=== PATIENT | male | born 1945 | race Caucasian/White ===

== ENCOUNTER 2023-03-22 12:18 | Outpatient (OUT) | payer MEDICARE, OTHER, SELFPAY ==
--- NOTE | 2023-03-22 12:35 | XR_ITS ---
The [address] [address] Patient Name: LAMBERTO MELENDEZ MRN: [id number] date: 1945 Sex: M Assigned Patient Location: RAD Current Patient Location: [facility] Accession/Order Number: [id number] Exam Date: 03/22/2023 12:30 Report Date: 03/22/2023 18:12 At the request of: ARTURO DE LEON Procedure: XR hip LT min 2V EXAM: Left hip HISTORY: . Left hip pain . COMPARISON: None. TECHNIQUE: 2 views. FINDINGS: No fracture or dislocation of left hip is noted. Joint spaces well-maintained. Radiation seed implants are noted overlying the pubic symphysis. XR/XR hip LT min 2V Impression: Negative left hip. Electronically authenticated by: SARAI SALGUERO Date: 03/22/2023 18:12
== END 2023-03-22 12:19 | disposition home or self-care (01) ==
LOC: RAD 12:24
PROVIDERS: PCP Family Medicine; Visit Provider Nurse Practitioner
DX: M25.552 Pain in left hip (principal)
CPT/HCPCS: 73502

== ENCOUNTER 2023-08-03 11:54 | Outpatient (OUT) | payer MEDICARE, OTHER, SELFPAY ==
[2023-08-03 13:27] LABS: Prostate Specific Antigen Dx <0.13 ng/mL (<=4.00)
== END 2023-08-03 11:55 | disposition home or self-care (01) ==
LOC: LAB 11:55
PROVIDERS: PCP Family Medicine; Visit Provider Urology
DX: Z85.46 Personal history of malignant neoplasm of prostate (principal)
CPT/HCPCS: 36415; 84153

== ENCOUNTER 2024-06-28 14:15 | Outpatient (OUT) | payer MEDICARE, OTHER, SELFPAY ==
--- NOTE | 2024-06-28 14:25 | XR_ITS ---
The [address] [address] Patient Name: LAMBERTO MELENDEZ MRN: [id number] date: 1945 Sex: M Assigned Patient Location: LAB Current Patient Location: Accession/Order Number: [id number] Exam Date: 06/28/2024 14:35 Report Date: 06/29/2024 06:36 At the request of: ARTURO DE LEON Procedure: XR knee RT 4V PROCEDURE: XR knee RT 4V HISTORY: Right Knee Pain COMPARISON: None. FINDINGS: BONES:Marked narrowing of the lateral joint space with [id number] articulation. Large periarticular degenerative osteophytes involving the lateral and anterior compartments. No fracture or dislocation.. SOFT TISSUES:No visible soft tissue swelling. EFFUSION:Small joint effusion. OTHER: Atherosclerotic disease. XR/XR knee RT 4V IMPRESSION: 1. Marked degenerative joint disease. No comparison studies. Electronically authenticated by: AYAN COE Date: 06/29/2024 06:36
--- OUTSIDE RECORDS SUMMARY | 2024-06-28 14:39 | XMS_ITS | CCD ---
Author Organization [facility] Care Team Providers Care Gold Leaf Roller Name Role Phone DR ELIE JACOBO Admitting Unavailable JACOBO, DR GASCA Attending Unavailable CAMPA, DR BRYSON Moncada Primary Care Unavailable JACOBO, DR GASCA Consulting Unavailable CAMPA, BRYSON Moncada Primary Care Physician Talib, Eugenia Cho Primary Care Physician Talib, ANDREW Eugenia L Attending Unavailable Talib, ANDREW Cho Attending Unavailable JACOBOElie Attending Unavailable Elie JACOBO Attending Unavailable Talib, ANDREW Cho Attending Unavailable Talib, ACCOUNTS PAYABLE REPRESENTATIVEPieter Cho Attending Unavailable Talib, ACCOUNTS PAYABLE REPRESENTATIVE Eugenia L Attending Unavailable MD Reed Hernandez Attending Unavailable Talib, ACCOUNTS PAYABLE REPRESENTATIVE Eugenia L Attending Unavailable Talib, ACCOUNTS PAYABLE REPRESENTATIVE Eugenia L Attending Unavailable Allergies Allergy Classification Reported Allergen(s) Allergy Type Date of Onset Reaction(s) Facility (2 sources) LORazepam; Translations: [Ativan] Drug Allergy 4 [facility] Repository (5 sources) LORazepam; Translations: [lorazepam] Drug Allergy 4 lethargic, Unknown [facility] Medications Current Medications Medication Drug Class(es) Dates Sig (Normalized) Sig (Original) acetaminophen 325 mg / HYDROcodone bitartrate 7.5 mg oral tablet (2 sources) Opioid Agonist Start: 08-05-2023 take 1 tablet by mouth three times daily [place] 325 mg-7.5 mg oral tablet 1 tab(s), Oral, TID, 90 tab(s), Refill(s) 0, [facility] [id number], 170, cm, 06/21/23 11:26:00 EST, Height/Length Dosing, 77, kg, 06/21/23 11:26:00 EST, Weight Dosing Start Date: 08/05/23 Status: Ordered Start: 06-10-2017 take 1 tablet by jamey th every eight hours as needed for pain [place] 325 mg-7.5 mg oral tablet 1 tab(s), Oral, q8hr as needed for pain, Refill(s) 0 Start Date: 06/10/17 Status: Ordered allopurinol 100 mg oral tablet (2 sources) Xanthine Oxidase Inhibitor Start: 06-21-2023 take 1 tablet by mouth once daily allopurinol 100 mg Tab 100 mg = 1 tab(s), Oral, Daily, # 90 tab(s), Refills(s) 3, Pharmacy: [facility] [id number], 170, cm, 06/21/23 11:26:00 EST, Height/Length Dosing, 77, kg, 06/21/23 11:26:00 EST, Weight Dosing Start Date: 06/21/23 Status: Ordered Start: 06-08-2017 take 1 tablet by jamey th three times daily allopurinol 100 mg Tab 100 mg = 1 tab(s), Oral, TID, # 60 tab(s), Refills(s) 0 Start Date: 06/08/17 Status: Ordered aspirin 81 mg oral tablet (2 sources) Platelet Aggregation Inhibitor, Nonsteroidal Anti-inflammatory Drug Start: 05-15-2019 take 1 mg by mouth once daily aspirin 81 mg oral tablet mg tab(s), Oral, Daily, Refills(s) 0 Start Date: 05/15/19 Status: Ordered folic acid 1 mg oral tablet (2 sources) Start: 06-10-2017 take 1 tablet by mouth once daily folic acid 1 mg Tab 1 mg = 1 tab(s), Oral, Daily, Refills(s) 0 Start Date: 06/10/17 Status: Ordered gabapentin 300 mg oral capsule (2 sources) Anti-epileptic Agent Start: 05-19-2023 take 1 capsule by mouth three times daily gabapentin 300 mg Cap 300 mg = 1 cap(s), Oral, TID, # 270 cap(s), Refills(s) 1, Pharmacy: [facility] [id number], 170, cm, 03/22/23 11:04:00 EDT, Height/Length Dosing, 76.9, kg, 01/06/23 11:42:00 EDT, Weight Dosing Start Date: 05/19/23 Status: Ordered Start: 06-08-2017 take 300 mg by mouth three times daily gabapentin 300 mg, Oral, TID, Refills(s) 0 Start Date: 06/08/17 Status: Ordered magnesium oxide 420 mg oral tablet (2 sources) Start: 06-08-2017 take 1 tablet by mouth three times daily magnesium oxide 420 mg oral tablet 420 mg = 1 tab(s), Oral, TID, Refills(s) 0 Start Date: 06/08/17 Status: Ordered meclizine hydrochloride 25 mg oral tablet (2 sources) Antiemetic Start: 09-16-2022 Start: 06-08-2017 take 25 mg by mouth four times daily as needed for dizziness meclizine 25 mg, Oral, QID, PRN Dizziness, Refills(s) 0 Start Date: 06/08/17 Status: Ordered melatonin 10 mg extended release oral tablet (2 sources) Start: 01-06-2023 take 10 mg by mouth once daily at bedtime melatonin 10 mg, Oral, Once a day (at bedtime), Refills(s) 0 Start Date: 01/06/23 Status: Ordered Start: 06-10-2017 take 5 mg by mouth o nce daily at bedtime melatonin 5 mg, Oral, Once a day (at bedtime), Refills(s) 0 Start Date: 06/10/17 Status: Ordered meloxicam 15 mg oral tablet (2 sources) Nonsteroidal Anti-inflammatory Drug Start: 09-16-2022 Start: 06-08-2017 take 15 mg by mouth once daily meloxicam 15 mg, Oral, Daily, Refills(s) 0 Start Date: 06/08/17 Status: Ordered metaxalone 400 mg oral tablet (1 source) Start: 06-10-2017 take 400 mg by mouth three times daily as needed for pain metaxalone 400 mg, Oral, TID, PRN as needed for pain, Refills(s) 0 Start Date: 06/10/17 Status: Ordered mupirocin 20 mg/ml topical cream (1 source) RNA Synthetase Inhibitor Antibacterial Start: 09-16-2022 mupirocin Top 2% Crm 1 danielle, Topical, TID, 15 gram, Refill(s) 0 Start Date: 09/16/22 Status: Ordered omeprazole 20 mg delayed release oral capsule (2 sources) Proton Pump Inhibitor Start: 09-16-2022 Start: 06-08-2017 take 20 mg by mouth once daily omeprazole 20 mg, Oral, Daily, Refills(s) 0 Start Date: 06/08/17 Status: Ordered pravastatin sodium 10 mg oral tablet (2 sources) HMG-CoA Reductase Inhibitor Start: 04-21-2023 take 1 tablet by mouth once daily pravastatin 10 mg Tab 10 mg = 1 tab(s), Oral, Daily, # 90 tab(s), Refills(s) 1, Pharmacy: [facility] [id number], 170, cm, 03/22/23 11:04:00 EDT, Height/Length Dosing, 76.9, kg, 01/06/23 11:42:00 EDT, Weight Dosing Start Date: 04/21/23 Status: Ordered Start: 06-08-2017 take 20 mg by mouth once daily at bedtime pravastatin 20 mg, Oral, Once a day (at bedtime), Refills(s) 0 Start Date: 06/08/17 Status: Ordered solifenacin succinate 10 mg oral tablet (1 source) Cholinergic Muscarinic Antagonist Start: 08-10-2022 End: 08-05-2023 take 1 tablet by mouth once daily Vesicare 10 mg Tab 10 mg = 1 tab(s), Oral, Daily, X 30 day(s), # 30 tab(s), Refills(s) 11, Pharmacy: [facility] [id number], 173, cm, 08/10/22 15:37:00 EST, Height/Length Dosing, 77.5, kg, 08/10/22 15:37:00 EST, Weight Dosing Start Date: 08/10/22 Stop Date: 08/05/23 Status: Ordered tamsulosin hydrochloride 0.4 mg oral capsule (2 sources) alpha-Adrenergic Melina Start: 09-16-2022 take 1 capsule by mouth once daily tamsulosin 0.4 mg Cap 0.4 mg = 1 cap(s), Oral, Daily, # 90 cap(s), Refills(s) 0 Start Date: 09/16/22 Status: Ordered Start: 06-10-2017 take 1 capsule by [facility] once daily at bedtime tamsulosin 0.4 mg Cap 0.4 mg = 1 cap(s), Oral, Once a day (at bedtime), Refills(s) 0 Start Date: 06/10/17 Status: Ordered tiZANidine 4 mg oral tablet (1 source) Central alpha-2 Adrenergic Agonist Start: 07-20-2023 tiZANidine 4 mg Tab 4 mg = 1 tab(s), Oral, q8hr, 60 tab(s), # 60 tab(s), Refills(s) 1, Pharmacy: [facility] [id number], 170, cm, 06/21/23 11:26:00 EST, Height/Length Dosing, 77, kg, 06/21/23 11:26:00 EST, Weight Dosing Start Date: 07/20/23 Status: Ordered verapamil hydrochloride 240 mg extended release oral tablet (2 sources) Calcium Channel Melina Start: 05-19-2023 take 1 tablet by mouth once daily verapamil 240 mg ER Tab 240 mg = 1 tab(s), Oral, Daily, # 90 tab(s), Refills(s) 0, Pharmacy: [facility] [id number], 170, cm, 03/22/23 11:04:00 EDT, Height/Length Dosing, 76.9, kg, 01/06/23 11:42:00 EDT, Weight Dosing Start Date: 05/19/23 Status: Ordered Start: 06-08-2017 take 240 mg by mouth once daily at bedtime verapamil 240 mg, Oral, Once a day (at bedtime), Refills(s) 0 Start Date: 06/08/17 Status: Ordered vibegron 75 MG Oral Tablet [Gemtesa] (1 source) Start: 08-13-2023 take 1 tablet by mouth once daily Gemtesa 75 mg oral tablet 75 mg = 1 tab(s), Oral, Daily, # 30 tab(s), Refills(s) 11, Pharmacy: [facility] [id number], 173, cm, 08/13/23 11:43:00 EST, Height/Length Dosing, 77, kg, 08/13/23 11:43:00 EST, Weight Dosing Start Date: 08/13/23 Status: Ordered vitamin B12 (2 sources) Vitamin B12 Start: 06-10-2017 Vitamin B12 1, 000 microgram, Oral, Daily, Take 1 tab Wednesday, Wednesday, Refills(s) 0 Start Date: 06/10/17 Status: Ordered Start: 06-10-2017 Vitamin B12 1, 000 microgram, Oral, Daily, Refills(s) 0 Start Date: 06/10/17 Status: Ordered Completed/Discontinued Medications Medication Drug Class(es) Dates Sig (Normalized) Sig (Original) cholecalciferol 0.025 mg oral capsule (2 sources) Vitamin D Start: 06-08-2017 take 1 capsule by mouth once daily cholecalciferol 1000 intl units oral capsule 1,000 International_Unit = 1 cap(s), Oral, Daily, Refills(s) 0 Start Date: 06/08/17 Status: Ordered losartan potassium 100 mg oral tablet (2 sources) Angiotensin 2 Receptor Melina Start: 09-16-2022 Start: 06-08-2017 take 50 mg by mouth once daily losartan 50 mg, Oral, Daily, Refills(s) 0 Start Date: 06/08/17 Status: Ordered methotrexate 2.5 mg oral tab let (2 sources) Folate Analog Metabolic Inhibitor Start: 09-16-2022 Start: 06-08-2017 take 2.5 mg by mouth every week methotrexate 2.5 mg, Oral, qWeek, Refills(s) 0 Start Date: 06/08/17 Status: Ordered Problems Active Problems Problem Classification Problem Date Documented Date Episodic/Chronic Cancer of prostate (2 sources) Malignant tumor of prostate 06-10-2017 Chronic Cancer of prostate (4 sources) Personal history of malignant neoplasm of prostate; Translations: [History of malignant neoplasm of prostate] Onset: 08-10-2022 Episodic Disorders of lipid metabolism (1 source) Mixed hyperlipidemia Onset: 09-16-2022 09-16-2022 Chronic Esophageal disorders (1 source) Gastroesophageal reflux disease without esophagitis Onset: 09-16-2022 09-16-2022 Chronic Genitourinary symptoms and ill-defined conditions (2 sources) Urge incontinence; Translations: [Urge incontinence of urine] Onset: 08-13-2023 Chronic Genitourinary symptoms and ill-defined conditions (4 sources) Increased frequency of urination; Translations: [Nocturia] 05-15-2019 Episodic Gout and other crystal arthropathies (1 source) Chronic gout without tophus Onset: 09-16-2022 09-16-2022 Chronic Hyperplasia of prostate (4 sources) Benign prostatic hypertrophy with outflow obstruction; Translations: [Benign prostatic hyperplasia with lower urinary tract symptoms] Onset: 08-10-2022 Chronic Other connective tissue disease (2 sources) H/O: osteoarthritis 06-10-2017 Episodic Other connective tissue disease (2 sources) H/O: rheumatoid arthritis 06-10-2017 Episodic Other nervous system disorders (2 sources) Post-surgery back pain 06-10-2017 Episodic Other non-traumatic joint disorders (1 source) Hip pain 03-22-2023 Episodic Other nutritional; endocrine; and metabolic disorders (1 source) Overweight 10-21-2022 Episodic Other nutritional; endocrine; and metabolic disorders (1 source) Overweight in adulthood with body mass index of 25 or more but less than 30 10-21-2022 Episodic Rheumatoid arthritis and related disease (4 sources) Ankylosing spondylitis; Translations: [Ankylosing spondylitis of multiple sites in spine] Onset: 06-10-2017 06-10-2017 Chronic Spondylosis; intervertebral disc disorders; other back problems (2 sources) Lumbosacral spondylosis without myelopathy 06-10-2017 Chronic Substance-related disorders (2 sources) Smoker 09-26-2019 Chronic Comment on above: Added secondary to d ocumentation in Social History. Transient cerebral ischemia (2 sources) Transient cerebral ischemia 06-10-2017 Chronic Past or Other Problems Problem Classification Problem Date Documented Date Episodic/Chronic Other circulatory disease (1 source) History of cerebrovascular disease Onset: 09-16-2022 09-16-2022 Episodic Unclassified (2 sources) Local anesthetic sacral epidural block 06-10-2017 Unclassified (1 source) Patient encounter status 01-06-2023 Results Test Name Value Interpretation Reference Range Facility Ambulatory Visit Summaryon 0 04-04-2024 Ambulatory Visit Summary Ambulatory Visit Summary FRANK MENDES :1945 Visit Date:04/04/2024 Ambulatory Visit Instructions Your Diagnosis Ankylosing spondylitis of multiple sites in spine Spondylosis of lumbar region without myelopathy or radiculopathy Former smoker BMI 28.0-28.9,adult Excess weight Your Care Team Attending Physician - Eugenia Beach Primary Care Physician - Eugenia Beach This Is Your Medications List acetaminophen-hydroco done ([place] 325 mg-7.5 mg oral tablet) allopurinol (allopurinol 100 mg Tab) aspirin (aspirin 81 mg oral tablet) cholecalciferol (cholecalciferol 1000 intl units oral capsule) cyanocobalamin (Vitamin B12) folic acid (folic acid 1 mg Tab) gabapentin (gabapentin 300 mg Cap) losartan (losartan 100 mg Tab) magnesium oxide meclizine (meclizine 25 mg Tab) melatonin meloxicam (meloxicam 15 mg Tab) methotrexate (methotrexate 2.5 mg Tab) omeprazole (omeprazole 20 mg Cap-DR) pravastatin (pravastatin 10 mg Tab) tamsulosin (tamsulosin 0.4 mg Cap) tizanidine (tiZANidine 4 mg Tab) verapamil (verapamil 240 mg ER Tab) Procedures Performed Caudal epidural (01/23/2020), Radiofrequency ablation of medial branch of lumbar nerve using fluoroscopic guidance (11/28/2019), Injection of sacroiliac joint using fluoroscopic guidance (07/25/2019), Injection of hip using fluoroscopic guidance (06/19/2019), Radiofrequency ablation of medial branch of lumbar nerve using fluoroscopic guidance (11/15/2018), Epidural injection of lumbar spine using fluoroscopic guidance (09/12/2018), Cataract fragments in the eye post cataract surgery (07/26/2018), Small bowel resection (06/24/2018), Right hip injection (06/13/2018), bowel resection (04/24/2018), Radiofrequency ablation of medial branch of lumbar nerve using fluoroscopic guidance (04/18/2018), Left Ischial Bursa Injection (07/26/2017), Radiofrequency ablation of medial branch of lumbar nerve using fluoroscopic guidance (06/14/2017), Brachytherapy (05/24/2014), Transrectal biopsy of prostate using ultrasound (US) guidance (02/02/2014), achilles tendon repair, Achilles tendon repair, Appendectomy, Arthroscope, cataract surgery, Caudal epidural, Laminectomy, lumbar facet medial branch block, retina repair, right wirist, rotator cuff repair, Rotator cuff repair. Discharge Vitals Temperature (Temporal Artery) 36.6 ?C Heart Rate (Peripheral) 96 Respiratory Rate 18 Blood Pressure 128/82 Height 168.0 cm Height 66 in Weight 81.2 kg Weight 178.64 lb BMI 28.77 What to do next Scheduled Follow-Up Appointments Wednesday 1:40 PM EST With: Eugenia Beach Where: [address] [id number]- Wednesday 11:30 AM EST With: Elie JACOBO MD Where: [facility] [address] [place] [address]- Wednesday 11:00 AM EDT With: Where: [address] [address]- Medications What How Much When Instructions New pravastatin (pravastatin 10 mg Tab) 1 Tablets By Mouth Every day Refills: [address] [facility] [id number] Unchanged acetaminophen-hydroco done ([place] 325 mg-7.5 mg oral tablet) 1 Tablets By Mouth 3 times a day 30 day supply Unchanged allopurinol (allopurinol 100 mg Tab) 1 Tablets By Mouth Every day Unchanged aspirin (aspirin 81 mg oral tablet) By Mouth Every day Unchanged cholecalciferol (cholecalciferol 1000 intl units oral capsule) 1 Capsules By Mouth Every day Unchanged cyanocobalamin (Vitamin B12) 1,000 Microgram By Mouth Every day Take 1 tab Wednesday, Wednesday Unchanged folic acid (folic acid 1 mg Tab) 1 Tablets By Mouth Every day Unchanged gabapentin (gabapentin 300 mg Cap) 1 Capsules By Mouth 3 times a day Unchanged losartan (losartan 100 mg Tab) 100 Unknown, BY MOUTH, 2 Refill(s) Unchanged magnesium oxide By Mouth one tab once per day per pt Unchanged meclizine (meclizine 25 mg Tab) 25 Unknown, BY MOUTH Unchanged melatonin 10 Milligram By Mouth Once a day (at bedtime) Unchanged meloxicam (meloxicam 15 mg Tab) 15 Unknown, BY MOUTH, 3 Refill(s) Unchanged methotrexate (methotrexate 2.5 mg Tab) 25 Unknown, BY MOUTH, 2 Refill(s) Take every Wednesday Unchanged omeprazole (omeprazole 20 mg Cap-DR) 20 Unknown, BY MOUTH, 3 Refill(s) Unchanged tamsulosin (tamsulosin 0.4 mg Cap) 1 Capsules By Mouth Every day Unchanged tizanidine (tiZANidine 4 mg Tab) 1 Tablets By Mouth Every 8 hours Duration: 90 Days 60 tab(s) Unchanged verapamil (verapamil 240 mg ER Tab) 1 Tablets By Mouth Every day Duration: 90 Days Pharmacy Information [facility] [id number]: [address] [place], [place] [id number] [phone] Allergies Ativan (lethargic) LORazepam (Unknown) Problems Ongoing - Any problem that you a (more content not included)... Normal [facility] Family Medicine Office/Clini c Noteon 04-04-2024 Family Medicine Office/Clinic Note Family Medicine Office/Clinic Note HPI Staff Frank is a 78 year old female presenting with 3 month med check for pain medication-medication agreement up to date Needs refills on Pravastatin 10 mg Pain today is 4-5 History of Present Illness pt presents today for 3 month med check. medication agreement up to date. will need updated in June Review of Systems PHQ Score Initial Depression Screen Score: 0 SCORE Physical Exam Vitals & Measurements T: 36.6 ?C(Temporal Artery) HR: 96(Peripheral) RR: 18 BP: 128/82 SpO2: 99% HT: 66 in HT: 168.0 cm WT: 81.2 kg WT: 178.64 lb BMI: 28.77 General: alert, no acute distress ENMT: oral mucosa moist, no pharyngeal erythema or exudate Cardiovascular: regular rate and rhythm, normal peripheral perfusion Respiratory: Lungs CTA, respirations non labored Extremities: no deformity, no trauma Neurological: oriented x 4, LOC appropriate for age, CN II-XII intact, motor strength equal & normal bilaterally, speech normal Assessment/Plan 1. Ankylosing spondylitis of multiple sites in spine (M45.0: Ankylosing spondylitis of multiple sites in spine) pt is doing well. managing pain as well as he can. takes his time doing physical activities like mowing grass. will do drug screen and update medication agreement at next visit. will need refill on pravastatin. 2. Spondylosis of lumbar region without myelopathy or radiculopathy (M47.816: Spondylosis without myelopathy or radiculopathy, lumbar region) see above 3. Former smoker (Z87.891: Personal history of nicotine dependence) continue not smoking 4. BMI 28.0-28.9,adult (Z68.28: Body mass index [BMI] 28.0-28.9, adult) BMI education given 5. Excess weight (E66.3: Overweight) see above Orders: pravastatin, 10 mg = 1 tab(s), Oral, Daily, # 90 tab(s), Refills(s) 3, [facility] [id number], 168, cm, 04/04/24 10:22:00 EDT, Height/Length Dosing, 81.2, kg, 04/04/24 10:22:00 EDT, Weight Dosing pravastatin, 10 mg = 1 tab(s), Oral, Daily, # 90 tab(s), Refills(s) 1, [facility] [id number], 173, cm, 09/20/23 10:33:00 EDT, Height/Length Dosing, 80, kg, 09/20/23 10:33:00 EDT, Weight Dosing Follow-up No qualifying data available Problem List/Past Medical History Ongoing Ankylosing spondylitis of multiple sites in spine BMI 29.0-29.9,adult 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 Failed back syndrome GERD without esophagitis H/O: osteoarthritis History of prostate cancer Hx of TIA (transient ischemic attack) and stroke Hypertension Left hip pain Mixed hyperlipidemia Nocturia Over weight Spondylosis of lumbar region without myelopathy or radiculopathy Urge incontinence Urinary frequency Historical Annual visit for general adult medical examination with abnormal findings - Ankylosing spondylitis BMI 26.0-26.9,adult Cancer of prostate Caudal epidural H/O: rheumatoid arthritis Smoker TIA Procedure/Surgical History Caudal epidural (01/23/2020), Radiofrequency ablation of medial branch of lumbar nerve using fluoroscopic guidance (11/28/2019), Injection of sacroiliac joint using fluoroscopic guidance (07/25/2019), Injection of hip using fluoroscopic guidance (06/19/2019), Radiofrequency ablation of medial branch of lumbar nerve using fluoroscopic guidance (11/15/2018), Epidural injection of lumbar spine using fluoroscopic guidance (09/12/2018), Cataract fragments in the eye post cataract surgery (07/26/2018), Small bowel resection (06/24/2018), Right hip injection (06/13/2018), bowel resection (04/24/2018), Radiofrequency ablation of medial branch of lumbar nerve using fluoroscopic guidance (04/18/2018), Left Ischial Bursa Injection (07/26/2017), Radiofrequency ablation of medial branch of lumbar nerve using fluoroscopic guidance (06/14/2017), Brachytherapy (05/24/2014), Transrectal biopsy of prostate using ultrasound (US) guidance (02/02/2014), achilles tendon repair, Achilles tendon repair, Appendectomy, Arthroscope, cataract surgery, Caudal epidural, Laminectomy, lumbar facet medial branch block, retina repair, right wirist, rotator cuff repair, Rotator cuff repair. Medications allopurinol 100 mg Tab, 100 mg= 1 tab(s), Oral, Daily, 3 refills aspirin 81 mg oral tablet, Oral, Daily cholecalciferol 1000 intl units oral capsule, 1000 International_Unit= 1 cap(s), Oral, Daily folic acid 1 mg Tab, 1 mg= 1 tab(s), Oral, Daily gabapentin 300 mg Cap, 300 mg= 1 cap(s), Oral, TID, 1 refills losartan 100 mg Tab magnesium oxide, Oral meclizine 25 mg Tab melatonin, 10 mg, Oral, Once a day (at bedtime) meloxicam 15 mg Tab methotrexate 2.5 mg Tab [place] 325 mg-7.5 mg oral tablet, 1 tab(s), Oral, TID omeprazole 20 mg Cap-DR pravastatin 10 mg Tab, 10 mg= 1 tab(s), Oral, Daily, 3 refills tamsulosin 0.4 mg Cap, 0.4 mg= 1 cap(s), Oral, Daily tiZANidine 4 mg Tab, 4 mg= 1 tab(s), Oral, q8hr, 3 refills verapamil 240 mg ER Tab, 240 mg= 1 tab(s), Oral, Daily, 3 refills Vitamin B (more content not included)... Normal [facility] Comment on above: Result Comment: Elec tronically Signed By: Eugenia Beach\.christianne\Date and Time Signed: 04/04/24 11:47 EDT Ambulatory Visit Summaryon 0 01-04-2024 Ambulatory Visit Summary FRANK MENDES :1945 Visit Date:01/04/2024 Ambulatory Visit Instructions Your Diagnosis Hypertension Ankylosing spondylitis of multiple sites in spine Mixed hyperlipidemia BMI 29.0-29.9,adult Non-smoker Your Care Team Attending Physician - Eugenia Beach Primary Care Physician - Eugenia Beach This Is Your Medications List acetaminophen-hydroco done ([place] 325 mg-7.5 mg oral tablet) allopurinol (allopurinol 100 mg Tab) aspirin (aspirin 81 mg oral tablet) cholecalciferol (cholecalciferol 1000 intl units oral capsule) cyanocobalamin (Vitamin B12) folic acid (folic acid 1 mg Tab) gabapentin (gabapentin 300 mg Cap) losartan (losartan 100 mg Tab) magnesium oxide meclizine (meclizine 25 mg Tab) melatonin meloxicam (meloxicam 15 mg Tab) methotrexate (methotrexate 2.5 mg Tab) omeprazole (omeprazole 20 mg Cap-DR) pravastatin (pravastatin 10 mg Tab) tamsulosin (tamsulosin 0.4 mg Cap) tizanidine (tiZANidine 4 mg Tab) verapamil (verapamil 240 mg ER Tab) Procedures Performed Caudal epidural (01/23/2020), Radiofrequency ablation of medial branch of lumbar nerve using fluoroscopic guidance (11/28/2019), Injection of sacroiliac joint using fluoroscopic guidance (07/25/2019), Injection of hip using fluoroscopic guidance (06/19/2019), Radiofrequency ablation of medial branch of lumbar nerve using fluoroscopic guidance (11/15/2018), Epidural injection of lumbar spine using fluoroscopic guidance (09/12/2018), Cataract fragments in the eye post cataract surgery (07/26/2018), Small bowel resection (06/24/2018), Right hip injection (06/13/2018), bowel resection (04/24/2018), Radiofrequency ablation of medial branch of lumbar nerve using fluoroscopic guidance (04/18/2018), Left Ischial Bursa Injection (07/26/2017), Radiofrequency ablation of medial branch of lumbar nerve using fluoroscopic guidance (06/14/2017), Brachytherapy (05/24/2014), Transrectal biopsy of prostate using ultrasound (US) guidance (02/02/2014), achilles tendon repair, Achilles tendon repair, Appendectomy, Arthroscope, cataract surgery, Caudal epidural, Laminectomy, lumbar facet medial branch block, retina repair, right wirist, rotator cuff repair, Rotator cuff repair. What to do next Scheduled Follow-Up Appointments Wednesday 10:20 AM EDT With: Eugenia Beach Where: [facility] Invalid Interpretation Code [address] [place] [address] [place] [address]- \.br\ Wednesday 11:00 AM EDT \.br\ With:\.br\ Where: [facility] Office/Clini c Noteon 01-04-2024 Family Medicine Office/Clinic Note Chief Complaint Medicare Wellness Visit Subsequent Review of Systems PHQ Score Initial Depression Screen Score: 0 SCORE Physical Exam Vitals & Measurements HR: 90(Peripheral) RR: 16 BP: 128/78 SpO2: 95% HT: 168 cm HT: 66 in WT: 82.3 kg WT: 181.06 lb BMI: 29.16 Assessment/Plan 1. Annual visit for general adult medical examination without abnormal findings (Z00.00: Encounter for general adult medical examination without abnormal findings) Discussed all the current AHRQ USPSTF?s recommendations for preventative services and all current CDC recommended immunizations, relevant risk recommendations and the following patient brochures were given. Reviewed Medicare Prevention Services checklist. CDC-Falls Prevention and home safety screening reviewed. Patient denies any falls in last 12 months, voices no worry about falling. Exhibits no problems with sitting, standing or ambulation. Patient aware with keeping walk way area free of clutter to prevent tripping and/or falling. [place] Advance Directives reviewed. Patient states he does not have Advance Directives, education given. Offered educational materials, patient states he does not think he would fill it out but will think about it. Encouraged to bring into office for scanning into chart if he does decide to fill them out. Patient denies any problems with ADL?s and Instrumental ADL?s. Cognitive screening completed with memory and clock face drawing. No deficits noted. Immunization record reviewed, discussed Shingrix vaccine with educational handout and availability. COVID vaccines have not been administered. Allergies and medications reviewed and up to date. No concerns with taking medication as prescribed. Reviewed OTC medications, medication list up to date. Blood tests were reviewed: Patient states he recently had labs done at the [facility] in [place]. Records requested. No concerns with bowel/ bladder. Colonoscopy: Aged out. Reviewed pain symptoms : chronic back, hips, leg pain, rates a 3 on 1-10 scale. Taking [place], Tylenol and Lidocaine patches as needed, states these are effective. Follows with Rheumatology at the [facility] in [place], [place]. Reviewed all outside providers that patient follows. Last visit summary notes available in chart and/or have been requested. Patient declines any signs or symptoms of depression at this time. 8 minutes spent with screening and documentation. PHQ2 screening score 0. Patient denies alcohol use, denies concerns. 8 minutes spent with screening and documentation. Audit score 0. Follow up scheduled with PCP, today. AWV has been scheduled, 01/01/25. 2. Ankylosing spondylitis of multiple sites in spine (M45.0: Ankylosing spondylitis of multiple sites in spine) Patient sees Rheumatology with the CT clinic in [place], [place] every 6 months. Visit summary notes requested. 3. BPH with urinary obstruction (N40.1: Benign prostatic hyperplasia with lower urinary tract symptoms) Patient denies any abnormal difficulty with stream, stopping, starting or dribbling. No complaints of pain, blood in urine or urination retention issues. Follows with Urology, Dr. Jacobo, yearly. Last office visit 08/13/23. 4. Hypertension (I10: Essential (primary) hypertension) Patient taking medications daily as directed, BP monitored at home with <140/90 results. Patient does voice understanding with signs and symptoms to monitor for. HTN stoplight handout reviewed with importance of keeping BP <140/90 to prevent increased cardiovascular risks. DASH dietary handout reviewed with importance to lower salt intake, eat more chicken, fish and lean white meats. Follow up with PCP. 5. GERD without esophagitis (K21.9: Gastro-esophageal reflux disease without esophagitis) Patient denies any concerns. Takes Omeprazole daily as directed, states effective. Encouraged to avoid spicy or acidic foods, to remain upright 30 min. after eating and avoid eating late at night. Will continue to follow up with PCP as needed. 6. Mixed hyperlipidemia (E78.2: Mixed hyperlipidemia) Patient encouraged to eat a diet that is low in saturated fats. Stressed importance of losing weight as being overweight does produce more lipids. Monitor alcohol intake and avoid smoking. Risks may also increase with a family history of hyperlipidemia. Patient voices understanding with healthy dietary choices to reduce risk factors associated with CVA. Taking statin medication daily. Will continue to follow up with labs as directed. 7. Over weight (E66.3: Overweight) A combination of diet and exercise can help you lose weight. Discussed weight loss benefits to dietary management and overall health with increased cardiovascular risks associated with waist measurement female>35 men>40. Reminded of importance to work on lowering current body weight with healthy dietary intake choices and portion control. Reviewed goals and patients readiness with needing to make a lifestyle change. Will work on increasing daily activity to prevent further weight (more content not included)... Normal [facility] Comment on above: Result Comment: Elec tronically Signed By: Eugenia Beach\.br\Date and Time Signed: 01/04/24 12:59 EDT\.br\Electronically Co-Signed By: Jil Zimmerman LPN\.br\Date and Time Co-Signed: 01/04/24 12:06 EDT Family Medicine Office/Clinic Note HPI Staff Frank is a 78 year old male presenting follow up from medication wellness Pt updated medication agreement acetaminophen-hydroco done and does need refill History of Present Illness pt presents for 3 month med check. had AMW visit today as well Physical Exam General: alert, no acute distress ENMT: oral mucosa moist, no pharyngeal erythema or exudate Cardiovascular: regular rate and rhythm, normal peripheral perfusion Respiratory: Lungs CTA, respirations non labored Extremities: no deformity, no trauma Neurological: oriented x 4, LOC appropriate for age, CN II-XII intact, motor strength equal & normal bilaterally, speech normal uses can for ambulation Assessment/Plan 1. Hypertension (I10: Essential (primary) hypertension) meds refilled. bP at goal today 2. Ankylosing spondylitis of multiple sites in spine (M45.0: Ankylosing spondylitis of multiple sites in spine) medication agreement updated today 3. Mixed hyperlipidemia (E78.2: Mixed hyperlipidemia) pt had labs at [facility] will obtain those for his record 4. BMI 29.0-29.9,adult (Z68.29: Body mass index [BMI] 29.0-29.9, adult) BMI education given 5. Non-smoker (Z78.9: Other specified health status) continue not smoking Orders: tizanidine, 4 mg = 1 tab(s), Oral, q8hr, 60 tab(s), # 60 tab(s), Refills(s) 3, Pharmacy: [facility] [id number], 173, cm, 09/20/23 10:33:00 EDT, Height/Length Dosing, 80, kg, 09/20/23 10:33:00 EDT, Weight Dosing tizanidine, 4 mg = 1 tab(s), Oral, q8hr, 60 tab(s), X 90 day(s), # 270 tab(s), Refills(s) 3, Pharmacy: [facility] [id number], 168, cm, 01/04/24 11:11:00 EDT, Height/Length Dosing, 82.3, kg, 01/04/24 11:11:00 EDT, Weight Dosing verapamil, 240 mg = 1 tab(s), Oral, Daily, X 90 day(s), # 90 tab(s), Refills(s) 3, Pharmacy: [facility] [id number], 168, cm, 01/04/24 11:11:00 EDT, Height/Length Dosing, 82.3, kg, 01/04/24 11:11:00 EDT, Weight Dosing verapamil, 240 mg = 1 tab(s), Oral, Daily, # 90 tab(s), Refills(s) 1, Pharmacy: [facility] [id number], 173, cm, 08/13/23 11:43:00 EST, Height/Length Dosing, 77, kg, 08/13/23 11:43:00 EST, Weight Dosing Follow-up No qualifying data available Problem List/Past Medical History Ongoing Ankylosing spondylitis of multiple sites in spine BMI 26.0-26.9,adult 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 Failed back syndrome GERD without esophagitis H/O: osteoarthritis History of prostate cancer Hx of TIA (transient ischemic attack) and stroke Hypertension Left hip pain Mixed hyperlipidemia Nocturia Over weight Spondylosis of lumbar region without myelopathy or radiculopathy Urge incontinence Urinary frequency Historical Annual visit for general adult medical examination with abnormal findings - Ankylosing spondylitis Cancer of prostate Caudal epidural H/O: rheumatoid arthritis Smoker TIA Procedure/Surgical History Caudal epidural (01/23/2020), Radiofrequency ablation of medial branch of lumbar nerve using fluoroscopic guidance (11/28/2019), Injection of sacroiliac joint using fluoroscopic guidance (07/25/2019), Injection of hip using fluoroscopic guidance (06/19/2019), Radiofrequency ablation of medial branch of lumbar nerve using fluoroscopic guidance (11/15/2018), Epidural injection of lumbar spine using fluoroscopic guidance (09/12/2018), Cataract fragments in the eye post cataract surgery (07/26/2018), Small bowel resection (06/24/2018), Right hip injection (06/13/2018), bowel resection (04/24/2018), Radiofrequency ablation of medial branch of lumbar nerve using fluoroscopic guidance (04/18/2018), Left Ischial Bursa Injection (07/26/2017), Radiofrequency ablation of medial branch of lumbar nerve using fluoroscopic guidance (06/14/2017), Brachytherapy (05/24/2014), Transrectal biopsy of prostate using ultrasound (US) guidance (02/02/2014), achilles tendon repair, Achilles tendon repair, Appendectomy, Arthroscope, cataract surgery, Caudal epidural, Laminectomy, lumbar facet medial branch block, retina repair, right wirist, rotator cuff repair, Rotator cuff repair. Medications allopurinol 100 mg Tab, 100 mg= 1 tab(s), Oral, Daily, 3 refills aspirin 81 mg oral tablet, Oral, Daily cholecalciferol 1000 intl units oral capsule, 1000 International_Unit= 1 cap(s), Oral, Daily folic acid 1 mg Tab, 1 mg= 1 tab(s), Oral, Daily gabapentin 300 mg Cap, 300 mg= 1 cap(s), Oral, TID, 1 refills losartan 100 mg Tab magnesium oxide, Oral meclizine 25 mg Tab melatonin, 10 mg, Oral, Once a day (at bedtime) meloxicam 15 mg Tab methotrexate 2.5 mg Tab [place]chorage 325 mg-7.5 mg oral tablet, 1 tab(s), Oral, TID omeprazole 20 mg Cap-DR pravastatin 10 mg Tab, 10 mg= 1 tab(s), Oral, Daily, 1 refills tamsulosin 0.4 mg Cap, 0.4 mg= 1 cap(s), Oral, Daily tiZANidine 4 mg Tab, 4 mg= 1 tab(s), Oral, q8hr, 3 refills verapamil 240 mg ER Tab, 240 mg= 1 tab(s), Oral, Daily, 3 refills Vitamin B12, 1000 mcg, Oral, Daily Allergies Ativan (lethargic) LORazep (more content not included)... Normal [facility] Comment on above: Result Comment: Elec tronically Signed By: Eugenia Beach\.br\Date and Time Signed: 01/04/24 11:42 EDT Medication Consenton 024 Medication Consent [id number] .00TIFF Normal [facility] Patient Educationon 01-04-20 24 Patient Education Caregiving Advance Directive Advance directives are legal documents that allow you to make decisions about your health care and medical treatment in case you become unable to communicate for yourself. Advance directives let your wishes be known to family, friends, and health care providers. Discussing and writing advance directives should happen over time rather than all at once. Advance directives can be changed and updated at any time. There are different types of advance directives, such as: ? Medical power of staff attorney. ? Living will. ? Do not resuscitate (DNR) order or do not attempt resuscitation (DNAR) order. Health care proxy and medical power of staff attorney A health care proxy is also called a health care agent. This person is appointed to make medical decisions for you when you are unable to make decisions for yourself. Generally, people ask a trusted friend or family member to act as their proxy and represent their preferences. Make sure you have an agreement with your trusted person to act as your proxy. A proxy may have to make a medical decision on your behalf if your wishes are not known. A medical power of staff attorney, also called a durable power of staff attorney for health care, is a legal document that names your health care proxy. Depending on the laws in your state, the document may need to be: ? Signed. ? Notarized. ? Dated. ? Copied. ? Witnessed. ? Incorporated into your medical record. You may also want to appoint a trusted person to manage your money in the event you are unable to do so. This is called a durable power of staff attorney for finances. It is a separate legal document from the durable power of staff attorney for health care. You may choose your health care proxy or someone different to act as your agent in money matters. If you do not appoint a proxy, or there is a concern that the proxy is not acting in your best interest, a court may appoint a guardian to act on your behalf. Living will A living will is a set of instructions that state your wishes about medical care when you cannot express them yourself. Health care providers should keep a copy of your living will in your medical record. You may want to give a copy to family members or friends. To alert caregivers in case of an emergency, you can place a card in your wallet to let them know that you have a living will and where they can find it. A living will is used if you become: ? Terminally ill. ? Disabled. ? Unable to communicate or make decisions. The following decisions should be included in your living will: ? To use or not to use life support equipment, such as dialysis machines and breathing machines (ventilators). ? Whether you want a DNR or DNAR order. This tells health care providers not to use cardiopulmonary resuscitation (CPR) if breathing or heartbeat stops. ? To use or not to use tube feeding. ? To be given or not to be given food and fluids. ? Whether you want comfort (palliative) care when the goal becomes comfort rather than a cure. ? Whether you want to donate your organs and tissues. A living will does not give instructions for distributing your money and property if you should pass away. DNR or DNAR A DNR or DNAR order is a request not to have CPR in the event that your heart stops beating or you stop breathing. If a DNR or DNAR order has not been made and shared, a health care provider will try to help any patient whose heart has stopped or who has stopped breathing. If you plan to have surgery, talk with your health care provider about how your DNR or DNAR order will be followed if problems occur. What if I do not have an advance directive? Some states assign family decision makers to act on your behalf if you do not have an advance directive. Each state has its own laws about advance directives. You may want to check with your health care provider, staff attorney, or state construction sales representative about the laws in your state. Summary ? Advance directives are legal documents that allow you to make decisions about your health care and medical treatment in case you become unable to communicate for yourself. ? The process of discussing and writing advance directives should happen over time. You can change and update advance directives at any time. ? Advance directives may include a medical power of staff attorney, a living will, and a DNR or DNAR order. This information is not intended to replace advice given to you by your health care provider. Make sure you discuss any questions you have with your health care provider. Document Revised: 04/01/2021 Document Reviewed: 04/01/2021 [employer] Patient Education ? 2022 [employer]. Nutrition DASH Eating Plan DASH stands for Dietary Approaches to Stop Hypertension. The DASH eating plan is a healthy eating plan that has been shown to: ? Reduce high blood pressure (hypertension). ? Reduce your risk for type 2 diabetes, heart disease, and stroke. ? Help with weight loss. (more content not included)... Normal [facility] Screenson 01-04-2024 Screens [id number] .00TIFF Normal [facility] Family Medicine Office/Clini c Noteon 09-20-2023 Family Medicine Office/Clinic Note HPI Staff Frank is a 78 year old male presenting for 3 month follow up Pain characteristics: Pain location: Ankylosing spondylosis lower back, left hip and right knee Intensity:8/10 when working Medication used:Hydrocodone Opioids prescribed: Hydrocodone Medication agreement UTD: signed 06/21/23 Would like you to look on right eye noticed 1 month ago a bump on eye. Intermittent burning and watering more does have some shooting pain. Does have appointment with Dr Gould in november. needs refills on Tizanidine, pravastatin History of Present Illness pt presents today for 3 month follow up on pain medication. will update medication agreement at next visit Review of Systems PHQ Score Initial Depression Screen Score: 0 SCORE ROS - Provider Constitutional: no fever, no chills, no sweats, no fatigue Respiratory: no shortness of breath, no cough, no orthopnea, no wheezing. Cardiovascular: no chest pain, no palpitations, no edema. Neurologic: no headache, no dizziness, no numbness, no weakness. Physical Exam Vitals & Measurements HR: 82(Peripheral) RR: 18 BP: 118/66 HT: 68 in HT: 173 cm WT: 80.0 kg WT: 176 lb BMI: 26.73 General: alert, no acute distress ENMT: oral mucosa moist, no pharyngeal erythema or exudate Cardiovascular: regular rate and rhythm, normal peripheral perfusion Respiratory: Lungs CTA, respirations non labored Extremities: no deformity, no trauma Neurological: oriented x 4, LOC appropriate for age, CN II-XII intact, motor strength equal & normal bilaterally, speech normal Assessment/Plan 1. Ankylosing spondylitis of multiple sites in spine (M45.0: Ankylosing spondylitis of multiple sites in spine) pt presents for 3 month med check follow up. will return in December for AMW visit. will do annual labs that day. all questions answered. RTC 3 months 2. BMI 26.0-26.9,adult (Z68.26: Body mass index [BMI] 26.0-26.9, adult) BMI education complete 3. Former smoker (Z87.891: Personal history of nicotine dependence) consider not smoking 4. Mixed hyperlipidemia (E78.2: Mixed hyperlipidemia) refilled medication Orders: pravastatin, 10 mg = 1 tab(s), Oral, Daily, # 90 tab(s), Refills(s) 1, [facility] [place] [facility] [id number], 170, cm, 03/22/23 11:04:00 EDT, Height/Length Dosing, 76.9, kg, 01/06/23 11:42:00 EDT, Weight Dosing pravastatin, 10 mg = 1 tab(s), Oral, Daily, # 90 tab(s), Refills(s) 1, [facility]: [facility] [place] [id number], 173, cm, 09/20/23 10:33:00 EDT, Height/Length Dosing, 80, kg, 09/20/23 10:33:00 EDT, Weight Dosing tizanidine, 4 mg = 1 tab(s), Oral, q8hr, 60 tab(s), # 60 tab(s), Refills(s) 3, [facility]: [facility] [place] [id number], 173, cm, 09/20/23 10:33:00 EDT, Height/Length Dosing, 80, kg, 09/20/23 10:33:00 EDT, Weight Dosing tizanidine, 4 mg = 1 tab(s), Oral, q8hr, 60 tab(s), # 60 tab(s), Refills(s) 1, Pharmacy: [facility] [id number], 170, cm, 06/21/23 11:26:00 EST, Height/Length Dosing, 77, kg, 06/21/23 11:26:00 EST, Weight Dosing Follow-up No qualifying data available Problem List/Past Medical History Ongoing Ankylosing spondylitis of multiple sites in spine BMI 26.0-26.9,adult 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 Failed back syndrome GERD without esophagitis H/O: osteoarthritis History of prostate cancer Hx of TIA (transient ischemic attack) and stroke Left hip pain Mixed hyperlipidemia Nocturia Over weight Spondylosis of lumbar region without myelopathy or radiculopathy Urge incontinence Urinary frequency Historical Annual visit for general adult medical examination with abnormal findings - Ankylosing spondylitis Cancer of prostate Caudal epidural H/O: rheumatoid arthritis Smoker TIA Procedure/Surgical History Caudal epidural (01/23/2020), Radiofrequency ablation of medial branch of lumbar nerve using fluoroscopic guidance (11/28/2019), Injection of sacroiliac joint using fluoroscopic guidance (07/25/2019), Injection of hip using fluoroscopic guidance (06/19/2019), Radiofrequency ablation of medial branch of lumbar nerve using fluoroscopic guidance (11/15/2018), Epidural injection of lumbar spine using fluoroscopic guidance (09/12/2018), Cataract fragments in the eye post cataract surgery (07/26/2018), Small bowel resection (06/24/2018), Right hip injection (06/13/2018), bowel resection (04/24/2018), Radiofrequency ablation of medial branch of lumbar nerve using fluoroscopic guidance (04/18/2018), Left Ischial Bursa Injection (07/26/2017), Radiofrequency ablation of medial branch of lumbar nerve using fluoroscopic guidance (06/14/2017), Brachytherapy (05/24/2014), Transrectal biopsy of prostate using ultrasound (US) guidance (02/02/2014), achilles tendon repair, Achilles tendon repair, Appendectomy, Arthroscope, cataract surgery, Caudal epidural, Laminectomy, lumbar facet medial branch block, retina repair, right wirist, rotator cuff repair, Rotator cuff repair. Medications allopurinol 100 mg Tab, 100 mg= 1 tab(s), Oral, Daily, 3 (more content not included)... Normal [facility] Comment on above: Result Comment: Elec tronically Signed By: Eugenia Beach\.br\Date and Time Signed: 09/20/23 11:48 EDT Ambulatory Visit Summaryon 0 08-13-2023 Ambulatory Visit Summary FRANK MENDES :1945 Visit Date:08/13/2023 Ambulatory Visit Instructions Your Diagnosis History of prostate cancer BPH with urinary obstruction Urge incontinence Your Care Team Attending Physician - KHUSHI GAINES, Elie Pickard Primary Care Physician - Eugenia Beach This Is Your Medications List tamsulosin (tamsulosin 0.4 mg Cap) vibegron ([place]a 75 mg oral tablet) Contact prescribing physician if questions or concerns acetaminophen-hydroco done ([place] 325 mg-7.5 mg oral tablet) allopurinol (allopurinol 100 mg Tab) aspirin (aspirin 81 mg oral tablet) cholecalciferol (cholecalciferol 1000 intl units oral capsule) cyanocobalamin (Vitamin B12) folic acid (folic acid 1 mg Tab) gabapentin (gabapentin 300 mg Cap) losartan (losartan 100 mg Tab) magnesium oxide (magnesium oxide 420 mg oral tablet) meclizine (meclizine 25 mg Tab) melatonin meloxicam (meloxicam 15 mg Tab) methotrexate (methotrexate 2.5 mg Tab) mupirocin topical (mupirocin Top 2% Crm) omeprazole (omeprazole 20 mg Cap-DR) pravastatin (pravastatin 10 mg Tab) tizanidine (tiZANidine 4 mg Tab) verapamil (verapamil 240 mg ER Tab) Procedures Performed Caudal epidural (01/23/2020), Radiofrequency ablation of medial branch of lumbar nerve using fluoroscopic guidance (11/28/2019), Injection of sacroiliac joint using fluoroscopic guidance (07/25/2019), Injection of hip using fluoroscopic guidance (06/19/2019), Radiofrequency ablation of medial branch of lumbar nerve using fluoroscopic guidance (11/15/2018), Epidural injection of lumbar spine using fluoroscopic guidance (09/12/2018), Cataract fragments in the eye post cataract surgery (07/26/2018), Small bowel resection (06/24/2018), Right hip injection (06/13/2018), bowel resection (04/24/2018), Radiofrequency ablation of medial branch of lumbar nerve using fluoroscopic guidance (04/18/2018), Left Ischial Bursa Injection (07/26/2017), Radiofrequency ablation of medial branch of lumbar nerve using fluoroscopic guidance (06/14/2017), Brachytherapy (05/24/2014), Transrectal biopsy of prostate using ultrasound (US) guidance (02/02/2014), achilles tendon repair, Achilles tendon repair, Appendectomy, Arthroscope, cataract surgery, Caudal epidural, Laminectomy, lumbar facet medial branch block, retina repair, right wirist, rotator cuff repair, Rotator cuff repair. Discharge Vitals Heart Rate (Peripheral) 71 Respiratory Rate 16 Blood Pressure 132/83 Height 173 cm Height 68 in Weight 77 kg Weight 169.4 lb BMI 25.73 What to do next Scheduled Follow-Up Appointments Wednesday 10:20 AM EDT With: Eugenia Beach Where: [facility] Invalid Interpretation Code [address] [place] [address]- \.br\ Wednesday 11:30 AM EST \.br\ With: Elie JACOBO MD\.br\ Where: [facility] Patient Educationon 08-13-19 24 Patient Education Urology Urinary Incontinence Urinary incontinence refers to a condition in which a person is unable to control where and when to pass urine. A person with this condition will urinate involuntarily. This means that the person urinates when he or she does not mean to. What are the causes? This condition may be caused by: ? Medicines. ? Infections. ? Constipation. ? Overactive bladder muscles. ? Weak bladder muscles. ? Weak pelvic floor muscles. These muscles provide support for the bladder, intestine, and, in women, the uterus. ? Enlarged prostate in men. The prostate is a gland near the bladder. When it gets too big, it can pinch the urethra. With the urethra blocked, the bladder can weaken and lose the ability to empty properly. ? Surgery. ? Emotional factors, such as anxiety, stress, or post-traumatic stress disorder (PTSD). ? Spinal cord injury, nerve injury, or other neurological conditions. ? Pelvic organ prolapse. This happens in women when organs move out of place and into the vagina. This movement can prevent the bladder and urethra from working properly. What increases the risk? The following factors may make you more likely to develop this condition: ? Age. The older you are, the higher the risk. ? Obesity. ? Being physically inactive. ? and childbirth. ? Menopause. ? Diseases that affect the nerves or spinal cord. ? Long-term, or chronic, coughing. This can increase pressure on the bladder and pelvic floor muscles. What are the signs or symptoms? Symptoms may vary depending on the type of urinary incontinence you have. They include: ? A sudden urge to urinate, and passing urine involuntarily before you can get to a bathroom (urge incontinence). ? Suddenly passing urine when doing activities that force urine to pass, such as coughing, laughing, exercising, or sneezing (stress incontinence). ? Needing to urinate often but urinating only a small amount, or constantly dribbling urine (overflow incontinence). ? Urinating because you cannot get to the bathroom in time due to a physical disability, such as arthritis or injury, or due to a communication or thinking problem, such as Alzheimer's disease (functional incontinence). How is this diagnosed? This condition may be diagnosed based on: ? Your medical history. ? A physical exam. ? Tests, such as: ? Urine tests. ? X-rays of your kidney and bladder. ? Ultrasound. ? CT scan. ? Cystoscopy. In this procedure, a health care provider inserts a tube with a light and camera (cystoscope) through the urethra and into the bladder to check for problems. ? Urodynamic testing. These tests assess how well the bladder, urethra, and sphincter can store and release urine. There are different types of urodynamic tests, and they vary depending on what the test is measuring. To help diagnose your condition, your health care provider may recommend that you keep a log of when you urinate and how much you urinate. How is this treated? Treatment for this condition depends on the type of incontinence that you have and its cause. Treatment may include: ? Lifestyle changes, such as: ? Quitting smoking. ? Maintaining a healthy weight. ? Staying active. Try to get 150 minutes of moderate-intensity exercise every week. Ask your health care provider which activities are safe for you. ? Eating a healthy diet. ? Avoid high-fat foods, like fried foods. ? Avoid refined carbohydrates like white bread and white rice. ? Limit how much alcohol and caffeine you drink. ? Increase your fiber intake. Healthy sources of fiber include beans, whole grains, and fresh fruits and vegetables. ? Behavioral changes, such as: ? Pelvic floor muscle exercises. ? Bladder training, such as lengthening the amount of time between bathroom breaks, or using the bathroom at regular intervals. ? Using techniques to suppress bladder urges. This can include distraction techniques or controlled breathing exercises. ? Medicines, such as: ? Medicines to relax the bladder muscles and prevent bladder spasms. ? Medicines to help slow or prevent the growth of a man's prostate. ? Botox injections. These can help relax the bladder muscles. ? Treatments, such as: ? Using pulses of electricity to help change bladder reflexes (electrical nerve stimulation). ? For women, using a medical accountant to prevent urine leaks. This is a small, tampon-like, disposable device that is inserted into the urethra. ? Injecting collagen or carbon beads (bulking agents) into the urinary sphincter. These can help thicken tissue and close the bladder opening. ? Surgery. Follow these instructions at home: Lifestyle ? Limit alcohol and caffeine. These can fill your bladder quickly and irritate it. ? Keep yourself clean to help prevent odors and skin damage. Ask your health care provider about special skin creams and cleansers that can protect the skin from urine. ? (more content not included)... Normal [facility] Urology Office/Clinic Noteon 08-13-2023 Urology Office/Clinic Note Chief Complaint 1yr PSA HPI Staff 1yr PSA DX: Hx of Prostate Cancer & BPH S/P Brachytherapy 05/2014 *Tamsulosin 0.4mg qd & pt was switched from Oxybutynin to VESIcare 10mg qd (due to eye dryness). Stopped taking the Vesicare due to eye pain. Took for 3 months. Did not notice a great improvement. Denies pain/burning and visible blood in urine. Occasional unsteady stream, not bothersome. Denies leaking, as long as he does not wait too long to void. No concerns at this time. PSA 08/03/23 <0.13 History of Present Illness Tests reviewed: reviewed UA & PSA. I have reviewed the previous health record information and history for this patient from Dr. Jacobo. I have reviewed and verified the staff HPI to be accurate for this encounter. There have been no associated fever, chills, flank pain, or blood in the urine. Denies any urinary infections since last encounter. Review of Systems PHQ Score Initial Depression Screen Score: 0 SCORE ROS - Provider Constitutional: denies weight loss, denies hot flashes. Eyes: denies eye problems. Gastrointestinal: denies nausea, denies vomiting. Cardiovascular: denies chest pain or angina. Integumentary: no dryness Musculoskeletal: denies musculoskeletal symptoms. ENMT: denies otolaryngeal symptoms. Respiratory: no shortness of breath. Heme/Lymph: denies easy bleeding tendency, denies easy bruising tendency. Psychiatric: no confusion, no anxiety. Genitourinary: See HPI. Physical Exam Vitals & Measurements HR: 71(Peripheral) RR: 16 BP: 132/83 HT: 68 in HT: 173 cm WT: 77 kg WT: 169.4 lb BMI: 25.73 General Appearance: alert, no distress, well nourished, well developed male. Assessment/Plan 1. History of prostate cancer (Z85.46: Personal history of malignant neoplasm of prostate) PSA: 04/18/20 - 0.05 04/16/21 - <0.05 04/22/22 - <0.13 08/03/23 - <0.13 S/p Brachytherapy 05/2014. PSA remains low and stable. Will continue to monitor. -PSA in 1 year 2. BPH with urinary obstruction (N40.1: Benign prostatic hyperplasia with lower urinary tract symptoms) UA today negative. Taking Flomax 0.4mg qd. Occasional unsteady stream, not bothersome. Empties well. 3. Urge incontinence (N39.41: Urge incontinence) Has failed Oxybutynin in the past due to experiencing eye pain and dry eyes. Pt was started on VESIcare 10mg qd. Pt states he again experienced eye pain when taking VESIcare. Took for 3 months. Did not notice a great improvement. Pt does wear a pad just in case he has an accident. Denies leaking, as long as he does not wait too long to void. Reports urgency is not consistent. Comes and goes. Will send Gentesa [id number] to see if medication is covered. Pt to call if it is cost prohibitive. Follow-up With When Contact Information KHUSHI GAINES, Elie Pickard, [address] [place] [address]- Additional Instructions: 1 year w/ PSA Patient Education Urinary Incontinence I, Amalia Gomes, personally scribed for Dr. Jacobo on 08/13/2023 12:10:32. . Documentation recorded by the scribe, Amalia Gomes, accurately reflects the services(s) I performed and decisions made by me. Authenticated by Dr. Jacobo on 08/13/2023 12:13:52. Problem List/Past Medical History Ongoing Ankylosing spondylitis of multiple sites in spine BMI 26.0-26.9,adult 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 Failed back syndrome GERD without esophagitis H/O: osteoarthritis History of prostate cancer Hx of TIA (transient ischemic attack) and stroke Left hip pain Mixed hyperlipidemia Nocturia Over weight Spondylosis of lumbar region without myelopathy or radiculopathy Urge incontinence Urinary frequency Historical Annual visit for general adult medical examination with abnormal findings - Ankylosing spondylitis Cancer of prostate Caudal epidural H/O: rheumatoid arthritis Smoker TIA Procedure/Surgical History Caudal epidural (01/23/2020), Radiofrequency ablation of medial branch of lumbar nerve using fluoroscopic guidance (11/28/2019), Injection of sacroiliac joint using fluoroscopic guidance (07/25/2019), Injection of hip using fluoroscopic guidance (06/19/2019), Radiofrequency ablation of medial branch of lumbar nerve using fluoroscopic guidance (11/15/2018), Epidural injection of lumbar spine using fluoroscopic guidance (09/12/2018), Cataract fragments in the eye post cataract surgery (07/26/2018), Small bowel resection (06/24/2018), Right hip injection (06/13/2018), bowel resection (04/24/2018), Radiofrequency ablation of medial branch of lumbar nerve using fluoroscopic guidance (04/18/2018), Left Ischial Bursa Injection (07/26/2017), Radiofrequency ablation of medial branch of lumbar nerve using fluoroscopic guidance (06/14/2017), Brachytherapy (05/24/2014), Transrectal biopsy of prostate using ultrasound (US) guidance (02/02/2014), achilles tendon repair, Achilles (more content not included)... [facility] Comment on above: Result Comment: Elec tronically Signed By: Elie JACOBO MD\.br\Date and Time Signed: 08/13/23 12:13 EST\.br\Electronically Co-Signed By: Amalia Gomes\.br\Date and Time Co-Signed: 08/13/23 12:10 EST Lab Reportson 08-04-2023 Lab Reports [id number] .00TIFF [facility] Pre-Visit Planningon 023 Pre-Visit Planning From: Georgette Thakur To: Eugenia [place]; Sent: 06/16/2023 15:59:03 EST Subject: Pre-Visit Planning Due Date/Time: 06/16/2023 15:59:00 EST Caller Name: FRANK MENDES Marquis; Caller Number: H Neymar Bello. During a pre-visit planning chart review, I noted the following documentation in the medical record: Current Problem List: Ankylosing spondylitis of multiple sites in spine, Failed back syndrome, History of osteoarthritis, Left hip pain, and Spondylosis of lumbar region without myelopathy or radiculopathy. Current Medication List: methotrexate. 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 Based on the documentation above do you feel the patient has any of the following? I can update the Chronic Problem List with your response if you would like. -Immunodeficiency due to drugs -Other (please specify): In responding to this request, please exercise your independent professional judgment. The fact that a question is asked does not imply that any particular answer is desired or expected. If you have any questions, please feel free to contact me at extension [phone]. Thank you! Georgette Thakur LPN From: [place] To: Jana Thakurissa Wilberto; Sent: 06/22/2023 09:53:21 EST Subject: RE: Pre-Visit Planning Caller Name: FRANK MENDES; Caller Number: H other-ankylosing spondylitis of multiple sites of spine From: Jana Thakurissa Wilberto To: Eugenia Beach; Sent: 06/22/2023 10:01:34 EST Subject: RE: Pre-Visit Planning Due Date/Time: 06/22/2023 10:01:00 EST Caller Name: FRANK MENDES; Caller Number: H The Current Medication List includes methotrexate. Can you please clarify if you feel this patient has Immunodeficiency due to drugs as a result of this? Thank you! From: Eugenia Beach To: Jana Thakurissa Wilberto; Sent: 06/22/2023 10:15:22 EST Subject: RE: Pre-Visit Planning Caller Name: ALFRANK; Caller Number: H No I do not feel he has immunodeficiency due to this. Thank you. Sorry I was confused Normal [facility] Ambulatory Visit Summaryon 1 08-22-2022 Ambulatory Visit Summary FRANK MENDES :1945 Visit Date:06/21/2023 Ambulatory Visit Instructions Your Diagnosis Ankylosing spondylitis of multiple sites in spine Failed back syndrome Left hip pain BMI 26.0-26.9,adult Non-smoker Your Care Team Attending Physician - Eugenia Beach Primary Care Physician - Eugenia Beach This Is Your Medications List acetaminophen-hydroco done ([place] 325 mg-7.5 mg oral tablet) allopurinol allopurinol (allopurinol 100 mg Tab) aspirin (aspirin 81 mg oral tablet) cholecalciferol (cholecalciferol 1000 intl units oral capsule) cyanocobalamin (Vitamin B12) folic acid (folic acid 1 mg Tab) gabapentin (gabapentin 300 mg Cap) losartan (losartan 100 mg Tab) magnesium oxide (magnesium oxide 420 mg oral tablet) meclizine (meclizine 25 mg Tab) melatonin meloxicam (meloxicam 15 mg Tab) methotrexate (methotrexate 2.5 mg Tab) mupirocin topical (mupirocin Top 2% Crm) omeprazole (omeprazole 20 mg Cap-DR) pravastatin (pravastatin 10 mg Tab) tamsulosin (tamsulosin 0.4 mg Cap) tizanidine (tiZANidine 4 mg Tab) tolterodine (tolterodine 4 mg Cap-ER) verapamil (verapamil 240 mg ER Tab) Procedures Performed Caudal epidural (01/23/2020), Radiofrequency ablation of medial branch of lumbar nerve using fluoroscopic guidance (11/28/2019), Injection of sacroiliac joint using fluoroscopic guidance (07/25/2019), Injection of hip using fluoroscopic guidance (06/19/2019), Radiofrequency ablation of medial branch of lumbar nerve using fluoroscopic guidance (11/15/2018), Epidural injection of lumbar spine using fluoroscopic guidance (09/12/2018), Cataract fragments in the eye post cataract surgery (07/26/2018), Small bowel resection (06/24/2018), Right hip injection (06/13/2018), bowel resection (04/24/2018), Radiofrequency ablation of medial branch of lumbar nerve using fluoroscopic guidance (04/18/2018), Left Ischial Bursa Injection (07/26/2017), Radiofrequency ablation of medial branch of lumbar nerve using fluoroscopic guidance (06/14/2017), Brachytherapy (05/24/2014), Transrectal biopsy of prostate using ultrasound (US) guidance (02/02/2014), achilles tendon repair, Achilles tendon repair, Appendectomy, Arthroscope, cataract surgery, Caudal epidural, Laminectomy, lumbar facet medial branch block, retina repair, right wirist, rotator cuff repair, Rotator cuff repair. Discharge Vitals Heart Rate (Peripheral) 88 Respiratory Rate 18 Blood Pressure 140/80 Height 170 cm Height 67 in Weight 77.05 kg Weight 169.51 lb BMI 26.66 What to do next Scheduled Follow-Up Appointments Wednesday 11:00 AM EST With: KHUSHI GAINES, Elie Pickard Where: [facility] Invalid Interpretation Code [address] [place] [address]- \.br\ Wednesday 11:00 AM EDT \.br\ With:\.br\ Where: [facility] Family Medicine [facility] Family Medicine Office/Clini c Noteon 06-21-2023 Family Medicine Office/Clinic Note HPI Staff Frank is a 78 year old male presenting for 3 month follow Pain characteristics: Pain location: Ankylosing spondylosis lower back, left hip and right knee Intensity:6/10 Medication used: Hydrocodone Opioids prescribed: Hydrocodone Medication agreement UTD: Needs Updated Questions/Concerns: Needs refill on Allopurinol History of Present Illness pt presents today for 3 month med check. needs refill on [place] Review of Systems PHQ Score Initial Depression Screen Score: 0 SCORE ROS - Provider Constitutional: no fever, no chills, no sweats, no fatigue Respiratory: no shortness of breath, no cough, no orthopnea, no wheezing. Cardiovascular: no chest pain, no palpitations, no edema. Neurologic: no headache, no dizziness, no numbness, no weakness. back pain, left hip paon Physical Exam Vitals & Measurements HR: 88(Peripheral) RR: 18 BP: 140/80 SpO2: 98% HT: 67 in HT: 170 cm WT: 77.05 kg WT: 169.51 lb BMI: 26.66 General: alert, no acute distress ENMT: oral mucosa moist, no pharyngeal erythema or exudate Cardiovascular: regular rate and rhythm, normal peripheral perfusion Respiratory: Lungs CTA, respirations non labored Extremities: no deformity, no trauma Neurological: oriented x 4, LOC appropriate for age, CN II-XII intact, motor strength equal & normal bilaterally, speech normal Assessment/Plan 1. Ankylosing spondylitis of multiple sites in spine (M45.0: Ankylosing spondylitis of multiple sites in spine) pt presents today for 3 month follow up med check. updated medication agreement signed. allopurinal refilled today. does not need norco at this time. all questions answered. RTC 3 months 2. Failed back syndrome (M96.1: Postlaminectomy syndrome, not elsewhere classified) see above 3. Left hip pain (M25.552: Pain in left hip) reviewed x ray results. pt states the hip pain is starting to improve since he has not been doing as much yard work since its cold outside 4. BMI 26.0-26.9,adult (Z68.26: Body mass index [BMI] 26.0-26.9, adult) BMI education complete 5. Non-smoker (Z78.9: Other specified health status) continue not smoking Orders: allopurinol, 100 mg = 1 tab(s), Oral, Daily, # 90 tab(s), Refills(s) 3, Pharmacy: [facility] [id number], 170, cm, 06/21/23 11:26:00 EST, Height/Length Dosing, 77, kg, 06/21/23 11:26:00 EST, Weight Dosing Follow-up No qualifying data available Problem List/Past Medical History Ongoing Ankylosing spondylitis of multiple sites in spine BMI 26.0-26.9,adult 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 Failed back syndrome GERD without esophagitis H/O: osteoarthritis History of prostate cancer Hx of TIA (transient ischemic attack) and stroke Left hip pain Mixed hyperlipidemia Nocturia Over weight Spondylosis of lumbar region without myelopathy or radiculopathy Urinary frequency Historical Annual visit for general adult medical examination with abnormal findings - Ankylosing spondylitis Cancer of prostate Caudal epidural H/O: rheumatoid arthritis Smoker TIA Procedure/Surgical History Caudal epidural (01/23/2020), Radiofrequency ablation of medial branch of lumbar nerve using fluoroscopic guidance (11/28/2019), Injection of sacroiliac joint using fluoroscopic guidance (07/25/2019), Injection of hip using fluoroscopic guidance (06/19/2019), Radiofrequency ablation of medial branch of lumbar nerve using fluoroscopic guidance (11/15/2018), Epidural injection of lumbar spine using fluoroscopic guidance (09/12/2018), Cataract fragments in the eye post cataract surgery (07/26/2018), Small bowel resection (06/24/2018), Right hip injection (06/13/2018), bowel resection (04/24/2018), Radiofrequency ablation of medial branch of lumbar nerve using fluoroscopic guidance (04/18/2018), Left Ischial Bursa Injection (07/26/2017), Radiofrequency ablation of medial branch of lumbar nerve using fluoroscopic guidance (06/14/2017), Brachytherapy (05/24/2014), Transrectal biopsy of prostate using ultrasound (US) guidance (02/02/2014), achilles tendon repair, Achilles tendon repair, Appendectomy, Arthroscope, cataract surgery, Caudal epidural, Laminectomy, lumbar facet medial branch block, retina repair, right wirist, rotator cuff repair, Rotator cuff repair. Medications allopurinol, 100 mg, Oral, Daily allopurinol 100 mg Tab, 100 mg= 1 tab(s), Oral, Daily, 3 refills aspirin 81 mg oral tablet, Oral, Daily cholecalciferol 1000 intl units oral capsule, 1000 International_Unit= 1 cap(s), Oral, Daily folic acid 1 mg Tab, 1 mg= 1 tab(s), Oral, Daily gabapentin 300 mg Cap, 300 mg= 1 cap(s), Oral, TID, 1 refills losartan 100 mg Tab magnesium oxide 420 mg oral tablet, 420 mg= 1 tab(s), Oral, TID meclizine 25 mg Tab melatonin, 10 mg, Oral, Once a day (at bedtime) meloxicam 15 mg Tab methotrexate 2.5 mg Tab mupirocin Top 2% Crm, 1 danielle, Topical, TID [place] 325 mg-7.5 mg oral tablet, 1 tab(s), Oral, TID omeprazole 20 mg Cap-DR (more content not included)... Normal [facility] Comment on above: Result Comment: Elec tronically Signed By: Eugenia Beach\.br\Date and Time Signed: 06/21/23 13:44 EST Medication Consenton 023 Medication Consent [id number] .[id number] Normal [facility] CNOVon 04-25-2019 CNOV Office Visit (RADTSA ) FRANK MENDES ([id number]) 1945 M Date Time Provider Department 04/25/19 11:45 AM Octaviano SHAW During your visit today, we recorded the following information about you: Temperature Pulse Respiration Blood pressure 97.8 degrees 85/minute 16/minute 143/76 Weight 78.5 kg Adry Bradford LPN, RN 04/25/2019 11:54 AM Signed AUA= 11 G Albert Shaw MD 05/01/2019 7:57 AM Signed Radiation Oncology - Follow Up Note PATIENT NAME: Frank Mendes PATIENT Diagnosis: Prostate cancer, adenocarcinoma GS=7(3+4) Pretreatment PSA: 3.1ng/mL Stage: II Radiation Course Summary Treatment Technique: IMRT; Rapid Arc Imaging: kv cone beam CT image guidance Date Start: 03/27/14 Date Complete: 05/01/14 Treatment Area Number [employer] Number of Fractions (Elapsed Days) Dose Pelvis 2 6MV 25 (35) 45 Gy Prostate Brachytherapy Pd-103 seed implant 05/24/14 67 seeds, 15 needles 107.2 mCi Na 100 Gy INTERVAL HISTORY: The patient is in today for a follow-up examination with history of prostate cancer with prior pelvic radiation followed by Pd103 brachytherapy boost. Overall doing fairly well. PSA HISTORY: PSA (ng/mL) Date Value 11/05/2015 0.30 07/17/2015 0.30 01/15/2015 0.36 07/10/2014 0.81 PSA. (no units) Date Value 04/11/2019 <0.13 04/11/2018 0.09 05/04/2017 0.18 03/13/2016 0.38 PSA (ng/mL) Date Value 04/11/18 0.09 05/04/17 0.18 03/13/2016 0.38 11/05/2015 0.30 07/17/2015 0.30 01/15/2015 0.36 07/10/2014 0.81 ALLERGIES: ALLERGIES Allergen Reactions - Ativan [Lorazepam] GI Upset, Other: See Comments Lethargic and profuse sweats MEDICATIONS: cyanocobalamin, vitamin B-12, (VITAMIN B-12 ORAL) Take by mouth. tolterodine ER (DETROL LA) 4 mg 24 hr capsule TK 1 C PO D Melatonin 5 mg tab Take 5 mg by mouth daily at bedtime. PYRIDOXINE HCL (VITAMIN B-6 ORAL) Take 1,000 mg by mouth twice daily. PREDNISONE ORAL Take 10 mg by mouth. HYDROcodone-Acetamino phen (NORCO) 7.5-325 mg per tablet metaxalone (SKELAXIN) 800 mg tablet folic acid 1 mg tablet Take 1 mg by mouth once daily. METHOTREXATE MISC allopurinol 100 mg tablet Take 100 mg by mouth twice daily. losartan 50 mg tablet Take 50 mg by mouth once daily. pravastatin 40 mg tablet Take 40 mg by mouth once daily. gabapentin 300 mg capsule Take 300 mg by mouth three times daily. omeprazole 20 mg capsule Take 20 mg by mouth once daily. aspirin, enteric coated 81 mg EC tablet Take 325 mg by mouth once daily. meclizine (ANTIVERT) 25 mg tab Take 12.5 mg by mouth as needed. verapamil SR 240 mg CR tablet Take 240 mg by mouth daily at bedtime. oxybutynin ER (DITROPAN XL) 10 mg 24 hr tablet tamsulosin 0.4 mg cp24 Take 0.4 mg by mouth. PERTINENT REVIEW OF SYSTEMS: Hematuria: No Dysuria: Yes Incontinence: No Urgency: moderate Catheter use: No Medications to aid urination: yes - Total AUA Score: 11 Bowel movement frequency: 1-3/day Bowel movement quality: variable: mild diarrhea Blood per rectum: none PHYSICAL EXAM: BP 143/76 Pulse 85 Temp 36.6 ?C (97.8 ?F) Resp 16 Wt 78.5 kg (173 lb) BMI 25.54 kg/m? General appearance: Alert and oriented. No acute distress. Abdomen: Normal abdominal exam, Abdomen soft, non-tender. No masses, organomegaly. Rectal exam def Extremities: No deformities, edema, skin discoloration, clubbing or cyanosis. Lymph Nodes: No cervical lymphadenopathy, No supraclavicular lymphadenopathy, No axillary lymphadenopathy. and No inguinal lymphadenopathy.. Skin: Skin color, texture, turgor normal, no suspicious rashes or lesions. ASSESSMENT/PLAN: Prostate cancer, localized, intermediate risk with prior radiation treatment including pelvic radiation and palladium brachytherapy implant. Patient overall doing well with stable and low PSA response. No other new problems. Continues active follow-up with Dr. Jacobo including PSA evaluation. Given stability of PSA and no postradiation problems plan to see patient back on an as-needed basis. Signed by: Octaviano Shaw MD Referring Provider: Octaviano SHAW [[id number]] Allergies As of Date: 04/25/2019 Noted Allergy Reaction ATIVAN (LORAZEPAM) 03/16/2014 8 - GI Upset 14 - Other: See Comments Comments: Lethargic and profuse sweats Date Reviewed: 04/25/2019 Reviewed by: Adry (Gastroenterology Teacher) CITLALLI Bradford - Fully Assessed Reason for Visit: Follow Up [171] Primary Visit Diagnosis:History of prostate cancer [Z85.46] Order(s):PSA (OUTSIDE) [5666674] Order #: [id number] PSA/PROSTSPECAG DIAG [SQPSA] Order #: [id number] FUTURE Prescriptions as of 04/25/2019 Sig: VITAMIN B-12 ORAL Take by mouth. TOLTERODINE ER 4 MG CAPSULE,E* TK 1 C PO D MELATONIN 5 MG TABLET Take 5 mg by mouth daily at b* VITAMIN B-6 ORAL Take 1,000 mg by mouth twice * PREDNISONE ORAL Take 10 mg by mouth. HYDROCODONE 7.5 MG-ACETAMINOP* METAXALONE 800 MG TABLET FOLIC ACID 1 MG TABLET Take 1 mg by mouth once daily. METHOTREXATE MISC ALLOPURINOL 100 MG TABLET Take 100 mg by mouth twice da* LOSARTAN 50 MG TABLET Take 50 mg by mouth once lui* PRAVASTATIN 40 MG TABLET Take 40 mg by mouth once lui* GABAPENTIN 300 MG CAPSULE Take 300 mg by mouth three ti* OMEPRAZOLE 20 MG CAPSULE,ANUSHKA* Take 20 mg by mouth once lui* ASPIRIN 81 MG TABLET,DELAYED * Take 325 mg by mouth once karl* MECLIZINE 25 MG TABLET Take 12.5 mg by mouth as need* VERAPAMIL ER (SR) 240 MG TABL* Take 240 mg by mouth daily at* TAMSULOSIN 0.4 MG CAPSULE Take 0.4 mg by mouth. Problem List As Of Date 04/25/2019 Noted Resolved Prostate cancer (HCC) [C61] INVALID FOR* History of prostate cancer [Z85.46] INVALID FOR* Visit Notes: >> Adry Bradford RN Tue Apr 25, 2019 11:45 AM Status: Signed AUA= 11 Medications Discontinued During This Encounter oxybutynin ER (DITROPAN XL) 10 mg 24* 04/28/2016 04/25/2019 Class: Historical Med Sig: Disc: Discontinued by another Health Care Provider Disposition: Return if symptoms worsen or fail to improve. Follow-up and Disposition History Recorded Encounter Status:Closed by Octaviano SHAW MD on 05/01/19 [facility] PROGRESSon 04-25-2019 PROGRESS HNO ID: [id number] Author: Octaviano Shaw Service: ? Author Type: Physician Type: Progress Notes Filed: 05/01/2019 7:57 AM Note Text: Radiation Oncology - Follow Up Note PATIENT NAME: Frank Mendes PATIENT Diagnosis: Prostate cancer, adenocarcinoma GS=7(3+4) Pretreatment PSA: 3.1ng/mL Stage: II Radiation Course Summary Treatment Technique: IMRT; Rapid Arc Imaging: kv cone beam CT image guidance Date Start: 03/27/14 Date Complete: 05/01/14 Treatment Area Number [employer] Number of Fractions (Elapsed Days) Dose Pelvis 2 6MV 25 (35) 45 Gy Prostate Brachytherapy Pd-103 seed implant 05/24/14 67 seeds, 15 needles 107.2 mCi Na 100 Gy INTERVAL HISTORY: The patient is in today for a follow-up examination with history of prostate cancer with prior pelvic radiation followed by Pd103 brachytherapy boost. Overall doing fairly well. PSA HISTORY: PSA (ng/mL) Date Value 11/05/2015 0.30 07/17/2015 0.30 01/15/2015 0.36 07/10/2014 0.81 PSA. (no units) Date Value 04/11/2019 <0.13 04/11/2018 0.09 05/04/2017 0.18 03/13/2016 0.38 PSA (ng/mL) Date Value 04/11/18 0.09 05/04/17 0.18 03/13/2016 0.38 11/05/2015 0.30 07/17/2015 0.30 01/15/2015 0.36 07/10/2014 0.81 ALLERGIES: ALLERGIES Allergen Reactions - Ativan [Lorazepam] GI Upset, Other: See Comments Lethargic and profuse sweats MEDICATIONS: cyanocobalamin, vitamin B-12, (VITAMIN B-12 ORAL) Take by mouth. tolterodine ER (DETROL LA) 4 mg 24 hr capsule TK 1 C PO D Melatonin 5 mg tab Take 5 mg by mouth daily at bedtime. PYRIDOXINE HCL (VITAMIN B-6 ORAL) Take 1,000 mg by mouth twice daily. PREDNISONE ORAL Take 10 mg by mouth. HYDROcodone-Acetamino phen (NORCO) 7.5-325 mg per tablet metaxalone (SKELAXIN) 800 mg tablet folic acid 1 mg tablet Take 1 mg by mouth once daily. METHOTREXATE MISC allopurinol 100 mg tablet Take 100 mg by mouth twice daily. losartan 50 mg tablet Take 50 mg by mouth once daily. pravastatin 40 mg tablet Take 40 mg by mouth once daily. gabapentin 300 mg capsule Take 300 mg by mouth three times daily. omeprazole 20 mg capsule Take 20 mg by mouth once daily. aspirin, enteric coated 81 mg EC tablet Take 325 mg by mouth once daily. meclizine (ANTIVERT) 25 mg tab Take 12.5 mg by mouth as needed. verapamil SR 240 mg CR tablet Take 240 mg by mouth daily at bedtime. oxybutynin ER (DITROPAN XL) 10 mg 24 hr tablet tamsulosin 0.4 mg cp24 Take 0.4 mg by mouth. PERTINENT REVIEW OF SYSTEMS: Hematuria: No Dysuria: Yes Incontinence: No Urgency: moderate Catheter use: No Medications to aid urination: yes - Total AUA Score: 11 Bowel movement frequency: 1-3/day Bowel movement quality: variable: mild diarrhea Blood per rectum: none PHYSICAL EXAM: BP 143/76 Pulse 85 Temp 36.6 ?C (97.8 ?F) Resp 16 Wt 78.5 kg (173 lb) BMI 25.54 kg/m? General appearance: Alert and oriented. No acute distress. Abdomen: Normal abdominal exam, Abdomen soft, non-tender. No masses, organomegaly. Rectal exam def Extremities: No deformities, edema, skin discoloration, clubbing or cyanosis. Lymph Nodes: No cervical lymphadenopathy, No supraclavicular lymphadenopathy, No axillary lymphadenopathy. and No inguinal lymphadenopathy.. Skin: Skin color, texture, turgor normal, no suspicious rashes or lesions. ASSESSMENT/PLAN: Prostate cancer, localized, intermediate risk with prior radiation treatment including pelvic radiation and palladium brachytherapy implant. Patient overall doing well with stable and low PSA response. No other new problems. Continues active follow-up with Dr. aJcobo including PSA evaluation. Given stability of PSA and no postradiation problems plan to see patient back on an as-needed basis. Signed by: Octaviano Shaw MD [facility] CNOVon 05-25-2018 CNOV Office Visit (RADTSA ) ALFRANK ([id number]) 1945 M Date Time Provider Department 05/25/18 1:45 PM Octaviano SHAW During your visit today, we recorded the following information about you: Pulse Respiration Blood pressure Weight 86/minute 18/minute 167/72 80.3 kg Octaviano Shaw MD 05/27/2018 10:41 AM Signed Radiation Oncology - Follow Up Note PATIENT NAME: Frank Mendes PATIENT Diagnosis: Prostate cancer, adenocarcinoma GS=7(3+4) Pretreatment PSA: 3.1ng/mL Stage: II Radiation Course Summary Treatment Technique: IMRT; Rapid Arc Imaging: kv cone beam CT image guidance Date Start: 03/27/14 Date Complete: 05/01/14 Treatment Area Number [employer] Number of Fractions (Elapsed Days) Dose Pelvis 2 6MV 25 (35) 45 Gy Prostate Brachytherapy Pd-103 seed implant 05/24/14 67 seeds, 15 needles 107.2 mCi Na 100 Gy INTERVAL HISTORY: The patient is in today for a follow-up examination with history of prostate cancer with prior pelvic radiation followed by Pd103 brachytherapy boost. Overall doing fairly well. PSA HISTORY: PSA (ng/mL) Date Value 04/11/18 0.09 05/04/17 0.18 03/13/2016 0.38 11/05/2015 0.30 07/17/2015 0.30 01/15/2015 0.36 07/10/2014 0.81 ALLERGIES: ALLERGIES Allergen Reactions - Ativan [Lorazepam] GI Upset, Other: See Comments Lethargic and profuse sweats MEDICATIONS: tolterodine ER (DETROL LA) 4 mg 24 hr capsule TK 1 C PO D Melatonin 5 mg tab Take 5 mg by mouth daily at bedtime. PYRIDOXINE HCL (VITAMIN B-6 ORAL) Take 1,000 mg by mouth twice daily. PREDNISONE ORAL Take 10 mg by mouth. HYDROcodone-Acetamino phen (NORCO) 7.5-325 mg per tablet metaxalone (SKELAXIN) 800 mg tablet folic acid 1 mg tablet Take 1 mg by mouth once daily. METHOTREXATE MISC allopurinol 100 mg tablet Take 100 mg by mouth twice daily. losartan 50 mg tablet Take 50 mg by mouth once daily. pravastatin 40 mg tablet Take 40 mg by mouth once daily. gabapentin 300 mg capsule Take 300 mg by mouth three times daily. omeprazole 20 mg capsule Take 20 mg by mouth once daily. aspirin, enteric coated 81 mg EC tablet Take 325 mg by mouth once daily. tamsulosin 0.4 mg cp24 Take 0.4 mg by mouth. meclizine (ANTIVERT) 25 mg tab Take 12.5 mg by mouth as needed. verapamil SR 240 mg CR tablet Take 240 mg by mouth daily at bedtime. oxybutynin ER (DITROPAN XL) 10 mg 24 hr tablet PERTINENT REVIEW OF SYSTEMS: Hematuria: No Dysuria: Yes Incontinence: No Urgency: moderate Catheter use: No Medications to aid urination: yes - Total AUA Score: 11 Bowel movement frequency: 1-3/day Bowel movement quality: variable: mild diarrhea Blood per rectum: none PHYSICAL EXAM: BP 167/72 Pulse 86 Resp 18 Wt 80.3 kg (177 lb) SpO2 96% BMI 26.13 kg/m? General appearance: Alert and oriented. No acute distress. Abdomen: Normal abdominal exam, Abdomen soft, non-tender. No masses, organomegaly. Rectal exam def Extremities: No deformities, edema, skin discoloration, clubbing or cyanosis. Lymph Nodes: No cervical lymphadenopathy, No supraclavicular lymphadenopathy, No axillary lymphadenopathy. and No inguinal lymphadenopathy.. Skin: Skin color, texture, turgor normal, no suspicious rashes or lesions. ASSESSMENT/PLAN: Prostate cancer, localized, intermediate risk with prior radiation treatment including pelvic radiation and palladium brachytherapy implant. Patient overall doing well with stable and low PSA response. No other new problems. Continues active follow-up with Dr. Jacobo including PSA evaluation. Plan to see patient back in one year for post radiation follow-up. Signed by: MD Yamilet Ashley, RN, RN 05/25/2018 2:34 PM Signed AUA Henry Garcia RN Referring Provider: Octaviano SHAW [[id number]] Allergies As of Date: 05/25/2018 Noted Allergy Reaction ATIVAN (LORAZEPAM) 03/16/2014 8 - GI Upset 14 - Other: See Comments Comments: Lethargic and profuse sweats Date Reviewed: 05/19/2017 Reviewed by: Yamilet (Rn) CITLALLI Garcia - Fully Assessed Reason for Visit: Prostate Cancer [590] Primary Visit Diagnosis:History of prostate cancer [Z85.46] Prescriptions as of 05/25/2018 Sig: TOLTERODINE ER 4 MG CAPSULE,E* TK 1 C PO D MELATONIN 5 MG TABLET Take 5 mg by mouth daily at b* VITAMIN B-6 ORAL Take 1,000 mg by mouth twice * PREDNISONE ORAL Take 10 mg by mouth. HYDROCODONE 7.5 MG-ACETAMINOP* METAXALONE 800 MG TABLET FOLIC ACID 1 MG TABLET Take 1 mg by mouth once daily. METHOTREXATE MISC ALLOPURINOL 100 MG TABLET Take 100 mg by mouth twice da* LOSARTAN 50 MG TABLET Take 50 mg by mouth once lui* PRAVASTATIN 40 MG TABLET Take 40 mg by mouth once lui* GABAPENTIN 300 MG CAPSULE Take 300 mg by mouth three ti* OMEPRAZOLE 20 MG CAPSULE,ANUSHKA* Take 20 mg by mouth once lui* ASPIRIN 81 MG TABLET,DELAYED * Take 325 mg by mouth once karl* TAMSULOSIN 0.4 MG CAPSULE Take 0.4 mg by mouth. MECLIZINE 25 MG TABLET Take 12.5 mg by mouth as need* VERAPAMIL ER (SR) 240 MG TABL* Take 240 mg by mouth daily at* OXYBUTYNIN CHLORIDE ER 10 MG * Problem List As Of Date 05/25/2018 Noted Resolved Prostate cancer (HCC) [C61] INVALID FOR* History of prostate cancer [Z85.46] INVALID FOR* Visit Notes: >> Yamilet (Citlalli) CITLALLI Garcia WedMay 25, 2018 2:15 PM Status: Signed AUA 11 Yamilet Garcia RN Disposition: Return in about 1 year (around 05/25/2019). Follow-up and Disposition History Recorded Encounter Status:Closed by Octaviano SHAW MD on 05/27/18 [facility] PROGRESSon 05-25-2018 PROGRESS HNO ID: [id number] Author: Octaviano Shaw Service: (none) Author Type: Physician Type: Progress Notes Filed: 05/27/2018 10:41 AM Note Text: Radiation Oncology - Follow Up Note PATIENT NAME: Frank Mendes PATIENT Diagnosis: Prostate cancer, adenocarcinoma GS=7(3+4) Pretreatment PSA: 3.1ng/mL Stage: II Radiation Course Summary Treatment Technique: IMRT; Rapid Arc Imaging: kv cone beam CT image guidance Date Start: 03/27/14 Date Complete: 05/01/14 Treatment Area Number [employer] Number of Fractions (Elapsed Days) Dose Pelvis 2 6MV 25 (35) 45 Gy Prostate Brachytherapy Pd-103 seed implant 05/24/14 67 seeds, 15 needles 107.2 mCi Na 100 Gy INTERVAL HISTORY: The patient is in today for a follow-up examination with history of prostate cancer with prior pelvic radiation followed by Pd103 brachytherapy boost. Overall doing fairly well. PSA HISTORY: PSA (ng/mL) Date Value 04/11/18 0.09 05/04/17 0.18 03/13/2016 0.38 11/05/2015 0.30 07/17/2015 0.30 01/15/2015 0.36 07/10/2014 0.81 ALLERGIES: ALLERGIES Allergen Reactions - Ativan [Lorazepam] GI Upset, Other: See Comments Lethargic and profuse sweats MEDICATIONS: tolterodine ER (DETROL LA) 4 mg 24 hr capsule TK 1 C PO D Melatonin 5 mg tab Take 5 mg by mouth daily at bedtime. PYRIDOXINE HCL (VITAMIN B-6 ORAL) Take 1,000 mg by mouth twice daily. PREDNISONE ORAL Take 10 mg by mouth. HYDROcodone-Acetamino phen (NORCO) 7.5-325 mg per tablet metaxalone (SKELAXIN) 800 mg tablet folic acid 1 mg tablet Take 1 mg by mouth once daily. METHOTREXATE MISC allopurinol 100 mg tablet Take 100 mg by mouth twice daily. losartan 50 mg tablet Take 50 mg by mouth once daily. pravastatin 40 mg tablet Take 40 mg by mouth once daily. gabapentin 300 mg capsule Take 300 mg by mouth three times daily. omeprazole 20 mg capsule Take 20 mg by mouth once daily. aspirin, enteric coated 81 mg EC tablet Take 325 mg by mouth once daily. tamsulosin 0.4 mg cp24 Take 0.4 mg by mouth. meclizine (ANTIVERT) 25 mg tab Take 12.5 mg by mouth as needed. verapamil SR 240 mg CR tablet Take 240 mg by mouth daily at bedtime. oxybutynin ER (DITROPAN XL) 10 mg 24 hr tablet PERTINENT REVIEW OF SYSTEMS: Hematuria: No Dysuria: Yes Incontinence: No Urgency: moderate Catheter use: No Medications to aid urination: yes - Total AUA Score: 11 Bowel movement frequency: 1-3/day Bowel movement quality: variable: mild diarrhea Blood per rectum: none PHYSICAL EXAM: BP 167/72 Pulse 86 Resp 18 Wt 80.3 kg (177 lb) SpO2 96% BMI 26.13 kg/m? General appearance: Alert and oriented. No acute distress. Abdomen: Normal abdominal exam, Abdomen soft, non-tender. No masses, organomegaly. Rectal exam def Extremities: No deformities, edema, skin discoloration, clubbing or cyanosis. Lymph Nodes: No cervical lymphadenopathy, No supraclavicular lymphadenopathy, No axillary lymphadenopathy. and No inguinal lymphadenopathy.. Skin: Skin color, texture, turgor normal, no suspicious rashes or lesions. ASSESSMENT/PLAN: Prostate cancer, localized, intermediate risk with prior radiation treatment including pelvic radiation and palladium brachytherapy implant. Patient overall doing well with stable and low PSA response. No other new problems. Continues active follow-up with Dr. Jacobo including PSA evaluation. Plan to see patient back in one year for post radiation follow-up. Signed by: Octaviano Shaw MD Normal [facility] Vital Signs Date Time Vital Sign Value Performing Clinician Lorna rojas 08-13-2023 11:41-0500 Blood Pressure Location Elie JACOBO [facility] 08-13-2023 11:41-0500 Diastolic blood pressure 83 mm[Hg] Elie JACOBO [facility] 08-13-2023 11:41-0500 Heart rate 71 /min Eliefelipe JACOBO [facility] 08-13-2023 11:41-0500 Respiratory rate 16 /min Elie JACOBO [facility] 08-13-2023 11:41-0500 Systolic blood pressure 132 mm[Hg] Elie JACOBO [facility] 08-10-2022 15:35-0500 Blood Pressure Location Elie JACOBO [facility] 08-10-2022 15:35-0500 Diastolic blood pressure 68 mm[Hg] Elie JACOBO [facility] 08-10-2022 15:35-0500 Heart rate 68 /min Elie JACOBO [facility] 08-10-2022 15:35-0500 Respiratory rate 16 /min Elie JACOBO [facility] 08-10-2022 15:35-0500 Systolic blood pressure 132 mm[Hg] Elie JACOBO [facility] Encounters Encounter Date Encounter Type Care Provider Facility Start: 01-02-2025 ambulatory ACCOUNTS PAYABLE REPRESENTATIVE Eugenia L Talib Facil ity:[facility] Start: 08-14-2024 ambulatory Elie JACOBO Facili ty:[facility] Start: 06-28-2024 ambulatory ACCOUNTS PAYABLE REPRESENTATIVE Eugenia L Talib Facil ity:[facility] Start: 04-04-2024 End: 04-04-2024 ambulatory ACCOUNTS PAYABLE REPRESENTATIVE [facility] L Talib [facility] Start: 01-04-2024 End: 01-04-2024 ambulatory ACCOUNTS PAYABLE REPRESENTATIVE Eugenia L Talib Facility:[facility] Start: 09-20-2023 End: 09-20-2023 ambulatory ACCOUNTS PAYABLE REPRESENTATIVE Eugenia L Talib Facility:[facility] Start: 08-13-2023 End: 08-13-2023 ambulatory Elie JACOBO Facility: [facility] Start: 08-13-2023 End: 08-13-2023 Patient encounter procedure Elie JACOBO [facility] Start: 06-21-2023 End: 06-21-2023 ambulatory ACCOUNTS PAYABLE REPRESENTATIVE Eugenia L Talib Facility:[facility] Start: 08-10-2022 End: 08-10-2022 Patient encounter procedure Elie JACOBO [facility] Start: 04-22-2022 End: 04-23-[address] ELIE JACOBO Facility:[facility] Procedures Date Procedure Procedure Detail Performing Clinician Start: 04-22-[address] VENECIA JACOBO Comment on above: Performed By: #### P SAD #### [facility] [address] [place] [address] Dr. Stephanie Gardner Start: 01-23-2020 Local anesthetic sac ral epidural block Elie JACOBO Comment on above: 90-95% relief to pre sent Start: 11-28-2019 Radiofrequency ablat ion of medial branch of lumbar nerve using fluoroscopic guidance Elie JACOBO Comment on above: L3/4, L4/5 + L5/S1 9 0-95% relief Left L3-S1 RGA 90-95 % relief Start: 07-25-2019 Injection of sacroil iac joint using fluoroscopic guidance Elie JACOBO Comment on above: right 80% relief Start: 06-19-2019 Injection of hip usi ng fluoroscopic guidance Elie JACOBO Comment on above: right hip-50% relief x 2 days Start: 11-15-2018 Radiofrequency ablat ion of medial branch of lumbar nerve using fluoroscopic guidance Eliefelipe JACOBO Comment on above: left RFA L3-S1 90% t o present Start: 09-12-2018 Epidural injection o f lumbar spine using fluoroscopic guidance Elie JACOBO Comment on above: caudal 90% relief in pelvis area to present, 30% relief in lower back Start: 07-26-2018 Cataract fragments i n the eye post cataract surgery (disorder) Eile JACOBO Start: 06-24-2018 Small intestine excision Eliefelipe JACOBO Start: 06-13-2018 Right hip injection 8 P shirin JACOBO Comment on above: 98% relief since Start: 04-24-2018 bowel resection Elie JACOBO Start: 04-18-2018 Radiofrequency ablat ion of medial branch of lumbar nerve using fluoroscopic guidance Eliefelipe JACOBO Comment on above: left tL3/4, L4/5, L5 /S1 - 95% relief to present Start: 07-26-2017 Left Ischial Bursa I njection 10 Eliefelipe JACOBO Comment on above: ~ 80 % relief day 2 Start: 06-14-2017 Radiofrequency ablat ion of medial branch of lumbar nerve using fluoroscopic guidance Elie JACOBO Comment on above: Left L3-S1- 95% reli ef starting one week after procedure and is still getting 95% relief. Start: 05-24-2014 Brachytherapy Elie SANTIAGO Start: 02-02-2014 Transrectal biopsy o f prostate using ultrasound guidance Elie JACOBO achilles tendon repair 12 Pa kailashk JACOBO Comment on above: left 1994 Appendectomy Elie JACOBO Arthroscope, device (physical object) Elie JACOBO Comment on above: right knee cataract surgery Elie ARITA Laminectomy Elie JACOBO Comment on above: lumbar L2-5 Local anesthetic sac ral epidural block Elie JACOBO lumbar facet medial branch block 16 Elie JACOBO Comment on above: left l3,l4,l5 Repair of musculoten dinous cuff of shoulder Elie JACOBO Comment on above: left 2001.2003 Repair of tendo achilles Darby JACOBO Comment on above: right 1989 retina repair 17 Elie ARITA Comment on above: right right wirist Elie JACOBO rotator cuff repair 18 Sammy JACOBO Comment on above: right 2002.2004 Immunizations Immunization Date Immunization Notes Care Provider Parker mattson 05-11-2015 influenza virus vaccine, unspecified formulation Elie JACOBO [facility] 04-09-2014 influenza virus vaccine, unspecified formulation Elie JACOBO [facility] NEGATED: Highlighted row has not occurred!01-06-2023 pneumococcal polysaccharide vaccine, 23 valent Elie JACOBO [facility] Comment on above: Result Comment: charles ent refuses, not available in office NEGATED: Highlighted row has not occurred!01-06-2023 pneumococcal conjugate vaccine, 13 valent Elie JACOBO [facility] Comment on above: Result Comment: charles ent declines- not available in office NEGATED: Highlighted row has not occurred!10-21-2022 SARS-CoV-2 mRNA (tozinameran 5y-11y) vaccine Elie JACOBO [facility] NEGATED: Highlighted row has not occurred!09-16-2022 influenza virus vaccine, unspecified formulation Elie KHUSHI [facility] NEGATED: Highlighted row has not occurred!09-16-2022 SARS-CoV-2 mRNA (tozinameran 5y-11y) vaccine Elie JACOBO [facility] Payers Date Payer Category Payer Medicare [id number] 1957 Unknown [id number] 1945 Unknown [id number] 2.16.84 [id number] 1945 Unknown [id number] 2.16.8 [id number] 1945 Unknown [id number] 2.16.8 [id number] 1945 Unknown [id number] 2.16.8 [id number] 1945 Unknown [id number] 2.16.8 [id number] 1945 Unknown [id number] 2.16.8 [id number] 1945 Unknown [id number] 2.16.8 [id number] 1945 Unknown [id number] 2.16.8 [id number] 1945 Unknown [id number] 2.16.8 [id number] 1945 Unknown [id number] 2.16.8 [id number] 1945 Unknown [id number] 2.16.8 [id number] Social History Date Type Detail Facility Start: 08-10-2022 Tobacco smoking status Never s moked tobacco (finding) [facility] Tobacco smoking status Never 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 A person with this condition will urinate involuntarily. This means that the person urinates when he or she does not mean to. What are the causes? This condition may be caused by: Medicines. Infections. Constipation. Overactive bladder muscles. Weak bladder muscles. Weak pelvic floor muscles. These muscles provide support for the bladder, intestine, and, in women, the uterus. Enlarged prostate in men. The prostate is a gland near the bladder. When it gets too big, it can pinch the urethra. With the urethra blocked, the bladder can weaken and lose the ability to empty properly. Surgery. Emotional factors, such as anxiety, stress, or post-traumatic stress disorder (PTSD). Spinal cord injury, nerve injury, or other neurological conditions. Pelvic organ prolapse. This happens in women when organs move out of place and into the vagina. This movement can prevent the bladder and urethra from working properly. What increases the risk? The following factors may make you more likely to develop this condition: Age. The older you are, the higher the risk. Obesity. Being physically inactive. and childbirth. Menopause. Diseases that affect the nerves or spinal cord. Long-term, or chronic, coughing. This can increase pressure on the bladder and pelvic floor muscles. What are the signs or symptoms? Symptoms may vary depending on the type of urinary incontinence you have. They include: A sudden urge to urinate, and passing urine involuntarily before you can get to a bathroom (urge incontinence). Suddenly passing urine when doing activities that force urine to pass, such as coughing, laughing, exercising, or sneezing (stress incontinence). Needing to urinate often but urinating only a small amount, or constantly dribbling urine (overflow incontinence). Urinating because you cannot get to the bathroom in time due to a physical disability, such as arthritis or injury, or due to a communication or thinking problem, such as Alzheimer's disease (functional incontinence). How is this diagnosed? This condition may be diagnosed based on: Your medical history. A physical exam. Tests, such as: ?Urine tests. ?X-rays of your kidney and bladder. ?Ultrasound. ?CT scan. ?Cystoscopy. In this procedure, a health care provider inserts a tube with a light and camera (cystoscope) through the urethra and into the bladder to check for problems. ?Urodynamic testing. These tests assess how well the bladder, urethra, and sphincter can store and release urine. There are different types of urodynamic tests, and they vary depending on what the test is measuring. To help diagnose your condition, your health care provider may recommend that you keep a log of when you urinate and how much you urinate. How is this treated? Treatment for this condition depends on the type of incontinence that you have and its cause. Treatment may include: Lifestyle changes, such as: ?Quitting smoking. ?Maintaining a healthy weight. ?Staying active. Try to get 150 minutes of moderate-intensity exercise every week. Ask your health care provider which activities are safe for you. ?Eating a healthy diet. ?Avoid high-fat foods, like fried foods. ?Avoid refined carbohydrates like white bread and white rice. ?Limit how much alcohol and caffeine you drink. ?Increase your fiber intake. Healthy sources of fiber include beans, whole grains, and fresh fruits and vegetables. Behavioral changes, such as: ?Pelvic floor muscle exercises. ?Bladder training, such as lengthening the amount of time between bathroom breaks, or using the bathroom at regular intervals. ?Using techniques to suppress bladder urges. This can include distraction techniques or controlled breathing exercises. Medicines, such as: ?Medicines to relax the bladder muscles and prevent bladder spasms. ?Medicines to help slow or prevent the growth of a man's prostate. ?Botox injections. These can help relax the bladder muscles. Treatments, such as: ?Using pulses of electricity to help change bladder reflexes (electrical nerve stimulation). ?For women, using a medical accountant to prevent urine leaks. This is a small, tampon-like, disposable device that is inserted into the urethra. ?Injecting collagen or carbon beads (bulking agents) into the urinary sphincter. These can help thicken tissue and close the bladder opening. ?Surgery. Follow these instructions at home: Lifestyle Limit alcohol and caffeine. These can fill your bladder quickly and irritate it. Keep yourself clean to help prevent odors and skin damage. Ask your health care provider about special skin creams and cleansers that can protect the skin from urine. Consider wearing pads or adult diapers. Make sure to change them regularly, and always change them right after experiencing incontinence. General instructions Take [id number] and prescription medicines only as told by your health care provider. Use the bathroom about every 3 4 hours, even if you do not feel the need to urinate. Try to empty your bladder completely every time. After urinating, wait a minute. Then try to urinate again. Make sure you are in a relaxed position while urinating. If your incontinence is caused by nerve problems, keep a log of the medicines you take and the times you go to the bathroom. Keep all follow-up visits. This is important. Where to find more information National [place] of [employer] and Digestive and Kidney Diseases: www.niddk.nih.gov [employer] [employer]: www.urologyhealth.org Contact a health care provider if: You have pain that gets worse. Your incontinence gets worse. Get help right away if: You have a fever or chills. You are unable to urinate. You have redness in your groin area or down your legs. Summary Urinary incontinence refers to a condition in which a person is unable to control where and when to pass urine. This condition may be caused by medicines, infection, weak bladder muscles, weak pelvic floor muscles, enlargement of the prostate (in men), or surgery. Factors such as older age, obesity, and childbirth, menopause, neurological diseases, and chronic coughing may increase your risk for developing this condition. Types of urinary incontinence include urge incontinence, stress incontinence, overflow incontinence, and functional incontinence. This condition is usually treated first with lifestyle and behavioral changes, such as quitting smoking, eating a healthier diet, and doing regular pelvic floor exercises. Other treatment options include medicines, bulking agents, medical devices, electrical nerve stimulation, or surgery. This information is not intended to replace advice given to you by your health care provider. Make sure you discuss any questions you have with your health care provider. Document Revised: 01/31/2021 Document Reviewed: 01/31/2021 [employer] Patient Education 2022 USB Prom[employer]. Follow Up Care 08/10/2022 16:22:10 With:KHUSHI GAINES, Elie Pickard, URL Address: [address] [place] [id number]- When: Unknown [facility] Discharge instructions 08-10-2022 Note Date & Type Note Facility 08-10-2022 Hospital Discharge instructions Patient Education 08/10/2022 08:43:18 Benign Prostatic Hyperplasia Benign Prostatic Hyperplasia Benign prostatic hyperplasia (BPH) is an enlarged prostate gland that is caused by the normal aging process and not by cancer. The prostate is a walnut-sized gland that is involved in the production of semen. It is located in front of the rectum and below the bladder. The bladder stores urine and the urethra is the tube that carries the urine out of the body. The prostate may get bigger as a man gets older. An enlarged prostate can press on the urethra. This can make it harder to pass urine. The build-up of urine in the bladder can cause infection. Back pressure and infection may progress to bladder damage and kidney (renal) failure. What are the causes? This condition is part of a normal aging process. However, not all men develop problems from this condition. If the prostate enlarges away from the urethra, urine flow will not be blocked. If it enlarges toward the urethra and compresses it, there will be problems passing urine. What increases the risk? This condition is more likely to develop in men over the age of 50 years. What are the signs or symptoms? Symptoms of this condition include: Getting up often during the night to urinate. Needing to urinate frequently during the day. Difficulty starting urine flow. Decrease in size and strength of your urine stream. Leaking (dribbling) after urinating. Inability to pass urine. This needs immediate treatment. Inability to completely empty your bladder. Pain when you pass urine. This is more common if there is also an infection. Urinary tract infection (UTI). How is this diagnosed? This condition is diagnosed based on your medical history, a physical exam, and your symptoms. Tests will also be done, such as: A post-void bladder scan. This measures any amount of urine that may remain in your bladder after you finish urinating. A digital rectal exam. In a rectal exam, your health care provider checks your prostate by putting a lubricated, gloved finger into your rectum to feel the back of your prostate gland. This exam detects the size of your gland and any abnormal lumps or growths. An exam of your urine (urinalysis). A prostate specific antigen (PSA) screening. This is a blood test used to screen for prostate cancer. An ultrasound. This test uses sound waves to electronically produce a picture of your prostate gland. Your health care provider may refer you to a specialist in kidney and prostate diseases (urologist). How is this treated? Once symptoms begin, your health care provider will monitor your condition (active surveillance or watchful waiting). Treatment for this condition will depend on the severity of your condition. Treatment may include: Observation and yearly exams. This may be the only treatment needed if your condition and symptoms are mild. Medicines to relieve your symptoms, including: ?Medicines to shrink the prostate. ?Medicines to relax the muscle of the prostate. Surgery in severe cases. Surgery may include: ?Prostatectomy. In this procedure, the prostate tissue is removed completely through an open incision or with a laparoscope or robotics. ?Transurethral resection of the prostate (TURP). In this procedure, a tool is inserted through the opening at the tip of the penis (urethra). It is used to cut away tissue of the inner core of the prostate. The pieces are removed through the same opening of the penis. This removes the blockage. ?Transurethral incision (TUIP). In this procedure, small cuts are made in the prostate. This lessens the prostate's pressure on the urethra. ?Transurethral microwave thermotherapy (TUMT). This procedure uses microwaves to create heat. The heat destroys and removes a small amount of prostate tissue. ?Transurethral needle ablation (TUNA). This procedure uses radio frequencies to destroy and remove a small amount of prostate tissue. ?Interstitial laser coagulation (ILC). This procedure uses a laser to destroy and remove a small amount of prostate tissue. ?Transurethral electrovaporization (TUVP). This procedure uses electrodes to destroy and remove a small amount of prostate tissue. ?Prostatic urethral lift. This procedure inserts an implant to push the lobes of the prostate away from the urethra. Follow these instructions at home: Take ypmr-mvm-[id number] and prescription medicines only as told by your health care provider. Monitor your symptoms for any changes. Contact your health care provider with any changes. Avoid drinking large amounts of liquid before going to bed or out in public. Avoid or reduce how much caffeine or alcohol you drink. Give yourself time when you urinate. Keep all follow-up visits as told by your health care provider. This is important. Contact a health care provider if: You have unexplained back pain. Your symptoms do not get better with treatment. You develop side effects from the medicine you are taking. Your urine becomes very dark or has a bad smell. Your lower abdomen becomes distended and you have trouble passing your urine. Get help right away if: You have a fever or chills. You suddenly cannot urinate. You feel lightheaded, or very dizzy, or you faint. There are large amounts of blood or clots in the urine. Your urinary problems become hard to manage. You develop moderate to severe low back or flank pain. The flank is the side of your body between the ribs and the hip. These symptoms may represent a serious problem that is an emergency. Do not wait to see if the symptoms will go away. Get medical help right away. Call your local emergency services (911 in the [place] Do not drive yourself to the hospital. Summary Benign prostatic hyperplasia (BPH) is an enlarged prostate that is caused by the normal aging process and not by cancer. An enlarged prostate can press on the urethra. This can make it hard to pass urine. This condition is part of a normal aging process and is more likely to develop in men over the age of 50 years. Get help right away if you suddenly cannot urinate. This information is not intended to replace advice given to you by your health care provider. Make sure you discuss any questions you have with your health care provider. Document Released: 06/28/2006 Document Revised: 05/23/2019 Document Reviewed: 08/02/2017 [employer] Patient Education 2020 USB Promos. Follow Up Care 05/12/2021 13:16:43 With:Elie JACOBO MD, URL Address: [facility] [address], [place] [address]- When: Unknown [facility] Evaluation + Plan note Note Date & Type Note Facility Evaluation + Plan note Future Appointments Appointment Date:08/13/2023 11:00:00 AM Scheduled Provider:Elie JACOBO MD [facility] Appoint[facility] Type:URO Office Visit Diagnostic Tests PendingPSA Total 08/10/22 [facility] Evaluation + Plan note Note Date & Type Note Facility Evaluation + Plan note Future Appointments Appointment Date:09/20/2023 10:20:00 AM Scheduled Provider:Eugenia Beach Location:[facility] Appointment Type:FM Open Appointment Date:01/04/2024 11:00:00 AM Scheduled Provider: Location:[facility] Appointment Type:FM Medicare Wellness Subsequent Appointment Date:08/14/2024 11:30:00 AM Scheduled Provider:Elie JACOBO MD [facility] Appointment Type:URO Office Visit Diagnostic Tests PendingPSA Total 06/11/24 [facility] Hospital course Narrative Note Date & Type Note Facility Hospital course Narrative No data available for this section [facility] Progress note Note Date & Type Note Facility Progress note No data available for this section [facility] Summary Purpose Family History No Family History Records FoundNo Family History Records Found No data available for this section No Family History Records Found Advance Directives No Advanced Directives Records FoundNo Advanced Directives Records FoundNo Advanced Directives Records Found Additional Source Comments (unrecognized sect ion and content) No Status Records FoundNo Status Records FoundNo Status Records Found INFORMATION SOURCE (unrecogn ized section and content) DATE CREATED AUTHOR 05/01/2019 [facility] DATE CREATED AUTHOR AUTHOR'S ORGANIZ ATION 04/23/2022 [facility] DATE CREATED AUTHOR AUTHOR'S ORGANIZ ATION 04/05/2024 [facility] Patient Care team informatio n (unrecognized section and content) Personnel Name: BRYSON CAMPA MD Address: Address: [address] [place] [address] Personnel Name: Eugenia Beach Address: Address: [address] [place] [address]- FOR RECORDS PERTAINING TO PATIENTS WHO ARE OR HAVE BEEN ENROLLED IN A CHEMICAL DEPENDENCY/SUBSTANCEABUSE PROGRAM, SOME INFORMATION MAY BE OMITTED. This clinical summary was aggregated from multiple sources. Caution should be exercised in using it in the provision of clinical care. This summary normalizes information from multiple sources, and as a consequence, information in this document may materially change the coding, format and clinical context of patient data. In addition, data may be omitted in some cases. CLINICAL DECISIONS SHOULD BE BASED ON THE PRIMARY CLINICAL RECORDS. [employer] provides no warranty or guarantee of the accuracy or completeness of information in this document.
== END 2024-06-28 14:16 | disposition home or self-care (01) ==
LOC: LAB 14:16
PROVIDERS: PCP Family Medicine; Visit Provider Nurse Practitioner
DX: M25.561 Pain in right knee (principal); M17.11 Unilateral primary osteoarthritis, right knee
CPT/HCPCS: 73564

== ENCOUNTER 2024-07-20 09:40 | Outpatient (OUT) | payer MEDICARE, OTHER, SELFPAY ==
[2024-07-20 11:37] LABS: Prostate Specific Antigen Dx <0.13 ng/mL (<=4.00)
== END 2024-07-20 09:41 | disposition home or self-care (01) ==
LOC: LAB 09:41
PROVIDERS: PCP Family Medicine; Visit Provider Urology
DX: Z85.46 Personal history of malignant neoplasm of prostate (principal)
CPT/HCPCS: 36415; 84153

== ENCOUNTER 2025-04-28 05:03 | Emergency (ER) | payer MEDICARE, OTHER, SELFPAY ==
[2025-04-28] VITALS (16 sets, daily range): BP systolic 178–209; BP diastolic 94–127; PULSE 118; TEMP 37.1; O2SAT 91–96; BMI 27.4
--- NOTE | 2025-04-28 05:20 | ED.NAVMDI1 ---
HPI - Nausea/Vomiting/Diarrhea General Chief complaint: Nausea/Vomiting/Diarrhea Stated complaint: NAUSEA & VOMITING Time Seen by Provider: 04/28/25 05:11 Source: patient Mode of arrival: ambulance History of Present Illness HPI Narrative: past history of ankylosing spondylitis. Past SBO. After he ate cereal yesterday he vomited about 6 times. Now presents with abdominal pain and distension. No fever Related Data Home Medications ?Medication ?Instructions ?Recorded ?Confirmed allopurinol 100 mg tablet 100 mg PO DAILY 04/28/25 04/28/25 aspirin 81 mg tablet 81 mg PO DAILY 04/28/25 04/28/25 cholecalciferol (vitamin D3) 25 1,000 unit PO BID 04/28/25 04/28/25 mcg (1,000 unit) chewable tablet (Vitamin D3) cyanocobalamin (vitamin B-12) 1,000 mcg PO DAILY 04/28/25 04/28/25 1,000 mcg tablet (Vitamin B-12) folic acid 1 mg tablet 1 mg PO DAILY 04/28/25 04/28/25 gabapentin 300 mg capsule 300 mg PO TID 04/28/25 04/28/25 hydrocodone 7.5 mg-acetaminophen 1 tab PO Q8H 04/28/25 04/28/25 325 mg tablet latanoprost 0.005 % eye drops 1 drp ophthalmic (eye) DAILY 04/28/25 04/28/25 losartan 50 mg tablet (Cozaar) 50 mg PO DAILY 04/28/25 04/28/25 meclizine 25 mg tablet 25 mg PO DAILY PRN dizziness 04/28/25 04/28/25 melatonin 10 mg capsule 10 mg PO DAILY 04/28/25 04/28/25 meloxicam 15 mg tablet 15 mg PO DAILY 04/28/25 04/28/25 methotrexate 2.5 mg/mL oral 2.5 mg PO QWEEK 04/28/25 04/28/25 solution omeprazole 20 mg capsule,delayed 20 mg PO DAILY 04/28/25 04/28/25 release pravastatin 10 mg tablet 20 mg PO DAILY 04/28/25 04/28/25 solifenacin 10 mg tablet 10 mg PO DAILY PRN over active 04/28/25 04/28/25 bladder tamsulosin 0.4 mg capsule (Flomax) 0.4 mg PO HS 04/28/25 04/28/25 verapamil 240 mg tablet,extended 240 mg PO DAILY 04/28/25 04/28/25 release Allergies Allergy/AdvReac Type Severity Reaction Status Date / Time lorazepam (From Ativan) AdvReac Nausea Verified 04/28/25 05:05 Review of Systems ROS Status of ROS 10 or more systems reviewed and unremarkable except as noted in history and below PFSH PFSH Social History Little interest or pleasure in doing things: not at all Feeling down, depressed, or hopeless: not at all Exam Constitutional Vital Signs, click to edit/add: Last Vital Signs Temp 98.7 F 04/28/25 05:06 Pulse 118 H 04/28/25 05:06 Resp 20 04/28/25 05:06 BP 178/94 H 04/28/25 05:06 Pulse Ox 95 04/28/25 05:06 O2 Del Method Room Air 04/28/25 05:06 Common normals: no apparent distress, average body habitus, oriented x3, no limitations, healthy appearing, alert and well nourished [facility] Common normals: normocephalic and head/scalp atraumatic Eye Common normals: PERRL, EOMs intact bilaterally and conjunctivae normal Respiratory Common normals: normal respiratory effort, no retractions, no use of accessory muscles and clear to auscultation bilaterally Cardio Common normals: regular rate, regular rhythm, S1 normal heart sound and S2 normal heart sound GI Other: distended. mild tenderness Extremity Common normals: normal to inspection Neuro Common normals: oriented x3, CN's II-XII intact bilaterally, moves all extremities and no focal motor deficits Psych Appearance: grossly normal Course Vital Signs Vital signs: Vital Signs Temperature 98.7 F 04/28/25 05:06 Pulse Rate 118 H 04/28/25 05:06 Respiratory Rate 20 04/28/25 05:06 Blood Pressure 178/94 H 04/28/25 05:06 Pulse Oximetry 95 04/28/25 05:06 Oxygen Delivery Method Room Air 04/28/25 05:06 Temperature 98.7 F 04/28/25 05:06 Pulse Rate 118 H 04/28/25 05:06 Respiratory Rate 20 04/28/25 05:06 Blood Pressure 178/94 H 04/28/25 05:06 Pulse Oximetry 95 04/28/25 05:06 Oxygen Delivery Method Room Air 04/28/25 05:06 MDM - Nausea/Vomiting/Diarrhea MDM Narrative Medical decision making narrative: patient presents with abdominal pain and distension associated with recurrent vomiting. Past history of SBO. Patient medicated with fentanyl and zofran. Labs and CT abdomen ordered. CT report pending at change of shift Lab Data Labs: Lab Results 04/28/25 Range/Units 05:15 WBC 13.7 H (4.0-11.0) 10^3/uL RBC 5.07 (4.70-6.10) 10^6/uL Hgb 16.0 (14.0-18.0) g/dL Hct 44.5 (42.0-54.0) % MCV 87.8 (80.0-94.0) fL MCH 31.6 (25.9-34.0) pg MCHC 36.0 H (29.9-35.2) g/dL RDW 13.3 (11.0-15.0) % Plt Count 294 (150-450) 10^3/uL MPV 9.4 L (9.5-13.5) fL Seg Neuts % (Manual) 92.0 H (43.0-75.0) Lymphocytes % (Manual) 3.0 L (20.5-60.0) % Monocytes % (Manual) 5.0 (1.7-12.0) % Eosinophils % (Manual) 0.0 L (0.9-7.0) % Basophils % (Manual) 0.0 L (0.2-2.0) % Neutrophils # (Manual) 12.60 H (1.4-6.5) 10^3/uL Lymphocytes # (Manual) 0.41 L (1.20-3.80) 10^3/uL Monocytes # (Manual) 0.68 (0.30-0.80) 10^3/uL Eosinophils # (Manual) 0.00 (0.00-0.70) 10^3/uL Basophils # (Manual) 0.00 (0.00-0.10) 10^3/uL Sodium 145 (136-145) mmol/L Potassium 3.6 (3.5-5.1) mmol/L Chloride 103 (98-107) mmol/L Carbon Dioxide 22.5 (21.0-32.0) mmol/L Anion Gap 23.1 BUN 29.0 H (7.0-18.0) mg/dL Creatinine 1.14 (0.70-1.30) mg/dL Est GFR ( Amer) >60 (>=60 mL/min/1.73m^2) Est GFR (Non-Af Amer) >60 (>=60 mL/min/1.73m^2) BUN/Creatinine Ratio 25.4 Glucose 153 H (74-106) mg/dL Lactate 1.7 (0.4-2.0) mmol/L Calcium 9.7 (8.5-10.1) mg/dL Total Bilirubin 1.5 H (0.2-1.0) mg/dL AST 15 (15-37) U/L ALT 20 (16-63) U/L Alkaline Phosphatase 78 (46-116) U/L Troponin I High Sens 23.7 (4.0-76.1) pg/mL Total Protein 8.1 (6.4-8.2) g/dL Albumin 4.7 (3.4-5.0) g/dL Globulin 3.4 g/dL Albumin/Globulin Ratio 1.4 Lipase 32.0 (16.0-77.0) U/L Discharge Plan Discharge Patient Disposition: Still a Patient
[2025-04-28 05:30] LABS: Hematocrit 44.5 % (42.0-54.0); Hemoglobin 16.0 g/dL (14.0-18.0); Mean Corpuscular HGB Conc 36.0 g/dL (29.9-35.2); Mean Corpuscular Hemoglobin 31.6 pg (25.9-34.0); Mean Corpuscular Volume 87.8 fL (80.0-94.0); Platelet Count 294 10^3/uL (150-450); Red Blood Count 5.07 10^6/uL (4.70-6.10); White Blood Count 13.7 10^3/uL (4.0-11.0)
[2025-04-28 05:42] LABS: Alanine Aminotransferase 20 U/L (16-63); Albumin Globulin Ratio 1.4; Albumin Level 4.7 g/dL (3.4-5.0); Alkaline Phosphatase 78 U/L (46-116); Anion Gap 23.1; Aspartate Amino Transferase 15 U/L (15-37); Blood Urea Nitrogen 29.0 mg/dL (7.0-18.0); Calcium 9.7 mg/dL (8.5-10.1); Carbon Dioxide 22.5 mmol/L (21.0-32.0); Chloride 103 mmol/L (98-107); Estimated GFR (African America >60 (>=60 mL/min/1.73m^2); Estimated GFR (Non-African Ame >60 (>=60 mL/min/1.73m^2); Globulin 3.4 g/dL; Glucose 153 mg/dL (74-106); Lactate/Lactic Acid 1.7 mmol/L (0.4-2.0); Lipase 32.0 U/L (16.0-77.0); Potassium 3.6 mmol/L (3.5-5.1); Sodium 145 mmol/L (136-145); Total Protein 8.1 g/dL (6.4-8.2)
--- OUTSIDE RECORDS SUMMARY | 2025-04-28 05:42 | XMS_ITS | Clinical Summary ---
Author Organization Real Time Content tem Address [id number] [address] [place] [address] Care Team Providers Care Shipping Coordinator Name Role Phone Tawana Valverde MD Primary Care Provider [phone] Allergies Active Allergy Reactions Criticality Noted Date Comments Lorazepam diaphoresis,Vomiting 11/29/2017 Medications allopurinol (ZYLOPRIM) 100 mg tablet 10/11/2017 Active HYDROcodone-acet aminophen (NORCO) 7.5-325 mg per tablet 11/04/2017 Activ e pravastatin (PRAVACHOL) 20 mg tablet 10/11/2017 Active tamsulosin (FLOMAX) 0.4 mg capsule,extended release 24hr 11/07/2017 Active tolterodine LA (DETROL LA) 4 mg 24 hr capsule Take 4 mg by mouth daily. 1 09/07/2017 Active verapamil SR (CALAN-SR) 240 mg CR tablet 11/04/2017 Active losartan (COZAAR) 50 mg tablet Take 50 mg by mouth daily. Active meclizine (ANTIVERT) 25 mg tablet Take 25 mg by mouth 3 (three) times a day as needed for dizziness. Active methotrexate 2.5 mg chemo tablet Take by mouth every 12 hours for 3 doses only each week. Active metaxalone (SKELAXIN) 400 mg tablet Take by mouth 3 (three) times a day. Active meloxicam (MOBIC) 15 mg tablet Take 15 mg by mouth daily. Active gabapentin (NEURONTIN) 300 mg capsule Take 300 mg by mouth 3 (three) times a day. Active cholecalciferol, vitamin D3, (VITAMIN D3) 1,000 units tablet Take 2,000 Units by mouth daily. Active folic acid (FOLVITE) 1 mg tablet Take 1 mg by mouth daily. Active magnesium oxide 420 mg tablet Take by mouth daily. Active aspirin 325 mg tablet Take 325 mg by mouth daily. Active vit B complex no.12/niacin,B3, (VITAMIN B COMPLEX NO.12-NIACIN ORAL) Take by mouth. Active melatonin 5 mg capsule Take by mouth. Active predniSONE (DELTASONE) 10 mg tablet 12/05/2019 Active Active Problems No known active problems Family History Medical History Relation Name Comments Cancer Brother Hypertension Brother Heart disease Father Hypertension Father Stroke Father Hypertension Mother Diabetes Sister Relation Name Status Comments Brother Father Mother Sister Social History Tobacco Use Types Packs/Day Years Used Date Smoking Tobacco: Never Smokeless Tobacco: Never Alcohol Use Standard Drinks/Week Comments No 0 (1 standard drink = 0.6 oz pur e alcohol) Childcare Answer Date Recorded Childcare Unknown 12/21/2018 Employment Answer Date Recorded Employment Unknown 12/21/2018 Purpose - Life Answer Date Recorded Purpose and direction in life Unknown Sex and Gender Information Value Date Recorded Sex Assigned at Not on file Legal Sex Male 11:24 AM EDT Gender Identity Not on file Sexual Orientation Not on file Last Filed Vital Signs Vital Sign Reading Time Taken Comments Blood Pressure 130/70 12/29/2019 11:04 AM EDT Pulse 78 11/29/2017 2:09 PM EDT Temperature 36.6 C (97.9 F) 12/29/2019 11:04 AM EDT Respiratory Rate - - Oxygen Saturation - - Inhaled Oxygen Concentration - - Weight 79.8 kg (176 lb) 12/29/2019 11:04 AM EDT Height 172.7 cm (5' 8 ) 12/29/2019 11:04 AM EDT Body Mass Index 26.76 12/29/2019 11:04 AM EDT Plan of Treatment Health Maintenance Due Date Last Done Comments Depression Screening 1957 Tobacco Screening 1957 DTaP,Tdap and Td Vaccines (1 - Tdap) 1966 Zoster (Shingles) Vaccine (1 of 2) 1997 Fall Risk Screening 2012 Influenza Vaccine 03/12/2025 04/09/2014 Medical Devices Not on file Insurance MEDICARE COMMERCIAL Care Teams Shipping Coordinator Relationship Specialty Start Date End Date Tawana Valverde MD PCP - General Family Medicine 11/15/17
--- OUTSIDE RECORDS SUMMARY | 2025-04-28 05:42 | XMS_ITS | Clinical Summary ---
Author Organization [facility] Address [address] [place] [address] Care Team Providers Care Beef Grader Name Role Phone Reed Hernandez MD Primary Care Provider [phone] Eugenia Mayers MANAGER OF CORPORATE Unavailable Allergies Active Allergy Reactions Criticality Noted Date Comments Lorazepam Hives 11/27/2008 Other Reaction(s): diaphoresis, GI Upset, lethargic, Other: See Comments, Unknown, Vomiting Lethargic and profuse sweats Medications allopurinol (Zyloprim) 100 MG tablet 06/13/2024 Active cholecalciferol (Vitamin D-[address]) 25 MCG (1000 UT) tablet Take 2,000 Units by mouth in the morning. Active cyanocobalamin (Vitamin B-12) 100 MCG tablet Activ e folic acid (Folvite) 1 MG tablet 1 (one) time each day at the same time Active gabapentin (Neurontin) 300 MG capsule Take 300 mg by mouth 05/19/2024 Active Yale 7.5-325 MG tablet Take by mouth 05/18/2022 Activ e losartan (Cozaar) 50 MG tablet Take 50 mg by mouth in the morning. Active Meclizine HCl 25 MG chewable tablet 1 (one) time each day at the same time Active melatonin 5 MG tablet 1 (one) time each day at the same time Active meloxicam (Mobic) 15 MG tablet 1 (one) time each day at the same time Active methotrexate 2.5 MG tablet Active omeprazole (PriLOSEC) [address] capsule 1 capsule 1 (one) time each day at the same time Active pravastatin (Pravachol) 10 MG tablet Take 10 mg by mouth 04/04/2024 Active tamsulosin (Flomax) 0.4 MG 24 hr capsule Take 0.4 mg by mouth 05/05/2024 Active tiZANidine (Zanaflex) 4 MG tablet Take 4 mg by mouth 01/04/2024 Active verapamil SR (Calan SR) 240 MG ER tablet 1 (one) time each day at the same time Active aspirin 81 MG EC tablet Take 325 mg by mouth in the morning. Active cephalexin (Keflex) 500 MG capsuleIndicati ons:Presence of right artificial knee joint Take all 4 capsules one hour before the procedure. 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 02/14/2025 8:00 AM EDT Ancillary Procedure [facility] [address] [phone] 02/14/2025 Travel from Last 3 Months Family History Medical History Relation Name Comments Stroke Father Cancer Other Cancer Paternal Grandfather Relation Name Status Comments Father Maternal Grandmother Other Paternal Grandfather Paternal Grandmother Social History Tobacco Use Types Packs/Day Years Used Date Smoking Tobacco: Former Cigarettes Tobacco Cessation:Counseling Given: Not Answered Alcohol Use Standard Drinks/Week Comments Not Currently 0 (1 standard drink = 0.6 oz pur e alcohol) Sex and Gender Information Value Date Recorded Sex Assigned at Not on file Legal Sex Male 8:25 PM EDT Gender Identity Not on file Sexual Orientation Not on file Last Filed Vital Signs Vital Sign Reading Time Taken Comments Blood Pressure 142/80 07/21/2018 12:00 PM EST Pulse - - Temperature - - Respiratory Rate - - Oxygen Saturation - - Inhaled Oxygen Concentration - - Weight 81.2 kg (179 lb) 02/14/2025 10:18 AM EDT Height 167.6 cm (5' 6 ) 02/14/2025 10:18 AM EDT Body Mass Index 28.89 02/14/2025 10:18 AM EDT Plan of Treatment Upcoming Encounters Date Type Department Care Team (Late st Contact Info) Description 08/15/2025 10:30 AM EST Office Visit [facility] [address] [place] [phone] Ruddy Pinedo DO [address] [place] [address] Procedures Procedure Name Priority Date/Time Associated Diagnosis Comments XR KNEE 3 VIEWS RIGHT Routine 02/14/2025 7:56 AM EDT Presence of right artificial knee joint from Last 3 Months Results * XR knee 3 views right (02/14/2025 7:56 AM EDT) Anatomical Region Laterality Modality Lower Extremities, Knee Right [facility] Imaging Narrative 02/16/2025 7:45 AM EDT Imaging Result: X-rays AP bilateral weight bearing, bilateral sunrise and right lateral knee total of five views with permanent images are saved to the record does show a well-fixed, well-aligned total knee arthroplasty on the right. No evidence of fracture, loosening or catastrophic wear. us Ruddy Pinedo DO IMG XR PROCEDURES Final Result from Last 3 Months [place] [address] [facility] Care Teams Beef Grader Relationship Specialty Start Date End Date Reed Hernandez MD [address] [place] [id number] PCP - General Family Medicine 12/18/24 Eugenia Mayers NP [address] [place] [id number] Referring Physician Family Medicine 12/18/24
--- OUTSIDE RECORDS SUMMARY | 2025-04-28 05:42 | XMS_ITS | Clinical Summary ---
Author Organization [facility] Address [address] [place], [place] [id number] Care Team Providers Care Product Safety Professional Name Role Phone Tawana Valverde MD Primary Care Provider [phone] Allergies Active Allergy Reactions Criticality Noted Date Comments Lorazepam GI Upset,Other: See Comments 03/16/2014 Lethargic and profuse sweats Medications allopurinol 100 mg tablet Take 100 mg by mouth twice daily. Active losartan 50 mg tablet Take 50 mg by mouth once daily. Active pravastatin 40 mg tablet Take 40 mg by mouth once daily. Active gabapentin 300 mg capsule Take 300 mg by mouth three times daily. Active omeprazole 20 mg capsule Take 20 mg by mouth once daily. Active aspirin, enteric coated 81 mg EC tablet Take 325 mg by mouth once daily. Active tamsulosin 0.4 mg cp24 Take 0.4 mg by mouth. Active meclizine (ANTIVERT) 25 mg tab Take 12.5 mg by mouth as needed. Active verapamil SR 240 mg CR tablet Take 240 mg by mouth daily at bedtime. Active HYDROcodone-Acet aminophen (NORCO) 7.5-325 mg per tablet 01/17/2015 Activ e metaxalone (SKELAXIN) 800 mg tablet 12/20/2014 Active folic acid 1 mg tablet Take 1 mg by mouth once daily. Active METHOTREXATE MISC Active PREDNISONE ORAL Take 10 mg by mouth. Active PYRIDOXINE HCL (VITAMIN B-6 ORAL) Take 1,000 mg by mouth twice daily. Active Melatonin 5 mg tab Take 5 mg by mouth daily at bedtime. Active tolterodine ER (DETROL LA) 4 mg 24 hr capsule TK 1 C PO D 1 02/28/2018 Act shiva cyanocobalamin, vitamin B-12, (VITAMIN B-12 ORAL) Take by mouth. Active Active Problems Problem Noted Date Diagnosed Date History of prostate cancer 07/24/2015 Prostate cancer 03/23/2014 Immunizations Immunization Administration Dates Next Due influenza (IIV4) vaccine, ag e 6 mo - 64 yr, quadrivalent, PF (AFLURIA, FLUARIX, FLULAVAL, FLUZONE) 04/09/2014 Family History Medical History Relation Comments Cancer Brother stomach cancer [Other] Paternal Grandfather Relation Status Comments Brother Paternal Grandfather Social History Tobacco Use Types Packs/Day Years Used Date Smoking Tobacco: Former Pipe Smokeless Tobacco: Never Alcohol Use Standard Drinks/Week Comments No 0 (1 standard drink = 0.6 oz pur e alcohol) PHQ-2 Answer Date Recorded PHQ-2 score 2 04/25/2019 Area Deprivation Index Answer Date Aman rded National Score (1-100), lower number is lower ri sk Not on file 06/19/2020 State Score (1-10), lower number is lower risk N ot on file 06/19/2020 Data from: https://www.neighborhoodatlas.medicine.[facility]/. Last address used for calculation Not on file 06/19/2020 Sex and Gender Information Value Date Recorded Sex Assigned at Not on file Legal Sex Male 12:28 PM EDT Gender Identity Not on file Sexual Orientation Not on file Last Filed Vital Signs Vital Sign Reading Time Taken Comments Blood Pressure 143/76 04/25/2019 11:41 AM EDT Pulse 85 04/25/2019 11:41 AM EDT Temperature 36.6 C (97.8 F) 04/25/2019 11:41 AM EDT Respiratory Rate 16 04/25/2019 11:41 AM EDT Oxygen Saturation 96% 05/25/2018 2:10 PM EST Inhaled Oxygen Concentration - - Weight 78.5 kg (173 lb) 04/25/2019 11:41 AM EDT Height 175.3 cm (5' 9.02 ) 01/23/2015 2:04 PM ED T Body Mass Index 25.54 01/23/2015 2:04 PM EDT Plan of Treatment Health Maintenance Due Date Last Done Comments Anxiety Screening 1965 Depression Screening 1965 Hepatitis C Screening 1965 DTaP,Tdap,Td Vaccine (1 - Tdap) 1966 Diabetes Screening 1992 Pneumococcal Vaccine: 50+ (1 of 1 - PCV) 1997 Shingrix Vaccine (1 of 2) 1997 RSV Vaccine (1 - 1-dose 75+ series) 2022 Advance Directive Discussion 07/12/2024 Covid-19 Vaccine (1 - season) 2025 Influenza Vaccine (#1) 2025 04/09/2014 Insurance MEDICARE [employer]P MEDICARE SUPPLEMENT Care Teams Product Safety Professional Relationship Specialty Start Date End Date Tawana Valverde MD [address] [place] [address] PCP - General Family Medicine 03/02/14
--- OUTSIDE RECORDS SUMMARY | 2025-04-28 05:42 | XMS_ITS | Patient Health Record ---
Author Organization [facility] [place] Address [address] [place] [address] Care Team Providers Care Director Of Market Intelligence Name Role Phone None, Unknown or Primary Care Provider Unavailab le Reason For Referral No Information Medications Medication SIG (Take, Route, Frequency, Duration) Notes Start Date End Date Status Oxaprozin 600 mg tablet Ac tive Allopurinol Sodium Active hydroCHLOROthiazide Active Lisinopril tablet Active Verapamil HCl Activ e Pravachol tablet Active Meclizine HCl Activ e Skelaxin 800 mg tablet Act shiva Vicoprofen 7.5 mg-200 mg tablet Active Nexium Active Plan Of Treatment No Information
--- OUTSIDE RECORDS SUMMARY | 2025-04-28 05:43 | XMS_ITS | CCD ---
Author Organization [facility] Care Team Providers Care Management Development Specialist Name Role Phone KHUSHI, DR GASCA Admitting Unavailable KHUSHI, DR GASCA Attending Unavailable CAMPA, DR BRYSON Moncada Primary Care Unavailable KHUSHI, DR GASCA Consulting Unavailable BRYSON CAMPA Primary Care Physician Arturo Mayers Primary Care Physician Unavailable Primary Care Provider Sarai Blackburn Admitting Unavailable Pocos, Sarai Mccracken Attending Unavailable Pocos, Sarai Mccracken Referring Unavailable Pocos, Sarai Mccracken Admitting Unavailable Pocos, Sarai Mccracken Attending Unavailable Pocos, Sarai Mccracken Referring Unavailable DomingoOmid Referring Unavailable DomingoOmid Admitting Unavailable DomingoOmid Attending Unavailable Pocos, Sarai Mccracken Admitting Unavailable Pocos, Sarai Mccracken Attending Unavailable Pocos, Sarai Mccracken Referring Unavailable Campos PURI Attending Unavailable Pocos, Sarai Mccracken Referring Unavailable DomingoOmid Admitting Unavailable Domingo, Omid Attending Unavailable Reed Hernandez MD Primary Care Provider Haley GAINES, Arturo Unavailable Haley RECONCILIATION MACHINE OPERATOR, Arturo Unavailable Arturo Mayers Attending Unavailable Haley, Arturo Cho Attending Unavailable HaleyArturo Attending Unavailable Campos PURI Attending Unavailable Pocos, Sarai Mccracken Admitting Unavailable Pocos, Sarai Mccracken Attending Unavailable Pocos, Sarai Mccracken Referring Unavailable HaleyArturo izaguirre Attending Unavailable NONE, XXXX Referring Unavailable James Stanton Attending Unavailable Tip Ramirez Attending Unavailable Haley, TUB CHUCKER Arturo Cho Attending Unavailable Pocos, Sarai Mccracken Attending Unavailable PocosSarai Admitting Unavailable BRITTANY BASS Attending Unavailable POCOS, SARAI Mccracken Referring Unavailable KIRTI CHANG Attending Unavailable POCOS, SARAI Mccracken Referring Unavailable JU, DANYEL Attending Unavailable POCOS, SARAI Mccracken Referring Unavailable CHANG, KIRTI Attending Unavailable POCOS, SARAI Mccracken Referring Unavailable JU, DANYEL Attending Unavailable POCOS, SARAI Mccracken Referring Unavailable POCOS, SARAI Mccracken Referring Unavailable POCOS, SARAI Mccracken Attending Unavailable POCOS, SARAI Mccracken Referring Unavailable CHANG, KIRTI Attending Unavailable POCOS, SARAI Mccracken Referring Unavailable JU, DANYEL Attending Unavailable POCOS, SARAI Mccracken Referring Unavailable JU, DANYEL Attending Unavailable POCOS, SARAI Mccracken Referring Unavailable CHANG, KIRTI Attending Unavailable POCOS, SARAI Mccracken Referring Unavailable JU, DANYEL Attending Unavailable POCOS, SARAI Mccracken Referring Unavailable JU, DANYEL Attending Unavailable POCOS, SARAI Mccracken Referring Unavailable JU, DANYEL Attending Unavailable POCOS, SARAI Mccracken Referring Unavailable JU, DANYEL Attending Unavailable POCOS, SARAI Mccracken Referring Unavailable JU, DANYEL Attending Unavailable POCOS, SARAI Mccracken Referring Unavailable JU, DANYEL Attending Unavailable POCOS, SARAI Mccracken Referring Unavailable CHANG, KIRTI Attending Unavailable POCOS, SARAI Mccracken Referring Unavailable CHANG, KIRTI Attending Unavailable POCOS, SARAI Mccracken Referring Unavailable CHANG, KIRTI Attending Unavailable POCOS, SARAI Mccracken Referring Unavailable CHANG, KIRTI Attending Unavailable POCOS, SARAI Mccracken Referring Unavailable JU, DANYEL Attending Unavailable POCOS, SARAI Mccracken Referring Unavailable JU, DANYEL Attending Unavailable POCOS, SARAI Mccracken Referring Unavailable POCOS, SARAI Mccracken Referring Unavailable POCOS, SARAI Mccracken Attending Unavailable POCOS, SARAI Mccracken Attending Unavailable POCOS, SARAI Mccracken Referring Unavailable POCOS, SARAI Mccracken Attending Unavailable POCOS, SARAI Mccracken Attending Unavailable POCOS, SARAI Mccracken Referring Unavailable POCOS, SARAI Mccracken Referring Unavailable POCOS, SARAI Mccracken Attending Unavailable POCOS, SARAI Mccracken Referring Unavailable POCOS, SARAI Mccracken Referring Unavailable POCOS, SARAI Mccracken Attending Unavailable HALEY, ARTURO Referring Unavailable Haley, Arturo Cho Attending Unavailable Pocos, Sarai Mccracken Attending Unavailable Pocos, Sarai Mccracken Admitting Unavailable Haley, Arturo Cho Attending Unavailable Haley, Arturo L Attending Unavailable BROWN, ROYA Mccracken Attending Unavailable Pocos, Sarai Mccracken Referring Unavailable Pocos, Sarai Mccracken Attending Unavailable Pocos, Sarai Mccracken Admitting Unavailable BROWN, ROYA Mccracken Attending Unavailable BROWN, ROYA Mccracken Admitting Unavailable Allergies Allergy Classification Reported Allergen(s) Allergy Type Date of Onset Reaction(s) Facility (6 sources) LORazepam; Translations: [Ativan] Drug Allergy 10-28-201 4 [facility] Repository (16 sources) LORazepam; Translations: [lorazepam] Drug Allergy 4 Vomitus (substance), Sweating (finding) [facility] (20 sources) Lorazepam Propensity to adverse reactions 9 Hives [facility] Medications Current Medications Medication Drug Class(es) Dates Sig (Normalized) Sig (Original) acetaminophen 325 mg / HYDROcodone bitartrate 7.5 mg oral tablet (20 sources) Opioid Agonist Start: 08-05-2023 take 1 tablet by mouth three times daily Douglas 325 mg-7.5 mg oral tablet 1 tab(s), Oral, TID, 90 tab(s), Refill(s) 0, [facility] [id number], 170, cm, 06/21/23 11:26:00 EST, Height/Length Dosing, 77, kg, 06/21/23 11:26:00 EST, Weight Dosing Start Date: 08/05/23 Status: Ordered Start: 05-18-2022 Douglas 7.5-325 MG tablet Take by mouth 05/18/2022 Active Start: 06-10-2017 take 1 tablet by jamey th every eight hours as needed for pain Douglas 325 mg-7.5 mg oral tablet 1 tab(s), Oral, q8hr as needed for pain, Refill(s) 0 Start Date: 06/10/17 Status: Ordered allopurinol 100 mg oral tablet (20 sources) Xanthine Oxidase Inhibitor Start: 06-13-2024 allopurinol (Zylopri m) 100 MG tablet 06/13/2024 Active Start: 06-21-2023 take 1 tablet by jamey th once daily allopurinol 100 mg Tab 100 mg = 1 tab(s), Oral, Daily, # 90 tab(s), Refills(s) 3, Pharmacy: [facility] [id number], 170, cm, 06/21/23 11:26:00 EST, Height/Length Dosing, 77, kg, 06/21/23 11:26:00 EST, Weight Dosing Start Date: 06/21/23 Status: Ordered Start: 06-08-2017 take 1 tablet by jamey th three times daily allopurinol 100 mg Tab 100 mg = 1 tab(s), Oral, TID, # 60 tab(s), Refills(s) 0 Start Date: 06/08/17 Status: Ordered aspirin 81 mg delayed release oral tablet (20 sources) Platelet Aggregation Inhibitor, Nonsteroidal Anti-inflammatory Drug Start: 08-15-2024 take 1 tablet by mouth twice daily aspirin 81 mg Oral EC Tab 81 mg = 1 tab(s), Oral, BID, # 60 tab(s), Refills(s) 0, Pharmacy: [facility] [id number], 173, cm, 08/14/24 11:50:00 EST, Height/Length Dosing, 78.1, kg, 08/14/24 11:50:00 EST, Weight Dosing Start Date: 08/15/24 Status: Ordered Quantity: 60.0 Unit: tab(s) Repeat number: 1 Start: 08-11-2024 take 1 tablet by jamey th once daily aspirin 81 mg Oral EC Tab 81 mg = 1 tab(s), Oral, Daily, Refills(s) 0 Start Date: 08/11/24 Status: Ordered Start: 05-15-2019 take 1 mg by mouth once daily aspirin 81 mg oral tablet mg tab(s), Oral, Daily, Refills(s) 0 Start Date: 05/15/19 Status: Ordered aspirin 81 MG EC tablet Take 325 mg by mouth in the morning. Active cefadroxil 500 mg oral capsule (1 source) Cephalosporin Antibacterial Start: 08-15-2024 End: 08-17-2024 take 1 capsule by mouth every twelve hours cefadroxil 500 mg Cap 500 mg = 1 cap(s), Oral, q12hr, X 2 day(s), # 4 cap(s), Refills(s) 0, Pharmacy: [facility] [id number], 173, cm, 08/14/24 11:50:00 EST, Height/Length Dosing, 78.1, kg, 08/14/24 11:50:00 EST, Weight Dosing Start Date: 08/15/24 Stop Date: 08/17/24 Status: Ordered cephalexin 500 mg oral capsule (17 sources) Cephalosporin Antibacterial Start: 01-17-2025 cephalexin (Keflex) 500 MG capsule Indications: Presence of right artificial knee joint Take all 4 capsules one hour before the procedure. 4 capsule 1 01/17/2025 Active Start: 12-27-2024 End: 01-03-2025 cephalexin (Keflex) 500 MG c apsule Indications: Presence of right artificial knee joint Take all 4 capsules one hour before the procedure. 4 capsule 12/27/2024 01/03/2025 Discontinued Start: 12-15-2024 End: 12-22-2024 take 1 capsule by mouth in the morning, then take 1 capsule by mouth in the evening, then take 1 capsule by mouth at bedtime cephalexin (Keflex) 500 MG capsule Indications: Superficial disruption or dehiscence of operation wound, initial encounter Take 1 capsule (500 mg) by mouth in the morning and 1 capsule (500 mg) in the evening and 1 capsule (500 mg) before bedtime. Do all this for 7 days. 21 capsule 12/15/2024 12/22/2024 Active Start: 11-10-2024 End: 11-24-2024 take 1 capsule by mouth in the morning, then take 1 capsule by mouth in the evening, then take 1 capsule by mouth at bedtime cephalexin (Keflex) 500 MG capsule Indications: S/P total knee replacement, right Take 1 capsule (500 mg) by mouth in the morning and 1 capsule (500 mg) in the evening and 1 capsule (500 mg) before bedtime. Do all this for 7 days. 21 capsule 11/10/2024 11/24/2024 Discontinued Start: 09-15-2024 End: 09-22-2024 cephalexin (Keflex) 500 MG c apsule Indications: S/P total knee replacement, right Take 1 capsule (500 mg) by mouth in the morning and 1 capsule (500 mg) at noon and 1 capsule (500 mg) in the evening and 1 capsule (500 mg) before bedtime. Do all this for 7 days. 28 capsule 09/15/2024 09/22/2024 Active docusate sodium 100 mg oral capsule (20 sources) Start: 08-15-2024 End: 11-24-2024 take 1 capsule by mouth twice daily as needed for constipation Colace 100 mg Cap 100 mg = 1 cap(s), Oral, BID, PRN for constipation, # 40 cap(s), Refills(s) 0, Pharmacy: [facility] [id number], 173, cm, 08/14/24 11:50:00 EST, Height/Length Dosing, 78.1, kg, 08/14/24 11:50:00 EST, Weight Dosing Start Date: 08/15/24 Status: Ordered Quantity: 40.0 Unit: cap(s) Repeat number: 1 doxycycline hyclate 100 mg oral tablet (1 source) Tetracycline -class Drug Start: 10-06-2024 End: 10-16-2024 take 1 tablet by mouth every twelve hours doxycycline hyclate 100 mg Tab 100 mg = 1 tab(s), Oral, q12hr, X 10 day(s), # 20 tab(s), Refills(s) 0, Pharmacy: [facility] [id number], 173, cm, 10/05/24 23:18:00 EDT, Height/Length Dosing, 77.7, kg, 10/05/24 23:18:00 EDT, Weight Dosing Start Date: 10/06/24 Stop Date: 10/16/24 Status: Ordered Quantity: 20.0 Unit: tab(s) Repeat number: 1 folic acid 1 mg oral tablet (20 sources) Start: 06-10-2017 take 1 tablet by mouth once daily folic acid 1 mg Tab 1 mg = 1 tab(s), Oral, Daily, Refills(s) 0, Prophylaxis Start Date: 06/10/17 Status: Ordered Repeat number: 1 gabapentin 300 mg oral capsule (20 sources) Anti-epilept ic Agent Start: 05-19-2024 gabapentin (Neurontin) 300 MG capsule Take 300 mg by mouth 05/19/2024 Active Start: 05-19-2023 take 1 capsule by [facility] three times daily gabapentin 300 mg Cap 300 mg = 1 cap(s), Oral, TID, # 270 cap(s), Refills(s) 1, Pharmacy: [facility] [id number], 170, cm, 03/22/23 11:04:00 EDT, Height/Length Dosing, 76.9, kg, 01/06/23 11:42:00 EDT, Weight Dosing Start Date: 05/19/23 Status: Ordered Start: 06-08-2017 take 300 mg by mouth three times daily gabapentin 300 mg, Oral, TID, Refills(s) 0 Start Date: 06/08/17 Status: Ordered losartan potassium 50 mg ora l tablet (20 sources) Angiotensin 2 Receptor Melina Start: 09-16-2022 Start: 06-08-2017 take 1 tablet by jamey th once daily losartan 50 mg Tab 50 mg = 1 tab(s), Oral, Daily, Refills(s) 0, High blood pressure Start Date: 08/04/24 Status: Ordered Repeat number: 1 Magnesium Oxide (9 sources) Start: 01-04-2024 take 1 tablet by jamey th once magnesium oxide Oral, one tab once per day per pt, Refills(s) 0 Start Date: 01/04/24 Status: Ordered Repeat number: 1 Start: 01-04-2024 take 1 tablet by mouth once ma gnesium oxide Oral, one tab once per day per pt, Refills(s) 0 Start Date: 01/04/24 Status: Ordered Start: 06-08-2017 take 1 tablet by jamey th three times daily magnesium oxide 420 mg oral tablet 420 mg = 1 tab(s), Oral, TID, Refills(s) 0 Start Date: 06/08/17 Status: Ordered meclizine hydrochloride 25 m g oral tablet (20 sources) Antiemetic Start: 09-16-2022 meclizine 25 m g Tab 25 mg = 1 tab(s), Oral, PRN Dizziness, Refills(s) 0 Start Date: 09/16/22 Status: Ordered Repeat number: 1 Start: 06-08-2017 take 25 mg by mouth four times daily as needed for dizziness meclizine 25 mg, Oral, QID, PRN Dizziness, Refills(s) 0 Start Date: 06/08/17 Status: Ordered Meclizine HCl 25 MG chewable tablet 1 (one) time each day at the same time Active melatonin 10 mg extended release oral tablet (20 sources) Start: 01-06-2023 take 10 mg by mouth once daily at bedtime melatonin 10 mg, Oral, Once a day (at bedtime), Refills(s) 0 Start Date: 01/06/23 Status: Ordered Repeat number: 1 Start: 06-10-2017 take 5 mg by mouth o nce daily at bedtime melatonin 5 mg, Oral, Once a day (at bedtime), Refills(s) 0 Start Date: 06/10/17 Status: Ordered meloxicam 15 mg oral tablet (20 sources) Nonsteroidal Anti-inflammatory Drug Start: 06-08-2017 take 1 tablet by mouth once daily meloxicam 15 mg Tab 15 mg = 1 tab(s), Oral, Daily, Refills(s) 0 Start Date: 08/11/24 Status: Ordered Repeat number: 1 metaxalone 400 mg oral tablet (1 source) Start: 06-10-2017 take 400 mg by mouth three times daily as needed for pain metaxalone 400 mg, Oral, TID, PRN as needed for pain, Refills(s) 0 Start Date: 06/10/17 Status: Ordered methotrexate 2.5 mg oral tablet (20 sources) Folate Analog Metabolic Inhibitor Start: 09-16-2022 methotrexate 2.5 mg Tab 25 mg = 10 tab(s), Oral, qWeek, Take every Wednesday, Refills(s) 0 Start Date: 09/16/22 Status: Ordered Repeat number: 1 Start: 09-16-2022 Start: 06-08-2017 take 2.5 mg by mouth every week methotrexate 2.5 mg, Oral, qWeek, Refills(s) 0 Start Date: 06/08/17 Status: Ordered mupirocin 20 mg/ml topical cream (1 source) RNA Synthetase Inhibitor Antibacterial Start: 09-16-2022 mupirocin Top 2% Crm 1 danielle, Topical, TID, 15 gram, Refill(s) 0 Start Date: 09/16/22 Status: Ordered omeprazole 20 mg delayed release oral capsule (20 sources) Proton Pump Inhibitor Start: 09-16-2022 take 1 capsule by mouth once daily omeprazole 20 mg Cap-DR 20 mg = 1 cap(s), Oral, Daily, Refills(s) 0, Indigestion Start Date: 09/16/22 Status: Ordered Repeat number: 1 Start: 09-16-2022 Start: 06-08-2017 take 20 mg by mouth once daily omeprazole 20 mg, Oral, Daily, Refills(s) 0 Start Date: 06/08/17 Status: Ordered pravastatin sodium 20 mg oral tablet (20 sources) HMG-CoA Reductase Inhibitor Start: 08-04-2024 take 1 tablet by mouth once daily pravastatin 20 mg Tab 20 mg = 1 tab(s), Oral, Daily, Refills(s) 0, High cholesterol Start Date: 08/04/24 Status: Ordered Repeat number: 1 Start: 04-04-2024 pravastatin (P ravachol) 10 MG tablet Take 10 mg by mouth 04/04/2024 Active Start: 04-21-2023 take 1 tablet by [facility] once daily pravastatin 10 mg Tab 10 mg = 1 tab(s), Oral, Daily, # 90 tab(s), Refills(s) 1, Pharmacy: [facility] [id number], 170, cm, 03/22/23 11:04:00 EDT, Height/Length Dosing, [...] day(s), # 30 tab(s), Refills(s) 11, Pharmacy: [facility] [id number], 173, cm, 08/10/22 15:37:00 EST, Height/Length Dosing, 77.5, kg, 08/10/22 15:37:00 EST, Weight Dosing Start Date: 08/10/22 Stop Date: 08/05/23 Status: Ordered tamsulosin hydrochloride 0.4 mg oral capsule (20 sources) alpha-Adrenergic Melina Start: 05-05-2024 take 1 capsule by mouth every twenty-four hours tamsulosin (Flomax) 0.4 MG 24 hr capsule Take 0.4 mg by mouth 05/05/2024 Active Start: 09-16-2022 take 1 capsule by [facility] once daily tamsulosin 0.4 mg Cap 0.4 mg = 1 cap(s), Oral, Daily, # 90 cap(s), Refills(s) 0, Urinary discomfort Start Date: 09/16/22 Status: Ordered Quantity: 90.0 Unit: cap(s) Repeat number: 1 Start: 06-10-2017 take 1 capsule by [facility] once daily at bedtime tamsulosin 0.4 mg Cap 0.4 mg = 1 cap(s), Oral, Once a day (at bedtime), Refills(s) 0 Start Date: 06/10/17 Status: Ordered tiZANidine 4 mg oral tablet (20 sources) Central alpha-2 Adrenergic Agonist Start: 01-04-2024 End: 12-29-2024 tiZANidine (Zanaflex) 4 MG tablet Take 4 mg by mouth 01/04/2024 Active Start: 07-20-2023 tiZANidine 4 m g Tab 4 mg = 1 tab(s), Oral, q8hr, 60 tab(s), # 60 tab(s), Refills(s) 1, Pharmacy: [facility] [id number], 170, cm, 06/21/23 11:26:00 EST, Height/Length Dosing, 77, kg, 06/21/23 11:26:00 EST, Weight Dosing Start Date: 07/20/23 Status: Ordered verapamil hydrochloride 240 mg extended release oral tablet (20 sources) Calcium Channel Melina Start: 06-08-2017 End: 12-29-2024 take 1 tablet by mouth once daily verapamil 240 mg ER Tab 240 mg = 1 tab(s), Oral, Daily, X 90 day(s), # 90 tab(s), Refills(s) 3, Pharmacy: [facility] [id number], 168, cm, 01/04/24 11:11:00 EDT, Height/Length Dosing, 82.3, kg, 01/04/24 11:11:00 EDT, Weight Dosing Start Date: 01/04/24 Stop Date: 12/29/24 Status: Ordered Quantity: 90.0 Unit: tab(s) Repeat number: 4 vibegron 75 MG Oral Tablet [Gemtesa] (1 source) Start: 08-13-2023 take 1 tablet by mouth once daily Gemtesa 75 mg oral tablet 75 mg = 1 tab(s), Oral, Daily, # 30 tab(s), Refills(s) 11, Pharmacy: [facility] [id number], 173, cm, 08/13/23 11:43:00 EST, Height/Length Dosing, 77, kg, 08/13/23 11:43:00 EST, Weight Dosing Start Date: 08/13/23 Status: Ordered vitamin B12 (20 sources) Vitamin B12 Start: 06-10-2017 Vitamin B12 1, 000 microgram, Oral, Daily, Take 1 tab Wednesday, Wednesday, Refills(s) 0 Start Date: 06/10/17 Status: Ordered Repeat number: 1 Start: 06-10-2017 Vitamin B12 1, 000 microgram, Oral, Daily, Take 1 tab Wednesday, Wednesday, Refills(s) 0 Start Date: 06/10/17 Status: Ordered Start: 06-10-2017 Vitamin B12 1, 000 microgram, Oral, Daily, Refills(s) 0 Start Date: 06/10/17 Status: Ordered cyanocobalamin ( Vitamin B-12) 100 MCG tablet Active Completed/Discontinued Medications Medication Drug Class(es) Dates Sig (Normalized) Sig (Original) cholecalciferol 0.025 mg oral capsule (20 sources) Vitamin D Start: 06-08-2017 take 1 capsule by mouth once daily cholecalciferol 1000 intl units oral capsule 1,000 International_Unit = 1 cap(s), Oral, Daily, Refills(s) 0, Prophylaxis Start Date: 06/08/17 Status: Ordered Repeat number: 1 Start: 06-08-2017 take 1 capsule by mo [facility] once daily cholecalciferol 1000 intl units oral capsule 1,000 International_Unit = 1 cap(s), Oral, Daily, Refills(s) 0 Start Date: 06/08/17 Status: Ordered cholecalciferol (Vitamin D-[address]) 25 MCG (1000 UT) tablet Take 2,000 Units by mouth in the morning. Active traMADol hydrochloride 50 mg oral tablet (3 sources) Opioid Agonist Start: 12-22-2024 End: 01-03-2025 Ultram 50 MG tablet Take by mouth 12/22/2024 01/03/2025 Discontinued Problems Active Problems Problem Classification Problem Date Documented Date Episodic/Chronic Cancer of prostate (9 sources) Malignant tumor of prostate 06-10-2017 Chronic Cancer of prostate (12 sources) Personal history of malignant neoplasm of prostate; Translations: [History of malignant neoplasm of prostate] Onset: 08-10-2022 Episodic Complications of surgical procedures or medical care (4 sources) Dehiscence of surgical wound; Translations: [Disruption of external operation (surgical) wound, not elsewhere classified, initial encounter] 11-10-2024 Episodic Disorders of lipid metabolism (8 sources) Mixed hyperlipidemia Onset: 09-16-2022 09-16-2022 Chronic Esophageal disorders (8 sources) Gastroesophageal reflux disease without esophagitis Onset: 09-16-2022 09-16-2022 Chronic Essential hypertension (9 sources) Benign essential hypertension; Translations: [Essential (primary) hypertension] 07-26-2024 Chronic Genitourinary symptoms and ill-defined conditions (10 sources) Urge incontinence; Translations: [Urge incontinence of urine] Onset: 08-13-2023 Chronic Genitourinary symptoms and ill-defined conditions (18 sources) Increased frequency of urination; Translations: [Nocturia] 05-15-2019 Episodic Gout and other crystal arthropathies (8 sources) Chronic gout without tophus Onset: 09-16-2022 09-16-2022 Chronic Hyperplasia of prostate (12 sources) Benign prostatic hypertrophy with outflow obstruction; Translations: [Benign prostatic hyperplasia with lower urinary tract symptoms] Onset: 08-10-2022 Chronic Osteoarthritis (20 sources) Osteoarthritis of right knee joint; Translations: [Unilateral primary osteoarthritis, right knee] 07-26-2024 Chronic Other bone disease and musculoskeletal deformities (2 sources) Progressive avascular necrosis of lunate; 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] 02-14-2025 Chronic Other connective tissue disease (2 sources) History of total knee arthroplasty; Translations: [Presence of right artificial knee joint] 11-10-2024 Chronic Other connective tissue disease (8 sources) Artificial knee joint present; Translations: [Presence of right artificial knee joint] 11-24-2024 Chronic Other connective tissue disease (9 sources) H/O: osteoarthritis 06-10-2017 Episodic Other connective tissue disease (9 sources) H/O: rheumatoid arthritis 06-10-2017 Episodic Other injuries and conditions due to external causes (1 source) Traumatic AND/OR non-traumatic injury; Translations: [Other injury of unspecified body region, initial encounter] Onset: 10-06-2024 Episodic Other nervous system disorders (9 sources) Post-surgery back pain 06-10-2017 Episodic Other non-traumatic joint disorders (8 sources) Hip pain 03-22-2023 Episodic Other non-traumatic joint disorders (2 sources) Pain in right knee; Translations: [Pain in joint, lower leg] 07-26-2024 Episodic Other non-traumatic joint disorders (7 sources) Knee pain 06-28-2024 Episodic Other non-traumatic joint disorders (2 sources) Pain of right wrist; Translations: [Pain in right wrist] 02-14-2025 Episodic Other nutritional; endocrine; and metabolic disorders (8 sources) Overweight 10-21-2022 Episodic Other nutritional; endocrine; and metabolic disorders (15 sources) Overweight in adulthood with body mass index of 25 or more but less than 30 10-21-2022 Episodic Rheumatoid arthritis and related disease (20 sources) Ankylosing spondylitis; Translations: [Ankylosing spondylitis of multiple sites in spine] Onset: 06-10-2017 06-10-2017 Chronic Skin and subcutaneous tissue infections (1 source) Infection of skin and/or subcutaneous tissue; Translations: [Local infection of the skin and subcutaneous tissue, unspecified] Onset: 10-06-2024 Episodic Spondylosis; intervertebral disc disorders; other back problems (9 sources) Lumbosacral spondylosis without myelopathy 06-10-2017 Chronic Substance-related disorders (9 sources) Smoker 09-26-2019 Chronic Comment on above: Added secondary to d ocumentation in Social History. 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 Onset: 06-28-2024 06-28-2024 Comment on above: Added secondary to c urrent Opioid Treatment Agreement Past or Other Problems Problem Classification Problem Date Documented Date Episodic/Chronic Other circulatory disease (8 sources) History of cerebrovascular disease Onset: 09-16-2022 09-16-2022 Episodic Unclassified (9 sources) Local anesthetic sacral epidural block 06-10-2017 Unclassified (8 sources) Patient encounter status 01-06-2023 Results Test Name Value Interpretation Reference Range Facility Ambulatory Visit Summaryon 0 04-03-2025 Ambulatory Visit Summary Ambulatory Visit Summary LAMBERTO MENDES :1945 Visit Date:04/03/2025 Ambulatory Visit Instructions Your Diagnosis Ankylosing spondylitis of multiple sites in spine Former smoker BMI 27.0-27.9,adult Overweight (BMI 25.0-29.9) Your Care Team Attending Physician - Arturo Beach Primary Care Physician - Arturo Beach This Is Your Medications List acetaminophen-hydroc odone (acetaminophen-hydro codone 325 mg-7.5 mg oral tablet) allopurinol (allopurinol 100 mg Tab) aspirin (aspirin 81 mg Oral EC Tab) cholecalciferol (cholecalciferol 1000 intl units oral capsule) cyanocobalamin (Vitamin B12) docusate (Colace 100 mg Cap) folic acid (folic acid 1 mg Tab) gabapentin (gabapentin 300 mg Cap) latanoprost ophthalmic (latanoprost Opth 0.005% Caty) losartan (losartan 50 mg Tab) magnesium oxide meclizine (meclizine 25 mg Tab) melatonin meloxicam (meloxicam 15 mg Tab) methotrexate (methotrexate 2.5 mg Tab) omeprazole (omeprazole 20 mg Cap-DR) pravastatin (pravastatin 10 mg Tab) pravastatin (pravastatin 20 mg Tab) tamsulosin (tamsulosin 0.4 mg Cap) tizanidine (tiZANidine 4 mg Tab) tizanidine (tizanidine 4 mg oral capsule) verapamil (verapamil 240 mg ER Tab) Procedures Performed Incision AND drainage (12/22/2024), Total knee replacement (08/15/2024), Total knee replacement (08/15/2024), Caudal epidural (01/23/2020), Radiofrequency ablation of medial [...] cuff repair. Discharge Vitals Temperature (Temporal Artery) 36.4 ???C Heart Rate (Peripheral) 91 Respiratory Rate 20 Blood Pressure 140/78 Height 67 in Height 171.0 cm Weight 179.897 lb Weight 81.6 kg BMI 27.91 What to do next Scheduled Follow-Up Appointments Wednesday 10:20 AM EST With: Arturo Beach Where: [address] [id number] 8:45 AM EST With: Campos PURI MD Where: [facility] [address] [id number] 11:00 AM EDT With: Where: [address] [id number]- Medications What How Much When Why Instructions Unchanged acetaminophen-hydroc odone (acetaminophen-hydro codone 325 mg-7.5 mg oral tablet) See instructions TAKE 1 TABLET BY MOUTH EVERY 8 HOURS NEEDED FOR PAIN 30 days Unchanged allopurinol (allopurinol 100 mg Tab) See instructions TAKE 1 TABLET BY MOUTH DAILY Unchanged aspirin (aspirin 81 mg Oral EC Tab) 1 Tablets By Mouth 2 times a day Unchanged cholecalciferol (cholecalciferol 1000 intl units oral capsule) 1 Capsules By Mouth Every day Unchanged cyanocobalamin (Vitamin B12) 1,000 Microgram By Mouth Every day Take 1 tab Wednesday, Wednesday Unchanged docusate (Colace 100 mg Cap) 1 Capsules By Mouth 2 times a day as needed for for constipation Unchanged folic acid (folic acid 1 mg Tab) 1 Tablets By Mouth Every day Unchanged gabapentin (gabapentin 300 mg Cap) 1 Capsules By Mouth 3 times a day Right knee pain Degenerative joint disease of knee, right 90 days Unchanged latanoprost ophthalmic (latanoprost Opth 0.005% Caty) 1 Drops Ophthalmic Once a day (at bedtime) Unchanged losartan (losartan 50 mg Tab) 1 Tablets By Mouth Every day Unchanged magnesium oxide By Mouth one tab once per day per pt Unchanged meclizine (meclizine 25 mg Tab) 1 Tablets By Mouth As needed for Dizziness Unchanged melatonin 10 Milligram By Mouth Once a day (at bedtime) Unchanged meloxicam (meloxicam 15 mg Tab) 1 Tablets By Mouth Every day Unchanged methotrexate (methotrexate 2.5 mg Tab) 10 Tablets By Mouth Every week Take every Wednesday Unchanged omeprazole (omeprazole 20 mg Cap-DR) 1 Capsules By (more content not included)... Normal [facility] Ambulatory Visit Summary Ambulatory Visit Summary AL LAMBERTO Cho :1945 Visit Date:04/03/2025 Ambulatory Visit Instructions Your Diagnosis Ankylosing spondylitis of multiple sites in spine Former smoker BMI 27.0-27.9,adult Overweight (BMI 25.0-29.9) Your Care Team Attending Physician - Arturo Beach Primary Care Physician - Arturo Beach This Is Your Medications List acetaminophen-hydroc odone (acetaminophen-hydro codone 325 mg-7.5 mg oral tablet) allopurinol (allopurinol 100 mg Tab) aspirin (aspirin 81 mg Oral EC Tab) cholecalciferol (cholecalciferol 1000 intl units oral capsule) cyanocobalamin (Vitamin B12) docusate (Colace 100 mg Cap) folic acid (folic acid 1 mg Tab) gabapentin (gabapentin 300 mg Cap) latanoprost ophthalmic (latanoprost Opth 0.005% Caty) losartan (losartan 50 mg Tab) magnesium oxide meclizine (meclizine 25 mg Tab) melatonin meloxicam (meloxicam 15 mg Tab) methotrexate (methotrexate 2.5 mg Tab) omeprazole (omeprazole 20 mg Cap-DR) pravastatin (pravastatin 10 mg Tab) pravastatin (pravastatin 20 mg Tab) tamsulosin (tamsulosin 0.4 mg Cap) tizanidine (tiZANidine 4 mg Tab) tizanidine (tizanidine 4 mg oral capsule) verapamil (verapamil 240 mg ER Tab) Procedures Performed Incision AND drainage (12/22/2024), Total knee replacement (08/15/2024), Total knee replacement (08/15/2024), Caudal epidural (01/23/2020), Radiofrequency ablation of medial [...] cuff repair. Discharge Vitals Temperature (Temporal Artery) 36.4 ???C Heart Rate (Peripheral) 91 Respiratory Rate 20 Blood Pressure 140/78 Height 67 in Height 171.0 cm Weight 179.897 lb Weight 81.6 kg BMI 27.91 What to do next Scheduled Follow-Up Appointments Wednesday 10:20 AM EST With: Arturo Beach Where: [place] [id number] 8:45 AM EST With: Campos PUIR MD Where: [facility] [address] [id number] Wednesday2025 11:00 AM EDT With: Where: [facility] [place] [address] [place] [address]- Medications What How Much When Why Instructions Unchanged acetaminophen-hydroc odone (acetaminophen-hydro codone 325 mg-7.5 mg oral tablet) See instructions TAKE 1 TABLET BY MOUTH EVERY 8 HOURS NEEDED FOR PAIN 30 days Unchanged allopurinol (allopurinol 100 mg Tab) See instructions TAKE 1 TABLET BY MOUTH DAILY Unchanged aspirin (aspirin 81 mg Oral EC Tab) 1 Tablets By Mouth 2 times a day Unchanged cholecalciferol (cholecalciferol 1000 intl units oral capsule) 1 Capsules By Mouth Every day Unchanged cyanocobalamin (Vitamin B12) 1,000 Microgram By Mouth Every day Take 1 tab Wednesday, Wednesday Unchanged docusate (Colace 100 mg Cap) 1 Capsules By Mouth 2 times a day as needed for for constipation Unchanged folic acid (folic acid 1 mg Tab) 1 Tablets By Mouth Every day Unchanged gabapentin (gabapentin 300 mg Cap) 1 Capsules By Mouth 3 times a day Right knee pain Degenerative joint disease of knee, right 90 days Unchanged latanoprost ophthalmic (latanoprost Opth 0.005% Caty) 1 Drops Ophthalmic Once a day (at bedtime) Unchanged losartan (losartan 50 mg Tab) 1 Tablets By Mouth Every day Unchanged magnesium oxide By Mouth one tab once per day per pt Unchanged meclizine (meclizine 25 mg Tab) 1 Tablets By Mouth As needed for Dizziness Unchanged melatonin 10 Milligram By Mouth Once a day (at bedtime) Unchanged meloxicam (meloxicam 15 mg Tab) 1 Tablets By Mouth Every day Unchanged methotrexate (methotrexate 2.5 mg Tab) 10 Tablets By Mouth Every week Take every Wednesday Unchanged omeprazole (omeprazole 20 mg Cap-DR) 1 Capsules By (more content not included)... Normal [facility] Family Medicine Office/Clini c Noteon 04-03-2025 Family Medicine Office/Clinic Note Family Medicine Office/Clinic Note HPI Staff Pt is here for 3 month f/u pain f/u for Spondylosis of lumbar region without myelopathy or radiculopathy Med agreement UTD 01/02/25 and drug screen due today refills needed: none History of Present Illness pt presents today for 3 month med check. Review of Systems PHQ Score Initial Depression Screen Score: 0 SCORE Physical Exam Vitals & Measurements T: 36.4 ???C(Temporal Artery) HR: 91(Peripheral) RR: 20 BP: 140/78 SpO2: 97% HT: 171.0 cm HT: 67 in WT: 81.6 kg WT: 179.897 lb BMI: 27.91 General: alert, no acute distress ENMT: oral mucosa moist, no pharyngeal erythema or exudate Cardiovascular: regular rate and rhythm, normal peripheral perfusion Respiratory: Lungs CTA, respirations non labored Extremities: no deformity, no trauma Neurological: oriented x 4, LOC appropriate for age, CN II-XII intact, motor strength equal & normal bilaterally, speech normal uses cane for ambulation Assessment/Plan 1. Ankylosing spondylitis of multiple sites in spine (M45.0: Ankylosing spondylitis of multiple sites in spine) pt presents today for 3 month med check. UDS obtained today. med agreement up to date. OARRS reviewed. RTC 3 months. will discuss checking cholesterol at next visit. 2. Former smoker (Z87.891: Personal history of nicotine dependence) continue not smoking 3. BMI 27.0-27.9,adult (Z68.27: Body mass index [BMI] 27.0-27.9, adult) BMI edcuation 4. 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, right Failed back syndrome Former smoker GERD without esophagitis H/O: osteoarthritis History of prostate cancer History of right knee joint replacement Hx of TIA (transient ischemic attack) and stroke Hypertension Left hip pain Long-term current use of opiate analgesic drug Mixed hyperlipidemia Nocturia Over weight Overweight (BMI 25.0-29.9) Right knee pain Spondylosis of lumbar region without myelopathy or radiculopathy Urge incontinence Urinary frequency Historical Annual visit for general adult medical examination with abnormal findings - Ankylosing spondylitis BMI 26.0-26.9,adult BMI 29.0-29.9,adult Cancer of prostate Caudal epidural H/O: rheumatoid arthritis Smoker TIA Procedure/Surgical History Incision AND drainage (12/22/2024), Total knee replacement (08/15/2024), Total knee replacement (08/15/2024), Caudal epidural (01/23/2020), Radiofrequency ablation of medial [...] rotator cuff repair, Rotator cuff repair. Medications acetaminophen-hydroc odone 325 mg-7.5 mg oral tablet, See Instructions allopurinol 100 mg Tab, See Instructions, 4 refills aspirin 81 mg Oral EC Tab, 81 mg= 1 tab(s), Oral, BID cholecalciferol 1000 intl units oral capsule, 1000 International_Unit= 1 cap(s), Oral, Daily Colace 100 mg Cap, 100 mg= 1 cap(s), Oral, BID, PRN folic acid 1 mg Tab, 1 mg= 1 tab(s), Oral, Daily gabapentin 300 mg Cap, 300 mg= 1 cap(s), Oral, TID, 1 refills latanoprost Opth 0.005% Caty, 1 drop(s), OPTH, Once a day (at bedtime) losartan 50 mg Tab, 50 mg= 1 tab(s), Oral, Daily magnesium oxide, Oral meclizine 25 mg Tab, 25 mg= 1 tab(s), Oral, PRN melatonin, 10 mg, Oral, Once a day (at bedtime) meloxicam 15 mg Tab, 15 mg= 1 tab(s), Oral, Daily methotrexate 2.5 mg Tab, 25 mg= 10 tab(s), Oral, qWeek omeprazole 20 mg Cap-DR, 20 mg= 1 cap(s), Oral, Daily pravastatin 10 mg Tab, 10 mg= 1 tab(s), Oral, Once a day (at bedtime), 3 refills pravastatin 20 mg Tab, 20 mg= 1 tab(s), Oral, Daily tamsulosin 0.4 mg Cap, 0.4 mg= 1 cap(s), Oral, Daily tizanidine 4 mg oral capsule tiZANidine 4 mg Tab, 4 mg= 1 tab(s), Oral, q8hr, 3 refills verapamil 240 mg ER T (more content not included)... Normal [facility] Comment on above: Result Comment: Elec tronically Signed By: Arturo Beach\.christianne\Date and Time Signed: 04/03/25 11:08 EDT XR Knee - right 3 [facility] Result: X-rays AP bilateral weight bearing, bilateral sunrise and right lateral knee total of five views with permanent images are saved to the record does show a well-fixed, well-aligned total knee arthroplasty on the right. No evidence of fracture, loosening or catastrophic wear. [facility] Knee - right 3 [facility] Study observation (narrative) [facility] [employer] XR Wrist 3+ Views Righton XR Wrist 3+ Views Right Exam Date/Time: 02/06/2025 10:20 EDT Reason for Exam: Wrist pain;Pain, Non Traumatic Report IMPRESSION: CHRONIC AND DEGENERATIVE CHANGES, NOTED. EXAM: XR Wrist 3+ Views Right DATE: 02/06/2025 9:50 AM CLINICAL HISTORY: Pain, Non Traumatic, Wrist pain. COMPARISON: None available. TECHNIQUE: PA, lateral, oblique, and navicular radiographs of the right wrist were obtained. FINDINGS: The lunate and scaphoid have been removed. Moderate osteoarthritic changes predominantly involving the distal radioulnar joint. Mild ossification of the triangular fibrocartilage is present. There is no acute fracture, dislocation, worrisome bone destruction, radiodense foreign bodies, or other findings of concern identified. Ordering Provider: ROYA DASILVA FINAL REPORT Dictated: 02/07/2025 12:03 pm Abrahan Vicente MD Signed (Electronic Signature): 02/07/2025 12:03 pm Signed by: Abrahan Vicente MD Transcribed by: SUNDAR Technologist: NORAH De Jesus [facility] Ambulatory Visit Summaryon 0 02-06-2025 Ambulatory Visit Summary Ambulatory Visit Summary LAMBERTO MENDES :1945 Visit Date:02/06/2025 Ambulatory Visit Instructions Your Diagnosis Wrist pain, right BMI 28.0-28.9,adult Overweight (BMI 25.0-29.9) Former smoker Your Care Team Attending Physician - ROYA DASILVA CNP Primary Care Physician - Arturo Beach This Is Your Medications List acetaminophen-hydroc odone (acetaminophen-hydro codone 325 mg-7.5 mg oral tablet) acetaminophen-hydroc odone (acetaminophen-hydro codone 325 mg-7.5 mg oral tablet) allopurinol (allopurinol 100 mg Tab) aspirin (aspirin 81 mg Oral EC Tab) cholecalciferol (cholecalciferol 1000 intl units oral capsule) cyanocobalamin (Vitamin B12) docusate (Colace 100 mg Cap) folic acid (folic acid 1 mg Tab) gabapentin (gabapentin 300 mg Cap) losartan (losartan 50 mg Tab) magnesium oxide meclizine (meclizine 25 mg Tab) melatonin meloxicam (meloxicam 15 mg Tab) methotrexate (methotrexate 2.5 mg Tab) omeprazole (omeprazole 20 mg Cap-DR) pravastatin (pravastatin 20 mg Tab) tamsulosin (tamsulosin 0.4 mg Cap) tizanidine (tizanidine 4 mg oral capsule) verapamil (verapamil 240 mg ER Tab) Procedures Performed Incision AND drainage (12/22/2024), Total knee replacement (08/15/2024), Total knee replacement (08/15/2024), Caudal epidural (01/23/2020), Radiofrequency ablation of medial [...] repair, Rotator cuff repair. Discharge Vitals Temperature (Oral) 36.8 ???C Heart Rate (Peripheral) 86 Respiratory Rate 18 Blood Pressure 122/76 Height 171 cm Height 67 in Weight 82.1 kg Weight 180.999 lb BMI 28.08 What to do next Scheduled Follow-Up Appointments Wednesday 10:40 AM EDT With: Arturo Beach Where: [facility] [address] [id number]- [id number] 8:45 AM EST With: Campos PURI MD Where: [facility] [address] [place] [address]- Wednesday2025 11:00 AM EDT With: Where: [facility] [place] [id number]- You Need to Complete the Following XR Wrist 3+ Views Right, 02/06/25, Routine, Order for future visit, Transport Mode: Ambulatory, Reason: Pain, Non Traumatic, No, Wrist pain, right, pp_set_radiology_sub specialty, Not Required, [facility] Medications What How Much When Why Instructions Unchanged acetaminophen-hydroc odone (acetaminophen-hydro codone 325 mg-7.5 mg oral tablet) See instructions TAKE 1 TABLET BY MOUTH EVERY 8 HOURS NEEDED FOR PAIN Unchanged acetaminophen-hydroc odone (acetaminophen-hydro codone 325 mg-7.5 mg oral tablet) See instructions TAKE 1 TABLET BY MOUTH EVERY 8 HOURS NEEDED FOR PAIN Unchanged allopurinol (allopurinol 100 mg Tab) See instructions TAKE 1 TABLET BY MOUTH DAILY Unchanged aspirin (aspirin 81 mg Oral EC Tab) 1 Tablets By Mouth 2 times a day Unchanged cholecalciferol (cholecalciferol 1000 intl units oral capsule) 1 Capsules By Mouth Every day Unchanged cyanocobalamin (Vitamin B12) 1,000 Microgram By Mouth Every day Take 1 tab Wednesday, Wednesday Unchanged docusate (Colace 100 mg Cap) 1 Capsules By Mouth 2 times a day as needed for for constipation Unchanged folic acid (folic acid 1 mg Tab) 1 Tablets By Mouth Every day Unchanged gabapentin (gabapentin 300 mg Cap) 1 Capsules By Mouth 3 times a day Right knee pain Degenerative joint disease of knee, right 90 days Unchanged losartan (losartan 50 mg Tab) 1 Tablets By Mouth Every day Unchanged magnesium oxide By Mouth one tab once per day per pt Unchanged meclizine (meclizine 25 mg Tab) 1 Tablets By Mouth As needed for Dizziness Unchanged melatonin 10 Milligram By Mouth Once a day (at bedtime) Unchanged meloxicam (yesy (more content not included)... Normal [facility] Family Medicine Office/Clini c Noteon 02-06-2025 Family Medicine Office/Clinic Note Family Medicine Office/Clinic Note Chief Complaint The patient presents with right wrist pain. HPI Staff Arturo Mayers pt. Presents today for acute visit. Has been having pain in Rt Wrist. Pain location: Rt Wrist Intensity:_5/10 (can get to 9/10) Onset: 3-4wks ago Medication used: Does take norco for back pain, does help with wrist pain o an extent Opioids prescribed: Douglas from Arturo for Hx of back pain. 21 pills sent 02/05/25. Medication agreement UTD: _01/02/25 Urine drug screen performed:_06/28/24 I have reviewed and verified the staff HPI to be accurate for this encounter. History of Present Illness 79-year-old male patient of Vandana Mayers CNP presenting with right wrist pain. The pain began approximately three to four weeks ago and has progressively worsened. The patient reports that the pain radiates from the wrist joint upwards and backwards. 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 The patient did not report any recent injury to the wrist. The patient is currently using Douglas for pain management, which provides some relief. The pain is exacerbated by activities such as brushing teeth and getting dressed, particularly with external rotation of the wrist. The patient has attempted using ice packs, which did not alleviate the pain. The patient is concerned about the possibility of arthritis or another bone issue. Review of Systems PHQ Score Initial Depression Screen Score: 1 SCORE - Musculoskeletal: Reports right wrist pain radiating upwards and backwards, exacerbated by movement. Physical Exam Vitals & Measurements T: 36.8 ???C(Oral) HR: 86(Peripheral) RR: 18 BP: 122/76 SpO2: 96% HT: 171 cm HT: 67 in WT: 82.1 kg WT: 180.999 lb BMI: 28.08 General: alert, no acute distress Cardiovascular: regular rate and rhythm, normal peripheral perfusion Respiratory: Lungs CTA, respirations non labored Extremities: no deformity, no trauma Musculoskeletal: Pain on wrist movement, particularly with external rotation and flexion. Neurological: oriented x 4, LOC appropriate for age speech normal Assessment/Plan 1. Wrist pain, right (M25.531: Pain in right wrist) - Monitor for potential arthritis or further bone complications. - Discussed referral to ortho pending Xray result s- Sees Dr. Pinedo - Continue ice or heat as needed - Continue with Douglas as prescribed Ordered: XR Wrist 3+ Views Right 2. BMI 28.0-28.9,adult (Z68.28: Body mass index [BMI] 28.0-28.9, adult) BMI 28.08 3. Overweight (BMI 25.0-29.9) (E66.3: Overweight) The standard range for ages 18 and older is >=18.5 and < 25 kg/m2. Your BMI today was above this range, this falls in the overweight to obese category and there are medical benefits to weight loss. We can offer counselling, referral, and/or medical support in addressing this problem. Your BMI and weight management will be followed at subsequent visits. 4. 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, right Failed back syndrome Former smoker GERD without esophagitis H/O: osteoarthritis History of prostate cancer History of right knee joint replacement Hx of TIA (transient ischemic attack) and stroke Hypertension Left hip pain Long-term current use of opiate analgesic drug Mixed hyperlipidemia Nocturia Over weight Overweight (BMI 25.0-29.9) Right knee pain Spondylosis of lumbar region without myelopathy or radiculopathy Urge incontinence Urinary frequency Historical Annual visit for general adult medical examination with abnormal findings - Ankylosing spondylitis BMI 26.0-26.9,adult BMI 29.0-29.9,adult Cancer of prostate Caudal epidural H/O: rheumatoid arthritis Smoker TIA Procedure/Surgical History Incision AND drainage (12/22/2024), Total knee replacement (08/15/2024), Total knee replacement (08/15/2024), Caudal epidural (01/23/2020), Radiofrequency ablation of medial [...] branch of lumbar nerve using fluoroscopic guidance ( (more content not included)... Normal [facility] Comment on above: Result Comment: Elec tronically Signed By: ROYA DASILVA CNP\Date and Time Signed: 02/06/25 09:16 EDT Heart and Vascular Office/Cl inic Noteon 01-26-2025 Heart and Vascular Office/Clinic Note Heart and Vascular Office/Clinic Note Chief Complaint 6 month follow up History of Present Illness Lamberto is a pleasant 79-year-old with medical history significant for hypertension, dyslipidemia and remote history of TIA. Reports remote history of tobacco use. Patient comes in for 6-month follow-up today. Reviewed prior nuc med stress test. At last visit, patient saw Dr. Lane at which time he was ordered a nuc med stress test before surgery. That test did come back normal and patient was cleared for needed procedure. Patient has slightly elevated blood pressure in the office today. He is currently taking losartan 50 mg daily and verapamil 240 mg ER daily that would affect his blood pressure. Patient reports that his blood pressure is often running in this range and he is checking at home and almost never above the 140s but not lower than the 130s systolic. Patient does have a history of ankylosing spondylitis with limits his mobility, patient does not is much as he can physically. Patient denies chest pain, shortness of breath, heart palpitations, dizziness/lightheade dness, and swelling in lower legs. Review of Systems ROS - Provider Constitutional: no fever, no chills, no sweats, no weakness Respiratory: no shortness of breath, no cough Cardiovascular: no chest pain Neuro: no dizziness. no loss of consciousness Physical Exam Vitals & Measurements HR: 89(Peripheral) RR: 18 BP: 148/84 SpO2: 97% HT: 67 in HT: 171 cm WT: 80.1 kg WT: 176.59 lb BMI: 27.39 General: alert, no acute distress Neck: Supple, noJVD nocarotid bruit Cardiovascular: regular rate and rhythm, no murmur normal peripheral perfusion Respiratory: Lungs CTAB, respirations non labored Extremities: no edema left lower extremity. no edema right lower extremity Neurological: oriented x 4, LOC appropriate for age, speech normal Skin: Warm, dry, intact- no rash or concerning lesions Cardiac Diagnostics (08/14/2024 10:31 EST NM Myocardial Spect Rest/Stress 1 Day) Interpretation Summary Normal global and regional wall motion in all territories. Normal rest and stress perfusion. TID 0.79 EF>70% [1] Assessment/Plan 1. Hypertension (I10: Essential (primary) hypertension) Blood pressure slightly elevated in the office today. Patient currently taking losartan 50 mg daily and verapamil 240 mg ER daily. Patient is tolerating this well. He would like to continue with current medications. Medications today in the office. Will continue to monitor. 2. Hyperlipidemia (E78.5: Hyperlipidemia, unspecified) Patient has history of HLD. Currently taking pravastatin 20 mg daily. Monitors lipids with PCP. Continue current medication. Follow-up with me in 1 year or sooner if needed Portions of this record may have been created with voice recognition artificial intelligence software, specifically [employer], [employer] and or [employer]. Substitutions may have occurred due to the inherent limitations of voice recognition and artificial intelligence software. 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, right Failed back syndrome GERD without esophagitis H/O: osteoarthritis History of prostate cancer History of right knee joint replacement Hx of TIA (transient ischemic attack) and stroke Hypertension Left hip pain Long-term current use of opiate analgesic drug Mixed hyperlipidemia Nocturia Over weight Right knee pain Spondylosis of lumbar region without myelopathy or radiculopathy Urge incontinence Urinary frequency Historical Annual visit for general adult medical examination with abnormal findings - Ankylosing spondylitis BMI 26.0-26.9,adult BMI 29.0-29.9,adult Cancer of prostate Caudal epidural H/O: rheumatoid arthritis Smoker TIA Procedure/Surgical History Incision AND drainage (12/22/2024), Total knee replacement (08/15/2024), Total knee replacement (08/15/2024), Caudal epidural (01/23/2020), Radiofrequency ablation of medial [...] branch of lumbar nerve using fluoroscopic guidance ( (more content not included)... Normal [facility] Comment on above: Result Comment: Elec tronically Signed By: Romy MATHEW, James Mccracken\.br\Date and Time Signed: 01/26/25 14:45 EDT Ambulatory Visit Summaryon 0 01-03-2025 Ambulatory Visit Summary Ambulatory Visit Summary AL LAMBERTO Cho :1945 Visit Date:01/02/2025 Ambulatory Visit Instructions Your Diagnosis Encounter for subsequent annual wellness visit (AWV) in Medicare patient BPH with urinary obstruction GERD without esophagitis History of right knee joint replacement Mixed hyperlipidemia Hypertension Family history of diabetes mellitus Over weight Your Care Team Attending Physician - Arturo Beach Primary Care Physician - Arturo Beach This Is Your Medications List acetaminophen-hydroc odone (acetaminophen-hydro codone 325 mg-7.5 mg oral tablet) allopurinol (allopurinol 100 mg Tab) aspirin (aspirin 81 mg Oral EC Tab) cholecalciferol (cholecalciferol 1000 intl units oral capsule) cyanocobalamin (Vitamin B12) docusate (Colace 100 mg Cap) folic acid (folic acid 1 mg Tab) gabapentin (gabapentin 300 mg Cap) losartan (losartan 50 mg Tab) magnesium oxide meclizine (meclizine 25 mg Tab) melatonin meloxicam (meloxicam 15 mg Tab) methotrexate (methotrexate 2.5 mg Tab) omeprazole (omeprazole 20 mg Cap-DR) pravastatin (pravastatin 20 mg Tab) tamsulosin (tamsulosin 0.4 mg Cap) Procedures Performed Incision AND drainage (12/22/2024), Total knee replacement (08/15/2024), Total knee replacement (08/15/2024), Caudal epidural (01/23/2020), Radiofrequency ablation of medial [...] cuff repair. Discharge Vitals Heart Rate (Peripheral) 90 Blood Pressure 144/84 Height 171 cm Height 67 in Weight 80.7 kg Weight 177.913 lb BMI 27.6 What to do next Scheduled Follow-Up Appointments Wednesday 2:00 PM EDT With: James Stanton PA-C Where: [facility] Wednesday 10:40 AM EDT With: Arturo Beach Where: [facility] [address] [phone]- [id number] 8:45 AM EST With: Campos PURI MD Where: [facility] [address] [place] [address]- Wednesday2025 11:00 AM EDT With: Where: [facility] Medicine [address] [address]- Medications What How Much When Why Instructions Unchanged acetaminophen-hydroc odone (acetaminophen-hydro codone 325 mg-7.5 mg oral tablet) See instructions TAKE 1 TABLET BY MOUTH EVERY 8 HOURS NEEDED FOR PAIN Unchanged allopurinol (allopurinol 100 mg Tab) See instructions TAKE 1 TABLET BY MOUTH DAILY Unchanged aspirin (aspirin 81 mg Oral EC Tab) 1 Tablets By Mouth 2 times a day Unchanged cholecalciferol (cholecalciferol 1000 intl units oral capsule) 1 Capsules By Mouth Every day Unchanged cyanocobalamin (Vitamin B12) 1,000 Microgram By Mouth Every day Take 1 tab Wednesday, Wednesday Unchanged docusate (Colace 100 mg Cap) 1 Capsules By Mouth 2 times a day as needed for for constipation Unchanged folic acid (folic acid 1 mg Tab) 1 Tablets By Mouth Every day Unchanged gabapentin (gabapentin 300 mg Cap) 1 Capsules By Mouth 3 times a day Right knee pain Degenerative joint disease of knee, right 90 days Unchanged losartan (losartan 50 mg Tab) 1 Tablets By Mouth Every day Unchanged magnesium oxide By Mouth one tab once per day per pt Unchanged meclizine (meclizine 25 mg Tab) 1 Tablets By Mouth As needed for Dizziness Unchanged melatonin 10 Milligram By Mouth Once a day (at bedtime) Unchanged meloxicam (meloxicam 15 mg Tab) 1 Tablets By Mouth Every day Unchanged methotrexate (methotrexate 2.5 mg Tab) 10 Tablets By Mouth Every week Take every Wednesday Unchanged omeprazole (omeprazole 20 mg Cap-DR) 1 Capsules By Mouth Every day Unchanged pravastatin (pravastatin 20 mg Tab) 1 Tablets By Mouth Every day Unchanged tamsulosin (tamsulosin 0.4 mg Cap) 1 Cap (more content not included)... Normal [facility] Family Medicine Office/Clini c Noteon 01-03-2025 Family Medicine Office/Clinic Note Family Medicine Office/Clinic Note Chief Complaint Subsequent Medicare Wellness Review of Systems PHQ Score Initial Depression Screen Score: 1 SCORE Physical Exam Vitals & Measurements HR: 90(Peripheral) BP: 144/84 SpO2: 97% HT: 171 cm HT: 67 in WT: 80.7 kg WT: 177.913 lb BMI: 27.6 Assessment/Plan 1. Encounter for subsequent annual wellness visit (AWV) in Medicare patient (Z00.00: Encounter for general adult medical examination without abnormal findings) Patient in office today for his Subsequent Medicare Wellness Visit. A customized and personalized print out of all the current AHRQ USPSTF???s recommendations for preventative services and all current CDC recommended immunizations, relevant risk recommendations and the following patient brochures were given. Reviewed What can I expect during my Medicare preventative care visit CDC-Falls Prevention and home safety screening reviewed. Patient denies any falls in last 12 months, voices no worry about falling, does use a walking stick to assist with sitting and standing. Pt voices understanding with keeping walk way area free of clutter to prevent tripping and/or falling. [place] Advance Directives reviewed, present in chart. Patient denies any problems with ADL???s and Instrumental ADL???s. Cognitive screening completed with memory and clock face drawing. Immunization Record reviewed with the patient. Discussed Shingrix vaccine and availability, he plans to get at local pharmacy. Pneumonococcal vaccines received. Influenza vaccine was given. Immunization record is up to date. Allergies and medications reviewed and up to date. Patient denies concerns with taking medication as prescribed, reviewed OTC medications with patient with medication list up to date. Blood tests were reviewed: UTD. Patient gets labs done at [place]. Colonoscopy Screening not done due to age. Reviewed concerns with bladder control over past 6 months with no concerns. Reviewed pain symptoms with patient: 10/19 right knee. Reviewed all outside providers that patient follows. Last visit summary notes available in chart and/or have been requested. Follow up scheduled: 04/03/2025 AWV has been scheduled: 01/02/2026 Medicare provides yearly screening for alcohol and depression concerns. This is completed during our Medicare wellness visit for those who do not have a current diagnosis of depression or concerns with alcohol use. I spent a total of( 12) minutes on this date of service which included preparing to see the patient, face to face patient care, completing clinical documentation, obtaining and/or reviewing separately obtained history, counseling and educating the patient with handouts. Explanations were provided with reviewing questionnaires. AUDIT risk assessment screening completed, risk score(0) with patient denying concerns with use. Completed PHQ-2 risk assessment for depression with risk score(1), negative findings. Patient has been reminded to notify the provider if there would be a change or concerns with symptoms with fear, unable to sleep, worrying too much or feeling down and/or sad with lost of interest with daily activities. Will continue to monitor with screening yearly during Medicare wellness visits. 2. BPH with urinary obstruction (N40.1: Benign prostatic hyperplasia with lower urinary tract symptoms) Pt is currently seeing Urology and taking Tamsulosin daily as directed. No concerns with urinary issues today. Pt to follow up with Urology and PCP as directed. 3. GERD without esophagitis (K21.9: Gastro-esophageal reflux disease without esophagitis) Patient is aware of diet changes with healthier eating habits, such as not eating late at night, losing or maintaining a healthy weight. Importance of not smoking and avoiding and/or reducing alcohol intake. Avoid tight clothing around the waist line and try to avoid spicy or high acid foods. Patient taking PPI medications as directed with symptom management. Reviewed nutrition therapy with recommended foods to help control your symptoms. 4. History of right knee joint replacement (Z96.651: Presence of right artificial knee joint) Patient reports right knee replacement doing well after surgeon had to go back in and remove some infection. Patient follows [facility] as directed. 5. Mixed hyperlipidemia (E78.2: Mixed hyperlipidemia) Reviewed healthy lifestyle with low fat diet and exercise regimen. When you are overweight our body produces more lipids. Risk also increases with family history of hyperlipidemia and with monitoring alcohol use and avoid smoking. Pt voices understanding with importance of monitoring dietary intake to reduce risk factors associated with CVA. Taking statin medications daily as directed. Will continue to follow up with office visits with updated labs as directed. 6. Hypertension (I10: Essential (primary) hypertension) Patient is taking losartan daily as directed. Does monitor BP pressure at home occassionally. HTN stoplight reviewed with BP (more content not included)... Normal [facility] Comment on above: Result Comment: Elec tronically Signed By: Arturo Beach\.br\Date and Time Signed: 01/03/25 15:04 EDT\.br\Electronically Co-Signed By: Susan Kuo\.br\Date and Time Co-Signed: 01/02/25 11:53 EDT Ambulatory Visit Summaryon 0 01-02-2025 Ambulatory Visit Summary Ambulatory Visit Summary LAMBERTO MENDES :1945 Visit Date:01/02/2025 Ambulatory Visit Instructions Your Diagnosis Former smoker BMI 27.0-27.9,adult Your Care Team Attending Physician - Arturo Beach Primary Care Physician - Arturo Beach This Is Your Medications List acetaminophen-hydroc odone (acetaminophen-hydro codone 325 mg-7.5 mg oral tablet) allopurinol (allopurinol 100 mg Tab) aspirin (aspirin 81 mg Oral EC Tab) cholecalciferol (cholecalciferol 1000 intl units oral capsule) cyanocobalamin (Vitamin B12) docusate (Colace 100 mg Cap) folic acid (folic acid 1 mg Tab) gabapentin (gabapentin 300 mg Cap) losartan (losartan 50 mg Tab) magnesium oxide meclizine (meclizine 25 mg Tab) melatonin meloxicam (meloxicam 15 mg Tab) methotrexate (methotrexate 2.5 mg Tab) omeprazole (omeprazole 20 mg Cap-DR) pravastatin (pravastatin 20 mg Tab) tamsulosin (tamsulosin 0.4 mg Cap) [Image Removed: STOP]Stop taking these medications tramadol (Ultram 50 mg Tab) Procedures Performed Incision AND drainage (12/22/2024), Total knee replacement (08/15/2024), Total knee replacement (08/15/2024), Caudal epidural (01/23/2020), Radiofrequency ablation of medial [...] cuff repair. Discharge Vitals Heart Rate (Peripheral) 90 Blood Pressure 144/84 Height 171 cm Height 67 in Weight 80.7 kg Weight 177.913 lb BMI 27.6 What to do next Scheduled Follow-Up Appointments Wednesday 2:00 PM EDT With: Romy MATHEW, James Mccracken Where: [facility] Wednesday2025 8:45 AM EST With: KHUSHI GAINES, Campos Pickard Where: [facility] [address] [phone]- Medications What How Much When Why Instructions Unchanged acetaminophen-hydroc odone (acetaminophen-hydro codone 325 mg-7.5 mg oral tablet) See instructions TAKE 1 TABLET BY MOUTH EVERY 8 HOURS NEEDED FOR PAIN Unchanged allopurinol (allopurinol 100 mg Tab) See instructions TAKE 1 TABLET BY MOUTH DAILY Unchanged aspirin (aspirin 81 mg Oral EC Tab) 1 Tablets By Mouth 2 times a day Unchanged cholecalciferol (cholecalciferol 1000 intl units oral capsule) 1 Capsules By Mouth Every day Unchanged cyanocobalamin (Vitamin B12) 1,000 Microgram By Mouth Every day Take 1 tab Wednesday, Wednesday Unchanged docusate (Colace 100 mg Cap) 1 Capsules By Mouth 2 times a day as needed for for constipation Unchanged folic acid (folic acid 1 mg Tab) 1 Tablets By Mouth Every day Unchanged gabapentin (gabapentin 300 mg Cap) 1 Capsules By Mouth 3 times a day Right knee pain Degenerative joint disease of knee, right 90 days Unchanged losartan (losartan 50 mg Tab) 1 Tablets By Mouth Every day Unchanged magnesium oxide By Mouth one tab once per day per pt Unchanged meclizine (meclizine 25 mg Tab) 1 Tablets By Mouth As needed for Dizziness Unchanged melatonin 10 Milligram By Mouth Once a day (at bedtime) Unchanged meloxicam (meloxicam 15 mg Tab) 1 Tablets By Mouth Every day Unchanged methotrexate (methotrexate 2.5 mg Tab) 10 Tablets By Mouth Every week Take every Wednesday Unchanged omeprazole (omeprazole 20 mg Cap-DR) 1 Capsules By Mouth Every day Unchanged pravastatin (pravastatin 20 mg Tab) 1 Tablets By Mouth Every day Unchanged tamsulosin (tamsulosin 0.4 mg Cap) 1 Capsules By Mouth Every day What How Much When Comments Stop Taking tramadol (Ultram 50 mg Tab) 1-2 tab(s) By Mouth Every 4 hours Take 1-2 every 4-6 hours as needed for pain. Dx: Z96.651 Duration: 7 days Allergies Ativan (Vomit, Sweating, lethargic) Problems Ongoing - Any problem that you are currently receiving treatment for. Ankylosing spondylitis of multiple sites in spine BMI 29.0-29.9,adult 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 Degenerative deysi (more content not included)... Normal [facility] Family Medicine Office/Clini c Noteon 01-02-2025 Family Medicine Office/Clinic Note Family Medicine Office/Clinic Note Chief Complaint 3 month pain f/u HPI Staff Patient is presenting for 3 month follow up pain after knee surgery 08/15/24 Pain characteristics: Pain location: knees, right wrist, left heel Intensity:_ Opioids prescribed: [place] Medication agreement UTD: 06/28/24 Urine drug screen performed:06/28/24 Concerns: Refills: hydrocodone History of Present Illness pt presents today for 3 month med check. Review of Systems PHQ Score Initial Depression Screen Score: 1 SCORE Physical Exam Vitals & Measurements HR: 90(Peripheral) BP: 144/84 SpO2: 97% HT: 67 in HT: 171 cm WT: 177.913 lb WT: 80.7 kg BMI: 27.6 General: alert, no acute distress ENMT: oral mucosa moist, no pharyngeal erythema or exudate Cardiovascular: regular rate and rhythm, normal peripheral perfusion Respiratory: Lungs CTA, respirations non labored Extremities: no deformity, no trauma Neurological: oriented x 4, LOC appropriate for age, CN II-XII intact, motor strength equal & normal bilaterally, speech normal Assessment/Plan 1. Spondylosis of lumbar region without myelopathy or radiculopathy (M47.816: Spondylosis without myelopathy or radiculopathy, lumbar region) pt presents today for 3 month med check. medication agreement updated. OARRS report reviewed. will do drug screen at next visit. RTC 3 months. Ordered: E&M of Est. Patient Low 20-29 Min 08876 2. Ankylosing spondylitis of multiple sites in spine (M45.0: Ankylosing spondylitis of multiple sites in spine) see above Ordered: E&M of Est. Patient Low 20-29 Min 72041 3. Former smoker (Z87.891: Personal history of nicotine dependence) continue not smoking Ordered: 1125F Pain severity quantified; pain present Current tobacco non-user 1036F E&M of Est. Patient Low 20-29 Min 40244 Medication list documented in medical record 1159F Most recent diastolic blood pressure 80-89 mm Hg 3079F Most recent systolic blood pressure >= 140 mm Hg 3077F 4. BMI 27.0-27.9,adult (Z68.27: Body mass index [BMI] 27.0-27.9, adult) BMI education given Ordered: E&M of Est. Patient Low 20-29 Min 83234 Orders: acetaminophen-hydroc odone, See Instructions, 90 tab(s), Refill(s) 0, TAKE 1 TABLET BY MOUTH EVERY 8 HOURS NEEDED FOR PAIN, [facility] [id number], 171, cm, 01/02/25 10:51:00 EDT, Height/Length Dosing, 80.7, kg, 01/02/25 10:51:00 EDT, Weight Dosing acetaminophen-hydroc odone, See Instructions, 90 tab(s), Refill(s) 0, TAKE 1 TABLET BY MOUTH EVERY 8 HOURS NEEDED FOR PAIN, [facility] [id number], 173, cm, 10/05/24 23:18:00 EDT, Height/Length Dosing, 77.7, kg, 10/05/24 23:18:00 EDT, Weight Dosing Follow-up No qualifying data available Problem List/Past Medical History Ongoing Ankylosing spondylitis of multiple sites in spine BMI 29.0-29.9,adult 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, right Failed back syndrome GERD without esophagitis H/O: osteoarthritis History of prostate cancer History of right knee joint replacement Hx of TIA (transient ischemic attack) and stroke Hypertension Left hip pain Long-term current use of opiate analgesic drug Mixed hyperlipidemia Nocturia Over weight Right knee pain Spondylosis of lumbar region without myelopathy or radiculopathy Urge incontinence Urinary frequency Historical Annual visit for general adult medical examination with abnormal findings - Ankylosing spondylitis BMI 26.0-26.9,adult Cancer of prostate Caudal epidural H/O: rheumatoid arthritis Smoker TIA Procedure/Surgical History Incision AND drainage (12/22/2024), Total knee replacement (08/15/2024), Total knee replacement (08/15/2024), Caudal epidural (01/23/2020), Radiofrequency ablation of medial [...] rotator cuff repair, Rotator cuff repair. Medications acetaminophen-hydroc odone 325 mg-7.5 mg oral tablet, See In (more content not included)... Normal [facility] Comment on above: Result Comment: Elec tronically Signed By: Haley MORALES, Arturo Cho\.br\Date and Time Signed: 01/02/25 11:05 EDT Main OR Intraoperative Recor don 12-25-2024 Main OR Intraoperative Record Main OR Intraoperative Record IntraOp Document Type FT Summary Primary Physician: Sarai Pinedo DO A Finalized Date/Time: 12/25/24 08:00:12 Pt. Name: LAMBERTO MENDES Marquis AlexB./Sex: 1945 Male Med Rec #: [id number] Physician: Sarai Pinedo DO Financial #: [id number] Pt. Type: A Room/Bed: [facility] Admit/Disch: 12/22/24 10:07:26 - 12/22/24 14:45:15 Institution: Case Times FT Entry 1 Patient Times In Room 12/22/24 12:10:00 Out Room 12/22/24 12:47:00 Procedure Times Start 12/22/24 12:30:00 Stop 12/22/24 12:43:00 Anesthesia Times Start 12/22/24 12:10:00 Stop 12/22/24 12:47:00 Last Modified By: Marga Jeffery 12/22/24 12:51:36 Case Attendance FT Entry 1 Entry 2 Entry 3 Case Attendee Belem Dudley CRNA, DO, David A Wilhelm CST, Macie C Role Performed HEEL SORTER Surgeon - Primary [employer] STEW[employer]/SA Time In 12/22/24 12:10:00 12/22/24 12:10:00 12/22/24 12:10:00 Time Out 12/22/24 12:47:00 12/22/24 12:47:00 12/22/24 12:47:00 Procedure KNEE WOUND I & D STATUS KNEE WOUND I & D STATUS KNEE WOUND I & D STATUS POST TOTAL KNEE(Right) POST TOTAL KNEE(Right) POST TOTAL KNEE(Right) Comments IS SUPERVISING Last Modified By: Marga Jeffery Kelsie E Burgderfer, Kelsie E 12/22/24 12:56:31 12/22/24 12:56:31 12/22/24 12:56:31 Entry 4 Entry 5 Entry 6 Case Attendee Marga Jeffery RN, Thais Olamide, Suly A Millie P Role Performed Vice President Biostatistics - Primary Staff - Other Scrub - Primary Time In 12/22/24 12:10:00 12/22/24 12:10:00 12/22/24 12:10:00 Time Out 12/22/24 12:47:00 12/22/24 12:47:00 12/22/24 12:47:00 Procedure KNEE WOUND I & D STATUS KNEE WOUND I & D STATUS KNEE WOUND I & D STATUS POST TOTAL KNEE(Right) POST TOTAL KNEE(Right) POST TOTAL KNEE(Right) Comments TRY OUT PERSON SCHOOL AND SCRUBBED IN Last Modified By: Marga Jeffery Kelsie E Burgderfer, Kelsie E 12/22/24 12:56:31 12/22/24 12:56:31 12/22/24 12:56:31 Perioperative Protocols FT Pre-Care Text: Implements protective measures prior to operative or invasive procedure, confirms identity before the operative or invasive procedure, verifies operative procedure, surgical site, and laterality Entry 1 Procedure(s) KNEE WOUND I & D STATUS Patient Identity Birthday, ID Band POST TOTAL KNEE(Right) Verified (select at Check, Patient least 2): Participation Consents / H and P Anesthesia Consent, Operative Site Present Verified H&P, Surgery/Procedure Marking Verified Consent, Transfusion Consent Surgical Site Yes Laterality Verified Yes Verified Procedure Verified Yes Correct Patient Yes Position Verified Availability Equipment, Medication Prep Dry n/a Verified (If Applicable) PreOp Antibiotic Yes Time Out Belem Dudley CRNA, Given Participants Nicol IRIZARRY, Jose Juan Solorzano CST, Kellen Roman, Marga Jeffery, Vandana LENNON, Olamide Bean Sydney A Time Out Complete 12/22/24 12:25:00 Outcomes Met? Yes Last Modified By: Marga Jeffery 12/22/24 12:42:28 Post-Care Text: The patient is free from signs and symptoms of injury caused by extraneous objects Allergy Information FT Pre-Care Text: Verifies allergies Entry 1 Allergies Reviewed? Yes Allergies Reviewed Self/Patient With Outcomes Met? Yes Last Modified By: Marga Jeffery 12/22/24 11:59:40 Post-Care Text: The patient received appropriate medication(s) safely administered during the perioperative period Surgical Procedures FT Entry 1 Procedure Description Procedure KNEE WOUND I & D STATUS Modifiers Right POST TOTAL KNEE Surgeon Description RIGHT KNEE INCISION AND DRAINAGE AND WOUND CLOSURE Primary Procedure Yes Primary Surgeon Sarai Pinedo DO Start 12/22/24 12:30:00 Stop 12/22/24 12:43:00 Anesthesia Type General Surgical Service Orthopedics Wound Class 3 - Contaminated Last Modified By: Marga Jeffery 12/22/24 12:56:57 General Case Data FT Pre-Care Text: Classifies surgical wound, implements aseptic technique, initiates traffic control Entry 1 Case Information OR OR 5 FT Case Level Level 6 Wound Class 3 - Contaminated Specialty Orthopedics ASA Class 3 Preop Diagnosis RIGHT KNEE WOUND Postop Same As Preop Yes DEHISCENCE Postop Diagnosis RIGHT KNEE WOUND Outcomes Met? Yes DEHISCENCE Last Modified By: Marga Jeffery 12/22/24 12:00:29 Post-Care Text: The patient is free from signs and symptoms of infection Skin Assessment (Pre Procedure) FT Pre-Care Text: Implements protective measures to prevent skin/ tissue injury due to thermal or mechanical sources Evaluates for signs and symptoms of physical injury to skin and tissue Entry 1 Skin Integrity Intact, [place], Warm, & Skin Abnormality No Dry Outcomes Met? Yes Last Modified By: Marga Jeffery 12/22/24 12:00:37 Post-Care Text: The patient is free from signs and symptoms of injury caused by extraneous objects Patient Positioning (more content not included)... Normal [facility] Operative Reporton Operative Report Operative Report SURGERY DATE: 12/22/2024 ETHICS INSTRUCTOR: Brie _Yancy SECOND CLIENT EXPERIENCE ADMINISTRATOR: Kellen Manzano C.F.A. PREOPERATIVE DIAGNOSIS: Right knee surgical wound dehiscence status post total knee arthroplasty POSTOPERATIVE DIAGNOSIS: Right knee surgical wound dehiscence status post total knee arthroplasty OPERATION: Right knee incision and debridement with wound closure ANESTHESIA: General ANESTHESIOLOGIST: Belem Dudley CRNA ESTIMATED BLOOD LOSS: None SPECIMEN: None COMPLICATIONS: None IMPLANTS: None HISTORY/OPERATIVE INDICATIONS: Lamberto is a 79-year-old white male who presents here today complaining of a continuing wound over the inferior aspect of his total knee area. He is status post total knee arthroplasty, doing well otherwise. This was initially watched and cared for. It has persisted, and with the persistence we did discuss the possibility of infection. With that information we did make the recommendation for surgical care. This is undertaken here today without event. INTRAOPERATIVE PATHOLOGY: Upon making an ellipse of the wound, there is noted to be no deep involvement, no tracking, no abscess or pocket. The area is ellipticized and excised, curetted deeply. The wound is then fully defined, irrigated with a vancomycin irrigant, and closed primarily with a nylon suture. The patient did tolerate the procedure well under general anesthetic here today. PROCEDURE: After informed consent is obtained and the risks, complications, reasonable expectations of the above procedure are discussed, the patient is taken to the Operative Suite and placed on the operating room table in the supine position. At this point he is given a general anesthetic. A well-padded tourniquet is applied to the right thigh. The knee/thigh/leg/foot/ ankle areas are sterilely prepped and draped in the usual surgical fashion at which time site verification process is undertaken with a time-out procedure. Landmarks are identified and the limb is exsanguinated with an Esmarch, tourniquet inflated to 250 mmHg. The area in question is fully identified and ellipticized. This is discarded. The area is irrigated with the vancomycin irrigant. The subcutaneous tissues are then freed so as to advance the skin layer. This is able to happen without event. At this point the skin is closed with a combination of 3-0 and 4-0 nylon. After adequate closure the wound is fully dressed with Mepilex Ag dressing. The tourniquet is deflated. The patient is extubated, transferred to [facility], and taken to Postanesthesia Care Unit in stable condition. He will be discharged this day. Abi Arechiga Dictated: 12/22/2024 [id number] Transcribed: 12/24/2024 [facility] Comment on above: Result Comment: Elec tronically Signed By: Sarai Pinedo DO\.br\Date and Time Signed: 12/25/24 09:09 EDT Discharge Instructionson Discharge Instructions Discharge Instructions AL LAMBERTO Marquis :1945 Visit Date:12/22/2024 Inpatient Discharge Instructions Your Care Team Admitting Physician - Sarai Pinedo DO Referring Physician - Sarai Pinedo DO Reason for Your Visit RIGHT KNEE WOUND DEHYSENCE What to do next New Follow Up Appointments after Discharge Follow Up with Sarai Pinedo When: Comments: Appointment has already been scheduled Call for any problems. Where: [address] [place] [phone]- Business (1) Medications What How Much When Why Instructions Next Dose New tramadol (Ultram 50 mg Tab) 1-2 tab(s) By Mouth Every 4 hours Take 1-2 every 4-6 hours as needed for pain. Dx: Z96.651 Duration: 7 days Pickup at [facility] [id number] Unchanged acetaminophen-hydroc odone (acetaminophen-hydro codone 325 mg-7.5 mg oral tablet) See instructions TAKE 1 TABLET BY MOUTH EVERY 8 HOURS NEEDED FOR PAIN Unchanged allopurinol (allopurinol 100 mg Tab) See instructions TAKE 1 TABLET BY MOUTH DAILY Unchanged aspirin (aspirin 81 mg Oral EC Tab) 1 Tablets By Mouth 2 times a day Unchanged cholecalciferol (cholecalciferol 1000 intl units oral capsule) 1 Capsules By Mouth Every day Unchanged cyanocobalamin (Vitamin B12) 1,000 Microgram By Mouth Every day Take 1 tab Wednesday, Wednesday Unchanged docusate (Colace 100 mg Cap) 1 Capsules By Mouth 2 times a day as needed for for constipation Unchanged folic acid (folic acid 1 mg Tab) 1 Tablets By Mouth Every day Unchanged gabapentin (gabapentin 300 mg Cap) 1 Capsules By Mouth 3 times a day Right knee pain Degenerative joint disease of knee, right 90 days Unchanged losartan (losartan 50 mg Tab) 1 Tablets By Mouth Every day Unchanged magnesium oxide By Mouth one tab once per day per pt Unchanged meclizine (meclizine 25 mg Tab) 1 Tablets By Mouth As needed for Dizziness Unchanged melatonin 10 Milligram By Mouth Once a day (at bedtime) Unchanged meloxicam (meloxicam 15 mg Tab) 1 Tablets By Mouth Every day Unchanged methotrexate (methotrexate 2.5 mg Tab) 10 Tablets By Mouth Every week Take every Wednesday Unchanged omeprazole (omeprazole 20 mg Cap-DR) 1 Capsules By Mouth Every day Unchanged pravastatin (pravastatin 20 mg Tab) 1 Tablets By Mouth Every day Unchanged tamsulosin (tamsulosin 0.4 mg Cap) 1 Capsules By Mouth Every day Unchanged tizanidine (tiZANidine 4 mg Tab) 1 Tablets By Mouth Every 8 hours Duration: 90 Days 60 tab(s) Unchanged verapamil (verapamil 240 mg ER Tab) 1 Tablets By Mouth Every day Duration: 90 Days Pharmacy Information [facility] [id number]: [address], [place] [id number] [phone] [employer] [place], [place] [facility] OUTPATIENT SURGERY Home Care Instructions Medications You will be given a prescription for pain medication. Please notify the office immediately if you have any allergies to pain medications. About Your Surgical Site Remove the dressing in __7___ days and begin daily dressing changes. Apply new Mepilex dressing (similar to a large bandaid) at that time. Do not get the incision wet until suture removal. Activity You may gradually progress your activities as comfortably tolerated. Continue to ice and elevate your surgical site for the next 48 hours and continue restricted use. Remain off work until your first office visit. Diet You may resume your regular diet as tolerated. Please remember to take your pain medication with food to avoid stomach upset. Increased liquid intake is encouraged for 48 hours after discharged home. Anesthesia Precautions Do not operate a vehicle (automobile, bicycle, motorcycle), machinery or power tools, or drink alcohol beverages for 24 hours. Do not drink any alcohol beverages while you are taking your pain medication. Arrange for a responsible adult to remain with you for at least 24 hours, possibly longer. You may be drowsy and light-headed from the anesthesia and possibly from your pain medication as well. Expectations of Surgery You may have mild to moderate discomfort for the first several days. This should gradually decrease. Any increased discomfort should be reported to the office. Call the office with any of the following: any persistent or heavy bleeding, temperature above 101.5 degrees, increasing redness, swelling or drainage at the operative site, severe and increasing pain at the operative site, persistent vomiting. About your follow-up office visit You will be given a card with your post-operative date and time for this appointment. Report any problems prior to that time. Driving: Driving is legal, but you must be able to maintain control of your car at all times. 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 It is therefore ad (more content not included)... Normal [facility] Comment on above: Result Comment: Elec tronically Signed By: Dyan Greene.br\Date and Time Signed: 12/22/24 13:04 EDT Main OR PACU I Recordon 12-10 Main OR PACU I Record Main OR PACU I Record PACU Phase I Document Type FT Summary Primary Physician: Sarai Pinedo DO Finalized Date/Time: 12/22/24 13:41:34 Pt. Name: ALLAMBERTO Baig./Sex: 1945 Male Med Rec #: [id number] Physician: Sarai Pinedo DO Financial #: [id number] Pt. Type: A Room/Bed: [facility] Admit/Disch: 12/22/24 10:07:26 - Institution: Case Times PACU I FT Pre-Care Text: Identifies barriers to communication and implements measures to provide psychological support Develops individualized plan of care, and ensures continuity of care Maintains patient's dignity and privacy, and maintains patient confidentiality Identifies and reports philosophical, cultural, and spiritual beliefs and values Identifies individual values and wishes concerning care Implements aseptic technique, and administers prescribed antibiotic therapy and immunizing agents as ordered Evaluates postoperative tissue perfusion Implements thermoregulation measures, and monitors body temperature Evaluates postoperative respiratory status Evaluates postoperative cardiac status Evaluates postoperative neurological status Assesses pain control, collaborated in initiating patient-controlled analgesia and implements alternative methods of pain control Verifies allergies, administers prescribed medications and solutions, evaluates response to medications Entry 1 In PACU I 12/22/24 12:49:00 Discharge from PACU 12/22/24 13:35:00 I Outcomes Met? Yes Last Modified By: Daniela Chisholm RN 12/22/24 13:41:16 Post-Care Text: The patient demonstrates knowledge of the expected response to the operative or invasive procedure The patient's care is consistent with the individualized perioperative plan of care The patient's right to privacy is maintained The patient's value system, lifestyle, ethnicity, and culture are considered, respected, and incorporated into the perioperative plan of care The patient participates in decisions affecting his or her perioperative plan of care The patient is free from signs and symptoms of infection The patient has wound/tissue perfusion consistent with or improved from baseline levels established preoperatively The patient is at or returning to normothermia at the conclusion of the immediate postoperative period The patient's respiratory function is consistent with or improved from baseline levels established preoperatively The patient's cardiovascular status is consistent with or improved from baseline levels established preoperatively The patient's cardiovascular status is consistent with or improved from baseline levels established preoperatively The patient demonstrates and/or reports adequate pain control throughout the perioperative period The patient received appropriate medication(s), safely administered during the perioperative period Acuity Level PACU I FT Entry 1 Start Time 12/22/24 12:49:00 Stop Time 12/22/24 13:35:00 Acuity Level Acuity Level I Last Modified By: Daniela Chisholm RN 12/22/24 13:41:33 Finalized By: Daniela Chisholm RN Document Signatures Signed By: Daniela Chisholm RN 12/22/24 13:41 Normal [facility] Main OR PACU II Recordon Main OR PACU II Record Main OR PACU II Record PACU Phase II Document Type FT Summary Primary Physician: Sarai Pinedo DO Finalized Date/Time: 12/22/24 14:45:38 Pt. Name: LAMBERTO MENDES/Sex: 1945 Male Med Rec #: [id number] Physician: Sarai Pinedo DO Financial #: [id number] Pt. Type: A Room/Bed: Admit/Disch: 12/22/24 10:07:26 - 12/22/24 14:45:15 Institution: Case Times PACU II FT Pre-Care Text: Identifies barriers to communication and implements measures to provide psychological support and determines knowledge level Develops individualized plan of care, and ensures continuity of care Maintains patient's dignity and privacy, and maintains patient confidentiality Identifies and reports philosophical, cultural, and spiritual beliefs and values Identifies individual values and wishes concerning care administers prescribed antibiotic therapy and immunizing agents as ordered, Evaluates postoperative tissue perfusion Implements thermoregulation measures, and monitors body temperature Evaluates postoperative respiratory status Evaluates postoperative cardiac status Evaluates postoperative neurological status Assesses pain control, collaborated in initiating patient-controlled analgesia and implements alternative methods of pain control Verifies allergies, administers prescribed medications and solutions, evaluates response to medications Entry 1 In PACU II 12/22/24 13:35:00 Discharge from PACU 12/22/24 14:45:00 II Outcomes Met? Yes Last Modified By: Dyan Greene 12/22/24 14:45:37 Post-Care Text: The patient demonstrates knowledge of the expected response to the operative or invasive procedure The patient's care is consistent with the individualized perioperative plan of care The patient's right to privacy is maintained The patient's value system, lifestyle, ethnicity, and culture are considered, respected, and incorporated into the perioperative plan of care The patient participates in decisions affecting his or her perioperative plan of care. The patient is free from signs and symptoms of infection The patient has wound/tissue perfusion consistent with or improved from baseline levels established preoperatively The patient is at or returning to normothermia at the conclusion of the immediate postoperative period The patient's respiratory function is consistent with or improved from baseline levels established preoperatively The patient's cardiovascular status is consistent with or improved from baseline levels established preoperatively The patient's neurological status is consistent with or improved from baseline levels established preoperatively The patient demonstrates and/or reports adequate pain control throughout the perioperative period The patient received appropriate medication(s), safely administered during the perioperative period Finalized By: Dyan Greene Document Signatures Signed By: Dyan Greene 12/22/24 14:45 Normal [facility] Main OR Preoperative Recordo n 12-22-2024 Main OR Preoperative Record Main OR Preoperative Record PreOp Document Type FT Summary Primary Physician: Sarai Pinedo DO Finalized Date/Time: 12/22/24 12:37:05 Pt. Name: LAMBERTO MENDES/Sex: 1945 Male Med Rec #: [id number] Physician: Sarai Pinedo DO Financial #: [id number] Pt. Type: A Room/Bed: Admit/Disch: 12/22/24 10:07:26 - Institution: Case Times PreOp FT Pre-Care Text: Verifies consent for planned procedure, identifies individual values and wishes concerning care, includes family members in perioperative teaching Entry 1 Patient Times. In Pre Surgery 12/22/24 10:56:00 Out Pre Surgery 12/22/24 12:08:00 Outcomes Met? Yes Last Modified By: Marga Jeffery 12/22/24 12:37:04 Post-Care Text: The patient participates in decisions affecting his or her perioperative plan of care Finalized By: Marga Jeffery Document Signatures Signed By: Marga Jeffery 12/22/24 12:37 Normal [facility] Operative Reporton Operative Report Operative Report Patient: LAMBERTO MENDES Age: 79 years Sex: Male : 1945 Associated Diagnoses: None Author: Sarai Pinedo DO Postoperative Information Procedure: R knee I + D, wound closure Preoperative Diagnosis: R knee wound dehiscence, s/p TKA. Postoperative Diagnosis: same. Performed by: nicol. Water Supervisor: Estiven Manzano. Specimens Removed: none. Estimated Blood Loss: 0 ml. Complications: None. Anesthesia type: General. Normal [facility] Comment on above: Result Comment: Elec tronically Signed By: Sarai Pinedo DO\.br\Date and Time Signed: 12/22/24 13:01 EDT BMPon 12-18-2024 Anion gap [Moles/Vol] 10 mmol/L Normal 6-16 [facility] Comment on above: Performed By: #### 2 [id number] #### [facility] [address] [place] [address] BUN/Creat Ratio 15 No Units Normal 10-20 [facility] Comment on above: Performed By: #### 2 [id number] #### [facility] [address] [place] [address] Calcium [Mass/Vol] 9.3 mg/dL Normal 8.9-11.1 [facility] Comment on above: Performed By: #### 2 [id number] #### [facility] [address] [place] [address] Chloride [Moles/Vol] 106 mmol/L Normal 101-111 [facility] Comment on above: Performed By: #### 2 [id number] #### [facility] [address] [place] [address] CO2 [Moles/Vol] 29 mmol/L Normal 21-31 [facility] Comment on above: Performed By: #### 2 [id number] #### [facility] [address] [place] [address] Creatinine [Mass/Vol] 1.4 mg/dL High 0.5-1.3 [facility] Comment on above: Performed By: #### 2 [id number] #### [facility] [address] [place] [address] Glucose [Mass/Vol] 81 mg/dL Normal 55-199 [facility] Comment on above: Performed By: #### 2 [id number] #### [facility] [address] [place] [address] Potassium [Moles/Vol] 3.9 mmol/L Normal 3.5-5.3 [facility] Comment on above: Performed By: #### 2 [id number] #### [facility] [address] [place] [address] Sodium [Moles/Vol] 141 mmol/L Normal 135-145 [facility] Comment on above: Performed By: #### 2 [id number] #### [facility] [address] [place] [address] Urea nitrogen [Mass/Vol] 21 mg/dL Normal 5-21 [facility] Comment on above: Performed By: #### 2 [id number] #### [facility] [address] [place] [address] CBC w/ Auto Diffon 5 Basophils/100 WBC (Bld) 0.8 % Normal 0.0-2.0 [facility] Comment on above: Performed By: #### 2 [id number] #### [facility] [address] [place] [address] Eosinophils/100 WBC (Bld) 3.4 % Normal 0.0-8.0 [facility] Comment on above: Performed By: #### 2 [id number] #### [facility] [address] [place] [address] Erythrocyte distribution width (RBC) [Ratio] 14.2 % Normal 10.9-14.2 [facility] Comment on above: Performed By: #### 2 [id number] #### [facility] [address] [place] [address] Hematocrit (Bld) [Volume fraction] 37.9 % Normal 37.7-49.0 [facility] Comment on above: Performed By: #### 2 [id number] #### [facility] [address] [place] [address] Hemoglobin (Bld) [Mass/Vol] 13.1 g/dL Low 13.5-17.5 [facility] Comment on above: Performed By: #### 2 [id number] #### [facility] [address] [place] [address] Lymphocytes/100 WBC (Bld) 9.4 % Low 14.0-50.0 [facility] Comment on above: Performed By: #### 2 [id number] #### [facility] [address] [place] [address] MCH (RBC) [Entitic mass] 31.6 pg Normal 27.0-34.0 [facility] Comment on above: Performed By: #### 2 [id number] #### [facility] [address] [place] [address] MCHC (RBC) [Mass/Vol] 34.7 g/dL Normal 31.4-36.0 [facility] Comment on above: Performed By: #### 2 [id number] #### [facility] [address] [place] [address] Monocytes/100 WBC (Bld) 5.9 % Normal 4.0-14.0 [facility] Comment on above: Performed By: #### 2 [id number] #### [facility] [address] [place] [address] NEUTRO AUTO 80.5 % High 36.0-75.0 [facility] Comment on above: Performed By: #### 2 [id number] #### [facility] [address] [place] [address] Platelet mean volume (Bld) [Entitic vol] 7.5 fL Normal 6.4-10.8 [facility] Comment on above: Performed By: #### 2 [id number] #### [facility] [address] [place] [address] Basophil Absolute 0.0 E9/L Normal 0.0-0.2 [facility] Comment on above: Performed By: #### 2 [id number] #### [facility] [address] [place] [address] Eos Absolute 0.2 E9/L Normal 0.0-0.5 [facility] Comment on above: Performed By: #### 2 [id number] #### [facility] [address] [place] [address] Lymph Absolute 0.6 E9/L Low 1.0-4.0 [facility] Comment on above: Performed By: #### 2 [id number] #### [facility] [address] [place] [address] MCV (RBC) [Entitic vol] 91.0 fL Normal 80.0-100.0 [facility] Comment on above: Performed By: #### 2 [id number] #### [facility] [address] [place] [address] [place] Absolute 0.4 E9/L Normal 0.2-1.0 [facility] Comment on above: Performed By: #### 2 [id number] #### [facility] [address] [place] [address] Neutro Absolute 4.8 E9/L Normal 2.0-7.5 [facility] Comment on above: Performed By: #### 2 [id number] #### [facility] [address] [place] [address] Platelet 213.0 E9/L Normal 150.0-500.0 [facility] Comment on above: Performed By: #### 2 [id number] #### [facility] [address] [place] [address] RBC 4.2 E12/L Low 4.3-5.9 [facility] Comment on above: Performed By: #### 2 [id number] #### [facility] [address] [place] [address] WBC 6.0 E9/L Normal 4.0-11.0 [facility] Comment on above: Performed By: #### 2 [id number] #### [facility] [address] [place] [address] CHEMISTRYOrdered By: SYSTEM SYSTEM on 12-18-2024 Anion gap [Moles/Vol] 10 mmol/L Normal 6 - 16 mEq/L R [facility] Chem Calcium [Mass/Vol] 9.3 mg/dL Normal 8.9 - 11. 1 mg/dL [facility] Chloride [Moles/Vol] 106 mmol/L Normal 101 - 1 11 mmol/L [facility] CO2 [Moles/Vol] 29 mmol/L Normal 21 - 31 mmol/L [facility] Creatinine [Mass/Vol] 1.4 mg/dL High 0.5 - 1.3 mg/dL [facility] GFR/1.73 sq M.predicted MDRD (S/P/Bld) [Vol rate/Area] 52 mL/min/1.73 m2 Low >=59mL/min/1. 73 m2 [facility] Glucose [Mass/Vol] 81 mg/dL Normal 55 - 199 mg/dL [facility] Potassium [Moles/Vol] 3.9 mmol/L Normal 3.5 - 5.3 mmol/L [facility] Sodium [Moles/Vol] 141 mmol/L Normal 135 - 145 mmol/L [facility] Urea nitrogen [Mass/Vol] 21 mg/dL Normal 5 - 21 mg/dL [facility] Urea nitrogen/Creatinine [Mass ratio] 15 mg/mg Normal 10 - 20 [facility] CBC W/ AUTO DIFFon 06-0 Basophils (Bld) [#/Vol] 0 10*3/uL [facility] [place] EOS ABSOLUTE 0.2 [facility] Interpretation and review of laboratory results Abnormal [facility] LYMPH ABSOLUTE 0.6 Low [facility] MCV (RBC) [Entitic vol] 91 fL 80.0 - 100.0 fL [facility] MONO ABSOLUTE 0.4 [facility] NEUTRO ABSOLUTE 4.8 [facility] Platelets (Bld) [#/Vol] 213 10*3/uL [facility] RBC (Bld) [#/Vol] 4.2 10*6/uL Low [facility] WBC (Bld) [#/Vol] 6 10*3/uL [facility] Original Ordering Provider: DO Sarai CHAVEZ [facility] HEMATOLOGYOrdered By: SYSTEM SYSTEM on 12-18-2024 Basophils/100 WBC (Bld) 0.8 % Normal 0.0 - 2.0 % [facility] Basophils/Leukocytes Auto (Bld) [Pure # fraction] 0.0 E9/L Normal 0.0 - 0.2 E9/L [facility] Eosinophils (Bld) [#/Vol] 0.2 E9/L Normal 0.0 - 0.5 E9/L [facility] Eosinophils/100 WBC (Bld) 3.4 % Normal 0.0 - 8.0 % [facility] Erythrocyte distribution width (RBC) [Ratio] 14.2 % Normal 10.9 - 14.2 % [facility] Hematocrit (Bld) [Volume fraction] 37.9 % Normal 37.7 - 49.0 % [facility] Hemoglobin (Bld) [Mass/Vol] 13.1 g/dL Low 13.5 - 17.5 gm/dL [facility] Lymphocytes (Bld) [#/Vol] 0.6 E9/L Low 1.0 - 4.0 E9/L [facility] Lymphocytes/100 WBC (Bld) 9.4 % Low 14.0 - 50.0 % [facility] MCH (RBC) [Entitic mass] 31.6 pg Normal 27.0 - 34.0 pg [facility] MCHC (RBC) [Mass/Vol] 34.7 g/dL Normal 31.4 - 36.0 gm/dL [facility] MCV (RBC) [Entitic vol] 91.0 fL Normal 80.0 - 100.0 fL [facility] Monocytes (Bld) [#/Vol] 0.4 E9/L Normal 0.2 - 1.0 E9/L [facility] Monocytes/100 WBC (Bld) 5.9 % Normal 4.0 - 14.0 % [facility] Neutrophils (Bld) [#/Vol] 4.8 E9/L Normal 2.0 - 7.5 E9/L [facility] Neutrophils/100 WBC (Bld) 80.5 % High 36.0 - 75.0 % [facility] Platelet mean volume (Bld) [Entitic vol] 7.5 fL Normal 6.4 - 10.8 fL [facility] Platelets (Bld) [#/Vol] 213.0 E9/L Normal 150.0 - 500.0 E9/L [facility] RBC (Bld) [#/Vol] 4.2 E12/L Low 4.3 - 5.9 E12/L [facility] WBC corrected for nucl RBC Auto (Bld) [#/Vol] 6.0 E9/L Normal 4.0 - 11.0 E9/L [facility] eGFRon 12-18-2024 eGFR 52 mL/min/1.73 m2 Low >=59 [facility] Comment on above: Performed By: #### 1 [id number] #### [facility] [address] [place] [address] ED Clinical Summaryon 2024 ED Clinical Summary ED Clinical Summary [address] [address] ED Clinical Summary Person Information Name: LAMBERTO MENDES [facility] Age: 79 Years : 1945 Sex: Male Language: Irish PCP: Arturo [place] Marital Status: Visit Id: Visit Reason: Cellulitis - Leg; Knee pain-swelling; Post surgical problem; right knee post surgical issue pain swelling Speciality: Acuity: 3 Enc Type: Emergency Med Service: Emergency Arrival: 10/05/2024 23:10:07 Discharge: 10/06/2024 02:08:31 LOS: 000 02:58 Checkin: 10/05/2024 23:10:07 Checkout: 10/06/2024 02:08:31 Dispo Type: Home (Routine DC) EVENTS: Event Name Event Status Request Date/Time Start Date/Time Complete Date/Time Arrive Complete 10/05/2024 23:10:07 10/05/2024 23:10:07 10/05/2024 23:10:07 Document Home Meds Request 10/05/2024 23:10:07 Triage Complete 10/05/2024 23:10:07 10/05/2024 23:18:53 10/05/2024 23:18:53 Registration Complete 10/05/2024 23:14:29 10/05/2024 23:14:29 10/05/2024 23:14:29 Reg Complete Request 10/05/2024 23:14:29 Reg Bed Request Complete 10/05/2024 23:14:29 10/05/2024 23:14:29 10/05/2024 23:14:29 Bed Assign Complete 10/05/2024 23:19:05 10/05/2024 23:19:05 10/05/2024 23:19:05 Dr Exam Complete 10/05/2024 23:19:05 10/06/2024 01:53:27 10/06/2024 01:53:27 RN Exam Complete 10/05/2024 23:19:05 10/06/2024 01:00:40 10/06/2024 01:00:40 Registration Request 10/06/2024 01:53:27 Meds Admin Complete 10/06/2024 02:00:36 10/06/2024 02:07:29 Discharge Complete 10/06/2024 02:02:26 10/06/2024 02:08:40 10/06/2024 02:08:40 Transfer Complete 10/06/2024 02:08:40 10/06/2024 02:08:40 10/06/2024 02:08:40 ADDRESS: [address] [place] [id number] PHYS DOC NOTES: MEDICAL INFORMATION: Prescriptions Given: New Medications [facility] [id number], [address], [place] [phone], [phone] doxycycline (doxycycline hyclate 100 mg Tab) 1 Tablets By Mouth every 12 hours for 10 Days. Refills: 0. Medications to Continue with No Changes Other Medications acetaminophen-hydroc odone (acetaminophen-hydro codone 325 mg-7.5 mg oral tablet) TAKE 1 TABLET BY MOUTH EVERY 8 HOURS NEEDED FOR PAIN. Refills: 0. allopurinol (allopurinol 100 mg Tab) TAKE 1 TABLET BY MOUTH DAILY. Refills: 4. aspirin (aspirin 81 mg Oral EC Tab) 1 Tablets By Mouth 2 times a day. Refills: 0. cholecalciferol (cholecalciferol 1000 intl units oral capsule) 1 Capsules By Mouth every day. cyanocobalamin (Vitamin B12) 1,000 Microgram By Mouth every day. Take 1 tab Wednesday, Wednesday. docusate (Colace 100 mg Cap) 1 Capsules By Mouth 2 times a day as needed for constipation. Refills: 0. folic acid (folic acid 1 mg Tab) 1 Tablets By Mouth every day. gabapentin (gabapentin 300 mg Cap) 1 Capsules By Mouth 3 times a day. Refills: 1. losartan (losartan 50 mg Tab) 1 Tablets By Mouth every day. magnesium oxide By Mouth. one tab once per day per pt. meclizine (meclizine 25 mg Tab) 1 Tablets By Mouth as needed Dizziness. melatonin 10 Milligram By Mouth once a day (at bedtime). meloxicam (meloxicam 15 mg Tab) 1 Tablets By Mouth every day. methotrexate (methotrexate 2.5 mg Tab) 10 Tablets By Mouth every week. Take every Wednesday. omeprazole (omeprazole 20 mg Cap-DR) 1 Capsules By Mouth every day. pravastatin (pravastatin 20 mg Tab) 1 Tablets By Mouth every day. tamsulosin (tamsulosin 0.4 mg Cap) 1 Capsules By Mouth every day. tizanidine (tiZANidine 4 mg Tab) 1 Tablets By Mouth every 8 hours for 90 Days. 60 tab(s). Refills: 3. verapamil (verapamil 240 mg ER Tab) 1 Tablets By Mouth every day for 90 Days. Refills: 3. PATIENT EDUCATION INFORMATION: Instructions: Cellulitis, Adult, [id number] Follow up: With: Address: When: Sarai Pinedo [address] [place], [place] [id number] Business (1) Comments: Call the office for follow-up next week With: Address: When: Arturo Mayers In 3 days DIAGNOSIS: 1:Wound infection; Local infection of the skin and subcutaneous tissue, unspecified Normal [facility] ED Note-Physicianon 10-07-19 ED Note-Physician ED Note-Physician Basic Information Time Seen: Tip Ramirez MD 10/06/2024 01:53 Chief Complaint recent right knee surgery. states incision has redness and pain. History of Present Illness Patient had a knee replacement on August 15. He had a follow-up with Dr. Worrell on September 15. There is a small amount of drainage and slight opening of the wound at the most inferior portion. He was told to clean the wound gently with peroxide and then leave it open to the air. Patient states he has continued to do this as he continues with his therapy. He was on a 7-day course of cephalexin. He states over the last several days he noticed some increased redness at the lowest most portion of the midline incision. Denies any increased knee pain. Review of Systems A 10 point review of systems is negative except as noted above. Medical and Surgical History: Reviewed and noted Social history: Lives at home Tobacco: Denies Physical Exam Vitals & Measurements T: 36.5 ???C(Oral) HR: 75(Peripheral) RR: 16 BP: 168/77 SpO2: 98% HT: 173 cm WT: 77.7 kg BMI: 25.96 This shows a well-healed midline incision over the right knee. Only the inferior 1-1/2 cm appears to be slightly dehisced with some surrounding redness. There is no fluctuance there is no visible drainage. Some slight eschar formation at the wound edges. The remainder of the wound is well-healed there is no redness tenderness or swelling. Medical Decision Making The patient will discontinue the peroxide at this point. He can use soap and water to clean the wound. He can apply a topical antibiotic ointment and a coverlet or Band-Aid over that. I did suggest elevation and some warm compresses over the weekend. We will start some doxycycline here and have a recheck with Dr. Worrell. Assessment/Plan 1. Wound infection (T14.8XXA: Other injury of unspecified body region, initial encounter) Local infection of the skin and subcutaneous tissue, unspecified (L08.9: Local infection of the skin and subcutaneous tissue, unspecified) Orders: doxycycline, 100 mg = 1 cap(s), Cap, Oral, Once, Stop date 10/06/24 2:00:00 EDT, STAT, Start date 10/06/24 2:00:00 EDT, 10/06/24 2:00:00 EDT doxycycline, 100 mg = 1 tab(s), Oral, q12hr, X 10 day(s), # 20 tab(s), Refills(s) 0, Pharmacy: [facility] [id number], 173, cm, 10/05/24 23:18:00 EDT, Height/Length Dosing, 77.7, kg, 10/05/24 23:18:00 EDT, Weight Dosing Disposition Plan Patient Discharge Condition Stable Discharge Disposition Home Discharge Prescription List Prescriptions acetaminophen-hydroc odone 325 mg-7.5 mg oral tablet, See Instructions doxycycline hyclate 100 mg Tab, 100 mg= 1 tab(s), Oral, q12hr Follow-up With When Contact Information Sarai Pinedo [address] [place] [address] [facility] (1) Additional Instructions: Call the office for follow-up next week Arturo Mayers In 3 days Additional Instructions: Patient Education Cellulitis, Adult, Uhry-gy-Vvqt Problem List/Past Medical History Ongoing Ankylosing spondylitis of multiple sites in spine BMI 29.0-29.9,adult 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, right Failed back syndrome GERD without esophagitis H/O: osteoarthritis History of prostate cancer History of right knee joint replacement Hx of TIA (transient ischemic attack) and stroke Hypertension Left hip pain Long-term current use of opiate analgesic drug Mixed hyperlipidemia Nocturia Over weight Right knee pain Spondylosis of lumbar region without myelopathy or radiculopathy Urge incontinence Urinary frequency Historical Annual visit for general adult medical examination with abnormal findings - Ankylosing spondylitis BMI 26.0-26.9,adult Cancer of prostate Caudal epidural H/O: rheumatoid arthritis Smoker TIA Procedure/Surgical History Total knee replacement (08/15/2024), Total knee replacement (08/15/2024), Caudal epidural (01/23/2020), Radiofrequency ablation of medial [...] repair, Achilles tendon repair, Appendectomy, Arthroscope, cataract (more content not included)... Normal [facility] Comment on above: Result Comment: Elec tronically Signed By: Tip Ramirez MD\.br\Date and Time Signed: 10/06/24 02:06 EDT ED Patient Summaryon 025 ED Patient Summary ED Patient Summary [place] [id number] Patient Discharge Instructions Person Information Name: LAMBERTO MENDES Age: 79 Years Arrival Date: 10/05/2024 23:10:07 Discharge Diagnosis: 1:Wound infection; Local infection of the skin and subcutaneous tissue, unspecified Primary Care Physician: Arturo Beach Provider Information Primary Provider: Tip Ramirez MD Advanced Learning And Development Manager:None The exam and treatment you received in the Emergency Department were for an urgent problem and are not intended as complete care. It is important that you follow up with a doctor, nurse practitioner, or physician???s psych assistant for ongoing care. If your symptoms become worse or you do not improve as expected and you are unable to reach your usual health care provider, you should return to the Emergency Department. We are available 24 hours a day. LAMBERTO MENDES has been given the following list of patient education materials, prescriptions and follow-up instructions: Follow-up Instructions: With: Address: When: Sarai Nicol [address] [place] [address] Business (1) Comments: Call the office for follow-up next week With: Address: When: Arturo Mayers In 3 days In the event that this physician does not participate in your insurance network, please consult with your insurance company to find a nearby participating provider. Patient Education Materials: Cellulitis, Adult, Ecnq-dz-Dlcf A MESSAGE TO ALL PATIENTS REGARDING OPIOIDS PRESCRIPTION OPIOIDS: WHAT YOU NEED TO KNOW Prescription opioids can be used to help relieve vyoxdafa-sl-npwhgs pain and are often prescribed following a surgery or injury, or for certain health conditions. These medications can be an important part of the treatment but also come with serious risks. It is important to work with your healthcare provider to make sure you are getting the safest, most effective care. WHAT ARE THE RISKS AND SIDE EFFECTS OF OPIOID USE? Prescription opioids carry serious risks of addiction and overdose, especially with prolonged use. An opioid overdose, often marked by slowed breathing, can cause sudden . The use of prescription opioids can have a number of side effects as well, even when taken as directed: ??? Tolerance???meaning you might need to take more of the medication for the same pain relief ??? Physical dependence???meaning you have symptoms of withdrawal when a medication is stopped ??? Increased sensitivity to pain ??? Constipation ??? Nausea, vomiting, and dry mouth ??? Sleepiness and dizziness ??? Confusion ??? Depression ??? Low levels of testosterone that can result in lower sex drive, energy, and strength ??? Itching and sweating RISKS ARE GREATER WITH: ??? History of drug misuse, substance use disorder, or overdose ??? Mental health conditions (such as depression or anxiety) ??? Sleep apnea ??? Older age (65 years and older) ??? Avoid alcohol while taking prescription opioids. Also, unless specifically advised by your health care provider, medications to avoid include: ??? Benzodiazepines (such as Xanax or Valium) ??? Muscle relaxants (such as Soma or Flexeril) ??? Hypnotics (such as Ambien or Lunesta) ??? Other prescription opioids KNOW YOUR OPTIONS Talk to your health care provider about ways to manage your pain that don???t involve prescription opioids. Some of these options may actually work better and have fewer risks and side effects. Options may include: ??? Pain relievers such as acetaminophen, ibuprofen, and naproxen ??? Some medication that are also used for depression or seizures ??? Physical therapy and exercise ??? Cognitive behavioral therapy, a psychological, goal-directed approach, in which patients learn how to modify physical, behavioral, and emotional triggers of pain and stress. IF YOU ARE PRESCRIBED OPIOIDS FOR PAIN: ??? Never take opioids in greater amounts or more often than prescribed. ??? Follow up with your primary health care provider. o Work together to create a plan on how to manage your pain. o Talk about ways to help manage your pain that don???t involve prescription opioids. o Talk about any and all concerns and side effects. ??? Help prevent misuse and abuse o Never sell or share prescription opioids. o Never use another person???s prescription opioids. ??? Store prescription opioids in a secure place and out of reach of others (this may include visitors, children, friends, and family). ??? Safely dispose of unused prescription opioids: Find your community drug take-back program or your pharmacy mail-back program, or flush them down the toilet, following guidance from the Food and Drug Administration (www.fda.gov/Drugs/R esourcesForYou). ??? Visit www.cdc.gov/drugover dose to learn about the ri (more content not included)... Normal [facility] Family Medicine Office/Clini c Noteon 09-29-2024 Family Medicine Office/Clinic Note Family Medicine Office/Clinic Note HPI Staff Lamberto is a 79 year old male presenting for 3 month follow up Pain characteristics: Pain location: Right knee, lower back Intensity:3/10 Medication used: norco Pt had right knee surgery 08/15/23 , says pain is slightly worse than before but slowly getting better , Doing PT Opioids prescribed: Douglas Medication agreement UTD: 06/28/25 Urine drug screen performed: 06/28/25 History of Present Illness pt presents today for 3 month follow up med check. up to date on UDS and medication agreement Review of Systems PHQ Score Initial Depression Screen Score: 0 SCORE Physical Exam Vitals & Measurements HR: 80(Peripheral) RR: 18 BP: 136/78 SpO2: 97% HT: 68 in HT: 173.0 cm WT: 167.331 lb WT: 75.9 kg BMI: 25.36 General: alert, no acute distress ENMT: oral [...] multiple sites in spine) pt presents for med check. doing well. medication agreement and UDS is up to date. [facility] RTC 3 months 2. History of right knee joint replacement (Z96.651: Presence of right artificial knee joint) pt had right knee replaced in August. is still in PT. doing better 3. BMI 25.0-25.9,adult (Z68.25: Body mass index [BMI] 25.0-25.9, adult) BMI education given 4. 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, right Failed back syndrome GERD without esophagitis H/O: osteoarthritis History of prostate cancer History of right knee joint replacement Hx of TIA (transient ischemic attack) and stroke Hypertension Left hip pain Long-term current use of opiate analgesic drug Mixed hyperlipidemia Nocturia Over weight Right knee pain Spondylosis of lumbar region without myelopathy or radiculopathy Urge incontinence Urinary frequency Historical Annual visit for general adult medical examination with abnormal findings - Ankylosing spondylitis BMI 26.0-26.9,adult Cancer of prostate Caudal epidural H/O: rheumatoid arthritis Smoker TIA Procedure/Surgical History Total knee replacement (08/15/2024), Total knee replacement (08/15/2024), Caudal epidural (01/23/2020), Radiofrequency ablation of medial [...] rotator cuff repair, Rotator cuff repair. Medications acetaminophen-hydroc odone 325 mg-7.5 mg oral tablet, See Instructions allopurinol 100 mg Tab, See Instructions, 4 refills aspirin 81 mg Oral EC Tab, 81 mg= 1 tab(s), Oral, BID cholecalciferol 1000 intl units oral capsule, 1000 International_Unit= 1 cap(s), Oral, Daily Colace 100 mg Cap, 100 mg= 1 cap(s), Oral, BID, PRN folic acid 1 mg Tab, 1 mg= 1 tab(s), Oral, Daily gabapentin 300 mg Cap, 300 mg= 1 cap(s), Oral, TID, 1 refills losartan 50 mg Tab, 50 mg= 1 tab(s), Oral, Daily magnesium oxide, Oral meclizine 25 mg Tab, 25 mg= 1 tab(s), Oral, PRN melatonin, 10 mg, Oral, Once a day (at bedtime) meloxicam 15 mg Tab, 15 mg= 1 tab(s), Oral, Daily methotrexate 2.5 mg Tab, 25 mg= 10 tab(s), Oral, qWeek omeprazole 20 mg Cap-DR, 20 mg= 1 cap(s), Oral, Daily pravastatin 20 mg Tab, 20 mg= 1 tab(s), Oral, Daily tamsulosin 0.4 mg Cap, 0.4 mg= 1 cap(s), Oral, Daily tiZANidine 4 mg Tab, 4 mg= 1 tab(s), Oral, q8hr, 3 refills verapamil 240 mg ER Tab (more content not included)... Normal [facility] Comment on above: Result Comment: Elec tronically Signed By: Arturo Beach\.christianne\Date and Time Signed: 09/29/24 14:58 EDT Operative Reporton Operative Report Operative Report SURGERY DATE: 08/15/2024 CLIENT EXPERIENCE ADMINISTRATOR: Christ Manzano C.F.A. PREOPERATIVE DIAGNOSIS: Right knee osteoarthritis POSTOPERATIVE DIAGNOSIS: Right knee osteoarthritis OPERATION: Right knee robotic-assist total knee arthroplasty, cruciate retaining, Press-Fit ANESTHESIA: Adductor canal block/spinal ANESTHESIOLOGIST: RENZO Arenas ESTIMATED BLOOD LOSS: None INTRAVENOUS FLUIDS: Please see operative record. SPECIMEN: Bone and soft tissue DRAINS: None COMPLICATIONS: None IMPLANT: [employer] Triathlon Total Knee System with a size 6 right cruciate-retaining Press-Fit femur, a size 6 Press-Fit tibial baseplate, 6 x 10 mm condylar stabilized X3 polyethylene, and a 35 asymmetric Press-Fit patella HISTORY/OPERATIVE INDICATIONS: The patient is a 79-year-old white male who presents complaining of pain, difficulty about the right knee. Please refer to the preoperative history and physical, progress notes for further details. The patient is set up for total knee arthroplasty which does appear to be clinically indicated, cost effective. INTRAOPERATIVE PATHOLOGY: Upon dissection of the right knee from the standard open medial parapatellar approach, there is noted to be severe arthrosis primarily centered about the lateral compartment but tricompartmental in nature. Total knee arthroplasty is done with confucianism of limb stability and alignment using Press-Fit components. The patient did tolerate the procedure well under spinal anesthetic with the adductor canal block. The block is requested by me to aid in intraoperative, perioperative, and postoperative pain management. This does appear to be clinically indicated and cost effective. PROCEDURE: After informed consent is obtained, the risks, complications, reasonable expectations of the above procedure are discussed at length. The patient is taken to the Operative Suite, placed on the operating room table in supine position. At this point, the patient is given a spinal anesthetic. A well-padded tourniquet is applied to the right leg and the patient positioned accordingly. The knee is sterilely prepped and draped in the usual surgical fashion at which time, the site verification process is undertaken with a time-out procedure. The limb is then exsanguinated with the Esmarch. The tourniquet is inflated to 300 mmHg. Medial parapatellar approach is utilized. The anterior fat pad, medial and lateral menisci are removed. The patella is cut free. The focus is then to the tibial array. A stab incision is made over the mid leg anteromedial. The guide pin is placed. Second pin is placed using the guide and a separate incision point. Blunt dissection is utilized for both the pins. Tibial array is applied, adjusted and then tightened into place. The knee is flexed. Femoral array is applied medially in the medial femoral condylar area. Pins are placed individually with the guide system. Femoral array is placed. Femoral checkpoint, tibial checkpoints are then applied. Circumduction is performed. The knee is flexed. The robot is registered first to all of the checkpoints, medial, lateral malleoli. Fine registration is done to the femur. This is followed then by gross checkpoint registration. The process is done and repeated for the tibia, fine registration followed by gross registration. At this point, osteophytes are removed and the knee is stressed in flexion and extension for balancing. A dynamic balance plan is then adjusted with the robot in both flexion and extension. The knee is flexed. The retractors are applied. The robot is brought into the field. Saw blade is registered to femur. The distal femoral cut is made followed by the posterior chamfer. Saw blade is then changed and the anterior cut, anterior chamfer and posterior cuts are made. The saw blade is then registered to the tibia and the tibial cut is made. All excess bone is removed. The remainder of the posterior horn, medial and lateral menisci are removed as well as the osteophytes. At this point, trialing is done and found to be most adequate with the 6 x 10 mm polyethylene. The lug holes are drilled accordingly. The tibia is appropriately identified for rotation and placement. This is marked and the keel is punched accordingly. The drill holes are then made for the tibial component and the focus is to the patella. The patella is actually sized while the trial components are in. The drill holes are made for this as well. The knee is lavaged. The tibial component is press-fit in the standard fashion. The polyethylene is placed followed then by press-fit placement of the femur. The patella is placed. PhaseOne soak is performed. This is lavaged away. The Zynrelef is injected to the medial and lateral gutters, intracondylar notch. The knee is then injected with 2 gm tranexamic acid. The fascial layer is closed with #2 Quill. The remainder of the Zynrelef is injected into the suprapatellar pouch before complete closure. The subcutaneous tissues are lavaged and closed with 2-0 Qu (more content not included)... Normal [facility] Comment on above: Result Comment: Elec tronically Signed By: Sarai Pinedo DO\.br\Date and Time Signed: 08/22/24 06:52 EST Surgical Pathology Reporton 08-18-2024 Surgical Pathology Report [facility] [address] [place] [address]- Surgical Pathology Report Collected Date/Time: 08/15/2024 07:15 EST Pathologist: Jj GAINES PhD, Stephanie Cho Received Date/Time: 08/15/2024 10:59 EST Sarai Pinedo DO, DO, David A 07 Surgical Pathology Report - 08/18/2024 10:19 EST - Auth (Verified) Final Diagnosis RIGHT KNEE BONE AND SOFT TISSUE, ARTHROPLASTY: - BONE CARTILAGE WITH DEGENERATIVE CHANGES, CONSISTENT WITH DEGENERATIVE OSTEOARTHRITIS. - BENIGN SYNOVIAL SOFT TISSUE. (Electronic Signature) Stephanie Gardner MD PhD 08/18/2024 10:19 Clinical Information Right knee osteoarthritis Pre-Op Diagnosis: Right knee osteoarthritis Procedure: Right robot-assisted total knee arthroplasty Post-Op Diagnosis: Right knee osteoarthritis Specimen(s) Received Right knee bone and soft tissue Gross Description Received in formalin labeled with patient name, number, and right knee bone and soft tissue. The specimen consists of an assortment of fragments of yellowish-white fibrofatty tissue and osseous tissue which in aggregate measure 13.5 x 11 x 4.5 cm. Among the segments is a recognizable tibial plateau and crescent-shaped meniscal fibrocartilage. The osseous segments are in part covered by articular surface which is thin, rough, and eburnated with osteophyte formation present. Specimen is submitted in two cassettes: 1 - Soft tissue 2 - Bone after decalcification (DC) DC:[facility] Microscopic Description Microscopic examination performed unless gross only specified. This report was transcribed using voice recognition technology and might contain unintended computerized molasses coloring operator errors. Normal [facility] Comment on above: Performed By: #### [id number] #### [facility] [address] [place] [address] Main OR Intraoperative Recor don 08-16-2024 Main OR Intraoperative Record Main OR Intraoperative Record IntraOp Document Type FT Summary Primary Physician: Sarai Pinedo DO Finalized Date/Time: 08/16/24 12:27:18 Pt. Name: ALLAMBERTO/Sex: 1945 Male Med Rec #: [id number] Physician: Saari Pinedo DO Financial #: [id number] Pt. Type: A Room/Bed: [place] [address] Admit/Disch: 08/15/24 06:00:43 - 08/15/24 13:00:00 Institution: Case Times FT Entry 1 Patient Times In Room 08/15/24 07:32:00 Out Room 08/15/24 09:16:00 Procedure Times Start 08/15/24 07:57:00 Stop 08/15/24 09:07:00 Anesthesia Times Start 08/15/24 07:32:00 Stop 08/15/24 09:16:00 Block Timeout w/ 08/15/24 07:23:00 Anesthesia Last Modified By: Vandana LENNON, Thais Stapleton 08/15/24 09:16:30 General Comments: BLOCK DONE BY DR. STARKS AT 0723 , ASSISTED BY Amanda JEFFERY RN. HR= 86 , O2= 100% on 2L via nasal cannula -Mac JEFFERSON RN 08/16/24 Chart opened to review and send charges [facility] Case Attendance FT Entry 1 Entry 2 Entry 3 Case Attendee Chidi Radford DO, David A Wilhelm CST, Benjamin Role Performed Anesthesiologist Surgeon - Primary RAILROAD DINING CAR STEWARDESS/SA Water Supervisor Time In 08/15/24 07:32:00 08/15/24 07:32:00 08/15/24 07:32:00 Time Out 08/15/24 09:16:00 08/15/24 09:00:00 08/15/24 09:16:00 Procedure KNEE TOTAL ROBOT KNEE TOTAL ROBOT KNEE TOTAL ROBOT ARTHROPLASTY(Right) ARTHROPLASTY(Right) ARTHROPLASTY(Right) Comments DR. STARKS SUPERVISING Last Modified By: Vandana RN, Thais Jefferson RN, Thais Jefferson RN, Thais Pinto P 08/15/24 Millie P 08/15/24 Millie P 08/15/24 09:16:31 11:31:32 09:16:31 Entry 4 Entry 5 Entry 6 Case Attendee Vandana LENNON, Thais Stack CST, DELMAR Ohara Role Performed Vice President Biostatistics - Primary Scrub - Primary PA/RECONCILIATION MACHINE OPERATOR Time In 08/15/24 07:32:00 08/15/24 07:32:00 08/15/24 07:32:00 Time Out 08/15/24 09:16:00 08/15/24 09:04:00 08/15/24 09:16:00 Procedure KNEE TOTAL ROBOT KNEE TOTAL ROBOT KNEE TOTAL ROBOT ARTHROPLASTY(Right) ARTHROPLASTY(Right) ARTHROPLASTY(Right) Comments Last Modified By: Vandana LENNON, Thais Jefferson RN, Thais Jefferson RN, Thais Pinto P 08/15/24 Millie P 08/15/24 Millie P 08/15/24 09:16:31 11:31:53 09:16:31 Entry 7 Entry 8 Case Attendee Marga Jeffery LPN, Jessica D Role Performed Transporter Staff - Other Time In 08/15/24 07:32:00 08/15/24 07:32:00 Time Out 08/15/24 07:45:00 08/15/24 07:51:00 Procedure KNEE TOTAL ROBOT KNEE TOTAL ROBOT ARTHROPLASTY(Right) ARTHROPLASTY(Right) Comments HELPING IN ROOM Last Modified By: Vandana LENNON, Thais Jefferson RN, Thais Pinto P 08/15/24 Millie P 08/15/24 09:16:31 09:16:31 General Comments: 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 AND LUI DEY 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 PRESENT FOR CASE -[employer] JEFFERSON RNproject director Protocols FT Pre-Care Text: Implements protective measures prior to operative or invasive procedure, confirms identity before the operative or invasive procedure, verifies operative procedure, surgical site, and laterality Entry 1 Procedure(s) KNEE TOTAL ROBOT Patient Identity Birthday, Blood Band, ARTHROPLASTY(Right) Verified (select at ID Band Check, Patient least 2): Participation Consents / H and P Anesthesia Consent, Operative Site Present Verified H&P, Surgery/Procedure Marking Verified Consent, Transfusion Consent Surgical Site Yes Laterality Verified Yes Verified Procedure Verified Yes Correct Patient Yes Position Verified Availability Equipment, Implant, Prep Dry Yes Verified (If Medication Applicable) PreOp Antibiotic Yes Time Out PocSarai huffman DO, Given Colette MULLER, Jose Juan Mccormack CST, Vandana Dixon RN, Seda Bean CST, Kimberly A Time Out Complete 08/15/24 07:53:00 Outcomes Met? Yes Last Modified By: Thais Jefferson RN 08/15/24 08:00:40 Post-Care Text: The patient is free from signs and symptoms of injury caused by extraneous objects Allergy Information FT Pre-Care Text: Verifies allergies Entry 1 Allergies Reviewed? Yes Allergies Reviewed Self/Patient With Outcomes Met? Yes Last Modified By: Thais Jefferson RN 08/15/24 08:02:10 Post-Care Text: The patient received appropriate medication(s) safely administered during the perioperative period Surgical Procedures FT Entry 1 Procedure Description Procedure KNEE TOTAL ROBOT Modifiers Right ARTHROPLASTY Surgeon Description RIGHT ROBOTIC ASSIST TOTAL KNEE ARTHROPLASTY Primary Procedure Yes Primary Surgeon PocSarai huffman DO Start 08/15/24 07:57:00 Stop 08/15/24 09:07:00 Anesthesia Type General Surgical Service Orthopedics Wound Class 1 - Clean Last Modified By: Kenia Oro CST 08/16/24 12:25:47 General Case Data FT Pre-Care Text: Classifies surgical wound, implements aseptic technique, initiates traffic control Entry 1 Case Information OR OR 5 FT Case Level Level 6 Wound Class 1 - Clean Specialty Orthopedics ASA Class 3 Preop Diagnosis (more content not included)... Normal [facility] ABO/Rhon 08-15-2024 ABO/Rh Positive Invalid Interpretation Code [facility] Comment on above: Performed By: #### 2 [id number] #### [facility] Laboratory [address] [place] [address] ABO/Rh History Checkon 08-15 ABO/Rh History Check Verified Hx Blood Type Normal [facility] Comment on above: Performed By: #### 1 [id number] #### [facility] [address] [place] [address] ABSCon 08-15-2024 ABSC Gel Interp Negative Normal [facility] Comment on above: Performed By: #### 1 [id number] #### [facility] [address] [place] [address] BLOOD BANKOrdered By: Bozena Lao on 08-15-2024 ABO/Rh Interp Positive Invalid Interpretation Code [facility] BB Subsection ABSC Gel Interp Negative (08/15/24 7:00 AM) Normal [facility] BB Subsection Blood Bank ID#on 08-15-2024 BBID# [id number] Invalid Interpretation Code [facility] Comment on above: Performed By: #### 1 [id number] #### [facility] [address] [place] [address] Discharge Instructionson Discharge Instructions Discharge Instructions AL LAMBERTO Cho :1945 Visit Date:08/15/2024 Inpatient Discharge Instructions Your Care Team Admitting Physician - Sarai Pinedo DO Referring Physician - Sarai Pinedo DO Reason for Your Visit RIGHT KNEE OA Tests Performed Pathology Tissue Exam -- Results Pending -- Please visit your patient portal for your results or contact your primary care physician. This Is Your Medications List acetaminophen-hydroc odone (acetaminophen-hydro codone 325 mg-7.5 mg oral tablet) allopurinol (allopurinol 100 mg Tab) aspirin (aspirin 81 mg Oral EC Tab) aspirin (aspirin 81 mg Oral EC Tab) cefadroxil (cefadroxil 500 mg Cap) cholecalciferol (cholecalciferol 1000 intl units oral capsule) cyanocobalamin (Vitamin B12) docusate (Colace 100 mg Cap) folic acid (folic acid 1 mg Tab) gabapentin (gabapentin 300 mg Cap) losartan (losartan 50 mg Tab) magnesium oxide meclizine (meclizine 25 mg Tab) melatonin meloxicam (meloxicam 15 mg Tab) methotrexate (methotrexate 2.5 mg Tab) omeprazole (omeprazole 20 mg Cap-DR) pravastatin (pravastatin 20 mg Tab) tamsulosin (tamsulosin 0.4 mg Cap) tizanidine (tiZANidine 4 mg Tab) verapamil (verapamil 240 mg ER Tab) Procedure History Caudal epidural (01/23/2020), Radiofrequency ablation of [...] Rotator cuff repair. What to do next Instructions From Your Doctor No qualifying data available. Previously Scheduled Follow-Up Appointments Wednesday 1:40 PM EDT With: Arturo Beach Where: [address] [address]- Wednesday 11:00 AM EDT With: Where: [address] [address]- [id number] 8:45 AM EST With: KHUSHI GAINES, Campos Pickard Where: [facility] [address] [place] [address] [place] [address]- New Follow Up Appointments after Discharge Follow Up with Sarai Pinedo When: 09/15/2024 09:00 AM EST Comments: Call for any problems. Where: [address] [place] [phone]- Business (1) Medications What How Much When Instructions Next Dose New cefadroxil (cefadroxil 500 mg Cap) 1 Capsules By Mouth Every 12 hours Duration: 2 Days Pickup at [facility] [id number] New docusate (Colace 100 mg Cap) 1 Capsules By Mouth 2 times a day as needed for for constipation Pickup at [facility] [id number] Changed aspirin (aspirin 81 mg Oral EC Tab) 1 Tablets By Mouth Every day Changed aspirin (aspirin 81 mg Oral EC Tab) 1 Tablets By Mouth 2 times a day Pickup at [facility] [id number] Unchanged acetaminophen-hydroc odone (acetaminophen-hydro codone 325 mg-7.5 mg oral tablet) See instructions TAKE 1 TABLET BY MOUTH EVERY 8 HOURS NEEDED FOR PAIN Unchanged allopurinol (allopurinol 100 mg Tab) See instructions TAKE 1 TABLET BY MOUTH DAILY Unchanged cholecalciferol (cholecalciferol 1000 intl units oral capsule) 1 Capsules By Mouth Every day Unchanged cyanocobalamin (Vitamin B12) 1,000 Microgram By Mouth Every day Take 1 tab Wednesday, Wednesday Unchanged folic acid (folic acid 1 mg Tab) 1 Tablets By Mouth Every day Unchanged gabapentin (gabapentin 300 mg Cap) 1 Capsules By Mouth 3 times a day Unchanged losartan (losartan 50 mg Tab) 1 Tablets By Mouth Every day Unchanged magnesium oxide By Mouth one tab once per day per pt Unchanged meclizine (meclizine 25 mg Tab) 1 Tablets By Mouth As needed for Dizziness Unchanged melatonin 10 Milligram By Mouth Once a day (at bedtime) Unchanged meloxicam (meloxicam 15 mg Tab) 1 Tablets By Mouth Every day Unchanged methotrexate (methotrexate 2.5 mg Tab) 10 Tablets By Mouth Every week Take every Wednesday Unchanged omeprazole (ome (more content not included)... Normal [facility] Comment on above: Result Comment: Elec tronically Signed By: Jose LENNON, June Ladd\bereket\Date and Time Signed: 08/15/24 09:14 EST Main OR PACU I Recordon Main OR PACU I Record Main OR PACU I Record PACU Phase I Document Type FT Summary Primary Physician: Sarai Pinedo DO Finalized Date/Time: 08/15/24 10:59:31 Pt. Name: AL LAMBERTO Kohli/Sex: 1945 Male Med Rec #: [id number] Physician: Sarai Pinedo DO Financial #: [id number] Pt. Type: A Room/Bed: 11/09 Admit/Disch: 08/15/24 06:00:43 - Institution: Case Times PACU I FT Pre-Care Text: Identifies barriers to communication and implements measures to provide psychological support Develops individualized plan of care, and ensures continuity of care Maintains patient's dignity and privacy, and maintains patient confidentiality Identifies and reports philosophical, cultural, and spiritual beliefs and values Identifies individual values and wishes concerning care Implements aseptic technique, and administers prescribed antibiotic therapy and immunizing agents as ordered Evaluates postoperative tissue perfusion Implements thermoregulation measures, and monitors body temperature Evaluates postoperative respiratory status Evaluates postoperative cardiac status Evaluates postoperative neurological status Assesses pain control, collaborated in initiating patient-controlled analgesia and implements alternative methods of pain control Verifies allergies, administers prescribed medications and solutions, evaluates response to medications Entry 1 In PACU I 08/15/24 09:18:00 Discharge from PACU 08/15/24 09:48:00 I Outcomes Met? Yes Last Modified By: Shanika Romeo RN 08/15/24 10:58:36 Post-Care Text: The patient demonstrates knowledge of the expected response to the operative or invasive procedure The patient's care is consistent with the individualized perioperative plan of care The patient's right to privacy is maintained The patient's value system, lifestyle, ethnicity, and culture are considered, respected, and incorporated into the perioperative plan of care The patient participates in decisions affecting his or her perioperative plan of care The patient is free from signs and symptoms of infection The patient has wound/tissue perfusion consistent with or improved from baseline levels established preoperatively The patient is at or returning to normothermia at the conclusion of the immediate postoperative period The patient's respiratory function is consistent with or improved from baseline levels established preoperatively The patient's cardiovascular status is consistent with or improved from baseline levels established preoperatively The patient's cardiovascular status is consistent with or improved from baseline levels established preoperatively The patient demonstrates and/or reports adequate pain control throughout the perioperative period The patient received appropriate medication(s), safely administered during the perioperative period Acuity Level PACU I FT Entry 1 Start Time 08/15/24 09:18:00 Stop Time 08/15/24 09:48:00 Acuity Level Acuity Level I Last Modified By: Shanika Romeo RN 08/15/24 10:59:29 Finalized By: Shanika Romeo RN Document Signatures Signed By: Shanika Romeo RN 08/15/24 10:59 Normal [facility] Main OR PACU II Recordon Main OR PACU II Record Main OR PACU II Record PACU Phase II Document Type FT Summary Primary Physician: Sarai Pinedo DO Finalized Date/Time: 08/15/24 13:45:25 Pt. Name: ALLAMBERTO./Sex: 1945 Male Med Rec #: [id number] Physician: Sarai Pinedo DO Financial #: [id number] Pt. Type: A Room/Bed: [place] [address] Admit/Disch: 08/15/24 06:00:43 - 08/15/24 13:00:00 Institution: Case Times PACU II FT Pre-Care Text: Identifies barriers to communication and implements measures to provide psychological support and determines knowledge level Develops individualized plan of care, and ensures continuity of care Maintains patient's dignity and privacy, and maintains patient confidentiality Identifies and reports philosophical, cultural, and spiritual beliefs and values Identifies individual values and wishes concerning care administers prescribed antibiotic therapy and immunizing agents as ordered, Evaluates postoperative tissue perfusion Implements thermoregulation measures, and monitors body temperature Evaluates postoperative respiratory status Evaluates postoperative cardiac status Evaluates postoperative neurological status Assesses pain control, collaborated in initiating patient-controlled analgesia and implements alternative methods of pain control Verifies allergies, administers prescribed medications and solutions, evaluates response to medications Entry 1 In PACU II 08/15/24 09:55:00 Discharge from PACU 08/15/24 13:00:00 II Outcomes Met? Yes Last Modified By: Kinga Castillo RN 08/15/24 13:45:21 Post-Care Text: The patient demonstrates knowledge of the expected response to the operative or invasive procedure The patient's care is consistent with the individualized perioperative plan of care The patient's right to privacy is maintained The patient's value system, lifestyle, ethnicity, and culture are considered, respected, and incorporated into the perioperative plan of care The patient participates in decisions affecting his or her perioperative plan of care. The patient is free from signs and symptoms of infection The patient has wound/tissue perfusion consistent with or improved from baseline levels established preoperatively The patient is at or returning to normothermia at the conclusion of the immediate postoperative period The patient's respiratory function is consistent with or improved from baseline levels established preoperatively The patient's cardiovascular status is consistent with or improved from baseline levels established preoperatively The patient's neurological status is consistent with or improved from baseline levels established preoperatively The patient demonstrates and/or reports adequate pain control throughout the perioperative period The patient received appropriate medication(s), safely administered during the perioperative period Finalized By: Kinga Castillo RN Document Signatures Signed By: Kinga Castillo RN 08/15/24 13:45 Normal [facility] Proceduralon 08-15-2024 Procedural Procedural Patient: LAMBERTO MENDES Age: 79 years Sex: Male : 1945 Associated Diagnoses: None Author: Gustabo Starks MD Procedure Nerve Block Block Type: Adductor canal block. Laterality: Right. Informed consent for anesthesia management: Anesthesia options discussed including nerve block, Description of the procedure, risks, benefits, and alternatives was provided, The patient's questions were addressed. Time out: Confirmed correct patient, procedure and site. Time: Date/Time 08/15/2024 07:25:00. Indication: Block for postoperative pain management as requested by surgeon. Anesthesia Method: IV Sedation with monitored anesthesia care, The patient remained awake and able to interact in a meaningful way throughout the procedure. Preparation: The patient was placed in the following position Supine, Continuous pulse oximetry applied, Using maximal sterile barrier technique per current CMS guidelines including hand hygeine, Guidance (Ultrasound used to identify anatomical landmarks, Using sterile gel and probe covers, Permanent image retained), The site was prepped with ChloraPrep. Procedure: Anesthetic Agent skin/SQ with 3cc 2% lido; 21g block needle with US; 20cc Ropivicaine 0.25% with epi inincrements; low pressure; needle tip visualized throughout, Needle was inserted without pain or parasthesia in the conscious patient, Number of attempts 1, Negative attempt at aspiration for blood, Medial and lateral spread of the anesthestic was observed, Periodic negative attempts at aspiration of blood were made as the local was injected, No pain or parathesia were elicited with injection of the anesthetic in the conscious patient, It was idetified that the correct anesthetic agent was administered to the correct site. Complications: None, The patient tolerated the procedure as expected. [facility] Procedural Procedural Patient: LAMBERTO MENDES Age: 79 years Sex: Male : 1945 Associated Diagnoses: None Author: Raudel GAINES, Gustabo Vasques Preoperative Information Anesthesia Preop Info: Time patient last ate or drank 08/15/2024 00:00:00. Anesthesia history: Patient history: None. Family history+: None. Informed consent: Signed by patient. Re-evaluation prior to induction: Initial evaluation reviewed: No significant change. Review of Systems Eye Ear/Nose/Mouth/Throa t Respiratory: No shortness of breath, No cough. Cardiovascular: Negative, No chest pain. Gastrointestinal: No heartburn. Musculoskeletal Neurologic Health Status Allergies: Allergic Reactions (Selected) Severity Not Documented Ativan- Lethargic, sweating and vomit., Allergies (1) Active Severity Reaction Ativan lethargic, Sweating, Vomit Current medications: (Selected) Inpatient Medications Ordered Colace 100 mg Cap: 100 mg = 1 cap(s), Cap, Oral, BID, Routine, Start date 08/15/24 21:00:00 EST Dulcolax 5 mg Tab-EC: 10 mg = 2 tab(s), Tab-EC, Oral, Daily PRN Constipation, Routine, Start date 08/17/24 9:25:00 EST Lactated Ringers IV Caty 1000 mL 1,000 mL: 1,000 mL, IV, 80 mL/hr, Routine, Start date 08/15/24 9:25:00 EST, 12.5 hour(s), Total volume (mL): 1,000, 78.1 kg, 1.94, m2 Milk of Magnesia 8% Susp-Oral: 30 mL, Susp-Oral, Oral, BID PRN Constipation, Routine, Start date 08/15/24 9:25:00 EST Pantoprazole [address] Tab: 40 mg = 1 tab(s), Tab-DR, Oral, Daily, Routine, Start date 08/16/24 9:00:00 EST Sodium Chloride 0.9% IV Caty 1000 mL 1,000 mL: 1,000 mL, IV, 150 mL/hr, Routine, Start date 08/15/24 6:00:00 EST, 6.7 hour(s), Total volume (mL): 1,000, 78.1 kg, 1.94, m2 Vitamin C 500 mg Tab: 500 mg = 1 tab(s), Tab, Oral, BIDWM, Routine, Start date 08/15/24 17:00:00 EST Zofran 4 mg/2 mL Injection: 4 mg = 2 mL, Injection, IV Push, q6hr PRN Nausea/Vomiting, Routine, Start date 08/15/24 9:25:00 EST, 08/15/24 9:25:00 EST acetaminophen 325 mg Tab: 650 mg = 2 tab(s), Tab, Oral, q6hr for 3 dose(s), Stop date 08/16/24 8:59:00 EST, Routine, Start date 08/15/24 15:00:00 EST acetaminophen-hydroc odone 325 mg-5 mg oral tablet: 1.5 tab(s), Tab, Oral, q6hr PRN Pain for 5 day(s), Stop date 08/20/24 10:07:00 EST, Routine, Start date 08/15/24 10:08:00 EST cefazolin additive + Sodium Chloride 0.9% intravenous solution 50 mL: 2 gm = 1 EA, Powder-Inj, IV Piggyback, q8hr for 2 dose(s), Stop date 08/16/24 7:29:00 EST, Routine, Start date 08/15/24 15:30:00 EST, 100 mL/hr, Infuse over 30 minute(s) ferrous sulfate 325 mg Tab: 325 mg = 1 tab(s), Tab, Oral, BIDWM, Routine, Start date 08/15/24 17:00:00 EST oxyCODONE 5 mg Tab: 10 mg = 2 tab(s), Tab, Oral, q4hr PRN Pain 8-10 for 5 day(s), Stop date 08/20/24 9:24:00 EST, Routine, Start date 08/15/24 9:25:00 EST, 08/15/24 9:25:00 EST oxyCODONE 5 mg Tab: 5 mg = 1 tab(s), Tab, Oral, q4hr PRN Pain 8-10 for 5 day(s), Stop date 08/20/24 9:24:00 EST, Routine, Start date 08/15/24 9:25:00 EST, 08/15/24 9:25:00 EST Prescriptions Prescribed Colace 100 mg Cap: 100 mg = 1 cap(s), Oral, BID, PRN for constipation, # 40 cap(s), Refills(s) 0, Pharmacy: [facility] [id number], 173, cm, 08/14/24 11:50:00 EST, Height/Length Dosing, 78.1, kg, 08/14/24 11:50:00 EST, Weight Dosing acetaminophen-hydroc odone 325 mg-7.5 mg oral tablet: See Instructions, 90 tab(s), Refill(s) 0, TAKE 1 TABLET BY MOUTH EVERY 8 HOURS NEEDED FOR PAIN, [facility] [id number], 169, cm, 08/07/24 5:47:00 EST, Height/Length Dosing, 80.5, kg, 08/07/24 5:47:00 EST, Weight Dosing allopurinol 100 mg Tab: See Instructions, TAKE 1 TABLET BY MOUTH DAILY, # 90 tab(s), Refills(s) 0, Pharmacy: [place] [facility] [id number], 168, cm, 04/04/24 10:22:00 EDT, Height/Length Dosing, 81.2, kg, 04/04/24 10:22:00 EDT, Weight Dosing aspirin 81 mg Oral EC Tab: 81 mg = 1 tab(s), Oral, BID, # 60 tab(s), Refills(s) 0, Pharmacy: [facility] [facility] [id number], 173, cm, 08/14/24 11:50:00 EST, Height/Length Dosing, 78.1, kg, 08/14/24 11:50:00 EST, Weight Dosing cefadroxil 500 mg Cap: 500 mg = 1 cap(s), Oral, q12hr, X 2 day(s), # 4 cap(s), Refills(s) 0, Pharmacy: [facility] [id number], 173, cm, 08/14/24 11:50:00 EST, Height/Length Dosing, 78.1, kg, 08/14/24 11:50:00 EST, Weight Dosing gabapentin 300 mg Cap: 300 mg = 1 cap(s), Oral, TID, # 270 cap(s), Refills(s) 1, Pharmacy: [facility] [id number], 168, cm, 04/04/24 10:22:00 EDT, Height/Length Dosing, 81.2, kg, 04/04/24 10:22:00 EDT, Weight Dosing tiZANidine 4 mg Tab: 4 mg = 1 tab(s), Oral, q8hr, 60 tab(s), X 90 day(s), # 270 tab(s), Refills(s) 3, Pharmacy: [facility] [id number], 168, cm, 01/04/24 11:11:00 EDT, Height/Length Dosing, 82.3, kg, 01/04/24 11:11:00 EDT, Weight Dosing verapamil 240 mg ER Tab: 240 mg = 1 tab(s), Oral, Daily, X 90 day(s), # 90 tab(s), Refills(s) 3, Pharmacy: [facility] [id number], 168, cm, 01/04/24 11:11:00 EDT, Height/Length Dosing, 82.3, kg, 01/04/24 11:11:00 EDT, Weight Dosing Documented Medications (more content not included)... Normal [facility] XR KNEE 1 OR 2 VIEWS RIGHTon 08-15-2024 Exam Date/Time: 08/15/2024 09:44 EST Reason for Exam: Post-op evaluation;Other (please specify) Report IMPRESSION: POSTSURGICAL CHANGES OF RIGHT TOTAL KNEE ARTHROPLASTY. EXAM: XR Knee 1 or 2 Views Right HISTORY: Postoperative evaluation total knee arthroplasty TECHNIQUE: Frontal and lateral views of the knee COMPARISON: CT 08/04/2024 FINDINGS: Postsurgical changes of total knee arthroplasty including soft tissue emphysema. Alignment is anatomic. No periprosthetic abnormality. Ordering Provider: Sarai Pinedo FINAL REPORT Dictated: 08/15/2024 3:52 pm Chidi Szymanski DO Signed (Electronic Signature): 08/15/2024 3:52 pm Signed by: Chidi Szymanski DO Transcribed by: SUNDAR Technologist: [facility] Radiology, Radiologist, MD - 08/15/2024 Exam Date/Time: 08/15/2024 09:44 EST Reason for Exam: Post-op evaluation;Other (please specify) Report IMPRESSION: POSTSURGICAL CHANGES OF RIGHT TOTAL KNEE ARTHROPLASTY. EXAM: XR Knee 1 or 2 Views Right HISTORY: Postoperative evaluation total knee arthroplasty TECHNIQUE: Frontal and lateral views of the knee COMPARISON: CT 08/04/2024 FINDINGS: Postsurgical changes of total knee arthroplasty including soft tissue emphysema. Alignment is anatomic. No periprosthetic abnormality. Ordering Provider: Sarai Pinedo FINAL REPORT Dictated: 08/15/2024 3:52 pm Chidi Szymanski DO Signed (Electronic Signature): 08/15/2024 3:52 pm Signed by: Chidi Szymanski DO Transcribed by: SUNDAR Technologist: [facility] Radiology Study observation (narrative) [facility] XR KNEE 1 OR 2 VIEWS RIGHTOr dered By: Radiologist Radiology on 08-15-2024 [facility] Work Phone: XR Knee 1 or 2 Views Righton 08-15-2024 XR Knee 1 or 2 Views Right Exam Date/Time: 08/15/2024 09:44 EST Reason for Exam: Post-op evaluation;Other (please specify) Report IMPRESSION: POSTSURGICAL CHANGES OF RIGHT TOTAL KNEE ARTHROPLASTY. EXAM: XR Knee 1 or 2 Views Right HISTORY: Postoperative evaluation total knee arthroplasty TECHNIQUE: Frontal and lateral views of the knee COMPARISON: CT 08/04/2024 FINDINGS: Postsurgical changes of total knee arthroplasty including soft tissue emphysema. Alignment is anatomic. No periprosthetic abnormality. Ordering Provider: Sarai Pinedo FINAL REPORT Dictated: 08/15/2024 3:52 pm Chidi Szymanski DO Signed (Electronic Signature): 08/15/2024 3:52 pm Signed by: Chidi Szymanski DO Transcribed by: SUNDAR Technologist: HARLEEN [facility] Myocardial Spect Rest/Str ess 1 Dayon 08-14-2024 NM Myocardial Spect Rest/Stress 1 Day Exam Date/Time: 08/14/2024 10:31 EST Reason for Exam: R94.31;Other (please specify) Report [facility] [address] [place] [address] Nuclear Stress Report Name: LAMBERTO MENDES Study Date: 08/14/2024 07:52 AM Patient Location: [facility] Ambulatory(s) [facility] : 1945 (M/d/yyyy) Gender: Male Age: 79 yrs Ethnicity: WHT Reason For Study: R94.31;Other (please specify) Ordering Physician: Omid Lane Referring Physician: Omid Lane Protocol 67954 Pharmacologic Lexiscan stress with Isotope. Study Protocol: One day rest/stress acquisition. Rest Dose Tc99m Cardiolite was administered. Rest Dose: 10.3 mCi IV. Stress Dose Stress Protocol: Lexiscan. Stress Dose: 27.9 mCi IV. Stress Parameters Normal blood pressure response. Stress Symptoms: Dyspnea. ECG Rest 1st degree AV Block. Normal Sinus Rhythm. ECG Peak No significant changes from baseline. No ST-T wave changes from baseline. Arrhythmia No arrhythmias. Image Quality Rest Images: Diagnostic in quality. Rest Images: Limited or suboptimal due to excessive GI uptake. Stress Images: Diagnostic in quality. SPECT Perfusion Normal rest and stress perfusion. Left Ventricle Report Normal global and regional wall motion in all territories. Interpretation Summary Normal global and regional wall motion in all territories. Normal rest and stress perfusion. TID 0.79 EF>70% FINAL REPORT Dictated: 08/14/2024 7:52 am Dwain Demarco MD Signed (Electronic Signature): 08/14/2024 12:00 pm Signed by: Dwain Demarco MD Transcribed by: ERIC Technologist: JACQUELIN Gonsalez [facility] Urology Office/Clinic Noteon 08-14-2024 Urology Office/Clinic Note Urology Office/Clinic Note Chief Complaint 1yr PSA HPI Staff 79yr old male pt here for 1yr f/u with PSA. S/p brachytherapy 05/2014. Previous Dx: history of prostate cancer, BPH with urinary obstruction, urge incontinence *tamsulosin 0.4mg qd IPSS - 13, LITZY - 1 PSA: 04/18/20 - 0.05 04/16/21 - <0.05 04/22/22 - <0.13 08/03/23 - <0.13 07/20/24 - <0.13 Dysuria: denies Incomplete bladder emptying: denies Hematuria: denies Frequency: sometimes, depends on how much water he drinks, occasionally has frequency Urgency: says he knows when he needs to find a restroom , but is able to control bladder Nocturia: not every night, occasionally 1x Stream: good stream Leaking: sometimes if pressure is put on this abdomen Post void dripping: sometimes, not always Wearing pads/ Depends: wears a bad Urge incontinence: small amount of leaking if he waits too long Stress incontinence: denies Incontinence without Sensory Awareness: denies Abdominal pain: denies Flank pain: denies Sexual complaints: History of Present Illness Tests reviewed: reviewed UA, PSA I have reviewed the previous health record information and history for this patient from Dr. Puri. I have reviewed and verified the staff HPI to be accurate for this encounter. Review of Systems PHQ Score Initial [...] See HPI. Physical Exam Vitals & Measurements T: 37 ???C(Oral) HR: 97(Peripheral) RR: 18 BP: 159/94 HT: 68 in HT: 173 cm WT: 78.1 kg WT: 172.181 lb BMI: 26.1 General Appearance: alert, no distress, well nourished, well developed male. Assessment/Plan 1. History of prostate cancer (Z85.46: Personal history of malignant neoplasm of prostate) PSA: 04/18/20 - 0.05 04/16/21 - <0.05 04/22/22 - <0.13 08/03/23 - <0.13 07/20/24 - <0.13 S/p Brachytherapy 05/2014. PSA remains undetectable. Will cont to monitor. -F/u in 1 yr w/ PSA 2. BPH with urinary obstruction (N40.1: Benign prostatic hyperplasia with lower urinary tract symptoms) IPSS 13. UA today negative for blood and infection. Taking Tamsulosin 0.4mg qd. Denies any bother with urinary habits. -Cont T[facility] 3. Urge incontinence (N39.41: Urge incontinence) Has failed Oxybutynin in the past due to experiencing eye pain and dry eyes. Failed VESIcare 10mg qd d/t eye pain and minimal sx improvement. Gemtesa was cost-prohibitive. Wears a pad for protection in public. Denies any accidents. Has to ensure he does not delay voiding to prevent leaking. Does not feel sxs are bothersome enough to warrant medical management at this time. -Cont sx monitoring Follow-up With When Contact Information KHUSHI GAINES, Campos Pickard, [facility] [address], [place] [phone] Additional Instructions: 1 yr w/ PSA Patient Education Prostate Cancer Screening Aicha Araujo, personally scribed for Dr. Puri on 08/14/2024 12:14:23. . Documentation recorded by the scribe, Aicha Yusuf, accurately reflects the services(s) I performed and decisions made by me. Authenticated by Dr. Puri on 08/14/2024 12:16:07. 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 Normal [facility] Comment on above: Result Comment: Elec tronically Signed By: Campos PURI MD\.br\Date and Time Signed: 08/14/24 12:16 EST\.br\Electronically Co-Signed By: Aicha Yusuf.br\Date and Time Co-Signed: 08/14/24 12:14 EST Heart and Vascular Office/Cl inic Noteon 08-11-2024 Heart and Vascular Office/Clinic Note Heart and Vascular Office/Clinic Note Chief Complaint New Patient Surgical Clearance History of Present Illness Reason for consult-preoperative cardiac risk stratification prior to right knee replacement History of presenting illness: Lamberto is a pleasant 79-year-old with medical history significant for hypertension, dyslipidemia and remote history of TIA. Reports remote history of tobacco use. Reports significant limitation in mobility secondary to right knee pain. Also reports ankylosing spondylitis which limits his neck and lower back mobility. No known history of CAD or heart failure. Family history of CAD-father had a quadruple bypass. Does not report any complaints of chest pain, palpitation or dizziness. EKG done on 08/04/2024-sinus rhythm with no significant ischemic ST-T changes. Review of Systems PHQ Score Initial Depression Screen Score: 0 SCORE 10 SYSTEM REVIEW NEGATIVE OTHER THAN NOTED IN HPI Physical Exam Vitals & Measurements HR: 108(Peripheral) RR: 16 BP: 140/82 SpO2: 96% HT: 67 in HT: 169 cm WT: 79.8 kg WT: 175.929 lb BMI: 27.94 HEENT- no pallor,no icterus, no cyanosis Neck- no JVD, no bruit Chest- bilateral clear breath sounds, no rhonchi or crackles CVS- S1S2 normal, no rub or murmur Extremities- no ankle edema Neuro- alert, oriented x 3 Assessment/Plan Preoperative cardiac risk stratification -Given patient's ASCVD risk factors (age, gender, history of TIA, dyslipidemia, hypertension and family history of CAD) with difficulty in assessing patient's cardiopulmonary status secondary to limited mobility-recommend SPECT MPI to rule out any significant ischemia. -If no evidence of significant ischemia noted okay to proceed with the planned knee surgery with low risk of adverse cardiac outcomes in the perioperative phase. 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 Medications acetaminophen-hydroc odone 325 mg-7.5 mg oral tablet, See Instructions allopurinol 100 mg Tab, See Instructions aspirin 81 mg Oral EC Tab, 81 mg= 1 tab(s), Oral, Daily cholecalciferol 1000 intl units oral capsule, 1000 International_Unit= 1 cap(s), Oral, Daily folic acid 1 mg Tab, 1 mg= 1 tab(s), Oral, Daily gabapentin 300 mg Cap, 300 mg= 1 cap(s), Oral, TID, 1 refills losartan 50 mg Tab, 50 mg= 1 tab(s), Oral, Daily magnesium oxide, Oral meclizine 25 mg Tab, 25 mg= 1 tab(s), Oral, PRN melatonin, 10 mg, Oral, Once a day (at bedtime) meloxicam 15 mg Tab, 15 mg= 1 tab(s), Oral, Daily methotrexate 2.5 mg Tab, 25 mg= 10 tab(s), Oral, qWeek omeprazole 20 mg Cap-DR, 20 mg= 1 cap(s), Oral, Daily pravastatin 20 mg Tab, 20 mg= 1 tab(s), Oral, Daily tamsulosin 0.4 mg Cap, 0.4 mg= 1 cap(s), Oral, Daily tiZANidine 4 mg Tab, 4 mg= 1 tab(s), Oral, q8hr, 3 refills verapamil 240 mg ER Tab, 240 mg= 1 tab(s), Oral, Daily, 3 refills Vitamin B12, 1000 mcg, Oral, D (more content not included)... [facility] Comment on above: Result Comment: Elec tronically Signed By: Omid Lane MD\.br\Date and Time Signed: 08/11/24 13:[address] Lower Extremity w/o Contr ast Righton 08-05-2024 CT Lower Extremity w/o Contrast Right Exam Date/Time: 08/04/2024 15:43 EST Reason for Exam: RIGHT KNEE OA Report Impression: Osteoarthritis right knee. CT right knee without intravenous contrast medium. History: Osteoarthritis right knee.. Technical factors: CT imaging of the right lower extremity was obtained and formatted as 2 mm contiguous axial images through the hips, and 1 mm contiguous axial images through the knee. Sagittal and coronal reconstruction of the knee obtained during postprocessing. Comparison: None. Findings: Images through the right knee show no fracture, dislocation, or bone lesion. Small anterior osteophyte, anterior column. Diffuse narrowing lateral compartment right knee with osteophyte formation lateral femoral condyle, lateral tibial plateau, superior and inferior aspects posterior patella. Narrowing patellofemoral compartment. No fracture, dislocation, bone lesion, effusion. All CT scans at this facility use dose modulation, iterative reconstruction, and/or weight based dosing when appropriate to reduce radiation dose to as low as reasonably achievable. Ordering Provider: Sarai Pinedo FINAL REPORT Dictated: 08/05/2024 2:08 pm Zack Ramos MD Signed (Electronic Signature): 08/05/2024 2:08 pm Signed by: Zack Ramos MD Transcribed by: SUNDAR Technologist: VANESSA [facility] UA WITH CULT RFLXon 08-04-19 BILIRUBIN:PRTHR:PT:UR INE:ORD:TEST STRIP.AUTOMATED Negative Negative mg/dL [facility] CLARITY:TYPE:PT:URINE :NOM: Clear Clear [facility] CLASS:TYPE:PT:URINE COLLECTION METHOD:NOM:* Clean Catch [facility] COLOR:TYPE:PT:URINE:N OM:AUTO Light-Yellow Yellow [facility] Comment on above: Microscopic readings are only performed on those samples that meet specific criteria set forth by [facility]. [facility] PH:LSCNC:PT:URINE:QN: TEST STRIP 6.5 5.0 - 9.0 [facility] SPECIFIC GRAVITY:RDEN:PT:URINE :QN:TEST STRIP 1.013 1.005 - 1.030 [facility] GLUCOSE:PRTHR:PT:URIN E:ORD:TEST STRIP Negative Negative mg/dL [facility] HEMOGLOBIN:MCNC:PT:UR INE:SEMIQN:TEST STRIP.AUTOMATED Negative Negative mg/dL [facility] KETONES:PRTHR:PT:URIN E:ORD:TEST STRIP.AUTOMATED Negative Negative mg/dL [facility] LEUKOCYTE ESTERASE:PRTHR:PT:URI NE:ORD:TEST STRIP.AUTOMATED Negative Negative CD:[phone] [facility] NITRITE:PRTHR:PT:URIN E:ORD:TEST STRIP.AUTOMATED Negative Negative mg/dL [facility] PROTEIN:PRTHR:PT:URIN E:ORD:TEST STRIP Negative Negative mg/dL [facility] UROBILINOGEN:MCNC:PT: URINE:SEMIQN:TEST STRIP Negative Negative mg/dL [facility] Original Ordering Provider: DO Sarai Pinedo [facility] eGFRon 08-04-2024 eGFR 62 mL/min/1.73 m2 Normal >=59 [facility] Comment on above: Performed By: #### 1 [id number] #### [facility] [address] [place] [address] Ambulatory Visit Summaryon 1 08-29-2023 Ambulatory Visit Summary Ambulatory Visit Summary LAMBERTO MENDES :1945 Visit Date:06/28/2024 Ambulatory Visit Instructions Your Diagnosis Ankylosing spondylitis of multiple sites in spine Spondylosis of lumbar region without myelopathy or radiculopathy BMI 29.0-29.9,adult Over weight Former smoker Your Care Team Attending Physician - Arturo Beach Primary Care Physician - Arturo Beach This Is Your Medications List acetaminophen-hydroc odone (Douglas 325 mg-7.5 mg oral tablet) allopurinol (allopurinol [...] repair, Rotator cuff repair. Discharge Vitals Temperature (Tympanic) 36.4 ???C Heart Rate (Peripheral) 87 Respiratory Rate 18 Blood Pressure 144/90 Height 168 cm Height 66 in Weight 82.1 kg Weight 180.999 lb BMI 29.09 What to do next Scheduled Follow-Up Appointments Wednesday 11:30 AM EST With: KHUSHI GAINES, Campos Pickard Where: [facility] [address] [place] [address]- Wednesday 1:40 PM EDT With: Arturo Beach Where: [address] [id number]- Wednesday 11:00 AM EDT With: Where: [address] [address]- Medications What How Much When Instructions Unchanged acetaminophen-hydroc odone (Douglas 325 mg-7.5 mg oral tablet) 1 Tablets By Mouth 3 times a day 30 day supply Unchanged allopurinol (allopurinol 100 mg Tab) See instructions TAKE 1 TABLET BY MOUTH DAILY Unchanged aspirin (aspirin 81 mg oral tablet) [...] 20 Unknown, BY MOUTH, 3 Refill(s) Unchanged pravastatin (pravastatin 10 mg Tab) 1 Tablets By Mouth Every day Unchanged tamsulosin (tamsulosin 0.4 mg Cap) 1 Capsules By Mouth Every day Unchanged tizanidine (tiZANidine 4 mg Tab) 1 Tablets By Mouth Every 8 hours Duration: 90 Days 60 tab(s) Unchanged verapamil (verapamil 240 mg ER Tab) 1 Tablets By Mouth Every day Duration: 90 Days Allergies Ativan (lethargic) LORazepam (Unknown) Problems Ongoing - Any problem that you are currently receiving treatment for. Ankylosing spondylitis of multiple sites in spine BMI 29.0-29.9,adult BPH with urinary obstru (more content not included)... Normal [facility] Medicine Office/Clini c Noteon 06-28-2024 Family Medicine Office/Clinic Note Family Medicine Office/Clinic Note Chief Complaint 3m Med Follow Up HPI Staff Lamberto is a 79 year old male presenting for 3 month follow up pain meds Pain characteristics: Pain location: back, Rt knee Intensity:7/10 Onset: years Medication used: norco 325mg-7.5mg, OTC Voltaren, heating pad Opioids prescribed: Douglas Medication agreement UTD: due today_ Urine drug screen performed: Due Does feel like he may have had a scab in Rt ear. History of Present Illness pt presents today for 3 month follow up Review of Systems PHQ Score Initial Depression Screen Score: 2 SCORE Physical Exam Vitals & Measurements T: 36.4 ???C(Tympanic) HR: 87(Peripheral) RR: 18 BP: 144/90 SpO2: 96% HT: 66 in HT: 168 cm WT: 82.1 kg WT: 180.999 lb BMI: 29.09 General: alert, no acute distress ENMT: oral [...] pt presents today for 3 month follow up. med agreement and UDS performed in office today. pt does not need refills at this time. RTC 3 months Ordered: Drug Screen POC 96206 2. Spondylosis of lumbar region without myelopathy or radiculopathy (M47.816: Spondylosis without myelopathy or radiculopathy, lumbar region) see above Ordered: Drug Screen POC 43769 3. Right knee pain (M25.561: Pain in right knee) pt states he feels his right knee is getting worse. it is very stiff and painful especially in the morning. 4. BMI 29.0-29.9,adult (Z68.29: Body mass index [BMI] 29.0-29.9, adult) BMI education given 5. Over weight (E66.3: Overweight) see above 6. 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 Medications allopurinol 100 mg Tab, See Instructions aspirin 81 mg oral tablet, Oral, Daily [...] 15 mg Tab methotrexate 2.5 mg Tab Douglas 325 mg-7.5 mg oral tablet, 1 tab(s), [...] Vitamin B12, 1000 mcg, Oral, Daily Allergies Ativ (more content not included)... Normal [facility] Comment on above: Result Comment: Elec tronically Signed By: Arturo Beach\.br\Date and Time Signed: 06/28/24 14:11 EST Ambulatory Visit Summaryon 0 04-04-2024 Ambulatory Visit Summary Ambulatory Visit Summary LAMBERTO MENDES Marquis :1945 Visit Date:04/04/2024 Ambulatory Visit Instructions Your Diagnosis Ankylosing spondylitis of multiple sites in spine Spondylosis of lumbar region without myelopathy or radiculopathy Former smoker BMI 28.0-28.9,adult Excess weight Your Care Team Attending Physician - Arturo Beach Primary Care Physician - Arturo Beach This Is Your Medications List acetaminophen-hydroc odone (Douglas 325 mg-7.5 mg oral tablet) allopurinol (allopurinol [...] Follow-Up Appointments Wednesday 1:40 PM EST With: Arturo Beach Where: [address] [address]- Wednesday 11:30 AM EST With: Campos PURI MD Where: [facility] [address] [place] [address]- Wednesday 11:00 AM EDT With: Where: [address] [address]- Medications What How Much When Instructions New pravastatin (pravastatin 10 mg Tab) 1 Tablets By Mouth Every day Refills: 3 Pickup at [facility] [id number] Unchanged acetaminophen-hydroc odone (Douglas 325 mg-7.5 mg oral tablet) 1 Tablets [...] Every day Duration: 90 Days Pharmacy Information [facility] [id number]: [address], [place] [phone] Allergies Ativan (lethargic) LORazepam (Unknown) Problems Ongoing - Any problem that you a (more content not included)... Normal [facility] Family Medicine Office/Clini c Noteon 04-04-2024 Family Medicine Office/Clinic Note Family Medicine Office/Clinic Note HPI Staff Lamberto is a 78 year old female presenting with 3 month med check for pain medication-medicatio n agreement up to date Needs refills on [...] Daily, # 90 tab(s), Refills(s) 3, [facility] [id number], 168, cm, 04/04/24 10:22:00 EDT, Height/Length Dosing, 81.2, kg, 04/04/24 10:22:00 EDT, Weight Dosing pravastatin, 10 mg = 1 tab(s), Oral, Daily, # 90 tab(s), Refills(s) 1, [facility] [id number], 173, cm, 09/20/23 10:33:00 EDT, Height/Length Dosing, [...] 15 mg Tab methotrexate 2.5 mg Tab Douglas 325 mg-7.5 mg oral tablet, 1 tab(s), [...] Vitamin B (more content not included)... Normal [facility] Comment on above: Result Comment: Elec tronically Signed By: Arturo Beach\.br\Date and Time Signed: 04/04/24 11:47 EDT CNOVon 04-25-2019 CNOV Office Visit (RADTSA) LAMBERTO MENDES ([id number]) 1945 M Date Time Provider Department 04/25/19 11:45 AM Octaviano SPANGLER During your visit today, we recorded the following information about you: Temperature Pulse Respiration Blood pressure 97.8 degrees 85/minute 16/minute 143/76 Weight 78.5 kg Adry Bradford LPN, RN 04/25/2019 11:54 AM Signed AUA= 11 G Albert Spangler MD 05/01/2019 7:57 AM Signed Radiation Oncology - Follow Up Note PATIENT NAME: Lamberto Mendes PATIENT Diagnosis: Prostate cancer, adenocarcinoma GS=7(3+4) [...] PREDNISONE ORAL Take 10 mg by mouth. HYDROcodone-Acetamin ophen (NORCO) 7.5-325 mg per tablet metaxalone (SKELAXIN) [...] new problems. Continues active follow-up with Dr. Puri including PSA evaluation. Given stability of PSA and no postradiation problems plan to see patient back on an as-needed basis. Signed by: Octaviano Spangler MD Referring Provider: Octaviano SPANGLER [[id number]] Allergies As of Date: 04/25/2019 Noted Allergy Reaction ATIVAN (LORAZEPAM) 03/16/2014 8 - GI Upset 14 - Other: See Comments Comments: Lethargic and profuse sweats Date Reviewed: 04/25/2019 Reviewed by: Adry (Marcy) SINDY Bradford - Fully Assessed Reason for Visit: Follow Up [171] Primary Visit Diagnosis:History of prostate cancer [Z85.46] Order(s):PSA (OUTSIDE) [[id number]] Order #: [id number] PSA/PROSTSPECAG DIAG [SQPSA] Order #: [id number] FUTURE Prescriptions as of 04/25/2019 Sig: VITAMIN [...] cancer [Z85.46] INVALID FOR* Visit Notes: >> SINDY Aguirre Lpn Apr 25, 2019 11:45 AM Status: Signed AUA= 11 Medications Discontinued During This Encounter oxybutynin ER (DITROPAN XL) 10 mg 24* 04/28/2016 04/25/2019 Class: Historical Med Sig: Disc: Discontinued by another Health Care Provider Disposition: Return if symptoms worsen or fail to improve. Follow-up and Disposition History Recorded Encounter Status:Closed by Octaviano SPANGLER MD on 05/01/19 [facility] PROGRESSon 04-25-2019 PROGRESS HNO ID: [id number] Author: Octaviano Spangler Service: ? Author Type: Physician Type: Progress Notes Filed: 05/01/2019 7:57 AM Note Text: Radiation Oncology - Follow Up Note PATIENT NAME: Lamberto Mendes PATIENT Diagnosis: Prostate cancer, adenocarcinoma GS=7(3+4) [...] PREDNISONE ORAL Take 10 mg by mouth. HYDROcodone-Acetamin ophen (NORCO) 7.5-325 mg per tablet metaxalone (SKELAXIN) [...] new problems. Continues active follow-up with Dr. Puri including PSA evaluation. Given stability of PSA and no postradiation problems plan to see patient back on an as-needed basis. Signed by: Octaviano Spangler MD [facility] CNOVon 05-25-2018 CNOV Office Visit (RADTSA) ALLAMBERTO Baig ([id number]) 1945 M Date Time Provider Department 05/25/18 1:45 PM Octaviano SPANGLER During your visit today, we recorded the following information about you: Pulse Respiration Blood pressure Weight 86/minute 18/minute 167/72 80.3 kg Octaviano Spangler MD 05/27/2018 10:41 AM Signed Radiation Oncology - Follow Up Note PATIENT NAME: Lamberto Mendes PATIENT Diagnosis: Prostate cancer, adenocarcinoma GS=7(3+4) [...] PREDNISONE ORAL Take 10 mg by mouth. HYDROcodone-Acetamin ophen (NORCO) 7.5-325 mg per tablet metaxalone (SKELAXIN) [...] new problems. Continues active follow-up with Dr. Puri including PSA evaluation. Plan to see patient back in one year for post radiation follow-up. Signed by: MD Yamilet Ashley, SINDY, RN 05/25/2018 2:34 PM Signed AUA 11 Yamilet Garcia RN Referring Provider: Octaviano SPANGLER [[id number]] Allergies As of Date: 05/25/2018 Noted Allergy Reaction ATIVAN (LORAZEPAM) 03/16/2014 8 - GI Upset 14 - Other: See Comments Comments: Lethargic and profuse sweats Date Reviewed: 05/19/2017 Reviewed by: Yamilet RodriguezRn) SINDY Garcia - Fully Assessed Reason for Visit: [...] [Z85.46] INVALID FOR* Visit Notes: >> Yamilet (Sindy) SINDY Garcia WedMay 25, 2018 2:15 PM Status: Signed AUA 11 Yamilet Garcia RN Disposition: Return in about 1 year (around 05/25/2019). Follow-up and Disposition History Recorded Encounter Status:Closed by Octaviano SPANGLER MD on 05/27/18 [facility] PROGRESSon 05-25-2018 PROGRESS HNO ID: [id number] Author: Octaviano Spangler Service: (none) Author Type: Physician Type: Progress Notes Filed: 05/27/2018 10:41 AM Note Text: Radiation Oncology - Follow Up Note PATIENT NAME: Lamberto Mendes PATIENT Diagnosis: Prostate cancer, adenocarcinoma GS=7(3+4) [...] PREDNISONE ORAL Take 10 mg by mouth. HYDROcodone-Acetamin ophen (NORCO) 7.5-325 mg per tablet metaxalone (SKELAXIN) [...] new problems. Continues active follow-up with Dr. Puri including PSA evaluation. Plan to see patient back in one year for post radiation follow-up. Signed by: Octaviano Spangler MD Normal [facility] Vital Signs Date Time Vital Sign Value Performing Clinician Facility 02-14-2025 [id number] Body height 167.6 cm Sarai Pinedo DO Work Phone: [facility] 02-14-2025 10:18-0400 Body mass index (BMI) [Ratio] 28.89 kg/m2 Sarai Pinedo DO Work Phone: [facility] 02-14-2025 10:18-0400 Body weight 81.19 kg Sarai Pocos DO Work Phone: [facility] 01-03-2025 10:43-0400 Body height 167.6 cm Sarai Pocos DO Work Phone: [facility] 01-03-2025 10:43-0400 Body mass index (BMI) [Ratio] 28.89 kg/m2 Sarai Pocos DO Work Phone: [facility] 01-03-2025 10:43-0400 Body weight 81.19 kg Sarai Pocos DO Work Phone: [facility] 12-18-2024 11:11-0400 Body height 167.6 cm Sarai Pocos DO Work Phone: [facility] 12-18-2024 11:11-0400 Body mass index (BMI) [Ratio] 28.89 kg/m2 Sarai Pocos DO Work Phone: [facility] 12-18-2024 11:11-0400 Body weight 81.19 kg Sarai Pocos DO Work Phone: [facility] 11-24-2024 10:04-0400 Body height 167.6 cm Sarai Pocos DO Work Phone: [facility] 11-24-2024 10:04-0400 Body mass index (BMI) [Ratio] 28.89 kg/m2 Sarai Pocos DO Work Phone: [facility] 11-24-2024 10:04-0400 Body weight 81.19 kg Sarai Pocos DO Work Phone: [facility] 11-10-2024 09:23-0400 Body height 167.6 cm Sarai Pocos DO Work Phone: [facility] 11-10-2024 09:23-0400 Body mass index (BMI) [Ratio] 28.89 kg/m2 Sarai Pocos DO Work Phone: [facility] 11-10-2024 09:23-0400 Body weight 81.19 kg Sarai Pocos DO Work Phone: [facility] 10-05-2024 23:15-0400 Body temperature 97.7 [degF] Tip Ramirez [facility] 10-05-2024 23:15-0400 Diastolic blood pressure 77 mm[Hg] Tip Ramirez [facility] 10-05-2024 23:15-0400 Heart rate 75 /min Tip Ramirez [facility] 10-05-2024 23:15-0400 Respiratory rate 16 /min Tip Ramirez [facility] 10-05-2024 23:15-0400 SaO2% (BldA) [Mass fraction] 98 % Tip Ramirez [facility] 10-05-2024 23:15-0400 Systolic blood pressure 168 mm[Hg] Tip Ramirez [facility] 08-15-2024 12:51-0500 Heart rate 82 /min Sarai Pocos [facility] 08-15-2024 12:51-0500 SaO2% (BldA) [Mass fraction] 98 % Sarai Pocos [facility] 08-15-2024 12:49-0500 Respiratory rate 16 /min Sarai Pocos [facility] 08-15-2024 12:48-0500 Blood Pressure Location Sarai Pocos [facility] 08-15-2024 12:48-0500 Diastolic blood pressure 86 mm[Hg] Sarai Pocos [facility] 08-15-2024 12:48-0500 Mean blood pressure 114 mm[Hg] Sarai Pocos [facility] 08-15-2024 12:48-0500 Systolic blood pressure 168 mm[Hg] Sarai Pocos [facility] 08-15-2024 12:48-0500 Body temperature 98.6 [degF] Sarai Pocos [facility] 08-15-2024 09:54-0500 Heart rate 70 /min Sarai Pocos [facility] 08-15-2024 09:54-0500 SaO2% (BldA) [Mass fraction] 95 % Sarai Pocos [facility] 08-15-2024 09:54-0500 Respiratory rate 16 /min Sarai Pocos [facility] 08-15-2024 09:54-0500 Blood Pressure Location Sarai Pocos [facility] 08-15-2024 09:54-0500 Diastolic blood pressure 75 mm[Hg] Sarai Pocos [facility] 08-15-2024 09:54-0500 Mean blood pressure 95 mm[Hg] Sarai Pocos [facility] 08-15-2024 09:54-0500 Systolic blood pressure 136 mm[Hg] Sarai Pocos [facility] 08-15-2024 09:54-0500 Body temperature 97.88 [degF] Sarai Pocos [facility] 08-15-2024 09:43-0500 Blood Pressure Location Sarai Pocos [facility] 08-15-2024 09:43-0500 Body temperature 98.24 [degF] Sarai Pocos [facility] 08-15-2024 09:43-0500 Diastolic blood pressure 72 mm[Hg] Sarai Pocos [facility] 08-15-2024 09:43-0500 Heart rate 72 /min Sarai Pocos [facility] 08-15-2024 09:43-0500 Mean blood pressure 89 mm[Hg] Sarai Pocos [facility] 08-15-2024 09:43-0500 Respiratory rate 13 /min Sarai Pocos [facility] 08-15-2024 09:43-0500 SaO2% (BldA) [Mass fraction] 95 % Sarai Pocos [facility] 08-15-2024 09:43-0500 Systolic blood pressure 124 mm[Hg] Sarai Pocos [facility] 08-15-2024 09:33-0500 Respiratory rate 17 /min Sarai Pocos [facility] 08-15-2024 09:28-0500 Respiratory rate 16 /min Sarai Pocos [facility] 08-15-2024 09:18-0500 Body temperature 97.7 [degF] Sarai Pocos [facility] 08-15-2024 09:18-0500 Mean blood pressure 74 mm[Hg] Sarai Pocos [facility] 08-15-2024 09:15-0500 Respiratory rate 1 /min Sarai Pocos [facility] 08-15-2024 06:24-0500 Mean blood pressure 120 mm[Hg] Sarai Pocos [facility] 08-15-2024 06:24-0500 Heart rate 78 /min Saari Pocos [facility] 08-15-2024 06:22-0500 Body temperature 97.88 [degF] Sarai Pocos [facility] 08-14-2024 11:52-0500 Diastolic blood pressure 94 mm[Hg] Campos PURI [facility] 08-14-2024 11:52-0500 Heart rate 97 /min Campos PURI [facility] 08-14-2024 11:52-0500 Mean blood pressure 116 mm[Hg] Campos PURI [facility] 08-14-2024 11:52-0500 Systolic blood pressure 159 mm[Hg] Campos PURI [facility] 08-14-2024 11:46-0500 Blood Pressure Location Campos PURI [facility] 08-14-2024 11:46-0500 Body temperature 98.6 [degF] Campos PURI [facility] 08-14-2024 11:46-0500 Diastolic blood pressure 90 mm[Hg] Campos PURI [facility] 08-14-2024 11:46-0500 Heart rate 97 /min Campos PURI [facility] 08-14-2024 11:46-0500 Respiratory rate 18 /min Campos PURI [facility] 08-14-2024 11:46-0500 Systolic blood pressure 161 mm[Hg] Campos PURI [facility] 08-11-2024 12:59-0500 Blood Pressure Location Omid Domingo [facility] 08-11-2024 12:59-0500 Diastolic blood pressure 82 mm[Hg] Omid Domingo [facility] 08-11-2024 12:59-0500 Heart rate 108 /min Omid Domingo [facility] 08-11-2024 12:59-0500 Respiratory rate 16 /min Omid Domingo [facility] 08-11-2024 12:59-0500 SaO2% (BldA) [Mass fraction] 96 % Omid Domingo [facility] 08-11-2024 12:59-0500 Systolic blood pressure 140 mm[Hg] Omid Domingo [facility] 07-26-2024 13:33-0500 Body height 167.6 cm Sarai Pocos DO Work Phone: [facility] 07-26-2024 13:33-0500 Body mass index (BMI) [Ratio] 28.89 kg/m2 Sarai Pocos DO Work Phone: [facility] 07-26-2024 13:33-0500 Body weight 81.19 kg Sarai Pocos DO Work Phone: [facility] 08-13-2023 11:41-0500 Blood Pressure Location Camposfelipe PURI [facility] 08-13-2023 11:41-0500 Diastolic blood pressure 83 mm[Hg] Campos PURI [facility] 08-13-2023 11:41-0500 Heart rate 71 /min Campos PURI [facility] 08-13-2023 11:41-0500 Respiratory rate 16 /min Campos PURI [facility] 08-13-2023 11:41-0500 Systolic blood pressure 132 mm[Hg] Campos PURI [facility] 08-10-2022 15:35-0500 Blood Pressure Location Campos PURI [facility] 08-10-2022 15:35-0500 Diastolic blood pressure 68 mm[Hg] Campos PURI [facility] 08-10-2022 15:35-0500 Heart rate 68 /min Campos PURI [facility] 08-10-2022 15:35-0500 Respiratory rate 16 /min Campos PURI [facility] 08-10-2022 15:35-0500 Systolic blood pressure 132 mm[Hg] Campos PURI [facility] Encounters Encounter Date Encounter Type Care Provider Facility Start: 01-02-2026 ambulatory Arturo L Haley Facility: [facility] Start: 08-17-2025 ambulatory Campos PURI Facili ty:[facility] Start: 07-03-2025 ambulatory Arturo L Haley Facility: [facility] Start: 04-03-2025 End: 04-03-2025 ambulatory Arturo L Haley Facility:[facility] Start: 02-14-2025 End: 02-14-2025 Patient encounter procedure Sarai Pinedo DO Work Phone: [facility] Comment on above: Presence of right ar tificial knee joint (Primary Dx); Wrist pain, right; [place] 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 Start: 02-14-2025 End: 02-14-2025 ambulatory RASHAD POCOS Not Available Start: 02-14-2025 End: 02-14-2025 ambulatory RASHAD POCOS Not Available Start: 02-06-2025 End: 02-06-2025 ambulatory ROYA DASILVA Facility:[facility] Start: 01-26-2025 End: 01-26-2025 ambulatory XXXX NONE Facility:[facility] Start: 01-03-2025 End: 01-03-2025 Bamboo flowsheet Sarai Mccracken Pocos DO Work Phone: [facility] Start: 01-03-2025 End: 01-03-2025 Bamboo flowsheet Sarai Mccracken Pocos DO Work Phone: [facility] Start: 01-03-2025 End: 01-03-2025 Patient encounter procedure Sarai Mccracken Pocos DO Work Phone: [facility] Comment on above: Presence of right ar tificial knee joint (Primary Dx) Start: 01-03-2025 End: 01-03-2025 ambulatory SARAI Mccracken POCOS Not Available Start: 01-02-2025 End: 01-02-2025 ambulatory Arturo Mayers Facility:[facility] Start: 12-22-2024 End: 12-22-2024 Admission to same day surgery center Rashad Pocos [facility] Start: 12-22-2024 End: 12-22-2024 ambulatory Rashad Pocos Facility:[facility] Start: 12-18-2024 End: 12-18-2024 Bamboo flowsheet Sarai Mccracken Pocos DO Work Phone: [facility] Start: 12-18-2024 End: 12-18-2024 Bamboo flowsheet Rashad Pocos DO Work Phone: [facility] Start: 12-18-2024 End: 12-18-2024 Clinisync Result Encounter Rashad Pocos DO Work Phone: [facility] Unsolicited Start: 12-18-2024 End: 12-18-2024 ambulatory Rashad Pocos Facility:[facility] Start: 12-18-2024 End: 12-18-2024 Patient encounter procedure Rashad Pocos [facility] Comment on above: Postoperative wound dehiscence, initial encounter (Primary Dx); Presence of right artificial knee joint; Preoperative testing Start: 12-18-2024 End: 12-18-2024 Patient encounter status Sarai Mccracken Pocos DO Work Phone: [facility] Start: 12-18-2024 End: 12-18-2024 ambulatory SARAI Mccracken POCOS Not Available Start: 11-24-2024 End: 11-24-2024 Bamboo flowsheet Sarai Mccracken Pocos DO Work Phone: [facility] Start: 11-24-2024 End: 11-24-2024 Bamboo flowsheet Sarai Mccracken Pocos DO Work Phone: [facility] Start: 11-24-2024 End: 11-24-2024 Patient encounter procedure Sarai Mccracken Pocos DO Work Phone: [facility] Comment on above: Presence of right ar tificial knee joint (Primary Dx) Start: 11-24-2024 End: 11-24-2024 ambulatory SARAI Mccracken POCOS Not Available Start: 11-10-2024 End: 11-10-2024 Patient encounter procedure Sarai Mccracken Pocos DO Work Phone: [facility] Comment on above: S/P total knee repla cement, right (Primary Dx); Superficial disruption or dehiscence of operation wound, initial encounter Start: 11-10-2024 End: 11-10-2024 ambulatory SARAI Mccracken POCOS Not Available Start: 11-10-2024 End: 11-10-2024 ambulatory SARAI Mccracken POCOS Not Available Start: 11-09-2024 End: 11-09-2024 Bamboo flowsheet Danyel Parikh [employer] [facility] Start: 11-09-2024 End: 11-09-2024 Bamboo flowsheet Danyel Parikh [employer] [facility] Start: 11-09-2024 End: 11-09-2024 ambulatory Danyel Parikh [employer] [facility] Comment on above: Primary osteoarthrit is of right knee (Primary Dx) Start: 11-06-2024 End: 11-06-2024 Bamboo flowsheet Danyel Parikh [employer] [facility] Start: 11-06-2024 End: 11-06-2024 Bamboo flowsheet Danyel Parikh [employer] [facility] Start: 11-06-2024 End: 11-06-2024 ambulatory Danyel Parikh [employer] [facility] Comment on above: Primary osteoarthrit is of right knee (Primary Dx) Start: 11-02-2024 End: 11-02-2024 Bamboo flowsheet Kirtijdoi Chang PT [facility] Start: 11-02-2024 End: 11-02-2024 Bamboo flowsheet Kirtizack Chang PT [facility] Start: 11-02-2024 End: 11-02-2024 ambulatory Kirtijodi Chang PT [facility] Comment on above: Primary osteoarthrit is of right knee (Primary Dx) Start: 10-31-2024 End: 10-31-2024 Bamboo flowsheet Kirti Chang PT [facility] Start: 10-31-2024 End: 10-31-2024 Bamboo flowsheet Kirtijodi Chang PT [facility] Start: 10-31-2024 End: 10-31-2024 ambulatory Kirti Chang PT [facility] Comment on above: Primary osteoarthrit is of right knee (Primary Dx) Start: 10-27-2024 End: 10-27-2024 ambulatory Kirtijodi Chang PT [facility] Comment on above: Primary osteoarthrit is of right knee (Primary Dx) Start: 10-25-2024 End: 10-25-2024 Bamboo flowsheet Kirti Chang PT [facility] Start: 10-25-2024 End: 10-25-2024 Bamboo flowsheet Kirti Chang PT [facility] Start: 10-25-2024 End: 10-25-2024 ambulatory Kirtijodi Chang PT [facility] Comment on above: Primary osteoarthrit is of right knee (Primary Dx) Start: 10-19-2024 End: 10-19-2024 Bamboo flowsheet Danyel Parikh [employer] [facility] Start: 10-19-2024 End: 10-19-2024 Bamboo flowsheet Danyel Parikh [employer] [facility] Start: 10-19-2024 End: 10-19-2024 ambulatory Danyel Parikh [employer] [facility] Comment on above: Primary osteoarthrit is of right knee (Primary Dx) Start: 10-17-2024 End: 10-17-2024 Bamboo flowsheet Danyel Ju [employer] [facility] Start: 10-17-2024 End: 10-17-2024 Bamboo flowsheet Danyel Ju [employer] [facility] Start: 10-17-2024 End: 10-17-2024 ambulatory Danyel Ju [employer] [facility] Comment on above: Primary osteoarthrit is of right knee (Primary Dx) Start: 10-12-2024 End: 10-12-2024 Bamboo flowsheet Danyel Ju [employer] [facility] Start: 10-12-2024 End: 10-12-2024 Bamboo flowsheet Danyel Ju [employer] [facility] Start: 10-12-2024 End: 10-12-2024 ambulatory Danyel Ju [employer] [facility] Comment on above: Primary osteoarthrit is of right knee (Primary Dx) Start: 10-10-2024 End: 10-10-2024 Bamboo flowsheet Danyel Ju [employer] [facility] Start: 10-10-2024 End: 10-10-2024 Bamboo flowsheet Danyel Ju [employer] [facility] Start: 10-10-2024 End: 10-10-2024 ambulatory Danyel Ju [employer] [facility] Comment on above: Primary osteoarthrit is of right knee (Primary Dx) Start: 10-05-2024 End: 10-06-2024 Emergency department patient visit Tip Ramirez [facility] Start: 10-05-2024 End: 10-05-2024 Bamboo flowsheet Danyel Ju [employer] [facility] Start: 10-05-2024 End: 10-05-2024 Bamboo flowsheet Danyel Ju [employer] [facility] Start: 10-05-2024 End: 10-05-2024 ambulatory Danyel Ju [employer] [facility] Comment on above: Primary osteoarthrit is of right knee (Primary Dx) Start: 10-03-2024 End: 10-03-2024 ambulatory DANYEL JU Not Available Start: 09-29-2024 End: 09-29-2024 ambulatory Arturo Mayers Facility:[facility] Start: 09-28-2024 End: 09-28-2024 Bamboo flowsheet Kirti Chang PT [facility] Start: 09-28-2024 End: 09-28-2024 Bamboo flowsheet Kirti Chang PT [facility] Start: 09-28-2024 End: 09-28-2024 ambulatory Kirti Chang PT [facility] Comment on above: Primary osteoarthrit is of right knee (Primary Dx) Start: 09-26-2024 End: 09-26-2024 ambulatory DANYEL JU Not Available Start: 09-21-2024 End: 09-21-2024 Bamboo flowsheet Danyel Ju [employer] [facility] Start: 09-21-2024 End: 09-21-2024 Bamboo flowsheet Danyel Ju [employer] [facility] Start: 09-21-2024 End: 09-21-2024 ambulatory Danyel Parikh [employer] [facility] Comment on above: Primary osteoarthrit is of right knee (Primary Dx) Start: 09-19-2024 End: 09-19-2024 Bamboo flowsheet Kirti Chang PT [facility] Start: 09-19-2024 End: 09-19-2024 Bamboo flowsheet Kirti Chang PT [facility] Start: 09-19-2024 End: 09-19-2024 ambulatory Kirti Chang PT [facility] Comment on above: Primary osteoarthrit is of right knee (Primary Dx) Start: 09-15-2024 End: 09-15-2024 ambulatory RASHAD POCOS Not Available Start: 09-14-2024 End: 09-14-2024 Bamboo flowsheet Danyel Ju [employer] [facility] Start: 09-14-2024 End: 09-14-2024 Bamboo flowsheet Danyel Ju [employer] [facility] Start: 09-14-2024 End: 09-14-2024 ambulatory DANYEL JU Not Available Start: 09-12-2024 End: 09-12-2024 Bamboo flowsheet Kirti Chang PT [facility] Start: 09-12-2024 End: 09-12-2024 Bamboo flowsheet Kirti Chang PT [facility] Start: 09-12-2024 End: 09-12-2024 ambulatory Kirti Chang PT [facility] Comment on above: Primary osteoarthrit is of right knee (Primary Dx) Start: 09-07-2024 End: 09-07-2024 Bamboo flowsheet Danyel Parikh [employer] [facility] Start: 09-07-2024 End: 09-07-2024 Bamboo flowsheet Danyel Parikh [employer] [facility] Start: 09-07-2024 End: 09-07-2024 ambulatory Danyel Parikh [employer] [facility] Comment on above: Primary osteoarthrit is of right knee (Primary Dx) Start: 09-05-2024 End: 09-05-2024 ambulatory Kirti Chang PT [facility] Comment on above: Primary osteoarthrit is of right knee (Primary Dx) Start: 09-05-2024 End: 09-05-2024 Bamboo flowsheet Kirti Chang PT [facility] Start: 09-05-2024 End: 09-05-2024 Bamboo flowsheet Kirti Chang PT [facility] Start: 08-15-2024 End: 08-15-2024 Clinisync Result Encounter Sarai Mccracken Pocos DO Work Phone: [facility] Unsolicited Start: 08-15-2024 End: 08-15-2024 Clinisync Result Encounter Sarai Mccracken Pocos DO Work Phone: [facility] Unsolicited Start: 08-15-2024 End: 08-15-2024 Admission to same day surgery center Sarai Peteos [facility] Start: 08-15-2024 End: 08-15-2024 ambulatory Sarai Mccracken Pocnathanael Facility:[facility] Start: 08-14-2024 End: 08-14-2024 ambulatory Campos PURI Facility:[facility] Start: 08-14-2024 End: 08-14-2024 Patient encounter procedure Campos PURI [facility] Start: 08-14-2024 End: 08-14-[address] Facility:[facility] Start: 08-14-2024 End: 08-14-2024 Patient encounter procedure Omid [address] [facility] Start: 08-11-2024 End: 08-11-2024 ambulatory Sarai Mccracken Pocos Facility:[facility] Start: 08-11-2024 End: 08-11-2024 Patient encounter procedure Omid [address] [facility] Start: 08-04-2024 End: 08-04-2024 ambulatory Sarai Mccracken Pocos Facility:[facility] Start: 08-04-2024 End: 08-04-2024 Clinisync Result Encounter Sarai Mccracken Pocos DO Work Phone: [facility] Unsolicited Start: 08-04-2024 End: 08-04-2024 Clinisync Result Encounter Rashad Pocos DO Work Phone: [facility] Unsolicited Start: 08-01-2024 End: 08-01-2024 Bamboo flowsheet Brittany Bass PT Work Phone: [facility] Start: 08-01-2024 End: 08-01-2024 Bamboo flowsheet Brittany Bass PT Work Phone: [facility] Start: 08-01-2024 End: 08-02-2024 ambulatory Brittany Bass PT Work Phone: [facility] Comment on above: Primary osteoarthrit is of right knee (Primary Dx) Start: 07-26-2024 End: 07-26-2024 ambulatory SARAI Mccracken POCOS Not Available Start: 07-26-2024 End: 07-26-2024 Patient encounter procedure Sarai Mccracken Pocos DO Work Phone: [facility] Comment on above: Preoperative testing (Primary Dx); Right knee pain, unspecified chronicity; Primary osteoarthritis of right knee; Chronic narcotic use; Ankylosing spondylitis of multiple sites in spine ([facility]/HCC); Essential hypertension, benign ([facility]) Start: 07-26-2024 End: 07-26-2024 Patient encounter status Sarai Mccracken Pocos DO Work Phone: [facility] Start: 07-26-2024 End: 07-26-2024 ambulatory SARAI Mccracken POCOS Not Available Start: 06-28-2024 End: 06-28-2024 ambulatory Arturo L Haley Facility:[facility] Start: 04-04-2024 End: 04-04-2024 ambulatory Arturo L Haley Facility:[facility] Start: 08-13-2023 End: 08-13-2023 Patient encounter procedure Campos PURI [facility] Start: 08-10-2022 End: 08-10-2022 Patient encounter procedure Campos PURI [facility] Start: 04-22-2022 End: 04-23-[address] CAMPOS PURI Facility:[facility] Procedures Date Procedure Procedure Detail Performing Clinician Start: 02-14-2025 Radiologic examinati on knee 3 views Sarai Mccracken Pocos DO Work Phone: Start: 12-22-2024 Incision AND drainage D avid Pocos Start: 12-18-2024 [facility] CBC W/ AUTO DIFF D avid A Pocos DO Work Phone: Start: 11-10-2024 Radiologic examinati on knee 3 views Sarai Mccracken Pocos DO Work Phone: Start: 08-15-2024 XR KNEE 1 OR 2 VIEWS RIGHT Sarai Mccracken Pocos DO Work Phone: Start: 08-15-2024 Total knee replacement Sarai Pinedo Start: 08-04-2024 UA WITH CULT RFLX Sarai Pinedo DO Work Phone: Start: 07-26-2024 Radiologic examinati on knee 1/2 views Sarai Pinedo DO Work Phone: Start: 04-22-[address] VENECIA PURI Comment on above: Performed By: #### P SAD #### [facility] [address] [place] [address] Dr. Stephanie Gardner Start: 01-23-2020 Local anesthetic sac ral epidural block Campos PURI Comment on above: 90-95% relief to pre sent Start: 11-28-2019 Radiofrequency ablat ion of medial branch of lumbar nerve using fluoroscopic guidance Campos PURI Comment on above: L3/4, L4/5 + L5/S1 9 0-95% relief Left L3-S1 RGA 90-95 % relief Start: 07-25-2019 Injection of sacroil iac joint using fluoroscopic guidance Campos PURI Comment on above: right 80% relief Start: 06-19-2019 Injection of hip usi ng fluoroscopic guidance Campos PURI Comment on above: right hip-50% relief x 2 days Start: 11-15-2018 Radiofrequency ablat ion of medial branch of lumbar nerve using fluoroscopic guidance Campos PURI Comment on above: left RFA L3-S1 90% t o present Start: 09-12-2018 Epidural injection o f lumbar spine using fluoroscopic guidance Campos PURI Comment on above: caudal 90% relief in pelvis area to present, 30% relief in lower back Start: 07-26-2018 Cataract fragments i n the eye post cataract surgery (disorder) Campos PURI Start: 06-24-2018 Small intestine excision Campos PURI Start: 06-13-2018 Right hip injection 8 P shirin PURI Comment on above: 98% relief since Start: 04-24-2018 bowel resection Campos PURI Start: 04-18-2018 Radiofrequency ablat ion of medial branch of lumbar nerve using fluoroscopic guidance Campos PURI Comment on above: left tL3/4, L4/5, L5 /S1 - 95% relief to present Start: 07-26-2017 Left Ischial Bursa Injection 10 Campos PURI Comment on above: ~ 80 % relief day 2 Start: 06-14-2017 Radiofrequency ablat ion of medial branch of lumbar nerve using fluoroscopic guidance Campos PURI Comment on above: Left L3-S1- 95% reli ef starting one week after procedure and is still getting 95% relief. Start: 05-24-2014 Brachytherapy Campos SANTIAGO Start: 02-02-2014 Transrectal biopsy o f prostate using ultrasound guidance Campos PURI achilles tendon repair 12 Pa kailashk KHUSHI Comment on above: left 1994 Appendectomy Campos PURI Arthroscope, device (physical object) Campos PURI Comment on above: right knee cataract surgery Campos ARITA History of operative procedure on knee History of right knee joint replacement Tip Ramirez Laminectomy Campos PURI Comment on above: lumbar L2-5 Local anesthetic sac ral epidural block Campos PURI lumbar facet medial branch block 16 Campos PURI Comment on above: left l3,l4,l5 Repair of musculoten dinous cuff of shoulder Campos PURI Comment on above: left 2001.2003 Repair of tendo achilles Darby PURI Comment on above: right 1989 retina repair 17 Campos ARITA Comment on above: right right wirist Campos PURI rotator cuff repair 18 Sammy PURI Comment on above: right Plan of Treatment Date Care Activity Detail Author Start: 08-15-2025 End: 08-15-2025 Patient encounter procedure 08/15/2025 10:30 AM EST Office Visit [facility] [address] [facility] [place] [address] PocosSarai A, DO [address] [place] [address] [facility] Start: 02-14-2025 End: 02-14-2025 Patient encounter procedure 02/14/2025 10:30 AM EDT Office Visit [facility] [address] [facility] [place] [address] PocSarai huffman A, DO [address] [place] [address] [facility] Start: 01-03-2025 End: 01-03-2025 Patient encounter procedure 01/03/2025 10:45 AM EDT Office Visit [facility] [address] [facility] [place] [address] PocSarai huffman A, DO [address] [place] [address] Arrived [facility] Comment on above: Arrived Start: 12-18-2024 End: 12-18-2025 Basic metabolic 1998 panel - Serum or Plasma Basic metabolic panel Lab Routine Preoperative testing Expected: 12/18/2024, Expires: 12/18/2025 [facility] Prasad Work Phone: Comment on above: Expected: 12/18/2024 , Expires: 12/18/2025 Start: 12-18-2024 End: 12-18-2025 CBC W Auto Differential panel - Blood CBC auto differential Lab Routine Preoperative testing Expected: 12/18/2024 (Approximate), Expires: 12/18/2025 [facility] Comment on above: Expected: 12/18/2024 (Approximate), Expires: 12/18/2025 Start: 12-18-2024 End: 12-18-2024 Patient encounter procedure 12/18/2024 10:45 AM EDT Office Visit [facility] [address] [place] [facility] [phone] PocosSarai A, DO [address] [place] [address] Arrived [facility] Comment on above: Arrived Start: 11-24-2024 End: 11-24-2024 Patient encounter procedure [facility] Comment on above: Arrived Start: 11-10-2024 End: 11-10-2024 Patient encounter procedure 11/10/2024 9:30 AM EDT Office Visit [facility] [address] [facility] [place] [address] PocosSarai, DO [address] [place] [address] [facility] Start: 11-09-2024 End: 11-09-2024 ambulatory [facility] Comment on above: Arrived Start: 11-06-2024 End: 11-06-2024 ambulatory [facility] Comment on above: Arrived Start: 11-02-2024 End: 11-02-2024 ambulatory [facility] Comment on above: Arrived Start: 10-31-2024 End: 10-31-2024 ambulatory [facility] Comment on above: Primary osteoarthrit is of right knee (Primary Dx) Start: 10-27-2024 End: 10-27-2024 ambulatory 10/27/2024 1:30 PM EDT Treatment [facility] [address] [place] [address] Kirti Chang, PT [facility] Start: 10-25-2024 End: 10-25-2024 ambulatory [facility] Comment on above: Arrived Start: 10-19-2024 End: 10-19-2024 ambulatory [facility] Comment on above: Arrived Start: 10-17-2024 End: 10-17-2024 ambulatory [facility] Comment on above: Arrived Start: 10-12-2024 End: 10-12-2024 ambulatory [facility] Comment on above: Arrived Start: 10-10-2024 End: 10-10-2024 ambulatory [facility] Comment on above: Arrived Start: 10-05-2024 End: 10-05-2024 ambulatory [facility] Comment on above: Arrived Start: 10-03-2024 End: 10-03-2024 ambulatory 10/03/2024 1:00 PM EDT Treatment [facility] [address] [place] [address] Danyel Parikh, [employer] [facility] Start: 09-28-2024 End: 09-28-2024 ambulatory [facility] Comment on above: Primary osteoarthrit is of right knee (Primary Dx) Start: 09-26-2024 End: 09-26-2024 ambulatory 09/26/2024 3:00 PM EDT Treatment [facility] [address] [facility] [address] [place] [address] Danyel Parikh, [employer] MANAGER [facility] Start: 09-21-2024 End: 09-21-2024 ambulatory [facility] Comment on above: Primary osteoarthrit is of right knee (Primary Dx) Start: 09-19-2024 End: 09-19-2024 ambulatory [facility] Comment on above: Arrived Start: 09-15-2024 End: 09-15-2024 Patient encounter procedure 09/15/2024 9:00 AM EST Office Visit [facility] [address] [facility] [place] [id number] Sarai Pinedo DO [address] [place] [address] [facility] Start: 09-14-2024 End: 09-14-2024 ambulatory [facility] Comment on above: Arrived Start: 09-12-2024 End: 09-12-2024 ambulatory [facility] Comment on above: Primary osteoarthrit is of right knee (Primary Dx) Start: 09-07-2024 End: 09-07-2024 ambulatory [facility] Comment on above: Arrived Start: 09-05-2024 End: 09-05-2024 ambulatory 09/05/2024 2:30 PM EST Evaluation [facility] [address] [facility] [address] [place] [address] Kirti Chang, PT Primary osteoarthritis of right knee (Primary Dx) [facility] Comment on above: Primary osteoarthrit is of right knee (Primary Dx) Start: 08-01-2024 End: 08-01-2024 ambulatory 08/01/2024 12:30 PM EST Evaluation [facility] [address] [facility] [address] [place] [address] Brittany Bass, PT [address] [facility] [address] [place] [address] [facility] Start: 07-26-2024 End: 07-26-2025 Urinalysis complete panel - Urine Urinalysis with reflex microscopic Lab Routine Preoperative testing Expected: 07/26/2024 (Approximate), Expires: 07/26/2025 [facility] Work Phone: Comment on above: Expected: 07/26/2024 (Approximate), Expires: 07/26/2025 XR Knee - right 1 or 2 Views XR knee 1 or 2 views right Imaging Routine Right knee pain, unspecified chronicity 07/26/2024 11:02 AM EST [facility] XR Knee - right 3 Views XR knee 3 views right Imaging Routine S/P total knee replacement, right 11/10/2024 8:05 AM EDT [facility] Work Phone: Immunizations Immunization Date Immunization Notes Care Provider Parker mattson 05-11-2015 influenza virus vaccine, unspecified formulation Campos PURI [facility] 04-09-2014 influenza virus vaccine, unspecified formulation Campos PURI [facility] NEGATED: Highlighted row has not occurred!01-06-2023 pneumococcal polysaccharide vaccine, 23 valent Campos PURI [facility] Comment on above: Result Comment: charles ent refuses, not available in office NEGATED: Highlighted row has not occurred!01-06-2023 pneumococcal conjugate vaccine, 13 valent Campos PURI [facility] Comment on above: Result Comment: charles ent declines- not available in office NEGATED: Highlighted row has not occurred!10-21-2022 SARS-CoV-2 mRNA (tozinameran 5y-11y) vaccine Campos PURI [facility] NEGATED: Highlighted row has not occurred!09-16-2022 influenza virus vaccine, unspecified formulation Campos PURI [facility] NEGATED: Highlighted row has not occurred!09-16-2022 SARS-CoV-2 mRNA (tozinameran 5y-11y) vaccine Campos PURI [facility] Payers Date Payer Category Payer Unknown [id number] 2017 Private Health Insurance [id number] 2012 Medicare [id number]. [id number] 1959 Medicare [id number] 1959 Unknown [id number] 1947 Unknown [id number] 2.16.84 0.1.228299.3.579.2.593 1947 Unknown [id number] 2.16.8 40.1.000130.3.579.2.727 1947 Unknown [id number] 2.16.8 40.1.068860.3.579.2.727 1947 Unknown [id number] 2.16.8 40.1.697432.3.579.2.727 1947 Unknown [id number] 2.16.8 40.1.845728.3.579.2.727 1947 Unknown [id number] 2.16.8 40.1.302307.3.579.2.727 1947 Unknown [id number] 2.16.8 40.1.914008.3.579.2.727 1947 Unknown [id number] 2.16.8 40.1.796439.3.579.2.727 1947 Unknown [id number] 2.16.8 40.1.057120.3.579.2.727 1947 Unknown [id number] 2.16.8 40.1.428130.3.579.2.727 1947 Unknown [id number] 2.16.8 40.1.587001.3.579.2.727 1947 Unknown [id number] 2.16.8 40.1.085559.3.579.2.727 1947 Unknown [id number] 2.16.8 40.1.528939.3.579.2.727 1947 Unknown [id number] 2.16.8 40.1.491622.3.579.2.727 1947 Unknown [id number] 2.16.8 40.1.078832.3.579.2.727 1947 Unknown [id number] 2.16.8 40.1.376550.3.579.2.727 1947 Unknown [id number] 2.16.8 40.1.332580.3.579.2.727 1947 Unknown [id number] 2.16.8 40.1.664294.3.579.2.1259 1947 Unknown [id number] 2.16.8 40.1.823936.3.579.2.1259 1947 Unknown [id number] 2.16.8 40.1.670200.3.579.2.1259 1947 Unknown [id number] 2.16.8 40.1.316717.3.579.2.1259 1947 Unknown [id number] 2.16.84 0.1.656381.3.579.2.1259 1947 Unknown [id number] 2.16.84 0.1.378936.3.579.2.1259 1947 Unknown [id number] 2.16.84 0.1.882019.3.579.2.1259 1947 Unknown [id number] 2.16.84 0.1.254535.3.579.2.1259 1947 Unknown [id number] 2.16.84 0.1.608235.3.579.2.1259 1947 Unknown [id number] 2.16.84 0.1.272235.3.579.2.1259 1947 Unknown [id number] 2.16.84 0.1.378659.3.579.2.1259 1947 Unknown [id number] 2.16.84 0.1.802594.3.579.2.1259 1947 Unknown [id number] 2.16.84 0.1.242282.3.579.2.1259 1947 Unknown [id number] 2.16.84 0.1.651792.3.579.2.1259 1947 Unknown [id number] 2.16.84 0.1.402046.3.579.2.1259 1947 Unknown [id number] 2.16.84 0.1.302262.3.579.2.1259 1947 Unknown [id number] 2.16.84 0.1.117877.3.579.2.1259 1947 Unknown [id number] 2.16.84 0.1.515402.3.579.2.1259 1947 Unknown [id number] 2.16.84 0.1.067991.3.579.2.1259 1947 Unknown [id number] 2.16.84 0.1.480954.3.579.2.1259 1947 Unknown [id number] 2.16.84 0.1.302818.3.579.2.1259 1947 Unknown [id number] 2.16.84 0.1.288867.3.579.2.1259 1947 Unknown [id number] 2.16.84 0.1.697378.3.579.2.1259 1947 Unknown [id number] 2.16.84 0.1.261422.3.579.2.9 1947 Unknown [id number] 2.16.84 0.1.707158.3.579.2.1259 1947 Unknown [id number] 2.16.84 0.1.387875.3.579.2.1259 1947 Unknown [id number] 2.16.84 0.1.115465.3.579.2.1259 1947 Unknown [id number] 2.16.84 0.1.761836.3.579.2.1259 1947 Unknown [id number] 2.16.84 0.1.117275.3.579.2.1259 1947 Unknown [id number] 2.16.84 0.1.514351.3.579.2.1259 1947 Unknown [id number] 2.16.84 0.1.396229.3.579.2.1259 1947 Unknown [id number] 2.16.84 0.1.607692.3.579.2.1259 1947 Unknown [id number] 2.16.8 40.1.736243.3.579.2.727 1947 Unknown [id number] 2.16.8 40.1.835978.3.579.2.727 1947 Unknown [id number] 2.16.8 40.1.304398.3.579.2.727 1947 Unknown [id number] 2.16.8 40.1.470353.3.579.2.727 1947 Unknown [id number] 2.16.8 40.1.226291.3.579.2.727 1947 Unknown [id number] 2.16.8 40.1.990556.3.579.2.727 1947 Unknown [id number] 2.16.8 40.1.586941.3.579.2.727 Social History Date Type Detail Facility Start: 08-10-2022 Tobacco smoking status Never s moked tobacco (finding) [facility] Tobacco smoking status Never [facility] Comment on above: 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 Start: 07-26-2024 End: 02-14-2025 Sex Assigned At Male [facility] Start: 08-13-2023 End: 07-26-2024 Tobacco smoking status Ex-smoker (finding) [facility] Comment on above: 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 History of tobacco use Current smoker [facility] History of tobacco use Cigarette Smoker [facility] Start: 07-26-2024 End: 02-14-2025 Alcoholic beverage intake Ex-drinker (finding) [facility] Start: 07-26-2024 End: 02-14-2025 History of Social function [facility] Start: 1945 Sex assigned at Not on file [facility] Sexual Orientation [facility] Start: 06-02-2017 Sex Male (finding) [facility] Medical Equipment Procedure Code Equipment Code Equipment Origin al Text Equipment Identifier Dates KNEE TOTAL ROBOT ARTHROPLASTY Pocos DO, Sarai Mccracken 08/15/24 Unknown Knee R FDA Start: 08-15-2024 KNEE TOTAL ROBOT ARTHROPLASTY Pocos DO, Sarai Mccracken 08/15/24 Unknown Knee R FDA Start: 08-15-2024 KNEE TOTAL ROBOT ARTHROPLASTY Pocos DO, Sarai Mccracken 08/15/24 Unknown Knee R FDA Start: 08-15-2024 KNEE TOTAL ROBOT ARTHROPLASTY Pocos DO, Sarai Mccracken 08/15/24 Unknown Knee R FDA Start: 08-15-2024 KNEE TOTAL ROBOT ARTHROPLASTY Pocos DO, Sarai Mccracken 08/15/24 Unknown Knee R FDA Start: 08-15-2024 KNEE TOTAL ROBOT ARTHROPLASTY Pocos DO, Sarai Mccracken 08/15/24 Unknown Knee R FDA Start: 08-15-2024 KNEE TOTAL ROBOT ARTHROPLASTY Pocos DO, Sarai Mccracken 08/15/24 Unknown Knee R FDA Start: 08-15-2024 KNEE TOTAL ROBOT ARTHROPLASTY Pocos DO, Sarai Mccracken 08/15/24 Unknown Knee R FDA Start: 08-15-2024 KNEE TOTAL ROBOT ARTHROPLASTY Pocos DO, Sarai Mccracken 08/15/24 Unknown Knee R FDA Start: 08-15-2024 KNEE TOTAL ROBOT ARTHROPLASTY Pocos DO, Sarai Mccracken 08/15/24 Unknown Knee R FDA Start: 08-15-2024 KNEE TOTAL ROBOT ARTHROPLASTY Pocos DO, Sarai Mccracken 08/15/24 Unknown Knee R FDA Start: 08-15-2024 KNEE TOTAL ROBOT ARTHROPLASTY Pocos DO, Sarai Mccracken 08/15/24 Unknown Knee R FDA Start: 08-15-2024 KNEE TOTAL ROBOT ARTHROPLASTY Pocos DO, Sarai Mccracken 08/15/24 Unknown Knee R FDA Start: 08-15-2024 KNEE TOTAL ROBOT ARTHROPLASTY Pocos DO, Sarai Mccracken 08/15/24 Unknown Knee R FDA Start: 08-15-2024 KNEE TOTAL ROBOT ARTHROPLASTY Pocos DO, Sarai Mccracken 08/15/24 Unknown Knee R FDA Start: 08-15-2024 KNEE TOTAL ROBOT ARTHROPLASTY Pocos DO, Sarai Mccracken 08/15/24 Unknown Knee R FDA Start: 08-15-2024 Functional Status Date Assessment Result Facility 10-05-2024 Functional Status N/A [facility] 08-14-2024 Functional Status N/A [facility] 08-11-2024 Functional Status N/A [facility] 08-13-2023 Functional Status N/A [facility] 08-10-2022 Functional Status N/A [facility] Clinical Notes 08-10-2022 to 02-14-2025 Bryson Cordoba - 02/14/2025 10:30 AM EDTKiflavio Cordoba - 01/03/2025 10:45 AM EDT Note Date & Type Note Facility 02-14-2025 History of Present illness Narrative Lamberto Mendes is a 79 y.o. male presents with chief complaint of right robotic assist total knee with new complaint of right wrist pain. HPI: Lamberto returns here today for repeat evaluation of his right knee. This is the six month check. He is doing well. He states that it has continued to improve. He feels he still needs further strength. He does feel like many things are aching. He does have a history of some new wrist pain. 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 He states he saw his primary care, had an x-ray, was told he had some minimal degeneration and was instructed to mention it here. He does mention once already in the room and being evaluated here today. We do not have his x-ray for review. He does also report a history of rheumatoid arthritis. He was on Humira. He did develop cancer. He was taken off Humira and has been reluctant to go back on any biologics since that time based upon the fact he is very concerned about cancer. He is very focused on reading side effects and has refused any medication. He does have ankylosing spondylitis in addition. SUBJECTIVE: MEDICATIONS: Current Outpatient Medications Medication Instructions allopurinol (Zyloprim) 100 MG tablet aspirin 325 mg, Daily RT cephalexin (Keflex) 500 MG capsule Take all 4 capsules one hour before the procedure. cholecalciferol (VITAMIN D-[address]) 2,000 Units, Daily RT cyanocobalamin (Vitamin B-12) 100 MCG tablet folic acid (Folvite) 1 MG tablet Every 24 hours gabapentin (NEURONTIN) 300 mg losartan (COZAAR) 50 mg, Daily RT Meclizine HCl 25 MG chewable tablet Every 24 hours melatonin 5 MG tablet Every 24 hours meloxicam (Mobic) 15 MG tablet Every 24 hours methotrexate 2.5 MG tablet Douglas 7.5-325 MG tablet Take by mouth omeprazole (PriLOSEC) [address] capsule 1 capsule, Every 24 hours pravastatin (PRAVACHOL) 10 mg tamsulosin (FLOMAX) 0.4 mg tiZANidine (ZANAFLEX) 4 mg verapamil SR (Calan SR) 240 MG ER tablet Every 24 hours ALLERGIES: Allergies Allergen Reactions Lorazepam Hives Other Reaction(s): diaphoresis, GI Upset, lethargic, Other: See Comments, Unknown, Vomiting Lethargic and profuse sweats SURGICAL HISTORY: Past Surgical History: Procedure Laterality Date ACHILLES TENDON SURGERY Bilateral APPENDECTOMY CYST REMOVAL Left Gout L Heel x2 KNEE SURGERY Right KNEE SURGERY Right 12/22/2024 R Knee I&D DAP PARS PLANA REPAIR OF RETINAL DEATACHMENT ROTATOR CUFF REPAIR Bilateral SMALL INTESTINE SURGERY TOTAL KNEE ARTHROPLASTY Right 08/15/2024 DAP WRIST SURGERY Right FAMILY HISTORY: Family History Problem Relation Name Age of Onset Stroke Father Cancer Paternal Grandfather Cancer Other SOCIAL HISTORY: Social History Tobacco Use Smoking status: Former Types: Cigarettes Vaping Use Vaping status: Never Used Substance Use Topics Alcohol use: Not Currently Drug use: Never Depression: Not at risk (04/25/2019) Received from [facility] PHQ-2 PHQ-2 score: 2 REVIEW OF SYMPTOMS: The review of systems, history and current medications list are all reviewed today. OBJECTIVE: Visit Vitals Ht 5' 6 Wt 179 lb BMI 28.89 kg/m Smoking Status Former BSA 1.94 m Physical Exam His exam here today reveals gentle arc of motion of the knee without difficulty. He has no dehiscence. Wounds are benign. No erythema, no discharge, no effusion. Range of motion is 0-120 degrees. The knee is fully stable throughout the arc of motion. The left knee shows a little bit of patellar grind. Fully stable. The calf and thigh are supple. He does ambulate with a walking stick here today. Examination of the wrist does show tenderness to palpation really over the wrist joint proper, maybe a little more to the ulnar aspect and dorsal. A little bit of swelling noted. No erythema. No significant swelling or effusion. The left wrist reveals arc of motion without difficulty. No tenderness. Neurocirculatory status is overall grossly intact. X-rays AP bilateral weight bearing, bilateral sunrise and right lateral knee total of five views with permanent images are saved to the record does show a well-fixed, well-aligned total knee arthroplasty on the right. No evidence of fracture, loosening or catastrophic wear. ASSESSMENT AND PLAN: Assessment/Plan Right robotic assist total knee with right wrist pain, history of Kienbock's disease. The findings are discussed. The treatment alternatives are outlined. With regard to the knee, he will continue the exercise program. We did discuss balance of activities and time frame of healing. He does voice understanding of this. We did discuss going ahead with a refresher course of therapy at any point. We did discuss his wrist at length, he is provided an L3908 wrist splint. This does appear to be clinically indicated and cost effective. A right L3908 Wrist Hand Orthosis, Wrist Extension Control Cock-Up, non-molded, prefabricated, off the shelf brace was applied. This brace will be used to immobilize the wrist and allow for full and complete healing of the wrist. The function of the device is to provide support, decrease edema, control motion at wrist joint. The goals of the device are to decrease pain decrease inflammation, increase stability and to allow the patient to continue to use hand and wrist to complete ADLs. The device is medically necessary for the condition, symptoms and diagnosis. It was dispensed and fitted for the patient, and it fit properly. The patient was educated as to proper use and care, and this was reviewed in detail. Written instructions and warranty information were given with the device. A receipt for the device is on file. The current supplier standards were given to the patient. [employer] patient agreement was completed at time of dispensement. The patient stated that the device was comfortable when fitted in the office. At the time of dispensement, the device was suitable and not substandard. We may certainly evaluate him at any point should he desire. He does have a history of Kienbock's disease. We would need to obtain the x-rays to do so. He does voice understanding of this. We did have a lengthy discussion regarding poorly controlled rheumatoid. This may be something he just needs to deal with if he does choose not to treat his disease. His return here will be left for six months for x-ray and recheck of that knee. All of his questions are otherwise answered. Cosigned by Sarai Pinedo DO at 02/16/2025 7:46 AM EDT documented in this encounter [facility] 02-06-2025 Note Patient Education Orthopedics Musculoskeletal Pain Musculoskeletal pain refers to aches and pains in your bones, joints, muscles, and the tissues that surround them. This pain can occur in any part of the body. It can last for a short time (acute) or a long time (chronic). A physical exam, lab tests, and imaging studies may be done to find the cause of your musculoskeletal pain. Follow these instructions at home: Lifestyle ??? Try to control or lower your stress levels. Stress increases muscle tension and can worsen musculoskeletal pain. It is important to recognize when you are anxious or stressed and learn ways to manage it. This may include: ? Meditation or yoga. ? Cognitive or behavioral therapy. ? Acupuncture or massage therapy. ??? You may continue all activities unless the activities cause more pain. When the pain gets better, slowly resume your normal activities. Gradually increase the intensity and duration of your activities or exercise. Managing pain, stiffness, and swelling ??? Treatment may include medicines for pain and inflammation that are taken by mouth or applied to the skin. Take [id number]-frwldje and prescription medicines only as told by your health care provider. ??? When your pain is severe, bed rest may be helpful. Lie or sit in any position that is comfortable, but get out of bed and walk around at least every couple of hours. ??? If directed, apply heat to the affected area as often as told by your health care provider. Use the heat source that your health care provider recommends, such as a moist heat pack or a heating pad. ? Place a towel between your skin and the heat source. ? Leave the heat on for 20?30 minutes. ? Remove the heat if your skin turns bright red. This is especially important if you are unable to feel pain, heat, or cold. You may have a greater risk of getting burned. ??? If directed, put ice on the painful area. To do this: ? Put ice in a plastic bag. ? Place a towel between your skin and the bag. ? Leave the ice on for 20 minutes, 2?3 times a day. ? Remove the ice if your skin turns bright red. This is very important. If you cannot feel pain, heat, or cold, you have a greater risk of damage to the area. General instructions ??? Your health care provider may recommend that you see a physical therapist. This person can help you come up with a safe exercise program. ??? If told by your health care provider, do physical therapy exercises to improve movement and strength in the affected area. ??? Keep all follow-up visits. This is important. This includes any physical therapy visits. Contact a health care provider if: ??? Your pain gets worse. ??? Medicines do not help ease your pain. ??? You cannot use the part of your body that hurts, such as your arm, leg, or neck. ??? You have trouble sleeping. ??? You have trouble doing your normal activities. Get help right away if: ??? You have a new injury and your pain is worse or different. ??? You feel numb or you have tingling in the painful area. Summary ??? Musculoskeletal pain refers to aches and pains in your bones, joints, muscles, and the tissues that surround them. ??? This pain can occur in any part of the body. ??? Your health care provider may recommend that you see a physical therapist. This person can help you come up with a safe exercise program. Do any exercises as told by your physical therapist. ??? Lower your stress level. Stress can worsen musculoskeletal pain. Ways to lower stress may include meditation, yoga, cognitive or behavioral therapy, acupuncture, and massage therapy. This information is not intended to replace advice given to you by your health care provider. Make sure you discuss any questions you have with your health care provider. Document Revised: 10/31/2020 Document Reviewed: 10/09/2020 Elsevier Patient Education ? 2023 [employer]. [facility] 01-03-2025 History of Present illness Narrative Images from the original note were not included. Lamberto Mendes is a 79 y.o. male presents with chief complaint of right knee incision and debridement, status post total knee arthroplasty. HPI: Lamberto returns here today for repeat evaluation of the above. He is doing well. No new or interval symptoms. He is pleased with his response. He has no fever. SUBJECTIVE: MEDICATIONS: Current Outpatient Medications Medication Instructions allopurinol (Zyloprim) 100 MG tablet aspirin 325 mg, Daily RT cholecalciferol (VITAMIN D-[address]) 2,000 Units, Daily RT cyanocobalamin (Vitamin B-12) 100 MCG tablet folic acid (Folvite) 1 MG tablet Every 24 hours gabapentin (NEURONTIN) 300 mg losartan (COZAAR) 50 mg, Daily RT Meclizine HCl 25 MG chewable tablet Every 24 hours melatonin 5 MG tablet Every 24 hours meloxicam (Mobic) 15 MG tablet Every 24 hours methotrexate 2.5 MG tablet Douglas 7.5-325 MG tablet Take by mouth omeprazole (PriLOSEC) [address] capsule 1 capsule, Every 24 hours pravastatin (PRAVACHOL) 10 mg tamsulosin (FLOMAX) 0.4 mg tiZANidine (ZANAFLEX) 4 mg verapamil SR (Calan SR) 240 MG ER tablet Every 24 hours ALLERGIES: Allergies Allergen Reactions Lorazepam Hives Other Reaction(s): diaphoresis, GI Upset, lethargic, Other: See Comments, Unknown, Vomiting Lethargic and profuse sweats SURGICAL HISTORY: Past Surgical History: Procedure Laterality Date ACHILLES TENDON SURGERY Bilateral APPENDECTOMY CYST REMOVAL Left Gout L Heel x2 KNEE SURGERY Right KNEE SURGERY Right 12/22/2024 R Knee I&D DAP PARS PLANA REPAIR OF RETINAL DEATACHMENT ROTATOR CUFF REPAIR Bilateral SMALL INTESTINE SURGERY TOTAL KNEE ARTHROPLASTY Right 08/15/2024 DAP WRIST SURGERY Right FAMILY HISTORY: Family History Problem Relation Name Age of Onset Stroke Father Cancer Paternal Grandfather Cancer Other SOCIAL HISTORY: Social History Tobacco Use Smoking status: Former Types: Cigarettes Vaping Use Vaping status: Never Used Substance Use Topics Alcohol use: Not Currently Drug use: Never Depression: Not at risk (04/25/2019) Received from [facility] PHQ-2 PHQ-2 score: 2 REVIEW OF SYMPTOMS: The review of systems, history and current medications list are all reviewed today. OBJECTIVE: Visit Vitals Ht 5' 6 Wt 179 lb BMI 28.89 kg/m Smoking Status Former BSA 1.94 m Physical Exam His orthopedic exam shows no gross malalignment or deformity. The wound is benign. Sutures are removed here today. He has a very small superficial area of some dehiscence, not overly significant or concerning. ASSESSMENT AND PLAN: Assessment/Plan Status post right knee incision and debridement for superficial wound dehiscence, status post total knee arthroplasty. The findings are discussed. The treatment alternatives are outlined. We did recommend supportive care for him and advancement of all activities. His sutures are removed here today. He will use some Neosporin and will do daily cleansing to the area. He will be cautious and careful, monitoring the area. His return here with myself will be left as previously scheduled for routine follow up and evaluation. He does voice understanding of this. All of his questions are otherwise answered this day. He is discharged in stable condition here today. Cosigned by Sarai Pinedo DO at 01/04/2025 9:10 PM EDT documented in this encounter [facility] 01-02-2025 Note Patient Education Cardiovascular Hypertension, Adult Hypertension is another name for high blood pressure. High blood pressure forces your heart to work harder to pump blood. This can cause problems over time. There are two numbers in a blood pressure reading. There is a top number (systolic) over a bottom number (diastolic). It is best to have a blood pressure that is below 120/80. What are the causes? The cause of this condition is not known. Some other conditions can lead to high blood pressure. What increases the risk? Some lifestyle factors can make you more likely to develop high blood pressure: ??? Smoking. ??? Not getting enough exercise or physical activity. ??? Being overweight. ??? Having too much fat, sugar, calories, or salt (sodium) in your diet. ??? Drinking too much alcohol. Other risk factors include: ??? Having any of these conditions: ? Heart disease. ? Diabetes. ? High cholesterol. ? Kidney disease. ? Obstructive sleep apnea. ??? Having a family history of high blood pressure and high cholesterol. ??? Age. The risk increases with age. ??? Stress. What are the signs or symptoms? High blood pressure may not cause symptoms. Very high blood pressure (hypertensive crisis) may cause: ??? Headache. ??? Fast or uneven heartbeats (palpitations). ??? Shortness of breath. ??? Nosebleed. ??? Vomiting or feeling like you may vomit (nauseous). ??? Changes in how you see. ??? Very bad chest pain. ??? Feeling dizzy. ??? Seizures. How is this treated? This condition is treated by making healthy lifestyle changes, such as: ? Eating healthy foods. ? Exercising more. ? Drinking less alcohol. ??? Your doctor may prescribe medicine if lifestyle changes do not help enough and if: ? Your top number is above 130. ? Your bottom number is above 80. ??? Your personal target blood pressure may vary. Follow these instructions at home: Eating and drinking ??? If told, follow the DASH eating plan. To follow this plan: ? Fill one half of your plate at each meal with fruits and vegetables. ? Fill one fourth of your plate at each meal with whole grains. Whole grains include whole-wheat pasta, brown rice, and whole-grain bread. ? Eat or drink low-fat dairy products, such as skim milk or low-fat yogurt. ? Fill one fourth of your plate at each meal with low-fat (lean) proteins. Low-fat proteins include fish, chicken without skin, eggs, beans, and tofu. ? Avoid fatty meat, cured and processed meat, or chicken with skin. ? Avoid pre-made or processed food. ??? Limit the amount of salt in your diet to less than 1,500 mg each day. ??? Do not drink alcohol if: ? Your doctor tells you not to drink. ? You are , may be , or are planning to become . ??? If you drink alcohol: ? Limit how much you have to: ? 0?1 drink a day for women. ? 0?2 drinks a day for men. ? Know how much alcohol is in your drink. In the [place] one drink equals one 12 oz bottle of beer (355 mL), one 5 oz glass of wine (148 mL), or one 1? oz glass of hard liquor (44 mL). Lifestyle ??? Work with your doctor to stay at a healthy weight or to lose weight. Ask your doctor what the best weight is for you. ??? Get at least 30 minutes of exercise that causes your heart to beat faster (aerobic exercise) most days of the week. This may include walking, swimming, or biking. ??? Get at least 30 minutes of exercise that strengthens your muscles (resistance exercise) at least 3 days a week. This may include lifting weights or doing Pilates. ??? Do not smoke or use any products that contain nicotine or tobacco. If you need help quitting, ask your doctor. ??? Check your blood pressure at home as told by your doctor. ??? Keep all follow-up visits. Medicines ??? Take rxsv-hvo-ejwjhsa and prescription medicines only as told by your doctor. Follow directions carefully. ??? Do not skip doses of blood pressure medicine. The medicine does not work as well if you skip doses. Skipping doses also puts you at risk for problems. ??? Ask your doctor about side effects or reactions to medicines that you should watch for. Contact a doctor if: ??? You think you are having a reaction to the medicine you are taking. ??? You have headaches that keep coming back. ??? You feel dizzy. ??? You have swelling in your ankles. ??? You have trouble with your vision. Get help right away if: ??? You get a very bad headache. ??? You start to feel mixed up (confused). ??? You feel weak or numb. ??? You feel faint. ??? You have very bad pain in your: ? Chest. ? Belly (abdomen). ??? You vomit more than once. ??? You have trouble breathing. These symptoms may be an emergency. Get help right away. Call 911. ??? Do not wait to see if the symptoms will go away. ??? Do not drive yourself to the hospital. Summary ??? Hypertension is a (more content not included)... [facility] 12-22-2024 Hospital Discharge instructions Patient Education 12/22/2024 12:58:28 Post Op Patient Instructions - FT (CUSTOM) 12/22/2024 12:12:16 [place] - Home Care Instructions (Custom) [place], [place] [facility] OUTPATIENT SURGERY Home Care Instructions Medications You will be given a prescription for pain medication. Please notify the office immediately if you have any allergies to pain medications. About Your Surgical Site Remove the dressing in __7___ days and begin daily dressing changes. Apply new Mepilex dressing (similar to a large bandaid) at that time. Do not get the incision wet until suture removal. Activity You may gradually progress your activities as comfortably tolerated. Continue to ice and elevate your surgical site for the next 48 hours and continue restricted use. Remain off work until your first office visit. Diet You may resume your regular diet as tolerated. Please remember to take your pain medication with food to avoid stomach upset. Increased liquid intake is encouraged for 48 hours after discharged home. Anesthesia Precautions Do not operate a vehicle (automobile, bicycle, motorcycle), machinery or power tools, or drink alcohol beverages for 24 hours. Do not drink any alcohol beverages while you are taking your pain medication. Arrange for a responsible adult to remain with you for at least 24 hours, possibly longer. You may be drowsy and light-headed from the anesthesia and possibly from your pain medication as well. Expectations of Surgery You may have mild to moderate discomfort for the first several days. This should gradually decrease. Any increased discomfort should be reported to the office. Call the office with any of the following: any persistent or heavy bleeding, temperature above 101.5 degrees, increasing redness, swelling or drainage at the operative site, severe and increasing pain at the operative site, persistent vomiting. About your follow-up office visit You will be given a card with your post-operative date and time for this appointment. Report any problems prior to that time. Driving: Driving is legal, but you must be able to maintain control of your car at all times. 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 It is therefore advised not to drive until after your first office visit following surgery. RashadBay Nicol, DO [facility] [address] [place] [id number] Reviewed: 4-08 Follow Up Care 12/18/2024 11:35:15 With:Sarai Pinedo Address: [address] [place] [address]- Business (1) When: Unknown Comments:Appointment has already been scheduledCall for any problems. [facility] 12-22-2024 Evaluation + Plan note Extrac debra from: Title:ANES Post-operative Note - General Author: Fallon Lee MD Date:12/22/24 Plan Transfer/Discharge: Transfer/Discharge Discharge when meets criteria ( From PACU to Ambulatory Surgery Unit, and To home ). Extracted from: Title:ANES Pre-operative Note 2024 Author:Fallon Ya Date:12/22/24 Plan [place] [employer] Anesthesiologists (ASA) physical status classification: Class III. Anesthetic Preoperative Plan: Anesthesia General, and Patient educated on benefits, alternatives and inherent risk of anesthesia including, but not all inclusive, Allergic reactions, dental damage, nerve damage and cardio-pulmonary complications and wishes to proceed with anesthetic plan.. Future Appointments Appointment Date:01/02/2025 10:40:00 AM Scheduled Provider:Arturo Beach Location:[facility] Appointment Type: Open Appointment Date:01/02/2025 11:00:00 AM Scheduled Provider: Location:[facility] Appointment Type: Medicare Wellness Subsequent Appointment Date:01/26/2025 02:00:00 PM Scheduled Provider:James Stanton PA-C [facility] App[facility] Type:Cardiology Follow Up (FT) Appointment Date:08/17/2025 08:45:00 AM Scheduled Provider:Cam[facility] PURI [facility] Office Visit [facility] [phone] NotePatient Education - Text [place], [place] [facility] OUTPATIENT SURGERY Home Care Instructions Medications You will be given a prescription for pain medication. Please notify the office immediately if you have any allergies to pain medications. About Your Surgical Site Remove the dressing in __7___ days and begin daily dressing changes. Apply new Mepilex dressing (similar to a large bandaid) at that time. Do not get the incision wet until suture removal. Activity You may gradually progress your activities as comfortably tolerated. Continue to ice and elevate your surgical site for the next 48 hours and continue restricted use. Remain off work until your first office visit. Diet You may resume your regular diet as tolerated. Please remember to take your pain medication with food to avoid stomach upset. Increased liquid intake is encouraged for 48 hours after discharged home. Anesthesia Precautions Do not operate a vehicle (automobile, bicycle, motorcycle), machinery or power tools, or drink alcohol beverages for 24 hours. Do not drink any alcohol beverages while you are taking your pain medication. Arrange for a responsible adult to remain with you for at least 24 hours, possibly longer. You may be drowsy and light-headed from the anesthesia and possibly from your pain medication as well. Expectations of Surgery You may have mild to moderate discomfort for the first several days. This should gradually decrease. Any increased discomfort should be reported to the office. Call the office with any of the following: any persistent or heavy bleeding, temperature above 101.5 degrees, increasing redness, swelling or drainage at the operative site, severe and increasing pain at the operative site, persistent vomiting. About your follow-up office visit You will be given a card with your post-operative date and time for this appointment. Report any problems prior to that time. Driving: Driving is legal, but you must be able to maintain control of your car at all times. 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 It is therefore advised not to drive until after your first office visit following surgery. Sarai Pinedo, DO [facility] [address] [place] [address] Reviewed: 10-17[facility]06-13-2025 NoteProgress Note-Physician Patient: LAMBERTO MENDES Age: 79 years Sex: Male : 1945 Associated Diagnoses: None Author: Jesus GAINES, Fallon Patel Postoperative Information Postoperative disposition: Postoperative disposition: Home. Optimetrix number: Optimetrix number [id number]. Anesthetic utilized: General. Health Status Allergies: Allergic Reactions (Selected) Severity Not Documented Ativan- Lethargic, sweating and vomit. Current medications: (Selected) Inpatient Medications Ordered HYDROmorphone 1 mg/mL injectable solution: 0.2 mg = 0.2 mL, Injection, IV Push, q2min PRN Pain for 10 dose(s), Stop date Limited # of times, Routine, Start date 12/22/24 12:01:00 EDT, 12/22/24 12:01:00 EDT Lactated Ringers IV Caty 1000 mL 1,000 mL: 1,000 mL, IV, 100 mL/hr, Routine, Start date 12/22/24 12:01:00 EDT, 10 hour(s), Total volume (mL): 1,000, 78.9 kg, 1.94, m2 Lactated Ringers IV Caty 1000 mL 1,000 mL: 1,000 mL, IV, 150 mL/hr, Routine, Start date 12/22/24 9:30:00 EDT, 6.7 hour(s), Total volume (mL): 1,000 Zofran 4 mg/2 mL Injection: 4 mg = 2 mL, Injection, IV Push, Once PRN Nausea/Vomiting, Routine, Start date 12/22/24 12:01:00 EDT, 12/22/24 12:01:00 EDT phenylephrine 100 mcg/mL intravenous solution: 100 mcg = 1 mL, Injection-Caty, IV Push, Once PRN Other (see comment), Routine, Start date 12/22/24 12:01:00 EDT, prn MAP < 60 mmHg promethazine additive 12.5 mg + Sodium Chloride 0.9% IV Caty 50 mL (INT) 50 mL: Injection, IV Piggyback, Once PRN Nausea/Vomiting, Routine, Start date 12/22/24 12:01:00 EDT, 151.5 mL/hr, Infuse over 20 minute(s) Prescriptions Prescribed Colace 100 mg Cap: 100 mg = 1 cap(s), Oral, BID, PRN for constipation, # 40 cap(s), Refills(s) 0, Pharmacy: [facility] [id number], 173, cm, 08/14/24 11:50:00 EST, Height/Length Dosing, 78.1, kg, 08/14/24 11:50:00 EST, Weight Dosing Ultram 50 mg Tab: 1-2 tab(s), Oral, q4hr, Take 1-2 every 4-6 hours as needed for pain. Dx: Z96.651 Duration: 7 days, # 20 tab(s), Refills(s) 0, Pharmacy: [facility] [id number], 171, cm, 12/22/24 10:51:00 EDT, Height/Length Dosing, 78.9, kg, 12/22/24 10:51:00 EDT,... acetaminophen-hydrocodone 325 mg-7.5 mg oral tablet: See Instructions, 90 tab(s), Refill(s) 0, TAKE1 TABLET BY MOUTH EVERY 8 HOURS NEEDED FOR PAIN, [facility] [id number], 173, cm, 10/05/24 23:18:00 EDT, Height/Length Dosing, 77.7, kg, 10/05/24 23:18:00 EDT, Weight Dosing allopurinol 100 mg Tab: See Instructions, TAKE 1 TABLET BY MOUTH DAILY, # 90 tab(s), Refills(s) 4, Pharmacy: [facility] [id number], 173, cm, 08/14/24 11:50:00 EST, Height/Length Dosing, 78.1, kg, 08/14/24 11:50:00 EST, Weight Dosing aspirin 81 mg Oral EC Tab: 81 mg = 1 tab(s), Oral, BID, # 60 tab(s), Refills(s) 0, Pharmacy: [facility] [id number], 173, cm, 08/14/24 11:50:00 EST, Height/Length Dosing, 78.1, kg, 08/14/24 11:50:00 EST, Weight Dosing gabapentin 300 mg Cap: 300 mg = 1 cap(s), Oral, TID, 90 days, # 270 cap(s), Refills(s) 1, Pharmacy:[facility] [id number], 173, cm, 10/05/24 23:18:00 EDT, Height/Length Dosing, 77.7, kg, 10/05/24 23:18:00 EDT, Weight Dosing tiZANidine 4 mg Tab: 4 mg = 1 tab(s), Oral, q8hr, 60 tab(s), X 90 day(s), # 270 tab(s), Refills(s) 3, Pharmacy: [facility] [id number], 168, cm, 01/04/24 11:11:00 EDT, Height/Length Dosing, 82.3, kg, 01/04/24 11:11:00 EDT, Weight Dosing verapamil 240 mg ER Tab: 240 mg = 1 tab(s), Oral, Daily, X 90 day(s), # 90 tab(s), Refills(s) 3, Pharmacy: [facility] [id number], 168, cm, 01/04/24 11:11:00 EDT, Height/Length Dosing, 82.3, kg, 01/04/24 11:11:00 EDT, Weight Dosing Documented Medications Documented Vitamin B12: 1,000 microgram, Oral, Daily, Take 1 tab Wednesday, Wednesday, Refills(s) 0 cholecalciferol 1000 intl units oral capsule: 1,000 International_Unit = 1 cap(s), Oral, Daily, Refills(s) 0, Prophylaxis folic acid 1 mg Tab: 1 mg = 1 tab(s), Oral, Daily, Refills(s) 0, Prophylaxis losartan 50 mg Tab: 50 mg = 1 tab(s), Oral, Daily, Refills(s) 0, High blood pressure magnesium oxide: Oral, one tab once per day per pt, Refills(s) 0 meclizine 25 mg Tab: 25 mg = 1 tab(s), Oral, PRN Dizziness, Refills(s) 0 melatonin: 10 mg, Oral, Once a day (at bedtime), Refills(s) 0 meloxicam 15 mg Tab: 15 mg = 1 tab(s), Oral, Daily, Refills(s) 0 methotrexate 2.5 mg Tab: 25 mg = 10 tab(s), Oral, qWeek, Take every Wednesday, Refills(s) 0 omeprazole 20 mg Cap-DR: 20 mg = 1 cap(s), Oral, Daily, Refills(s) 0, Indigestion pravastatin 20 mg Tab: 20 mg = 1 tab(s), Oral, Daily, Refills(s) 0, High cholesterol tamsulosin 0.4 mg Cap: 0.4 mg = 1 cap(s), Oral, Daily, # 90 cap(s), Refills(s) 0, Urinary discomfort, Home Medications (20) Active acetaminophen-hydrocodone 325 mg-7.5 mg oral tablet See Instructions allopurinol 100 mg Tab See Instructions aspirin 81 mg Oral EC Tab 81 mg = 1 tab(s), Oral, BID cholecalciferol 1000 intl units oral capsule 1,000 International_Unit = 1 cap(s), Oral, Daily Colace 100 mg Cap 100 (more content not included)...[facility] Comment on above:Result Comment: Electronically Signed By: Fallon Lee MD\.br\Date and Time Signed: 12/22/24 12:53 [id number] NoteProgress Note-Physician Patient: LAMBERTO MENDES Age: 79 years Sex: Male : 1945 Associated Diagnoses: None Author: Fallon Lee MD Preoperative Information Anesthesia Preop Info: Time patient last ate or drank 12/22/2024 00:00:00. Anesthesia history: Patient history: None. Family history+: None. Anesthesia results: Anesthesia results from flowsheet : Results 12/18/2024 11:52 EDT WBC 6.0 E9/L RBC 4.2 E12/L LOW HGB 13.1 gm/dL LOW Hct 37.9 % MCV 91.0 fL MCH 31.6 pg MCHC 34.7 gm/dL RDW 14.2 % Platelet 213.0 E9/L MPV 7.5 fL Neutro Auto 80.5 % HI Lymph Auto 9.4 % LOW [place] Auto 5.9 % Eos Auto 3.4 % Basophil Auto 0.8 % Neutro Absolute 4.8 E9/L Lymph Absolute 0.6 E9/L LOW [place] Absolute 0.4 E9/L Eos Absolute 0.2 E9/L Basophil Absolute 0.0 E9/L Glucose Lvl 81 mg/dL BUN 21 mg/dL Creatinine 1.4 mg/dL HI eGFR 52 mL/min/1.73 m2 LOW BUN/Creat Ratio 15 Sodium Lvl 141 mmol/L Potassium Lvl 3.9 mmol/L Chloride 106 mmol/L CO2 29 mmol/L AGAP 10 mEq/L Calcium Lvl 9.3 mg/dL . Informed consent: Signed by patient. Including risks, benefits, and alternatives related to the: Anesthetic plan, Postoperative pain management plan. Re-evaluation prior to induction: Initial evaluation reviewed: No significant change. Review of Systems Eye: Negative except as documented in history of present illness. Ear/Nose/Mouth/Throat: Negative except as documented in history of present illness. Respiratory: Negative except as documented in history of present illness. Cardiovascular: Negative except as documented in history of present illness. Musculoskeletal: Negative except as documented in history of present illness. Neurologic: Negative except as documented in history of present illness. Health Status Allergies: Allergic Reactions (Selected) Severity Not Documented Ativan- Lethargic, sweating and vomit., Allergies (1) Active Severity Reaction Ativan lethargic, Sweating, Vomit Current medications: (Selected) Inpatient Medications Ordered Lactated Ringers IV Caty 1000 mL 1,000 mL: 1,000 mL, IV, 150 mL/hr, Routine, Start date 12/22/24 9:30:00 EDT, 6.7 hour(s), Total volume (mL): 1,000 Prescriptions Prescribed Colace 100 mg Cap: 100 mg = 1 cap(s), Oral, BID, PRN for constipation, # 40 cap(s), Refills(s) 0, Pharmacy: [facility] [id number], 173, cm, 08/14/24 11:50:00 EST, Height/Length Dosing, 78.1, kg, 08/14/24 11:50:00 EST, Weight Dosing acetaminophen-hydrocodone 325 mg-7.5 mg oral tablet: See Instructions, 90 tab(s), Refill(s) 0, TAKE1 TABLET BY MOUTH EVERY 8 HOURS NEEDED FOR PAIN, [facility] [id number], 173, cm, 10/05/24 23:18:00 EDT, Height/Length Dosing, 77.7, kg, 10/05/24 23:18:00 EDT, Weight Dosing allopurinol 100 mg Tab: See Instructions, TAKE 1 TABLET BY MOUTH DAILY, # 90 tab(s), Refills(s) 4, Pharmacy: [facility] [id number], 173, cm, 08/14/24 11:50:00 EST, Height/Length Dosing, 78.1, kg, 08/14/24 11:50:00 EST, Weight Dosing aspirin 81 mg Oral EC Tab: 81 mg = 1 tab(s), Oral, BID, # 60 tab(s), Refills(s) 0, Pharmacy: [facility] [id number], 173, cm, 08/14/24 11:50:00 EST, Height/Length Dosing, 78.1, kg, 08/14/24 11:50:00 EST, Weight Dosing gabapentin 300 mg Cap: 300 mg = 1 cap(s), Oral, TID, 90 days, # 270 cap(s), Refills(s) 1, Pharmacy:[facility] [id number], 173, cm, 10/05/24 23:18:00 EDT, Height/Length Dosing, 77.7, kg, 10/05/24 23:18:00 EDT, Weight Dosing tiZANidine 4 mg Tab: 4 mg = 1 tab(s), Oral, q8hr, 60 tab(s), X 90 day(s), # 270 tab(s), Refills(s) 3, Pharmacy: [facility] [id number], 168, cm, 01/04/24 11:11:00 EDT, Height/Length Dosing, 82.3, kg, 01/04/24 11:11:00 EDT, Weight Dosing verapamil 240 mg ER Tab: 240 mg = 1 tab(s), Oral, Daily, X 90 day(s), # 90 tab(s), Refills(s) 3, Pharmacy: [facility] [id number], 168, cm, 01/04/24 11:11:00 EDT, Height/Length Dosing, 82.3, kg, 01/04/24 11:11:00 EDT, Weight Dosing Documented Medications Documented Vitamin B12: 1,000 microgram, Oral, Daily, Take 1 tab Wednesday, Wednesday, Refills(s) 0 cholecalciferol 1000 intl units oral capsule: 1,000 International_Unit = 1 cap(s), Oral, Daily, Refills(s) 0, Prophylaxis folic acid 1 mg Tab: 1 mg = 1 tab(s), Oral, Daily, Refills(s) 0, Prophylaxis losartan 50 mg Tab: 50 mg = 1 tab(s), Oral, Daily, Refills(s) 0, High blood pressure magnesium oxide: Oral, one tab once per day per pt, Refills(s) 0 meclizine 25 mg Tab: 25 mg = 1 tab(s), Oral, PRN Dizziness, Refills(s) 0 melatonin: 10 mg, Oral, Once a day (at bedtime), Refills(s) 0 meloxicam 15 mg Tab: 15 mg = 1 tab(s), Oral, Daily, Refills(s) 0 methotrexate 2.5 mg Tab: 25 mg = 10 tab(s), Oral, qWeek, Take every Wednesday, Refills(s) 0 omeprazole 20 mg Cap-DR: 20 mg = 1 cap(s), Oral, Daily, Refills(s) 0, Indigestion pravastatin 20 mg Tab: 20 mg = 1 tab(s), Oral, Daily, Refills(s) 0, High cholesterol tamsulosin 0.4 mg Cap: 0.4 mg = 1 cap(s), Oral, Daily, # 90 cap(s), Refills(s) (more content not included)...[facility] CenterComment on above:Result Comment: Electronically Signed By: Jesus GAINES, Fallon Patel\.br\Date and Time Signed: 12/22/24 10:00 [id number] History of Present illness Narrative* Bryson Cordoba - 12/18/2024 10:45 AM EDT Images from the original note were not included. GENERAL HISTORY AND PHYSICAL: NAME: Lamberto Mendes : 1945 CHIEF COMPLAINT: Right total knee arthroplasty with wound dehiscence, drainage. HISTORY OF PRESENT ILLNESS: This is a 79 y.o. male who presents for a pre-op H&P. Lamberto returns here today for repeat evaluation of the above. We did previously define for the possibility of a seroma. He has continued on with this. His index procedure is now a few months out. He denies any interval injury. He denies any further treatment. He is working on his range of motion. PAST MEDICAL HISTORY: Past Medical History: Diagnosis Date Arthritis Cancer (CMS/HCC) Gout Hypertension (CMS/HCC) Rheumatoid arthritis (CMS/HCC) TIA (transient ischemic attack) PAST SURGICAL HISTORY: Past Surgical History: Procedure Laterality Date ACHILLES TENDON SURGERY Bilateral APPENDECTOMY CYST REMOVAL Left Gout L Heel x2 KNEE SURGERY Right PARS PLANA REPAIR OF RETINAL DEATACHMENT ROTATOR CUFF REPAIR Bilateral SMALL INTESTINE SURGERY TOTAL KNEE ARTHROPLASTY Right 08/15/2024 DAP WRIST SURGERY Right SOCIAL HISTORY: Social History Occupational History Not on file Tobacco Use Smoking status: Former Types: Cigarettes Smokeless tobacco: Not on file Vaping Use Vaping status: Never Used Substance and Sexual Activity Alcohol use: Not Currently Drug use: Never Sexual activity: Defer ALLERGIES: Allergies Allergen Reactions Lorazepam Hives Other Reaction(s): diaphoresis, GI Upset, lethargic, Other: See Comments, Unknown, Vomiting Lethargic and profuse sweats MEDICATIONS: Current Outpatient Medications Medication Instructions allopurinol (Zyloprim) 100 MG tablet aspirin 325 mg, Daily RT cephalexin (KEFLEX) 500 mg, Oral, 3 times daily cholecalciferol (VITAMIN D-[address]) 2,000 Units, Daily RT cyanocobalamin (Vitamin B-12) 100 MCG tablet folic acid (Folvite) 1 MG tablet Every 24 hours gabapentin (NEURONTIN) 300 mg losartan (COZAAR) 50 mg, Daily RT Meclizine HCl 25 MG chewable tablet Every 24 hours melatonin 5 MG tablet Every 24 hours meloxicam (Mobic) 15 MG tablet Every 24 hours methotrexate 2.5 MG tablet Douglas 7.5-325 MG tablet Take by mouth omeprazole (PriLOSEC) [address] capsule 1 capsule, Every 24 hours pravastatin (PRAVACHOL) 10 mg tamsulosin (FLOMAX) 0.4 mg tiZANidine (ZANAFLEX) 4 mg verapamil SR (Calan SR) 240 MG ER tablet Every 24 hours REVIEW OF SYSTEMS: The review of systems, history and current medications list are all reviewed today. Vitals: Visit Vitals Ht 5' 6 Wt 179 lb BMI 28.89 kg/m Smoking Status Former BSA 1.94 m PHYSICAL EXAM: His orthopedic exam does reveal a wound dehiscence distally. There is no active discharge. There is no erythema, nothing expressible. No real effusion. Range of motion of the knee is 0-115 degrees. The knee is fully stable. Examination of the left knee reveals arc of motion without difficulty. The calf and thigh are supple. X-rays none new here today. Surgical History and Physical: GENERAL AND PSYCHOLOGICAL: The patient is alert and oriented for age. HEAD AND E.E.N.T.: The skull is normocephalic. There is no mass or sign of trauma. NECK: The neck is supple. There is good range of motion. There is no mass or adenopathy appreciated. The thyroid is not enlarged. CARDIAC: The heart is regular. There is no murmur or ectopy appreciated. LUNGS: Inspiratory and expiratory excursions are symmetrical. The lung shen are clear in all quadrants. ABDOMEN: The texture is soft. Bowel sounds are heard well in all quadrants. There is no tenderness to palpation. There is no organomegaly appreciated. OSTEOPATHIC AND STRUCTURAL: There is no gross evidence of kyphosis, lordosis, scoliosis, or apparent leg length discrepancy, with no acute tissue texture changes in sitting or standing positions. ASSESSMENT: Right total knee arthroplasty with wound dehiscence distally. PLAN: The findings are discussed. We would recommend at this point moving forward with operative debridement, incision with wound closure. We would ellipticize this area and re-close it. We did discuss this at length and why we would recommend. Certainly we do not want this to continue to sit and be unattended to, increasing his risk of a deep space infection. He would like to move forward with the surgery. We did outline the risks, complications, and reasonable expectations. These include but are not limited to infection which may necessitate further surgery, nerve or blood vessel injury, wound healing difficulty and dehiscence moving forward. We did discuss the expectations day of surgery, anesthesia etc. He does voice understanding. Routine testing is underway. Follow up letter sent tohis primary care physician. Sarai Pniedo D.O. Cosigned by Sarai Pinedo DO at 12/20/2024 4:48 PM EDT documented in this encounterRipley County Memorial [id number] History of Present illness Narrative* Bryson Cordoba - 11/24/2024 10:15 AM EDT Images from the original note were not included. Lamberto Mendes is a 79 y.o. male presents with chief complaint of right robotic assist total kneewith wound seroma. HPI: Lamberto returns here today for repeat evaluation of his right knee. He is doing well. No new or interval symptoms. He has been progressing his activities. He is pleased with his result. SUBJECTIVE: MEDICATIONS: Current Outpatient Medications Medication Instructions allopurinol (Zyloprim) 100 MG tablet aspirin 325 mg, Daily RT cholecalciferol (VITAMIN D-[address]) 2,000 Units, Daily RT cyanocobalamin (Vitamin B-12) 100 MCG tablet folic acid (Folvite) 1 MG tablet Every 24 hours gabapentin (NEURONTIN) 300 mg losartan (COZAAR) 50 mg, Daily RT Meclizine HCl 25 MG chewable tablet Every 24 hours melatonin 5 MG tablet Every 24 hours meloxicam (Mobic) 15 MG tablet Every 24 hours methotrexate 2.5 MG tablet Douglas 7.5-325 MG tablet Take by mouth omeprazole (PriLOSEC) [address] capsule 1 capsule, Every 24 hours pravastatin (PRAVACHOL) 10 mg tamsulosin (FLOMAX) 0.4 mg tiZANidine (ZANAFLEX) 4 mg verapamil SR (Calan SR) 240 MG ER tablet Every 24 hours ALLERGIES: Allergies Allergen Reactions Lorazepam Hives Other Reaction(s): diaphoresis, GI Upset, lethargic, Other: See Comments, Unknown, Vomiting Lethargic and profuse sweats SURGICAL HISTORY: Past Surgical History: Procedure Laterality Date ACHILLES TENDON SURGERY Bilateral APPENDECTOMY CYST REMOVAL Left Gout L Heel x2 KNEE SURGERY Right PARS PLANA REPAIR OF RETINAL DEATACHMENT ROTATOR CUFF REPAIR Bilateral SMALL INTESTINE SURGERY TOTAL KNEE ARTHROPLASTY Right 08/15/2024 DAP WRIST SURGERY Right FAMILY HISTORY: Family History Problem Relation Name Age of Onset Stroke Father Cancer Paternal Grandfather Cancer Other SOCIAL HISTORY: Social History Tobacco Use Smoking status: Former Types: Cigarettes Vaping Use Vaping status: Never Used Substance Use Topics Alcohol use: Not Currently Drug use: Never Depression: Not at risk (04/25/2019) Received from [facility] PHQ-2 PHQ-2 score: 2 REVIEW OF SYMPTOMS: The review of systems, history and current medications list are all reviewed today. OBJECTIVE: Visit Vitals Ht 5' 6 Wt 179 lb BMI 28.89 kg/m Smoking Status Former BSA 1.94 m Physical Exam His orthopedic exam shows no gross malalignment or deformity. Gentle arc of motion iswithout significant difficulty. Neurocirculatory status is overall grossly intact. He does have a small area of scabbing and eschar distally. This is benign overall. No fluctuance, no fluid collection. Examination of the contralateral left knee reveals arc of motion without difficulty. The calf and thigh are supple. Neurocirculatory status is overall grossly intact. X-rays AP bilateral weight bearing, bilateral sunrise and right lateral knee total of five views with permanent images are saved to the record does show well-fixed, well-aligned total knee arthroplasty. No evidence of fracture, loosening or catastrophic wear noted. ASSESSMENT AND PLAN: Assessment/Plan Status post right total knee arthroplasty with suture seroma. The findings are discussed. He will continue to progress his activities. He will continue the exercise program. We did instruct him to be very mindful and watchful, and cautions with regard to the wound. He does voice understanding of this. Ultimately we will see him back here with myself in essentially three months for x-ray and recheck. This will be the six month kristopher. He will call with any problems in the meantime. All questions are otherwise answered. Cosigned by Sarai Pinedo DO at 11/28/2024 12:16 PM EDT documented in this encounterRipley County Memorial [id number] History of Present illness Narrative* Bryson Cordoba - 11/10/2024 9:30 AM EDT Images from the original note were not included. Lamberto Mendes is a 79 y.o. male presents with chief complaint of right robotic assist total [id number]. HPI: Lamberto returns here today for repeat evaluation of his right knee. He did have an interval appointment with the Emergency Room. This was for an infectious process. He did see the Emergency Room, no call placed by the Emergency Room or the patient with regard to this. He was placed on some doxycycline. This was on 10-05-2024. He did continue to have physical therapy throughout. He has just been released from physical therapy and now follows up here today. He has had no fever or chills. No drainage from this area. He was using some Neosporin ointment but it kept it soft and as such, he stoppedusing that as well. SUBJECTIVE: MEDICATIONS: Current Outpatient Medications Medication Instructions allopurinol (Zyloprim) 100 MG tablet aspirin 325 mg, Daily RT cephalexin (KEFLEX) 500 mg, Oral, 3 times daily cholecalciferol (VITAMIN D-[address]) 2,000 Units, Daily RT cyanocobalamin (Vitamin B-12) 100 MCG tablet docusate sodium (COLACE) 100 mg folic acid (Folvite) 1 MG tablet Every 24 hours gabapentin (NEURONTIN) 300 mg losartan (COZAAR) 50 mg, Daily RT Meclizine HCl 25 MG chewable tablet Every 24 hours melatonin 5 MG tablet Every 24 hours meloxicam (Mobic) 15 MG tablet Every 24 hours methotrexate 2.5 MG tablet Douglas 7.5-325 MG tablet Take by mouth omeprazole (PriLOSEC) [address] capsule 1 capsule, Every 24 hours pravastatin (PRAVACHOL) 10 mg tamsulosin (FLOMAX) 0.4 mg tiZANidine (ZANAFLEX) 4 mg verapamil SR (Calan SR) 240 MG ER tablet Every 24 hours ALLERGIES: Allergies Allergen Reactions Lorazepam Hives Other Reaction(s): diaphoresis, GI Upset, lethargic, Other: See Comments, Unknown, Vomiting Lethargic and profuse sweats SURGICAL HISTORY: Past Surgical History: Procedure Laterality Date ACHILLES TENDON SURGERY Bilateral APPENDECTOMY CYST REMOVAL Left Gout L Heel x2 KNEE SURGERY Right PARS PLANA REPAIR OF RETINAL DEATACHMENT ROTATOR CUFF REPAIR Bilateral SMALL INTESTINE SURGERY TOTAL KNEE ARTHROPLASTY Right 08/15/2024 DAP WRIST SURGERY Right FAMILY HISTORY: Family History Problem Relation Name Age of Onset Stroke Father Cancer Paternal Grandfather Cancer Other SOCIAL HISTORY: Social History Tobacco Use Smoking status: Former Types: Cigarettes Vaping Use Vaping status: Never Used Substance Use Topics Alcohol use: Not Currently Drug use: Never Depression: Not at risk (04/25/2019) Received from [facility] PHQ-2 PHQ-2 score: 2 REVIEW OF SYMPTOMS: The review of systems, history and current medications list are all reviewed today. OBJECTIVE: Visit Vitals Ht 5' 6 Wt 179 lb BMI 28.89 kg/m Smoking Status Former BSA 1.94 m Physical Exam His orthopedic exam here today reveals the wound to be benign other than a small areaof dehiscence with some surrounding erythema at the very distal pole. There is no expressible discharge. No foul odor. No pocket. Range of motion is 0-115+ degrees. The knee is fully stable. The calfand thigh are supple. Examination of the contralateral left lower extremity reveals calf and thigh are supple. X-rays AP bilateral weight bearing, bilateral sunrise and right lateral knee total of five views with permanent images are saved to the record does show well-fixed, well-aligned total knee arthroplasty. No evidence of fracture, loosening or catastrophic wear noted. ASSESSMENT AND PLAN: Assessment/Plan Status post right robotic assist total knee arthroplasty with superficial wound dehiscence distally. The findings are discussed here today. We did outline the concern over his inferior wound area. We did recommend Neosporin cream to the area coupled with Keflex 500 mg three times daily. We will keepa close eye on this and see him back in two weeks for recheck and review. He is instructed to call here immediately if anything changes rather than go to the Emergency Room where we would be unaware of the process. He does voice understanding of this. We will see him back as described. All of his questions are otherwise answered. He is counseled on the antibiotic prophylaxis and metal detectors. Cosigned by Sarai Pinedo DO at 11/13/2024 7:45 AM EDT documented in this encounterRipley County Memorial [id number] History of Present illness Narrative* Kirti Chang, PT - 11/02/2024 12:30 PM EDT Images from the original note were not included. Physical Therapy Treatment Visit Patient Name: Lamberto KOO Today's Date: 11/02/2024 Encounter Diagnoses Name Primary? Primary osteoarthritis of right knee Yes Visit number: 19 Timed Code Treatment Minutes: 43 minutes Total Treatment Time: 53 minutes Time In: 1220 Time Out: 1319 History: Pt underwent surgery for right TKA on 08/15/24. Pt has been getting home health PT. Started ambulating mainly with use of st cane about one week ago. Will still use walker at night and early in the morning. Walking laps inside the home for distance. Icing at home as needed. Taking pain medication. Precautions: right TKA, universal Subjective: Pt states knee continues to do well. Open area at bottom of incision remains scabbed over. Will see November 10. Pain: 2-3/10 in right knee, more ache vs pain Objective: PT Evaluation (09/05/2024) KNEE AROM: 9 to 96 degrees in supine PROM: 7 to 98 degrees in supine MMT: hip and quad 4-/5 Palpation: min tenderness right knee and flynn Special Test: N/A Functional: TUG without device: 19.04 seconds and 17.91 seconds Treatment: Manual Therapy: (PRN) Passive ROM right knee. Pt had difficulty laying flat. Joint mobilization, Soft Tissue Mobilization, Myofascial Release, Muscle Energy Technique, Neural Mobilization, MyofascialCupping, Dry Needling, IASTM, and Scar mobilization as needed. Therapeutic Exercise: (27 minutes) Strength, Endurance, Flexibility, ROM, HEP, Neural Mobilization,Power, and Core Stability as needed. Exercises performed per grid to increase right LE ROM and function mobility. Nustep x 10 mins unsupervised Therapeutic Activity: (16 minutes) Exercises to improve dynamic activities, functional tasks, functional mobility to return to prior activity level as needed. Neuromuscular re-education: Balance Training, Muscle Facilitation, Dynamic Stability, Core Stabilization, and Blood Flow Restriction Training (BFRT) as needed. Modalities: Heat, Ice, Electrical Stimulation, Ultrasound, Cervical Mechanical Traction, Lumbar Mechanical Traction, Iontophoresis, and Fluidotherapy as needed. Declined CP. AROM Right knee flex 1-120 degrees (10/27/24); wound 7/16 long (10/19/24) Assessment: Pt has completed 19 out patient PT sessions following right TKA. Pt continues with weakness noted right LE compared to left. Ease of ascending 6 inch step is improving. Will continue. Outcome Measure: Lower Extremity Functional Scale (LEFS): 31/80 Rehab Diagnosis: right knee pain and weakness; difficulty walking; decrease ROM and mobility Short Term Goal: To be met in 2 weeks Goal 1: Pt to be instructed in home exercise program. Halfway Goals: To be met in 10 weeks Goal 1: Pt to report independence and compliance with home program. (Progressing) Goal 2: Pt to achieve 120 degrees right knee flexion to assist with functional tasks such as squatting. (Progressing) Goal 3: Pt to be lacking no greater than 1 degree right knee extension to assist with proper gait. (Met) Goal 4: Pt to achieve 4+/5 strength right knee flexion and extension to assist with functional mobility and ADL's. (Progressing) Goal 5: Pt to score no less than 60/80 on LEFS indicating improved QOL. (Progressing) Goal 6: Pt to complete TUG without device in less than 12.0 seconds indicating improved gait and mobility. (Met) Pt will benefit from skilled PT for 2x/week from 09/05/2024 to 11/14/2024 to address the above impairments. I hereby deem this POC medically necessary. Please sign below. Date: documented in this encounterRipley County Memorial [id number] History of Present illness Narrative* Kirti Chang PT - 10/31/2024 10:30 AM EDT Images from the original note were not included. Physical Therapy Treatment Visit Patient Name: Lamberto KOO Today's Date: 10/31/2024 Encounter Diagnoses Name Primary? Primary osteoarthritis of right knee Yes Visit number: 18 Timed Code Treatment Minutes: 45 minutes Total Treatment Time: 55 minutes Time In: 1030 Time Out: 1126 History: Pt underwent surgery for right TKA on 08/15/24. Pt has been getting home health PT. Started ambulating mainly with use of st cane about one week ago. Will still use walker at night and early in the morning. Walking laps inside the home for distance. Icing at home as needed. Taking pain medication. Precautions: right TKA, universal Subjective: Pt states he wasn't as sore after last session as he was before. Wore pain patch on left hip just in case today. Pain: 2-3/10 in right knee, more ache vs pain Objective: PT Evaluation (09/05/2024) KNEE AROM: 9 to 96 degrees in supine PROM: 7 to 98 degrees in supine MMT: hip and quad 4-/5 Palpation: min tenderness right knee and flynn Special Test: N/A Functional: TUG without device: 19.04 seconds and 17.91 seconds Treatment: Manual Therapy: (PRN) Passive ROM right knee. Pt had difficulty laying flat. Joint mobilization, Soft Tissue Mobilization, Myofascial Release, Muscle Energy Technique, Neural Mobilization, MyofascialCupping, Dry Needling, IASTM, and Scar mobilization as needed. Therapeutic Exercise: (27 minutes) Strength, Endurance, Flexibility, ROM, HEP, Neural Mobilization,Power, and Core Stability as needed. Exercises performed per grid to increase right LE ROM and function mobility. Nustep x 10 mins unsupervised Therapeutic Activity: (18 minutes) Exercises to improve dynamic activities, functional tasks, functional mobility to return to prior activity level as needed. Neuromuscular re-education: Balance Training, Muscle Facilitation, Dynamic Stability, Core Stabilization, and Blood Flow Restriction Training (BFRT) as needed. Modalities: Heat, Ice, Electrical Stimulation, Ultrasound, Cervical Mechanical Traction, Lumbar Mechanical Traction, Iontophoresis, and Fluidotherapy as needed. Declined CP. AROM Right knee flex 1-120 degrees (10/27/24); wound 7/16 long (10/19/24) Assessment: Pt has completed 18 out patient PT sessions following right TKA. Pt continues to require mild to moderate assist to ascend 6 inch step with right LE due to weakness. Will continue to progress as able. Outcome Measure: Lower Extremity Functional Scale (LEFS): Rehab Diagnosis: right knee pain and weakness; difficulty walking; decrease ROM and mobility Short Term Goal: To be met in 2 weeks Goal 1: Pt to be instructed in home exercise program. Wireless Operator Goals: To be met in 10 weeks Goal 1: Pt to report independence and compliance with home program. (Progressing) Goal 2: Pt to achieve 120 degrees right knee flexion to assist with functional tasks such as squatting. (Progressing) Goal 3: Pt to be lacking no greater than 1 degree right knee extension to assist with proper gait. (Met) Goal 4: Pt to achieve 4+/5 strength right knee flexion and extension to assist with functional mobility and ADL's. (Progressing) Goal 5: Pt to score no less than 60/80 on LEFS indicating improved QOL. (Progressing) Goal 6: Pt to complete TUG without device in less than 12.0 seconds indicating improved gait and mobility. (Met) Pt will benefit from skilled PT for 2x/week from 09/05/2024 to 11/14/2024 to address the above impairments. I hereby deem this POC medically necessary. Please sign below. Date: documented in this encounterRipley County Memorial [id number] History of Present illness Narrative* Kirti Chang PT - 10/27/2024 1:30 PM EDT Images from the original note were not included. Physical Therapy Treatment Visit Patient Name: Lamberto KOO Today's Date: 10/27/2024 Encounter Diagnoses Name Primary? Primary osteoarthritis of right knee Yes Visit number: 17 Timed Code Treatment Minutes: 43 minutes Total Treatment Time: 53 minutes Time In: 1320 Time Out: 1416 History: Pt underwent surgery for right TKA on 08/15/24. Pt has been getting home health PT. Started ambulating mainly with use of st cane about one week ago. Will still use walker at night and early in the morning. Walking laps inside the home for distance. Icing at home as needed. Taking pain medication. Precautions: right TKA, universal Subjective: Pt states right buttock was pretty sore following last session. Also had some pain in low back. Pain: 2-3/10 in right knee, more ache vs pain Objective: PT Evaluation (09/05/2024) KNEE AROM: 9 to 96 degrees in supine PROM: 7 to 98 degrees in supine MMT: hip and quad 4-/5 Palpation: min tenderness right knee and flynn Special Test: N/A Functional: TUG without device: 19.04 seconds and 17.91 seconds Treatment: Manual Therapy: (PRN) Passive ROM right knee. Pt had difficulty laying flat. Joint mobilization, Soft Tissue Mobilization, Myofascial Release, Muscle Energy Technique, Neural Mobilization, MyofascialCupping, Dry Needling, IASTM, and Scar mobilization as needed. Therapeutic Exercise: (31 minutes) Strength, Endurance, Flexibility, ROM, HEP, Neural Mobilization,Power, and Core Stability as needed. Exercises performed per grid to increase right LE ROM and function mobility. Nustep x 10 mins unsupervised Therapeutic Activity: (12 minutes) Exercises to improve dynamic activities, functional tasks, functional mobility to return to prior activity level as needed. Neuromuscular re-education: Balance Training, Muscle Facilitation, Dynamic Stability, Core Stabilization, and Blood Flow Restriction Training (BFRT) as needed. Modalities: Heat, Ice, Electrical Stimulation, Ultrasound, Cervical Mechanical Traction, Lumbar Mechanical Traction, Iontophoresis, and Fluidotherapy as needed. Declined CP. AROM Right knee flex 1-120 degrees (10/27/24); wound 7/16 long (10/19/24) Assessment: Pt has completed 17 out patient PT sessions following right TKA. Held some strengthening exercises this date due to complaints of pain following last session. Pt able to achieve 120 degrees of right knee flexion this date with strap stretch in supine. Will continue. Outcome Measure: Lower Extremity Functional Scale (LEFS): Rehab Diagnosis: right knee pain and weakness; difficulty walking; decrease ROM and mobility Short Term Goal: To be met in 2 weeks Goal 1: Pt to be instructed in home exercise program. Wireless Operator Goals: To be met in 10 weeks Goal 1: Pt to report independence and compliance with home program. (Progressing) Goal 2: Pt to achieve 120 degrees right knee flexion to assist with functional tasks such as squatting. (Progressing) Goal 3: Pt to be lacking no greater than 1 degree right knee extension to assist with proper gait. (Met) Goal 4: Pt to achieve 4+/5 strength right knee flexion and extension to assist with functional mobility and ADL's. (Progressing) Goal 5: Pt to score no less than 60/80 on LEFS indicating improved QOL. (Progressing) Goal 6: Pt to complete TUG without device in less than 12.0 seconds indicating improved gait and mobility. (Met) Pt will benefit from skilled PT for 2x/week from 09/05/2024 to 11/14/2024 to address the above impairments. I hereby deem this POC medically necessary. Please sign below. Date: documented in this encounterRipley County Memorial [id number] History of Present illness Narrative* Kirti Chang, PT - 10/25/2024 2:00 PM EDT Images from the original note were not included. Physical Therapy Treatment Visit Patient Name: Lamberto KOO Today's Date: 10/25/2024 Encounter Diagnoses Name Primary? Primary osteoarthritis of right knee Yes Visit number: 16 Timed Code Treatment Minutes: 45 minutes Total Treatment Time: 55 minutes Time In: 1350 Time Out: 1450 History: Pt underwent surgery for right TKA on 08/15/24. Pt has been getting home health PT. Started ambulating mainly with use of st cane about one week ago. Will still use walker at night and early in the morning. Walking laps inside the home for distance. Icing at home as needed. Taking pain medication. Precautions: right TKA, universal Subjective: Pt states he continues to use st cane when outside of the home to support his low back and for balance. Wound is closed up and scabbed over. Keeping bandage off to keep dried out. Pain: 2-3/10 in right knee, more ache vs pain Objective: PT Evaluation (09/05/2024) KNEE AROM: 9 to 96 degrees in supine PROM: 7 to 98 degrees in supine MMT: hip and quad 4-/5 Palpation: min tenderness right knee and flynn Special Test: N/A Functional: TUG without device: 19.04 seconds and 17.91 seconds Treatment: Manual Therapy: (PRN) Passive ROM right knee. Pt had difficulty laying flat. Joint mobilization, Soft Tissue Mobilization, Myofascial Release, Muscle Energy Technique, Neural Mobilization, MyofascialCupping, Dry Needling, IASTM, and Scar mobilization as needed. Therapeutic Exercise: (35 minutes) Strength, Endurance, Flexibility, ROM, HEP, Neural Mobilization,Power, and Core Stability as needed. Exercises performed per grid to increase right LE ROM and function mobility. Therapeutic Activity: (10 minutes) Exercises to improve dynamic activities, functional tasks, functional mobility to return to prior activity level as needed. Neuromuscular re-education: Balance Training, Muscle Facilitation, Dynamic Stability, Core Stabilization, and Blood Flow Restriction Training (BFRT) as needed. Modalities: Heat, Ice, Electrical Stimulation, Ultrasound, Cervical Mechanical Traction, Lumbar Mechanical Traction, Iontophoresis, and Fluidotherapy as needed. Declined CP. AROM Right knee flex 1-116 degrees; wound 01/24 long (10/19/24) Assessment: Pt has completed 16 out patient PT sessions following right TKA. Pt continues with significant weakness right LE compared to left. Verbal cues to avoid compensation during exercises. Willcontinue to progress as pt tolerates. Outcome Measure: Lower Extremity Functional Scale (LEFS): 31 Rehab Diagnosis: right knee pain and weakness; difficulty walking; decrease ROM and mobility Short Term Goal: To be met in 2 weeks Goal 1: Pt to be instructed in home exercise program. Halfway Goals: To be met in 10 weeks Goal 1: Pt to report independence and compliance with home program. (Progressing) Goal 2: Pt to achieve 120 degrees right knee flexion to assist with functional tasks such as squatting. (Progressing) Goal 3: Pt to be lacking no greater than 1 degree right knee extension to assist with proper gait. (Met) Goal 4: Pt to achieve 4+/5 strength right knee flexion and extension to assist with functional mobility and ADL's. (Progressing) Goal 5: Pt to score no less than 60/80 on LEFS indicating improved QOL. (Progressing) Goal 6: Pt to complete TUG without device in less than 12.0 seconds indicating improved gait and mobility. (Met) Pt will benefit from skilled PT for 2x/week from 09/05/2024 to 11/14/2024 to address the above impairments. I hereby deem this POC medically necessary. Please sign below. Date: documented in this encounterRipley County Memorial [id number] Hospital Discharge instructions Patient Education 10/06/2024 02:02:33 Cellulitis, Adult, Sojt-ui-Kpsy Cellulitis, Adult Cellulitis is a skin infection. The infected area is often warm, red, swollen, and sore. It occurs most often on the legs, feet, and toes, but can happen on any part of the body. This condition can be life-threatening without treatment. It is very important to get treated rightaway. What are the causes? This condition is caused by bacteria. The bacteria enter through a break in the skin, such as: A cut. A burn. A bug bite. An animal bite. An open sore. A crack. What increases the risk? Having a weak body's defense system (immune system). Being older than 60 years old. Having a blood sugar problem (diabetes). Having a long-term liver disease (cirrhosis) or kidney disease. Being very overweight (obese). Having a skin problem, such as: ?An itchy rash. ?A rash caused by a fungus. ?A rash with blisters. ?Slow movement of blood in the veins (venous stasis). ?Fluid buildup below the skin (edema). This condition is more likely to occur in people who: Have open cuts, arrieta, bites, or scrapes on the skin. Have been treated with high-energy rays (radiation). Use IV drugs. What are the signs or symptoms? Skin that: ?Looks red or purple, or slightly darker than your usual skin color. ?Has streaks. ?Has spots. ?Is swollen. ?Is sore or painful when you touch it. ?Is warm. A fever. Chills. Blisters. Tiredness (fatigue). How is this treated? Medicines to treat infections or allergies. Rest. Placing cold or warm cloths on the skin. Staying in the hospital, if the condition is very bad. You may need medicines through an IV. Follow these instructions at home: Medicines Take vsxd-igd-lkwwlxe and prescription medicines only as told by your doctor. If you were prescribed antibiotics, take them as told by your doctor. Do not stop using them even if you start to feel better. General instructions Drink enough fluid to keep your pee (urine) pale yellow. Do not touch or rub the infected area. Raise (elevate) the infected area above the level of your heart while you are sitting or lying down. Return to your normal activities when your doctor says that it is safe. Place cold or warm cloths on the area as told by your doctor. Keep all follow-up visits. Your doctor will need to make sure that a more serious infection is not developing. Contact a doctor if: You have a fever. You do not start to get better after 1 2 days of treatment. Your bone or joint under the infected area starts to hurt after the skin has healed. Your infection comes back in the same area or another area. Signs of this may include: ?You have a swollen bump in the area. ?Your red area gets larger, turns dark in color, or hurts more. ?You have more fluid coming from the wound. ?Pus or a bad smell develops in your infected area. ?You have more pain. You feel sick and have muscle aches and weakness. You develop vomiting or watery poop that will not go away. Get help right away if: You see red streaks coming from the area. You notice the skin turns purple or black and falls off. These symptoms may be an emergency. Get help right away. Call 911. Do not wait to see if the symptoms will go away. Do not drive yourself to the hospital. This information is not intended to replace advice given to you by your health care provider. Make sure you discuss any questions you have with your health care provider. Document Revised: 02/23/2023 Document Reviewed: 02/23/2023 [employer] Patient Education 2023 [employer]. Follow Up Care 10/05/2024 23:12:06 With:Sarai Pinedo Address: [address] [place] [id number] [address] (1) When: Unknown Comments:Call the office for follow-up next week With:Arturo Mayers Address:Unknown When:Within 3 Day(s) [facility] 03-28-2025 NoteED Patient Education Note Infectious Disease Cellulitis, Adult Cellulitis is a skin infection. The infected area is often warm, red, swollen, and sore. It occurs most often on the legs, feet, and toes, but can happen on any part of the body. This condition can be life-threatening without treatment. It is very important to get treated rightaway. What are the causes? This condition is caused by bacteria. The bacteria enter through a break in the skin, such as: ??? A cut. ??? A burn. ??? A bug bite. ??? An animal bite. ??? An open sore. ??? A crack. What increases the risk? Having a weak body's defense system (immune system). ??? Being older than 60 years old. ??? Having a blood sugar problem (diabetes). ??? Having a long-term liver disease (cirrhosis) or kidney disease. ??? Being very overweight (obese). ??? Having a skin problem, such as: ? An itchy rash. ? A rash caused by a fungus. ? A rash with blisters. ? Slow movement of blood in the veins (venous stasis). ? Fluid buildup below the skin (edema). This condition is more likely to occur in people who: ??? Have open cuts, arrieta, bites, or scrapes on the skin. ??? Have been treated with high-energy rays (radiation). ??? Use IV drugs. What are the signs or symptoms? Skin that: ? Looks red or purple, or slightly darker than your usual skin color. ? Has streaks. ? Has spots. ? Is swollen. ? Is sore or painful when you touch it. ? Is warm. ??? A fever. ??? Chills. ??? Blisters. ??? Tiredness (fatigue). How is this treated? Medicines to treat infections or allergies. ??? Rest. ??? Placing cold or warm cloths on the skin. ??? Staying in the hospital, if the condition is very bad. You may need medicines through an IV. Follow these instructions at home: Medicines ??? Take innj-owx-msbbgvd and prescription medicines only as told by your doctor. ??? If you were prescribed antibiotics, take them as told by your doctor. Do not stop using them even if you start to feel better. General instructions ??? Drink enough fluid to keep your pee (urine) pale yellow. ??? Do not touch or rub the infected area. ??? Raise (elevate) the infected area above the level of your heart while you are sitting or lying down. ??? Return to your normal activities when your doctor says that it is safe. ??? Place cold or warm cloths on the area as told by your doctor. ??? Keep all follow-up visits. Your doctor will need to make sure that a more serious infection is not developing. Contact a doctor if: ??? You have a fever. ??? You do not start to get better after 1?2 days of treatment. ??? Your bone or joint under the infected area starts to hurt after the skin has healed. ??? Your infection comes back in the same area or another area. Signs of this may include: ? You have a swollen bump in the area. ? Your red area gets larger, turns dark in color, or hurts more. ? You have more fluid coming from the wound. ? Pus or a bad smell develops in your infected area. ? You have more pain. ??? You feel sick and have muscle aches and weakness. ??? You develop vomiting or watery poop that will not go away. Get help right away if: ??? You see red streaks coming from the area. ??? You notice the skin turns purple or black and falls off. These symptoms may be an emergency. Get help right away. Call 911. ??? Do not wait to see if the symptoms will go away. ??? Do not drive yourself to the hospital. This information is not intended to replace advice given to you by your health care provider. Make sure you discuss any questions you have with your health care provider. Document Revised: 02/23/2023 Document Reviewed: 02/23/2023 [employer] Patient Education ? 2023 [employer].[facility] 10-05-2024 Evaluation + Plan noteExtracted from: Title:ED Note Author:Tip Ramirez MD Date: 1. Wound infection (T14.8XXA : Other injury of unspecified body region, initial encounter) Local infection of the skin and subcutaneous tissue, unspecified (L08.9: Local infection of the skin and subcutaneous tissue, unspecified) Orders: doxycycline, 100 mg = 1 cap(s), Cap, Oral, Once, Stop date 10/06/24 2:00:00 EDT, STAT, Start date 10/06/24 2:00:00 EDT, 10/06/24 2:00:00 EDT doxycycline, 100 mg = 1 tab(s), Oral, q12hr, X 10 day(s), # 20 tab(s), Refills(s) 0, Pharmacy: [id number] [id number], 173, cm, 10/05/24 23:18:00 EDT, Height/Length Dosing, 77.7, kg, 10/05/24 23:18:00 EDT, Weight Dosing Future Appointments Appointment Date:01/02/2025 10:40:00 AM Scheduled Provider:Arturo Beach Location:[facility] ([facility] Appointment Type:FM Open Appointment Date:01/02/2025 11:00:00 AM Scheduled Provider: Location:[facility] Appointment Type: Medicare Wellness Subsequent Appointment Date:08/17/2025 08:45:00 AM Scheduled Provider:Campos PURI MD Location:[facility] Appointment Type:URO Office Visit [facility] 03-20-2025 History of Present illness Narrative* Kirti Chang, PT - 09/28/2024 1:30 PM EDT Images from the original note were not included. Physical Therapy Treatment Visit Patient Name: Lamberto KOO Today's Date: 09/28/2024 Encounter Diagnoses Name Primary? Primary osteoarthritis of right knee Yes Visit number: 8 Timed Code Treatment Minutes: 46 minutes Total Treatment Time: 56 minutes Time In: 1315 Time Out: 1418 History: Pt underwent surgery for right TKA on 08/15/24. Pt has been getting home health PT. Started ambulating mainly with use of st cane about one week ago. Will still use walker at night and early in the morning. Walking laps inside the home for distance. Icing at home as needed. Taking pain medication. Precautions: right TKA, universal Subjective: Right knee is a little more stiff today, felt better following last session. Having more pain in left hip and low back today. Pain: 2-3/10 in right knee, more ache vs pain Objective: PT Evaluation (09/05/2024) KNEE AROM: 9 to 96 degrees in supine PROM: 7 to 98 degrees in supine MMT: hip and quad 4-/5 Palpation: min tenderness right knee and flynn Special Test: N/A Functional: TUG without device: 19.04 seconds and 17.91 seconds Treatment: Education: HEP education with demonstration, Educated on Eval Findings and POC Manual Therapy: (PRN) Passive ROM right knee. Pt had difficulty laying flat. Joint mobilization, Soft Tissue Mobilization, Myofascial Release, Muscle Energy Technique, Neural Mobilization, MyofascialCupping, Dry Needling, IASTM, and Scar mobilization as needed. Therapeutic Exercise: (46 minutes) Strength, Endurance, Flexibility, ROM, HEP, Neural Mobilization,Power, and Core Stability as needed. Exercises performed per grid to increase right LE ROM and function mobility. Therapeutic Activity: Exercises to improve dynamic activities, functional tasks, functional mobility to return to prior activity level as needed. Neuromuscular re-education: Balance Training, Muscle Facilitation, Dynamic Stability, Core Stabilization, and Blood Flow Restriction Training (BFRT) as needed. Modalities: Heat, Ice, Electrical Stimulation, Ultrasound, Cervical Mechanical Traction, Lumbar Mechanical Traction, Iontophoresis, and Fluidotherapy as needed. Assessment: Pt has completed 8 out patient PT sessions following right TKA. Pt continues to requiremin to moderate UE assistance to ascend 6 inch step with right LE. Pt with 115 degrees of right knee flexion this date with self stretch in supine. Pt instructed to discontinue use of peroxide on distal incision to ensure proper healing; pt voiced good understanding. Will continue to progress as pttolerates. Outcome Measure: Lower Extremity Functional Scale (LEFS): Rehab Diagnosis: right knee pain and weakness; difficulty walking; decrease ROM and mobility Short Term Goal: To be met in 2 weeks Goal 1: Pt to be instructed in home exercise program. Wireless Operator Goals: To be met in 10 weeks Goal 1: Pt to report independence and compliance with home program. Goal 2: Pt to achieve 120 degrees right knee flexion to assist with functional tasks such as squatting. Goal 3: Pt to be lacking no greater than 1 degree right knee extension to assist with proper gait. Goal 4: Pt to achieve 4+/5 strength right knee flexion and extension to assist with functional mobility and ADL's. Goal 5: Pt to score no less than 60/80 on LEFS indicating improved QOL. Goal 6: Pt to complete TUG without device in less than 12.0 seconds indicating improved gait and mobility. Pt will benefit from skilled PT for 2x/week from 09/05/2024 to 11/14/2024 to address the above impairments. I hereby deem this POC medically necessary. Please sign below. Date: documented in this encounterRipley County Memorial [id number] History of Present illness Narrative* Kirti Chang PT - 09/19/2024 1:30 PM EDT Physical Therapy Treatment Visit Patient Name: Lamberto KOO Today's Date: 09/19/2024 Encounter Diagnoses Name Primary? Primary osteoarthritis of right knee Yes Visit number: 5 Timed Code Treatment Minutes: 30 minutes Total Treatment Time: 47 minutes Time In: 1330 Time Out: 1410 History: Pt underwent surgery for right TKA on 08/15/24. Pt has been getting home health PT. Started ambulating mainly with use of st cane about one week ago. Will still use walker at night and early in the morning. Walking laps inside the home for distance. Icing at home as needed. Taking pain medication. Precautions: right TKA, universal Subjective: Right knee is a little stiff today. Left hip did well over the weekend. Was seen by ortho and cleared to drive. Will see Dr again in 2 months. Pain: 09/18 Objective: PT Evaluation (09/05/2024) KNEE AROM: 9 to 96 degrees in supine PROM: 7 to 98 degrees in supine MMT: hip and quad 4-/5 Palpation: min tenderness right knee and flynn Special Test: N/A Functional: TUG without device: 19.04 seconds and 17.91 seconds Treatment: Education: HEP education with demonstration, Educated on Eval Findings and POC Manual Therapy: (PRN) Passive ROM right knee. Pt had difficulty laying flat. Joint mobilization, Soft Tissue Mobilization, Myofascial Release, Muscle Energy Technique, Neural Mobilization, MyofascialCupping, Dry Needling, IASTM, and Scar mobilization as needed. Therapeutic Exercise: (30 minutes) Strength, Endurance, Flexibility, ROM, HEP, Neural Mobilization,Power, and Core Stability as needed. See flowsheet. 15 minutes unsupervised. Therapeutic Activity: Exercises to improve dynamic activities, functional tasks, functional mobility to return to prior activity level as needed. Neuromuscular re-education: Balance Training, Muscle Facilitation, Dynamic Stability, Core Stabilization, and Blood Flow Restriction Training (BFRT) as needed. Modalities: Heat, Ice, Electrical Stimulation, Ultrasound, Cervical Mechanical Traction, Lumbar Mechanical Traction, Iontophoresis, and Fluidotherapy as needed. Assessment: Pt has completed 5 out patient PT sessions following right TKA. Pt able to achieve 107 degrees of right knee flexion this date. Mild to moderate compensation noted with ascending 6 inch step with right LE. Will continue to progress as pt tolerates. Outcome Measure: Lower Extremity Functional Scale (LEFS): Rehab Diagnosis: right knee pain and weakness; difficulty walking; decrease ROM and mobility Short Term Goal: To be met in 2 weeks Goal 1: Pt to be instructed in home exercise program. Halfway Goals: To be met in 10 weeks Goal 1: Pt to report independence and compliance with home program. Goal 2: Pt to achieve 120 degrees right knee flexion to assist with functional tasks such as squatting. Goal 3: Pt to be lacking no greater than 1 degree right knee extension to assist with proper gait. Goal 4: Pt to achieve 4+/5 strength right knee flexion and extension to assist with functional mobility and ADL's. Goal 5: Pt to score no less than 60/80 on LEFS indicating improved QOL. Goal 6: Pt to complete TUG without device in less than 12.0 seconds indicating improved gait and mobility. Pt will benefit from skilled PT for 2x/week from 09/05/2024 to 11/14/2024 to address the above impairments. I hereby deem this POC medically necessary. Please sign below. Date: documented in this encounterRipley County Memorial [id number] History of Present illness Narrative* Kirti Chang, PT - 09/12/2024 12:30 PM EST Images from the original note were not included. Physical Therapy Treatment Visit Patient Name: Lamberto KOO Today's Date: 09/12/2024 Encounter Diagnoses Name Primary? Primary osteoarthritis of right knee Yes Visit number: 3 Timed Code Treatment Minutes: 48 minutes Total Treatment Time: 48 minutes Time In: 1228 Time Out: 1320 History: Pt underwent surgery for right TKA on 08/15/24. Pt has been getting home health PT. Started ambulating mainly with use of st cane about one week ago. Will still use walker at night and early in the morning. Walking laps inside the home for distance. Icing at home as needed. Taking pain medication. Precautions: right TKA, universal Subjective: Right knee was pretty sore following last session. Iced at home but soreness lasted about 24 hours. Left hip was really painful following last session as well. Will RTD on 09/15/24. Pain: 5/10 Objective: PT Evaluation (09/05/2024) KNEE AROM: 9 to 96 degrees in supine PROM: 7 to 98 degrees in supine MMT: hip and quad 4-/5 Palpation: min tenderness right knee and flynn Special Test: N/A Functional: TUG without device: 19.04 seconds and 17.91 seconds Treatment: Education: HEP education with demonstration, Educated on Eval Findings and POC Manual Therapy: (PRN) Passive ROM right knee. Pt had difficulty laying flat. Joint mobilization, Soft Tissue Mobilization, Myofascial Release, Muscle Energy Technique, Neural Mobilization, MyofascialCupping, Dry Needling, IASTM, and Scar mobilization as needed. Therapeutic Exercise: (48 minutes) Strength, Endurance, Flexibility, ROM, HEP, Neural Mobilization,Power, and Core Stability as needed. See flowsheet. Therapeutic Activity: Exercises to improve dynamic activities, functional tasks, functional mobility to return to prior activity level as needed. Neuromuscular re-education: Balance Training, Muscle Facilitation, Dynamic Stability, Core Stabilization, and Blood Flow Restriction Training (BFRT) as needed. Modalities: Heat, Ice, Electrical Stimulation, Ultrasound, Cervical Mechanical Traction, Lumbar Mechanical Traction, Iontophoresis, and Fluidotherapy as needed. Assessment: Pt has completed 3 out patient PT sessions following right TKA. Pt with 102 degrees of right knee flexion with self stretch. Held supine exercises due to pt complaints of increase left hip pain following last session. Outcome Measure: Lower Extremity Functional Scale (LEFS): Rehab Diagnosis: right knee pain and weakness; difficulty walking; decrease ROM and mobility Short Term Goal: To be met in 2 weeks Goal 1: Pt to be instructed in home exercise program. Wireless Operator Goals: To be met in 10 weeks Goal 1: Pt to report independence and compliance with home program. Goal 2: Pt to achieve 120 degrees right knee flexion to assist with functional tasks such as squatting. Goal 3: Pt to be lacking no greater than 1 degree right knee extension to assist with proper gait. Goal 4: Pt to achieve 4+/5 strength right knee flexion and extension to assist with functional mobility and ADL's. Goal 5: Pt to score no less than 60/80 on LEFS indicating improved QOL. Goal 6: Pt to complete TUG without device in less than 12.0 seconds indicating improved gait and mobility. Pt will benefit from skilled PT for 2x/week from 09/05/2024 to 11/14/2024 to address the above impairments. I hereby deem this POC medically necessary. Please sign below. Date: documented in this encounterR[facility] [id number] Evaluation + Plan note Extracted from: Title:ANES Post-operative Note---General Author: Gustabo Starks MD Date:08/15/24 Plan Transfer/Discharge: Transfer/Discharge Discharge when meets criteria ( To home ). Extracted from: Title:ANES Pre-operative Note 2022 Author:Gustabo Nicolas Date:08/15/24 Patient: LAMBERTO MENDES Age: 79 years Sex: Male : 1945 Associated Diagnoses: None Author: Gustabo Starks MD Preoperative Information Anesthesia Preop Info: Time patient last ate or drank 08/15/2024 00:00:00. Anesthesia history: Patient history: None. Family history+: None. Informed consent: Signed by patient. Re-evaluation prior to induction: Initial evaluation reviewed: No significant change. Review of Systems Eye Ear/Nose/Mouth/Throat Respiratory: No shortness of breath, No cough. Cardiovascular: Negative, No chest pain. Gastrointestinal: No heartburn. Musculoskeletal Neurologic Health Status Allergies: Allergic Reactions (Selected) Severity Not Documented Ativan- Lethargic, sweating and vomit., Allergies (1) ActiveSeverityReaction Ativanlethargic, Sweating, Vomit Current medications: (Selected) Inpatient Medications Ordered Colace 100 mg Cap: 100 mg = 1 cap(s), Cap, Oral, BID, Routine, Start date 08/15/24 21:00:00 EST Dulcolax 5 mg Tab-EC: 10 mg = 2 tab(s), Tab-EC, Oral, Daily PRN Constipation, Routine, Start date 08/17/24 9:25:00 EST Lactated Ringers IV Caty 1000 mL 1,000 mL: 1,000 mL, IV, 80 mL/hr, Routine, Start date 08/15/24 9:25:00 EST, 12.5 hour(s), Total volume (mL): 1,000, 78.1 kg, 1.94, m2 Milk of Magnesia 8% Susp-Oral: 30 mL, Susp-Oral, Oral, BID PRN Constipation, Routine, Start date 08/15/24 9:25:00 EST Pantoprazole [address] Tab: 40 mg = 1 tab(s), Tab-DR, Oral, Daily, Routine, Start date 08/16/24 9:00:00 EST Sodium Chloride 0.9% IV Caty 1000 mL 1,000 mL: 1,000 mL, IV, 150 mL/hr, Routine, Start date 08/15/24 6:00:00 EST, 6.7 hour(s), Total volume (mL): 1,000, 78.1 kg, 1.94, m2 Vitamin C 500 mg Tab: 500 mg = 1 tab(s), Tab, Oral, BIDWM, Routine, Start date 08/15/24 17:00:00 EST Zofran 4 mg/2 mL Injection: 4 mg = 2 mL, Injection, IV Push, q6hr PRN Nausea/Vomiting, Routine, Start date 08/15/24 9:25:00 EST, 08/15/24 9:25:00 EST acetaminophen 325 mg Tab: 650 mg = 2 tab(s), Tab, Oral, q6hr for 3 dose(s), Stop date 08/16/24 8:59:00 EST, Routine, Start date 08/15/24 15:00:00 EST acetaminophen-hydrocodone 325 mg-5 mg oral tablet: 1.5 tab(s), Tab, Oral, q6hr PRN Pain for 5 day(s), Stop date 08/20/24 10:07:00 EST, Routine, Start date 08/15/24 10:08:00 EST cefazolin additive + Sodium Chloride 0.9% intravenous solution 50 mL: 2 gm = 1 EA, Powder-Inj, IV Piggyback, q8hr for 2 dose(s), Stop date 08/16/24 7:29:00 EST, Routine, Start date 08/15/24 15:30:00 EST, 100 mL/hr, Infuse over 30 minute(s) ferrous sulfate 325 mg Tab: 325 mg = 1 tab(s), Tab, Oral, BIDWM, Routine, Start date 08/15/24 17:00:00 EST oxyCODONE 5 mg Tab: 10 mg = 2 tab(s), Tab, Oral, q4hr PRN Pain 8-10 for 5 day(s), Stop date 08/20/24 9:24:00 EST, Routine, Start date 08/15/24 9:25:00 EST, 08/15/24 9:25:00 EST oxyCODONE 5 mg Tab: 5 mg = 1 tab(s), Tab, Oral, q4hr PRN Pain 8-10 for 5 day(s), Stop date 08/20/24 9:24:00 EST, Routine, Start date 08/15/24 9:25:00 EST, 08/15/24 9:25:00 EST Prescriptions Prescribed Colace 100 mg Cap: 100 mg = 1 cap(s), Oral, BID, PRN for constipation, # 40 cap(s), Refills(s) 0, Pharmacy: [facility] [id number], 173, cm, 08/14/24 11:50:00 EST, Height/Length Dosing, 78.1, kg, 08/14/24 11:50:00 EST, Weight Dosing acetaminophen-hydrocodone 325 mg-7.5 mg oral tablet: See Instructions, 90 tab(s), Refill(s) 0, TAKE 1 TABLET BY MOUTH EVERY 8 HOURS NEEDED FOR PAIN, [facility] [id number], 169, cm, 08/07/24 5:47:00 EST, Height/Length Dosing, 80.5, kg, 08/07/24 5:47:00 EST, Weight Dosing allopurinol 100 mg Tab: See Instructions, TAKE 1 TABLET BY MOUTH DAILY, # 90 tab(s), Refills(s) 0, Pharmacy: [facility] [id number], 168, cm, 04/04/24 10:22:00 EDT, Height/Length Dosing, 81.2, kg, 04/04/24 10:22:00 EDT, Weight Dosing aspirin 81 mg Oral EC Tab: 81 mg = 1 tab(s), Oral, BID, # 60 tab(s), Refills(s) 0, Pharmacy: [facility] [id number], 173, cm, 08/14/24 11:50:00 EST, Height/Length Dosing, 78.1, kg, 08/14/24 11:50:00 EST, Weight Dosing cefadroxil 500 mg Cap: 500 mg = 1 cap(s), Oral, q12hr, X 2 day(s), # 4 cap(s), Refills(s) 0, Pharmacy: [facility] [id number], 173, cm, 08/14/24 11:50:00 EST, Height/Length Dosing, 78.1, kg, 08/14/24 11:50:00 EST, Weight Dosing gabapentin 300 mg Cap: 300 mg = 1 cap(s), Oral, TID, # 270 cap(s), Refills(s) 1, Pharmacy: [facility] [id number], 168, cm, 04/04/24 10:22:00 EDT, Height/Length Dosing, 81.2, kg, 04/04/24 10:22:00 EDT, Weight Dosing tiZANidine 4 mg Tab: 4 mg = 1 tab(s), Oral, q8hr, 60 tab(s), X 90 day(s), # 270 tab(s), Refills(s) 3, Pharmacy: [facility] [id number], 168, cm, 01/04/24 11:11:00 EDT, Height/Length Dosing, 82.3, kg, 01/04/24 11:11:00 EDT, Weight Dosing verapamil 240 mg ER Tab: 240 mg = 1 tab(s), Oral, Daily, X 90 day(s), # 90 tab(s), Refills(s) 3, Pharmacy: [facility] [id number], 168, cm, 01/04/24 11:11:00 EDT, Height/Length Dosing, 82.3, kg, 01/04/24 11:11:00 EDT, Weight Dosing Documented Medications Documented Vitamin B12: 1,000 microgram, Oral, Daily, Take 1 tab Wednesday, Wednesday, Refills(s) 0 aspirin 81 mg Oral EC Tab: 81 mg = 1 tab(s), Oral, Daily, Refills(s) 0 cholecalciferol 1000 intl units oral capsule: 1,000 International_Unit = 1 cap(s), Oral, Daily, Refills(s) 0, Prophylaxis folic acid 1 mg Tab: 1 mg = 1 tab(s), Oral, Daily, Refills(s) 0, Prophylaxis losartan 50 mg Tab: 50 mg = 1 tab(s), Oral, Daily, Refills(s) 0, High blood pressure magnesium oxide: Oral, one tab once per day per pt, Refills(s) 0 meclizine 25 mg Tab: 25 mg = 1 tab(s), Oral, PRN Dizziness, Refills(s) 0 melatonin: 10 mg, Oral, Once a day (at bedtime), Refills(s) 0 meloxicam 15 mg Tab: 15 mg = 1 tab(s), Oral, Daily, Refills(s) 0 methotrexate 2.5 mg Tab: 25 mg = 10 tab(s), Oral, qWeek, Take every Wednesday, Refills(s) 0 omeprazole 20 mg Cap-DR: 20 mg = 1 cap(s), Oral, Daily, Refills(s) 0, Indigestion pravastatin 20 mg Tab: 20 mg = 1 tab(s), Oral, Daily, Refills(s) 0, High cholesterol tamsulosin 0.4 mg Cap: 0.4 mg = 1 cap(s), Oral, Daily, # 90 cap(s), Refills(s) 0, Urinary discomfort, Home Medications (21) Active acetaminophen-hydrocodone 325 mg-7.5 mg oral tablet See Instructions allopurinol 100 mg Tab See Instructions aspirin 81 mg Oral EC Tab 81 mg = 1 tab(s), Oral, Daily aspirin 81 mg Oral EC Tab 81 mg = 1 tab(s), Oral, BID cefadroxil 500 mg Cap 500 mg = 1 cap(s), Oral, q12hr cholecalciferol 1000 intl units oral capsule 1,000 International_Unit = 1 cap(s), Oral, Daily Colace 100 mg Cap 100 mg = 1 cap(s), PRN, Oral, BID folic acid 1 mg Tab 1 mg = 1 tab(s), Oral, Daily gabapentin 300 mg Cap 300 mg = 1 cap(s), Oral, TID losartan 50 mg Tab 50 mg = 1 tab(s), Oral, Daily magnesium oxide , Oral meclizine 25 mg Tab 25 mg = 1 tab(s), PRN, Oral melatonin 10 mg, Oral, Once a day (at bedtime) meloxicam 15 mg Tab 15 mg = 1 tab(s), Oral, Daily methotrexate 2.5 mg Tab 25 mg = 10 tab(s), Oral, qWeek omeprazole 20 mg Cap-DR 20 mg = 1 cap(s), Oral, Daily pravastatin 20 mg Tab 20 mg = 1 tab(s), Oral, Daily tamsulosin 0.4 mg Cap 0.4 mg = 1 cap(s), Oral, Daily tiZANidine 4 mg Tab 4 mg = 1 tab(s), Oral, q8hr verapamil 240 mg ER Tab 240 mg = 1 tab(s), Oral, Daily Vitamin B12 1,000 microgram, Oral, Daily , Medications (14) Active Scheduled: (6) acetaminophen 325 mg Tab UD [F] 650 mg 2 tab(s), Oral, q6hr ascorbic acid 500 mg Tab [F] 500 mg 1 tab(s), Oral, BIDWM ceFAZolin + Sodium Chloride 0.9% Minibag 50 mL 2 gm 1 EA, IV Piggyback, q8hr docusate sodium 100 mg Cap [F] 100 mg 1 cap(s), Oral, BID ferrous sulfate 325 mg Tab [F] 325 mg 1 tab(s), Oral, BIDWM pantoprazole [address] Tab [F] 40 mg 1 tab(s), Oral, Daily Continuous: (2) Lactated Ringers 1,000 mL 1,000 mL, IV, 80 mL/hr Sodium Chloride 0.9% 1,000 mL 1,000 mL, IV, 150 mL/hr PRN: (6) acetaminophen-HYDROcodone 325 mg-5 mg Tab [F] 1.5 tab(s), Oral, q6hr bisacodyl 5 mg Oral EC Tab [F] 10 mg 2 tab(s), Oral, Daily magnesium hydroxide 8% Oral Susp 30 mL [F] 30 mL, Oral, BID ondansetron 2 mg/mL Inj [F] 4 mg 2 mL, IV Push, q6hr oxyCODONE 5 mg Tab UD [F] 5 mg 1 tab(s), Oral, q4hr oxyCODONE 5 mg Tab UD [F] 10 mg 2 tab(s), Oral, q4hr Problem list: All Problems Ankylosing spondylitis of multiple sites in spine / ICD-10-CM M45.0 / Confirmed BMI 29.0-29.9,adult / SNOMED CT 0078927076 / Confirmed BPH with urinary obstruction / SNOMED CT 9534088175 / Confirmed Chronic gout without tophus / SNOMED CT 7383126148 / Confirmed Degenerative joint disease of knee, right / SNOMED CT 2306593626 / Confirmed Failed back syndrome / SNOMED CT 411800445 / Confirmed GERD without esophagitis / SNOMED CT 5784966639 / Confirmed H/O: osteoarthritis / SNOMED CT 235973166 / Confirmed History of prostate cancer / SNOMED CT 7093975252 / Confirmed Hx of TIA (transient ischemic attack) and stroke / SNOMED CT 8452710555 / Confirmed Hypertension / SNOMED CT 5020790022 / Confirmed Left hip pain / SNOMED CT 46002723 / Confirmed Long-term current use of opiate analgesic drug / SNOMED CT 796945351241833 / Confirmed Added secondary to current Opioid Treatment Agreement Mixed hyperlipidemia / SNOMED CT 275434093 / Confirmed Nocturia / SNOMED CT 813573826 / Confirmed Over weight / SNOMED CT 121788563 / Confirmed Right knee pain / SNOMED CT 6918887018 / Confirmed Spondylosis of lumbar region without myelopathy or radiculopathy / SNOMED CT 27984100 / Confirmed Urge incontinence / SNOMED CT 087063779 / Confirmed Urinary frequency / SNOMED CT 578462470 / Confirmed Resolved: Annual visit for general adult medical examination with abnormal findings / SNOMED CT 257783479 Resolved: - Ankylosing spondylitis / SNOMED CT 2710320329 Resolved: BMI 26.0-26.9,adult / SNOMED CT 2175710339 Resolved: Cancer of prostate / SNOMED CT 0437128577 Resolved: Caudal epidural / SNOMED CT 943953412 Resolved: H/O: rheumatoid arthritis / SNOMED CT 954596254 Resolved: Smoker / SNOMED CT 875656104 Added secondary to documentation in Social History. 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 TIA (273540022): Resolved. Cancer of prostate (7701332395): Resolved. H/O: rheumatoid arthritis (658969094): Resolved. - Ankylosing spondylitis (0946974740): Resolved. Smoker (294641207): Resolved. Comments: 09/26/2019 EDT 11:23 EDT - SYSTEM, SYSTEM Added secondary to documentation in Social History. BMI 26.0-26.9,adult (0104834628): Resolved. Annual visit for general adult medical examination with abnormal findings (261924902): Resolved. Family History: Hypertension Mother Stroke Father Metastatic cancer Brother Procedure history: Total knee replacement ([id number]) on 08/15/2024 at 79 Years. Caudal epidural ([id number]) on 01/23/2020 at 74 Years. Comments: 02/09/2020 10:11 EDSamanta Archuleta RN 90-95% relief to present Radiofrequency ablation of medial branch of lumbar nerve using fluoroscopic guidance ([id number]) on 11/28/2019 at 74 Years. Comments: 12/25/2019 10:59 Tea Lowery RN Left L3-S1 RGA 90-95% relief 12/25/2019 10:27 EDT - Brenda Nowak L3/4, L4/5 + L5/S1 90-95% relief Injection of sacroiliac joint using fluoroscopic guidance ([id number]) on 07/25/2019 at 74 Years. Comments: 08/07/2019 13:09 Jocy Lorenzana RN right 80% relief Injection of hip using fluoroscopic guidance ([id number]) on 06/19/2019 at 74 Years. Comments: 07/04/2019 8:41 Rosie Milan RN right hip-50% relief x 2 days Radiofrequency ablation of medial branch of lumbar nerve using fluoroscopic guidance ([id number]) on 11/15/2018 at 73 Years. Comments: 12/12/2018 11:11 EDT - Brenda Nowak left RFA L3-S1 90% to present Epidural injection of lumbar spine using fluoroscopic guidance ([id number]) on 09/12/2018 at 73 Years. Comments: 10/11/2018 10:57 EDT - Martin RN, Samanta Abel caudal 90% relief in pelvis area to present, 30% relief in lower back Cataract fragments in the eye post cataract surgery ([id number]) on 07/26/2018 at 73 Years. Small bowel resection ([id number]) on 06/24/2018 at 73 Years. Right hip injection on 06/13/2018 at 73 Years. Comments: 06/30/2018 8:28 Rosie Milan RN 98% relief since bowel resection on 04/24/2018 at 73 Years. Radiofrequency ablation of medial branch of lumbar nerve using fluoroscopic guidance ([id number]) on 04/18/2018 at 72 Years. Comments: 05/19/2018 8:07 Lesley Vergara RN left tL3/4, L4/5, L5/S1 - 95% relief to present Left Ischial Bursa Injection on 07/26/2017 at 72 Years. Comments: 08/12/2017 13:18 Radha Patel RN ~ 80 % relief day 2 Radiofrequency ablation of medial branch of lumbar nerve using fluoroscopic guidance ([id number]) on 06/14/2017 at 72 Years. Comments: 07/15/2017 11:01 Rosie Milan RN Left L3-S1- 95% relief starting one week after procedure and is still getting 95% relief. Brachytherapy ([id number]) on 05/24/2014 at 69 Years. TRUS/ Bx ([id number]) on 02/02/2014 at 68 Years. Caudal epidural ([id number]). lumbar facet medial branch block. Comments: 06/10/2017 13:26 Radha Patel RN left l3,l4,l5 Appendectomy ([id number]). Achilles tendon repair ([id number]). Comments: 06/10/2017 13:35 Radha Patel RN 1989 achilles tendon repair. Comments: 06/10/2017 13:35 Radha Patel RN 1993 retina repair. Comments: 06/10/2017 13:35 Radha Patel RN Rotator cuff repair ([id number]). Comments: 06/10/2017 13:36 Radha Patel RN 2001.2004 rotator cuff repair. Comments: 06/10/2017 13:37 NOHEMI Richards RN, Radha right 2002.2005 Laminectomy ([id number]). Comments: 06/10/2017 13:39 Radha Patel RN lumbar L2-5 Arthroscope ([id number]). Comments: 06/10/2017 13:39 Radha Patel RN right knee right wirist. cataract surgery. 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 - 01/06/2023 11:37 - Bautista Nunn Physical Examination Vital Signs 08/15/2024 9:54 EST Heart Rate Monitored 70 bpm SpO2 95 % 08/15/2024 9:54 EST Respiratory Rate 16 br/min 08/15/2024 9:54 EST Systolic Blood Pressure 136 mmHg Diastolic Blood Pressure 75 mmHg Blood Pressure Location Right arm Mean Arterial Pressure, Monitered 95 mmHg 08/15/2024 9:54 EST Temperature Axillary 36.6 DegC 08/15/2024 9:43 EST Temperature Temporal Artery 36.8 DegC Heart Rate Monitored 72 bpm Respiratory Rate Monitored 13 br/min Systolic Blood Pressure 124 mmHg Diastolic Blood Pressure 72 mmHg Blood Pressure Location Right arm Mean Arterial Pressure, Cuff 89 mmHg SpO2 95 % 08/15/2024 9:33 EST Heart Rate Monitored 75 bpm Respiratory Rate Monitored 17 br/min Systolic Blood Pressure 112 mmHg Diastolic Blood Pressure 63 mmHg Blood Pressure Location Right arm SpO2 95 % 08/15/2024 9:28 EST Heart Rate Monitored 79 bpm Respiratory Rate Monitored 16 br/min Systolic Blood Pressure 112 mmHg Diastolic Blood Pressure 63 mmHg Blood Pressure Location Right arm SpO2 95 % 08/15/2024 9:23 EST Heart Rate Monitored 82 bpm Respiratory Rate Monitored 11 br/min Systolic Blood Pressure 116 mmHg Diastolic Blood Pressure 63 mmHg Blood Pressure Location Right arm SpO2 95 % 08/15/2024 9:18 EST Temperature Temporal Artery 36.5 DegC Heart Rate Monitored 81 bpm Respiratory Rate Monitored 17 br/min Systolic Blood Pressure 103 mmHg Diastolic Blood Pressure 59 mmHg Blood Pressure Location Right arm Mean Arterial Pressure, Cuff 74 mmHg SpO2 93 % 08/15/2024 9:15 EST Respiratory Rate 1 br/min br/min 08/15/2024 9:10 EST Heart Rate Monitored 77 bpm bpm SpO2 99 % % 08/15/2024 9:09 EST Systolic Blood Pressure 91 mmHg mmHg Diastolic Blood Pressure 53 mmHg mmHg 08/15/2024 9:06 EST Systolic Blood Pressure 92 mmHg mmHg Diastolic Blood Pressure 48 mmHg mmHg 08/15/2024 9:05 EST Heart Rate Monitored 74 bpm bpm SpO2 99 % % 08/15/2024 9:03 EST Systolic Blood Pressure 91 mmHg mmHg Diastolic Blood Pressure 47 mmHg mmHg 08/15/2024 9:00 EST Heart Rate Monitored 74 bpm bpm Systolic Blood Pressure 90 mmHg mmHg Diastolic Blood Pressure 49 mmHg mmHg SpO2 98 % % 08/15/2024 8:57 EST Systolic Blood Pressure 92 mmHg mmHg Diastolic Blood Pressure 48 mmHg mmHg 08/15/2024 8:55 EST Heart Rate Monitored 76 bpm bpm SpO2 98 % % 08/15/2024 8:54 EST Systolic Blood Pressure 90 mmHg mmHg Diastolic Blood Pressure 48 mmHg mmHg 08/15/2024 8:51 EST Systolic Blood Pressure 89 mmHg mmHg Diastolic Blood Pressure 49 mmHg mmHg 08/15/2024 8:50 EST Heart Rate Monitored 76 bpm bpm SpO2 98 % % 08/15/2024 8:48 EST Systolic Blood Pressure 90 mmHg mmHg Diastolic Blood Pressure 49 mmHg mmHg 08/15/2024 8:45 EST Heart Rate Monitored 76 bpm bpm Systolic Blood Pressure 91 mmHg mmHg Diastolic Blood Pressure 47 mmHg mmHg SpO2 98 % % 08/15/2024 8:42 EST Systolic Blood Pressure 102 mmHg mmHg Diastolic Blood Pressure 46 mmHg mmHg 08/15/2024 8:40 EST Heart Rate Monitored 74 bpm bpm SpO2 98 % % 08/15/2024 8:39 EST Systolic Blood Pressure 86 mmHg mmHg Diastolic Blood Pressure 50 mmHg mmHg 08/15/2024 8:36 EST Systolic Blood Pressure 87 mmHg mmHg Diastolic Blood Pressure 50 mmHg mmHg 08/15/2024 8:35 EST Heart Rate Monitored 76 bpm bpm SpO2 99 % % 08/15/2024 8:33 EST Systolic Blood Pressure 90 mmHg mmHg Diastolic Blood Pressure 47 mmHg mmHg 08/15/2024 8:30 EST Heart Rate Monitored 73 bpm bpm Systolic Blood Pressure 80 mmHg mmHg Diastolic Blood Pressure 43 mmHg mmHg SpO2 98 % % 08/15/2024 8:27 EST Systolic Blood Pressure 84 mmHg mmHg Diastolic Blood Pressure 45 mmHg mmHg 08/15/2024 8:25 EST Heart Rate Monitored 72 bpm bpm SpO2 98 % % 08/15/2024 8:24 EST Systolic Blood Pressure 83 mmHg mmHg Diastolic Blood Pressure 44 mmHg mmHg 08/15/2024 8:21 EST Systolic Blood Pressure 84 mmHg mmHg Diastolic Blood Pressure 48 mmHg mmHg 08/15/2024 8:20 EST Heart Rate Monitored 72 bpm bpm SpO2 98 % % 08/15/2024 8:18 EST Systolic Blood Pressure 83 mmHg mmHg Diastolic Blood Pressure 44 mmHg mmHg 08/15/2024 8:15 EST Heart Rate Monitored 70 bpm bpm Systolic Blood Pressure 79 mmHg mmHg Diastolic Blood Pressure 47 mmHg mmHg SpO2 99 % % 08/15/2024 8:12 EST Systolic Blood Pressure 82 mmHg mmHg Diastolic Blood Pressure 43 mmHg mmHg 08/15/2024 8:10 EST Heart Rate Monitored 71 bpm bpm SpO2 98 % % 08/15/2024 8:09 EST Systolic Blood Pressure 84 mmHg mmHg Diastolic Blood Pressure 48 mmHg mmHg 08/15/2024 8:06 EST Systolic Blood Pressure 87 mmHg mmHg Diastolic Blood Pressure 45 mmHg mmHg 08/15/2024 8:05 EST Heart Rate Monitored 72 bpm bpm SpO2 99 % % 08/15/2024 8:03 EST Systolic Blood Pressure 90 mmHg mmHg Diastolic Blood Pressure 49 mmHg mmHg 08/15/2024 8:00 EST Heart Rate Monitored 71 bpm bpm Systolic Blood Pressure 93 mmHg mmHg Diastolic Blood Pressure 49 mmHg mmHg SpO2 99 % % 08/15/2024 7:57 EST Systolic Blood Pressure 91 mmHg mmHg Diastolic Blood Pressure 52 mmHg mmHg 08/15/2024 7:55 EST Heart Rate Monitored 71 bpm bpm SpO2 99 % % 08/15/2024 7:54 EST Systolic Blood Pressure 87 mmHg mmHg Diastolic Blood Pressure 46 mmHg mmHg 08/15/2024 7:51 EST Systolic Blood Pressure 94 mmHg mmHg Diastolic Blood Pressure 50 mmHg mmHg 08/15/2024 7:50 EST Heart Rate Monitored 70 bpm bpm SpO2 99 % % 08/15/2024 7:48 EST Systolic Blood Pressure 98 mmHg mmHg Diastolic Blood Pressure 51 mmHg mmHg 08/15/2024 7:45 EST Heart Rate Monitored 74 bpm bpm Systolic Blood Pressure 104 mmHg mmHg Diastolic Blood Pressure 55 mmHg mmHg SpO2 98 % % 08/15/2024 7:42 EST Systolic Blood Pressure 114 mmHg mmHg Diastolic Blood Pressure 57 mmHg mmHg 08/15/2024 7:41 EST Systolic Blood Pressure 131 mmHg mmHg Diastolic Blood Pressure 66 mmHg mmHg 08/15/2024 7:40 EST Heart Rate Monitored 85 bpm bpm Respiratory Rate 1 br/min br/min SpO2 98 % % 08/15/2024 7:39 EST Systolic Blood Pressure 164 mmHg mmHg Diastolic Blood Pressure 64 mmHg mmHg 08/15/2024 7:36 EST Systolic Blood Pressure 186 mmHg mmHg Diastolic Blood Pressure 89 mmHg mmHg 08/15/2024 7:35 EST Heart Rate Monitored 89 bpm bpm SpO2 97 % % 08/15/2024 7:33 EST Systolic Blood Pressure 183 mmHg mmHg Diastolic Blood Pressure 97 mmHg mmHg 08/15/2024 6:24 EST Heart Rate Monitored 101 bpm HI Systolic Blood Pressure 172 mmHg HI Diastolic Blood Pressure 94 mmHg HI Blood Pressure Location Left arm Mean Arterial Pressure, Monitered 120 mmHg 08/15/2024 6:24 EST Apical Heart Rate 78 bpm 08/15/2024 6:23 EST Heart Rate Monitored 101 bpm HI SpO2 98 % 08/15/2024 6:23 EST Respiratory Rate 20 br/min 08/15/2024 6:22 EST Systolic Blood Pressure 178 mmHg HI Diastolic Blood Pressure 91 mmHg HI Blood Pressure Location Right arm Mean Arterial Pressure, Monitered 120 mmHg 08/15/2024 6:22 EST Temperature Axillary 36.6 DegC 08/14/2024 11:52 EST Peripheral Pulse Rate 97 bpm Systolic Blood Pressure 159 mmHg HI Diastolic Blood Pressure 94 mmHg HI Mean Arterial Pressure, Cuff 116 mmHg 08/14/2024 11:46 EST Temperature Oral 37 DegC Peripheral Pulse Rate 97 bpm Respiratory Rate 18 br/min Systolic Blood Pressure 161 mmHg HI Diastolic Blood Pressure 90 mmHg HI Blood Pressure Location Left arm Vital Signs (last 24 hrs) Last Charted Temp Genyqppj16.6 DegC (AUG 15 09:54) Heart Rate Tgiyslirj36 bpm (AUG 15 09:54) Resp Rate13 br/min (AUG 15 09:43) ROU009 mmHg (AUG 15 09:54) DBP75 mmHg (AUG 15 09:54) Measurements from flowsheet : Measurements 08/15/2024 6:40 EST Height/Length Measured 169 cm Weight Measured 80.5 kg 08/14/2024 11:46 EST Height/Length Measured 173 cm Height/Length Dosing 173.0 cm Weight Dosing 78.1 kg Body Mass Index Measured 26.1 kg/m2 Weight Measured 78.1 kg Weight in Pounds 172.181 lb Height in Inches 68 in Airway: Mallampati classification: II (soft palate, fauces, uvula visible). Respiratory: Lungs are clear to auscultation, Respirations are non-labored, adequate air exchange. Cardiovascular: Regular rhythm, No murmur. Review / Management Results review: No qualifying data available , Lab results 08/15/2024 7:00 EST ABO/Rh Interp A POS ABSC Gel Interp Negative . Interpretation: reviewed MPS. Plan [place] [employer] (ASA) physical status classification: Class III. Anesthetic Preoperative Plan: Anesthesia. Regional Spinal, and ACB. Addendum by Gustabo Starks MD on 2024 13:54 EST OK Future Appointments Appointment Date:09/26/2024 01:40:00 PM Scheduled Provider:Arturo Beach Location:[facility] ([facility]) Appointment Type: Open Appointment Date:01/02/2025 11:00:00 AM Scheduled Provider: Location:[facility] ([facility]) Appointment Type: Medicare Wellness Subsequent Appointment Date:08/17/2025 08:45:00 AM Scheduled Provider:Campos PURI MD Location:[facility] Appointment Type:URO Office Visit [facility] 02-04-2025 NoteProgress Note-Physician Patient: LAMBERTO MENDES Age: 79 years Sex: Male : 1945 Associated Diagnoses: None Author: Gustabo Starks MD Postoperative Information Postoperative disposition: Postoperative disposition: To PACU. Optimetrix number: Optimetrix number [id number]. Anesthetic utilized: Regional: Spinal, ACB. Health Status Allergies: Allergic Reactions (Selected) Severity Not Documented Ativan- Lethargic, sweating and vomit. Physical Examination Vital Signs 08/15/2024 9:43 EST Temperature Temporal Artery 36.8 DegC Heart Rate Monitored 72 bpm Respiratory Rate Monitored 13 br/min Systolic Blood Pressure 124 mmHg Diastolic Blood Pressure 72 mmHg Blood Pressure Location Right arm Mean Arterial Pressure, Cuff 89 mmHg SpO2 95 % Pain Assessment: Controlled. General: Awake, Appropriate. Respiratory: Adequate air exchange. Cardiovascular: Stable. Neurological Assessment Anesthetic outcome No anesthetic complications noted. Adequate pain relief. Review / Management Condition: Stable. Plan Transfer/Discharge: Transfer/Discharge Discharge when meets criteria ( To home ).[facility]:Result Comment: Electronically Signed By: Gustabo Starks MD\.br\Date and Time Signed: 08/15/24 13:57 EST 08-15-2024 NoteProgress Note-Physician Patient: LAMBERTO MENDES Age: 79 years Sex: Male : 1945 Associated Diagnoses: None Author: Gustabo Starks MD Preoperative Information Anesthesia Preop Info: Time patient last ate or drank 08/15/2024 00:00:00. Anesthesia history: Patient history: None. Family history+: None. Informed consent: Signed by patient. Re-evaluation prior to induction: Initial evaluation reviewed: No significant change. Review of Systems Eye Ear/Nose/Mouth/Throat Respiratory: No shortness of breath, No cough. Cardiovascular: Negative, No chest pain. Gastrointestinal: No heartburn. Musculoskeletal Neurologic Health Status Allergies: Allergic Reactions (Selected) Severity Not Documented Ativan- Lethargic, sweating and vomit., Allergies (1) Active Severity Reaction Ativan lethargic, Sweating, Vomit Current medications: (Selected) Inpatient Medications Ordered Colace 100 mg Cap: 100 mg = 1 cap(s), Cap, Oral, BID, Routine, Start date 08/15/24 21:00:00 EST Dulcolax 5 mg Tab-EC: 10 mg = 2 tab(s), Tab-EC, Oral, Daily PRN Constipation, Routine, Start date 08/17/24 9:25:00 EST Lactated Ringers IV Caty 1000 mL 1,000 mL: 1,000 mL, IV, 80 mL/hr, Routine, Start date 08/15/24 9:25:00 EST, 12.5 hour(s), Total volume (mL): 1,000, 78.1 kg, 1.94, m2 Milk of Magnesia 8% Susp-Oral: 30 mL, Susp-Oral, Oral, BID PRN Constipation, Routine, Start date 08/15/24 9:25:00 EST Pantoprazole [address] Tab: 40 mg = 1 tab(s), Tab-DR, Oral, Daily, Routine, Start date 08/16/24 9:00:00 EST Sodium Chloride 0.9% IV Caty 1000 mL 1,000 mL: 1,000 mL, IV, 150 mL/hr, Routine, Start date 256:00:00 EST, 6.7 hour(s), Total volume (mL): 1,000, 78.1 kg, 1.94, m2 Vitamin C 500 mg Tab: 500 mg = 1 tab(s), Tab, Oral, BIDWM, Routine, Start date 08/15/24 17:00:00 EST Zofran 4 mg/2 mL Injection: 4 mg = 2 mL, Injection, IV Push, q6hr PRN Nausea/Vomiting, Routine, Start date 08/15/24 9:25:00 EST, 08/15/24 9:25:00 EST acetaminophen 325 mg Tab: 650 mg = 2 tab(s), Tab, Oral, q6hr for 3 dose(s), Stop date 08/16/24 8:59:00 EST, Routine, Start date 08/15/24 15:00:00 EST acetaminophen-hydrocodone 325 mg-5 mg oral tablet: 1.5 tab(s), Tab, Oral, q6hr PRN Pain for 5 day(s), Stop date 08/20/24 10:07:00 EST, Routine, Start date 08/15/24 10:08:00 EST cefazolin additive + Sodium Chloride 0.9% intravenous solution 50 mL: 2 gm = 1 EA, Powder-Inj, IV Piggyback, q8hr for 2 dose(s), Stop date 08/16/24 7:29:00 EST, Routine, Start date 08/15/24 15:30:00 EST, 100 mL/hr, Infuse over 30 minute(s) ferrous sulfate 325 mg Tab: 325 mg = 1 tab(s), Tab, Oral, BIDWM, Routine, Start date 08/15/24 17:00:00 EST oxyCODONE 5 mg Tab: 10 mg = 2 tab(s), Tab, Oral, q4hr PRN Pain 8-10 for 5 day(s), Stop date 08/20/24 9:24:00 EST, Routine, Start date 08/15/24 9:25:00 EST, 08/15/24 9:25:00 EST oxyCODONE 5 mg Tab: 5 mg = 1 tab(s), Tab, Oral, q4hr PRN Pain 8-10 for 5 day(s), Stop date :24:00 EST, Routine, Start date 08/15/24 9:25:00 EST, 08/15/24 9:25:00 EST Prescriptions Prescribed Colace 100 mg Cap: 100 mg = 1 cap(s), Oral, BID, PRN for constipation, # 40 cap(s), Refills(s) 0, Pharmacy: [facility] [id number], 173, cm, 08/14/24 11:50:00 EST, Height/Length Dosing, 78.1, kg, 08/14/24 11:50:00 EST, Weight Dosing acetaminophen-hydrocodone 325 mg-7.5 mg oral tablet: See Instructions, 90 tab(s), Refill(s) 0, TAKE1 TABLET BY MOUTH EVERY 8 HOURS NEEDED FOR PAIN, [facility] [id number], 169, cm, 08/07/24 5:47:00 EST, Height/Length Dosing, 80.5, kg, 08/07/24 5:47:00 EST, Weight Dosing allopurinol 100 mg Tab: See Instructions, TAKE 1 TABLET BY MOUTH DAILY, # 90 tab(s), Refills(s) 0, Pharmacy: [facility] [id number], 168, cm, 04/04/24 10:22:00 EDT, Height/Length Dosing, 81.2, kg, 04/04/24 10:22:00 EDT, Weight Dosing aspirin 81 mg Oral EC Tab: 81 mg = 1 tab(s), Oral, BID, # 60 tab(s), Refills(s) 0, [facility] [id number], 173, cm, 08/14/24 11:50:00 EST, Height/Length Dosing, 78.1, kg, 08/14/24 11:50:00 EST, Weight Dosing cefadroxil 500 mg Cap: 500 mg = 1 cap(s), Oral, q12hr, X 2 day(s), # 4 cap(s), Refills(s) 0, Pharmacy: [facility] [id number], 173, cm, 08/14/24 11:50:00 EST, Height/Length Dosing, 78.1, kg, 08/14/24 11:50:00 EST, Weight Dosing gabapentin 300 mg Cap: 300 mg = 1 cap(s), Oral, TID, # 270 cap(s), Refills(s) 1, Pharmacy: [facility] [id number], 168, cm, 04/04/24 10:22:00 EDT, Height/Length Dosing, 81.2, kg, 04/04/24 10:22:00 EDT, Weight Dosing tiZANidine 4 mg Tab: 4 mg = 1 tab(s), Oral, q8hr, 60 tab(s), X 90 day(s), # 270 tab(s), Refills(s) 3, Pharmacy: [facility] [id number], 168, cm, 01/04/24 11:11:00 EDT, Height/Length Dosing, 82.3, kg, 01/04/24 11:11:00 EDT, Weight Dosing verapamil 240 mg ER Tab: 240 mg = 1 tab(s), Oral, Daily, X 90 day(s), # 90 tab(s), Refills(s) 3, Pharmacy: [facility] [id number], 168, cm, 01/04/24 11:11:00 EDT, Height/Length Dosing, 82.3, kg, 01/04/24 11:11:00 EDT, Weight Dosing Documented (more content not included)...[facility] CenterComment on above:Result Comment: Electronically Signed By: Raudel GAINES, Gustabo Vasuqes\.br\Date and Time Signed: 08/15/24 13:54 [id number] Hospital Discharge instructions Patient Education 08/15/2024 09:11:53 How to Use an Incentive Spirometer How to Use an Incentive Spirometer An incentive spirometer is a tool that measures how well you are filling your lungs with each breath. Learning to take long, deep breaths using this tool can help you keep your lungs clear and active. This may help to reverse or lessen your chance of developing breathing (pulmonary) problems, especially infection. You may be asked to use a spirometer: After a surgery. If you have a lung problem or a history of smoking. After a long period of time when you have been unable to move or be active. If the spirometer includes an indicator to show the highest number that you have reached, your health care provider or respiratory therapist will help you set a goal. Keep a log of your progress as told by your health care provider. What are the risks? Breathing too quickly may cause dizziness or cause you to pass out. Take your time so you do not get dizzy or light-headed. If you are in pain, you may need to take pain medicine before doing incentive spirometry. It is harder to take a deep breath if you are having pain. How to use your incentive spirometer 1.Sit up on the edge of your bed or on a chair. 2.Hold the incentive spirometer so that it is in an upright position. 3.Before you use the spirometer, breathe out normally. 4.Place the mouthpiece in your mouth. Make sure your lips are closed tightly around it. 5.Breathe in slowly and as deeply as you can through your mouth, causing the piston or the ball to rise toward the top of the chamber. 6.Hold your breath for 3 5 seconds, or for as long as possible. If the spirometer includes a head boys golf coach indicator, use this to guide you in breathing. Slow down your breathing if the indicator goes above the marked areas. 7.Remove the mouthpiece from your mouth and breathe out normally. The piston or ball will return tothe bottom of the chamber. 8.Rest for a few seconds, then repeat the steps 10 or more times. Take your time and take a few normal breaths between deep breaths so that you do not get dizzy or light-headed. Do this every 1 2 hours when you are awake. 9.If the spirometer includes a goal marker to show the highest number you have reached (best effort), use this as a goal to work toward during each repetition. 10.After each set of 10 deep breaths, cough a few times. This will help to make sure that your lungs are clear. If you have an incision on your chest or abdomen from surgery, place a pillow or a rolled-up towel firmly against the incision when you cough. This can help to reduce pain while taking deep breaths and coughing. General tips When you are able to get out of bed: ?Walk around often. ?Continue to take deep breaths and cough in order to clear your lungs. Keep using the incentive spirometer until your health care provider says it is okay to stop using it. If you have been in the hospital, you may be told to keep using the spirometer at home. Contact a health care provider if: You are having difficulty using the spirometer. You have trouble using the spirometer as often as instructed. Your pain medicine is not giving enough relief for you to use the spirometer as told. You have a fever. Get help right away if: You develop shortness of breath. You develop a cough with bloody mucus from the lungs. You have fluid or blood coming from an incision site after you cough. Summary An incentive spirometer is a tool that can help you learn to take long, deep breaths to keep your lungs clear and active. You may be asked to use a spirometer after a surgery, if you have a lung problem or a history of smoking, or if you have been inactive for a long period of time. Use your incentive spirometer as instructed every 1 2 hours while you are awake. If you have an incision on your chest or abdomen, place a pillow or a rolled-up towel firmly against your incision when you cough. This will help to reduce pain. Get help right away if you have shortness of breath, you cough up bloody mucus, or blood comes fromyour incision when you cough. This information is not intended to replace advice given to you by your health care provider. Make sure you discuss any questions you have with your health care provider. Document Revised: 09/16/2020 Document Reviewed: 09/16/2020 Elsevier Patient Education 2023 [employer] 08/15/2024 09:11:53 Knee Cryocuff Patient Instructions - FT (CUSTOM) 08/15/2024 09:11:51 Post Op Patient Instructions - FT (CUSTOM) 08/15/2024 07:06:34 [place]os - Total Knee Arthroplasty. Revised 09/22/22. (Custom) [place], [place] [facility] DISCHARGE INSTRUCTIONS TOTAL KNEE ARTHROPLASTY INCISION CARE: Continue the daily dressing care to the knee as instructed in the hospital for 7 days postoperatively. The dressing will then be changed and worn an additional 7 days. You may then discontinue the dressing changes. Remove the dressing on the lower leg postoperative day #3 and leave this area open to the air. Please notify the office if any increase in redness, tenderness, drainage, fever, or wound separation is noted. MEDICATIONS: You may resume your home medications at the time of discharge. Pain medication as ordered. Dr. Hernandez will continue to manage. Any questions regarding pain medication should be referred to Dr. Hernandez. You may take up to 3,000 mg of acetaminophen (Tylenol) daily. Would suggest 650- 1,000 mg three times daily. Cefadroxil (Duricef) as prescribed for 4 doses. Start with the vening dose the day of surgery. Ecotrin Aspirin (81 mg) twice daily with food for a total of 4 weeks postoperatively. You may continue to use the pain medication every four hours as needed. Any narcotic pain medication can cause side effects including stomach upset, constipation, or light-headedness. You should not drive or operate machinery, or use alcohol while using the narcotic pain medication. You should not use other pain medications with this prescription pain medication unless further directed by your physician. PHYSICAL THERAPY: Continue the range of motion and strengthening exercises initiated in Physical Therapy in the hospital. [facility] Discharge Instructions for TKAPage 2 Physical Therapy Cont. Continue weight bearing, as ordered, to the operated knee for four to six weeks as directed in Physical Therapy. This will be with the use of a walker or crutches initially. The Physical Therapist will help decide when to transition to a cane. Physical therapy as begun in the hospital will continue at home, possible with the psych assistant of Home Health Physical Therapy or in the hospital as an outpatient. When you have become independent withthe physical therapy program, this will then be discontinued as a supervised program and you will be instructed to continue the physical therapy exercises at home. Your exercises are corado to successful rehabilitation. You should gain full extension first, hopefully before hospital discharge, then continue to do the exercises to maintain this, and gain 90 degreesflexion by one month post-op. Do the exercises daily, twice if preferred. DRIVING: Do NOT Drive FOLLOW-UP OFFICE VISIT: 4 weeks postop. Sarai Pinedo, DO [facility] [address] [place] [id number] Reviewed: 10-17 Revised 07/23 Follow Up Care 07/26/2024 14:20:10 With:Sarai Pinedo Address: [address] [place] [phone] Business (1) When:09/15/2024 09:00:00 Comments:Call for any problems. [facility] 02-04-2025 NotePatient Education - Text Pulmonary Medicine How to Use an Incentive Spirometer An incentive spirometer is a tool that measures how well you are filling your lungs with each breath. Learning to take long, deep breaths using this tool can help you keep your lungs clear and active. This may help to reverse or lessen your chance of developing breathing (pulmonary) problems, especially infection. You may be asked to use a spirometer: ??? After a surgery. ??? If you have a lung problem or a history of smoking. ??? After a long period of time when you have been unable to move or be active. If the spirometer includes an indicator to show the highest number that you have reached, your health care provider or respiratory therapist will help you set a goal. Keep a log of your progress as told by your health care provider. What are the risks? Breathing too quickly may cause dizziness or cause you to pass out. Take your time so you do not get dizzy or light-headed. ??? If you are in pain, you may need to take pain medicine before doing incentive spirometry. It isharder to take a deep breath if you are having pain. How to use your incentive spirometer 1. Sit up on the edge of your bed or on a chair. 2. Hold the incentive spirometer so that it is in an upright position. 3. Before you use the spirometer, breathe out normally. 4. Place the mouthpiece in your mouth. Make sure your lips are closed tightly around it. 5. Breathe in slowly and as deeply as you can through your mouth, causing the piston or the ball torise toward the top of the chamber. 6. Hold your breath for 3?5 seconds, or for as long as possible. ??? If the spirometer includes a head boys golf coach indicator, use this to guide you in breathing. Slow down your breathing if the indicator goes above the marked areas. 7. Remove the mouthpiece from your mouth and breathe out normally. The piston or ball will return to the bottom of the chamber. 8. Rest for a few seconds, then repeat the steps 10 or more times. ??? Take your time and take a few normal breaths between deep breaths so that you do not get dizzy or light-headed. ??? Do this every 1?2 hours when you are awake. 9. If the spirometer includes a goal marker to show the highest number you have reached (best effort), use this as a goal to work toward during each repetition. 10. After each set of 10 deep breaths, cough a few times. This will help to make sure that your lungs are clear. ??? If you have an incision on your chest or abdomen from surgery, place a pillow or a rolled-up towel firmly against the incision when you cough. This can help to reduce pain while taking deep breaths and coughing. General tips ??? When you are able to get out of bed: ? Walk around often. ? Continue to take deep breaths and cough in order to clear your lungs. ??? Keep using the incentive spirometer until your health care provider says it is okay to stop using it. If you have been in the hospital, you may be told to keep using the spirometer at home. Contact a health care provider if: ??? You are having difficulty using the spirometer. ??? You have trouble using the spirometer as often as instructed. ??? Your pain medicine is not giving enough relief for you to use the spirometer as told. ??? You have a fever. Get help right away if: ??? You develop shortness of breath. ??? You develop a cough with bloody mucus from the lungs. ??? You have fluid or blood coming from an incision site after you cough. Summary ??? An incentive spirometer is a tool that can help you learn to take long, deep breaths to keep your lungs clear and active. ??? You may be asked to use a spirometer after a surgery, if you have a lung problem or a history of smoking, or if you have been inactive for a long period of time. ??? Use your incentive spirometer as instructed every 1?2 hours while you are awake. ??? If you have an incision on your chest or abdomen, place a pillow or a rolled-up towel firmly against your incision when you cough. This will help to reduce pain. ??? Get help right away if you have shortness of breath, you cough up bloody mucus, or blood comes from your incision when you cough. This information is not intended to replace advice given to you by your health care provider. Make sure you discuss any questions you have with your health care provider. Document Revised: 09/16/2020 Document Reviewed: 09/16/2020 Elsevier Patient Education ? 2023 [employer]. [place], [place] [facility] DISCHARGE INSTRUCTIONS TOTAL KNEE ARTHROPLASTY INCISION CARE: Continue the daily dressing care to the knee as instructed in the hospital for 7 days postoperatively. The dressing will then be changed and worn an additional 7 days. You may then (more content not included)...[facility] 08-15-2024 NoteProgress Note-Physician Patient: LAMBERTO MENDES Age: 79 years Sex: Male : 1945 Associated Diagnoses: None Author: Sarai Pinedo DO Postoperative Information Procedure: R RA TKA Preoperative Diagnosis: R knee OA. Postoperative Diagnosis: same. Performed by: Nicol. Water Supervisor: Danuta Manzano. Specimens Removed: bone, soft tissue. Prosthesis: Lui Triathalon. . Estimated Blood Loss: 0 ml. Complications: None. Anesthesia type: Spinal, add canal block.[facility] CenterComment on above:Result Comment: Electronically Signed By: Sarai Pinedo DO\.br\Date and Time Signed: 08/15/24 09:06 [id number] NotePatient Education - Text [place], [place] [facility] DISCHARGE INSTRUCTIONS TOTAL KNEE ARTHROPLASTY INCISION CARE: Continue the daily dressing care to the knee as instructed in the hospital for 7 days postoperatively. The dressing will then be changed and worn an additional 7 days. You may then discontinue the dressing changes. Remove the dressing on the lower leg postoperative day #3 and leave this area open to the air. Please notify the office if any increase in redness, tenderness, drainage, fever, or wound separation is noted. MEDICATIONS: You may resume your home medications at the time of discharge. Pain medication as ordered. Dr. Hernandez will continue to manage. Any questions regarding pain medication should be referred to Dr. Hernandez. You may take up to 3,000 mg of acetaminophen (Tylenol) daily. Would suggest 650- 1,000 mg three times daily. Cefadroxil (Duricef) as prescribed for 4 doses. Start with the vening dose the day of surgery. Ecotrin Aspirin (81 mg) twice daily with food for a total of 4 weeks postoperatively. You may continue to use the pain medication every four hours as needed. Any narcotic pain medication can cause side effects including stomach upset, constipation, or light-headedness. You should not drive or operate machinery, or use alcohol while using the narcotic pain medication. You should not use other pain medications with this prescription pain medication unless further directed by your physician. PHYSICAL THERAPY: Continue the range of motion and strengthening exercises initiated in Physical Therapy in the hospital. [facility] Discharge Instructions for TKA Page 2 Physical Therapy Cont. Continue weight bearing, as ordered, to the operated knee for four to six weeks as directed in Physical Therapy. This will be with the use of a walker or crutches initially. The Physical Therapist will help decide when to transition to a cane. Physical therapy as begun in the hospital will continue at home, possible with the psych assistant of Home Health Physical Therapy or in the hospital as an outpatient. When you have become independent withthe physical therapy program, this will then be discontinued as a supervised program and you will be instructed to continue the physical therapy exercises at home. Your exercises are corado to successful rehabilitation. You should gain full extension first, hopefully before hospital discharge, then continue to do the exercises to maintain this, and gain 90 degreesflexion by one month post-op. Do the exercises daily, twice if preferred. DRIVING: Do NOT Drive FOLLOW-UP OFFICE VISIT: 4 weeks postop. Sarai Pinedo, DO [facility] [address] [place] [address] Reviewed: 10-17 Revised 07/23[facility]02-[facility] Hospital Discharge instructions Patient Education 08/14/2024 12:13:41 Prostate Cancer Screening Prostate Cancer Screening Prostate cancer screening is testing that is done to check for the presence of prostate cancer in men. The prostate gland is a walnut-sized gland that is located below the bladder and in front of therectum in males. The function of the prostate is to add fluid to semen during ejaculation. Prostatecancer is one of the most common types of cancer in men. Who should have prostate cancer screening? Screening recommendations vary based on age and other risk factors, as well as between the professional organizations who make the recommendations. In general, screening is recommended if: You are age 50 to 70 and have an average risk for prostate cancer. You should talk with your healthcare provider about your need for screening and how often screening should be done. Because most prostate cancers are slow growing and will not cause , screening in this age group is generally reserved for men who have a 10- to 15-year life expectancy. You are younger than age 50, and you have these risk factors: ?Having a father, brother, or uncle who has been diagnosed with prostate cancer. The risk is higherif your family member's cancer occurred at an early age or if you have multiple family members withprostate cancer at an early age. ?Being a male who is Black or is of Fais[place] or sub-Saharan descent. In general, screening is not recommended if: You are younger than age 40. You are between the ages of 40 and 49 and you have no risk factors. You are 70 years of age or older. At this age, the risks that screening can cause are greater than the benefits that it may provide. If you are at high risk for prostate cancer, your health care provider may recommend that you have screenings more often or that you start screening at a younger age. How is screening for prostate cancer done? The recommended prostate cancer screening test is a blood test called the prostate-specific antigen(PSA) test. PSA is a protein that is made in the prostate. As you age, your prostate naturally produces more PSA. Abnormally high PSA levels may be caused by: Prostate cancer. An enlarged prostate that is not caused by cancer (benign prostatic hyperplasia, or BPH). This condition is very common in older men. A prostate gland infection (prostatitis) or urinary tract infection. Certain medicines such as male hormones (like testosterone) or other medicines that raise testosterone levels. A rectal exam may be done as part of prostate cancer screening to help provide information about the size of your prostate gland. When a rectal exam is performed, it should be done after the PSA level is drawn to avoid any effect on the results. Depending on the PSA results, you may need more tests, such as: A physical exam to check the size of your prostate gland, if not done as part of screening. Blood and imaging tests. A procedure to remove tissue samples from your prostate gland for testing (biopsy). This is the only way to know for certain if you have prostate cancer. What are the benefits of prostate cancer screening? Screening can help to identify cancer at an early stage, before symptoms start and when the cancer can be treated more easily. There is a small chance that screening may lower your risk of dying from prostate cancer. The chance is small because prostate cancer is a slow-growing cancer, and most men with prostate cancer from a different cause. What are the risks of prostate cancer screening? The main risk of prostate cancer screening is diagnosing and treating prostate cancer that would never have caused any symptoms or problems. This is called overdiagnosisand overtreatment. PSA screening cannot tell you if your PSA is high due to cancer or a different cause. A prostate biopsy is the only procedure to diagnose prostate cancer. Even the results of a biopsy may not tell you if your cancer needs to be treated. Slow-growing prostate cancer may not need any treatment other than monitoring, so diagnosing and treating it may cause unnecessary stress or other side effects. Questions to ask your health care provider When should I start prostate cancer screening? What is my risk for prostate cancer? How often do I need screening? What type of screening tests do I need? How do I get my test results? What do my results mean? Do I need treatment? Where to find more information The [place] Cancer Society: www.cancer.org [place] U[employer] Association: www.auanet.org Contact a health care provider if: You have difficulty urinating. You have pain when you urinate or ejaculate. You have blood in your urine or semen. You have pain in your back or in the area of your prostate. Summary Prostate cancer is a common type of cancer in men. The prostate gland is located below the bladder and in front of the rectum. This gland adds fluid to semen during ejaculation. Prostate cancer screening may identify cancer at an early stage, when the cancer can be treated more easily and is less likely to have spread to other areas of the body. The prostate-specific antigen (PSA) test is the recommended screening test for prostate cancer, butit has associated risks. Discuss the risks and benefits of prostate cancer screening with your health care provider. If you are age 70 or older, the risks that screening can cause are greater than the benefits that it may provide. This information is not intended to replace advice given to you by your health care provider. Make sure you discuss any questions you have with your health care provider. Document Revised: 12/22/2021 Document Reviewed: 12/22/2021 [employer] Patient Education 2023 [employer]. Follow Up Care 08/13/2023 12:14:39 With:KHUSHI GAINES, Campos Pickard, URL Address: [facility] [address] , [place] [phone] When: Unknown Comments:1 yr w/ PSA [facility] 02-03-2025 NotePatient Education Oncology Prostate Cancer Screening Prostate cancer screening is testing that is done to check for the presence of prostate cancer in men. The prostate gland is a walnut-sized gland that is located below the bladder and in front of therectum in males. The function of the prostate is to add fluid to semen during ejaculation. Prostatecancer is one of the most common types of cancer in men. Who should have prostate cancer screening? Screening recommendations vary based on age and other risk factors, as well as between the professional organizations who make the recommendations. In general, screening is recommended if: ??? You are age 50 to 70 and have an average risk for prostate cancer. You should talk with your health care provider about your need for screening and how often screening should be done. Because most prostate cancers are slow growing and will not cause , screening in this age group is generally reserved for men who have a 10- to 15-year life expectancy. ??? You are younger than age 50, and you have these risk factors: ? Having a father, brother, or uncle who has been diagnosed with prostate cancer. The risk is higher if your family member's cancer occurred at an early age or if you have multiple family members with prostate cancer at an early age. ? Being a male who is Black or is of [place]ais[place] or sub-Saharan descent. In general, screening is not recommended if: ??? You are younger than age 40. ??? You are between the ages of 40 and 49 and you have no risk factors. ??? You are 70 years of age or older. At this age, the risks that screening can cause are greater than the benefits that it may provide. If you are at high risk for prostate cancer, your health care provider may recommend that you have screenings more often or that you start screening at a younger age. How is screening for prostate cancer done? The recommended prostate cancer screening test is a blood test called the prostate-specific antigen(PSA) test. PSA is a protein that is made in the prostate. As you age, your prostate naturally produces more PSA. Abnormally high PSA levels may be caused by: ??? Prostate cancer. ??? An enlarged prostate that is not caused by cancer (benign prostatic hyperplasia, or BPH). This condition is very common in older men. ??? A prostate gland infection (prostatitis) or urinary tract infection. ??? Certain medicines such as male hormones (like testosterone) or other medicines that raise testosterone levels. A rectal exam may be done as part of prostate cancer screening to help provide information about the size of your prostate gland. When a rectal exam is performed, it should be done after the PSA level is drawn to avoid any effect on the results. Depending on the PSA results, you may need more tests, such as: ??? A physical exam to check the size of your prostate gland, if not done as part of screening. ??? Blood and imaging tests. ??? A procedure to remove tissue samples from your prostate gland for testing (biopsy). This is theonly way to know for certain if you have prostate cancer. What are the benefits of prostate cancer screening? Screening can help to identify cancer at an early stage, before symptoms start and when the cancer can be treated more easily. ??? There is a small chance that screening may lower your risk of dying from prostate cancer. The chance is small because prostate cancer is a slow-growing cancer, and most men with prostate cancer from a different cause. What are the risks of prostate cancer screening? The main risk of prostate cancer screening is diagnosing and treating prostate cancer that would never have caused any symptoms or problems. This is called overdiagnosisand overtreatment. PSA screening cannot tell you if your PSA is high due to cancer or a different cause. A prostate biopsy is the only procedure to diagnose prostate cancer. Even the results of a biopsy may not tell you if your cancer needs to be treated. Slow-growing prostate cancer may not need any treatment other than monitoring, so diagnosing and treating it may cause unnecessary stress or other side effects. Questions to ask your health care provider ??? When should I start prostate cancer screening? What is my risk for prostate cancer? How often do I need screening? What type of screening tests do I need? How do I get my test results? What do my results mean? Do I need treatment? Where to find more information ??? The [place] Cancer Society: www.cancer.org ??? [place] U[employer] Association: www.auanet.org Contact a health care provider if: ??? You have difficulty urinating. ??? You have pain when you urinate or ejaculate. ??? You have blood in your urine or semen. ??? You have pain in your back or in the area of your prostate. Summary ??? Prostate cancer is a common type of cancer in men. The prostate gland (more content not included)...[facility]01-15-2025 History of Present illness Narrative* Bryson Cordoba - 07/26/2024 1:15 PM EST Images from the original note were not included. GENERAL HISTORY AND PHYSICAL: NAME: Lamberto Mendes : 1945 CHIEF COMPLAINT: Right knee osteoarthritis. HISTORY OF PRESENT ILLNESS: This is a 79 y.o. male who presents for a pre-op H&P. Lamberto is a 79-year-old white male referred here today by Dr. Hernandez for evaluation of his right knee. He has had escalating pain and difficulty some three years. He states that this was really brought on or exacerbated by driving down to the [facility] on a daily basis to visit his going through cancer treatment. It did escalate from there and has been progressive. Stairs do bother him. He does havesome gelling. He does have pain if he stands for any length of time. He does have a history of a knee arthroscopy he feels back in the 2002 time frame. He is also been diagnosed with ankylosing spondylitis. PAST MEDICAL HISTORY: Past Medical History: Diagnosis Date Arthritis Cancer (CMS/HCC) Gout Hypertension (CMS/HCC) Rheumatoid arthritis (CMS/HCC) TIA (transient ischemic attack) PAST SURGICAL HISTORY: Past Surgical History: Procedure Laterality Date ACHILLES TENDON SURGERY Bilateral APPENDECTOMY CYST REMOVAL Left Gout L Heel x2 KNEE SURGERY Right PARS PLANA REPAIR OF RETINAL DEATACHMENT ROTATOR CUFF REPAIR Bilateral SMALL INTESTINE SURGERY WRIST SURGERY Right SOCIAL HISTORY: Social History Occupational History Not on file Tobacco Use Smoking status: Former Types: Cigarettes Smokeless tobacco: Not on file Vaping Use Vaping status: Never Used Substance and Sexual Activity Alcohol use: Not Currently Drug use: Never Sexual activity: Defer ALLERGIES: Allergies Allergen Reactions Lorazepam Hives Other Reaction(s): diaphoresis, GI Upset, lethargic, Other: See Comments, Unknown, Vomiting Lethargic and profuse sweats MEDICATIONS: Current Outpatient Medications Medication Instructions allopurinol (Zyloprim) 100 MG tablet See Instructions, TAKE 1 TABLET BY MOUTH DAILY, # 90 tab(s), Refills(s) 0, Pharmacy: [facility] [id number], 168, cm, 04/04/24 10:22:00 EDT, Height/Length Dosing, 81.2, kg, 04/04/24 10:22:00 EDT, Weight Dosing aspirin 325 mg, Daily RT cholecalciferol (VITAMIN D-[address]) 2,000 Units, Daily RT cyanocobalamin (Vitamin B-12) 100 MCG tablet as directed Orally folic acid (Folvite) 1 MG tablet Every 24 hours gabapentin (NEURONTIN) 300 mg losartan (COZAAR) 50 mg, Daily RT Meclizine HCl 25 MG chewable tablet Every 24 hours melatonin 5 MG tablet Every 24 hours meloxicam (Mobic) 15 MG tablet Every 24 hours methotrexate 2.5 MG tablet as directed Orally Douglas 7.5-325 MG tablet Take by mouth omeprazole (PriLOSEC) [address] capsule 1 capsule, Every 24 hours pravastatin (PRAVACHOL) 10 mg tamsulosin (FLOMAX) 0.4 mg tiZANidine (ZANAFLEX) 4 mg verapamil SR (Calan SR) 240 MG ER tablet Every 24 hours REVIEW OF SYSTEMS: The review of systems, history and current medications list are all reviewed today. Vitals: Visit Vitals Ht 5' 6 Wt 179 lb BMI 28.89 kg/m Smoking Status Former BSA 1.94 m PHYSICAL EXAM: His orthopedic exam reveals the patient to be stiff in posture. He is in no acute distress. He answers all questions appropriately. He is very pleasant. He does have some valgus deformity with a little bit of flexibility noted. Tenderness is mostly about the lateral aspect of the knee. His varus and valgus stress testing is stable. Drawer is negative. The calf and thigh are supple. Examination of the left knee reveals a flexible valgus, lateral compartment. Varus and valgus stress testing is stable. He is rigid, mostly on the right side, a little more flexible on the left. The calf and thigh are supple. He does have positive patellar grind bilaterally. There is no detected effusion. Examination of the x-rays AP bilateral weight bearing, bilateral sunrise done here today coupled with films from the [facility] does show severe lateral compartment osteoarthritis of the rightknee with bone on bone change, valgus. 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 He does have some chondrocalcinosis. Surgical History and Physical: GENERAL AND PSYCHOLOGICAL: The patient is alert and oriented for age. HEAD AND E.E.N.T.: The skull is normocephalic. There is no mass or sign of trauma. NECK: The neck is supple. There is good range of motion. There is no mass or adenopathy appreciated. The thyroid is not enlarged. CARDIAC: The heart is regular. There is no murmur or ectopy appreciated. LUNGS: Inspiratory and expiratory excursions are symmetrical. The lung shen are clear in all quadrants. ABDOMEN: The texture is soft. Bowel sounds are heard well in all quadrants. There is no tenderness to palpation. There is no organomegaly appreciated. OSTEOPATHIC AND STRUCTURAL: There is no gross evidence of kyphosis, lordosis, scoliosis, or apparent leg length discrepancy, with no acute tissue texture changes in sitting or standing positions. ASSESSMENT: Right knee osteoarthritis, severe, with history of chronic narcotic use, ankylosing spondylitis, hypertension. PLAN: The findings are discussed. We did outline watchful observation versus conservative care versus surgical intervention in the form of total knee arthroplasty. At this point, and based upon how the pain is effecting his quality of life including his limited standing, walking, he does desire total knee arthroplasty. This does appear to be clinically indicated and cost effective. We will go ahead and set this up for him accordingly. He would like to do this in a timely fashion so he can be ready for the spring time frame and activity. He also has some follow ups medically that he would liketo keep, one is to the [facility] for follow up of his ankylosing spondylitis. We did discuss expectations day of surgery, meeting with anesthesia, teleservices representative in the OR. He does consent to banked blood. The nature of the findings were discussed at length. Total knee arthroplasty was reviewed at length. The patient has exhausted conservative management andhas activities of daily living disruption as dictated above. The patient has attempted significant prolonged conservative care and is starting to have difficulty getting dressed, walking simple distances such as 20-30' and has significant night disruption the majority of the time. The patient has ex hausted all conservative management as well as corticosteroid and Visco supplementation injections on numerous occasions. We discussed total knee replacements with the implants utilized, hospital course, rehab time and commitment, as well as time off work were all reviewed. The risks, benefits, complications, and reasonable expectations of this procedure were discussed. These include but are not limited to continued pain, dissatisfaction, antalgic gait, infection, infection requiring multiple surgeries with IV antibiotics with cement spacer, possible amputation, stiffness, stiffness requiringmanipulation, bleeding, bleeding requiring transfusion, hematoma, wound dehiscence, nerve, vessel or tendon injury, foot drop, anesthesia complications, blood clot, pulmonary embolism, myocardial infarction, arrhythmia, stroke and were all reviewed. The potential for product recall or failurewas discussed. The patient is aware that results cannot be guaranteed. intermediate antibiotic prophylaxis with dental or invasive surgical work was discussed. We had a very lengthy discussion regardingthe pros, cons, risks and benefits and reasonable expectations. The patient voices verbal understanding of which I am personally involved with the informed consent process. Consent forms are signed and witnessed. Numerous questions were answered. Routine testing will be arranged and I will see the patient post operative for repeat x-ray and exam. Patient is discharged in stable condition. Testingis underway. We did discuss the medical risks including cardiopulmonary, stroke, Covid, the flu. [place] plan on seeing him in the postoperative period. We will plan this with the [facility] program in an outpatient scenario. Follow up letter sent to Dr. Hernandez. Sarai Pinedo D.O. Cosigned by Sarai Pinedo DO at 07/31/2024 7:34 AM EST documented in this encounterRipley County Memorial [id number] Hospital Discharge instructions Patient Education 08/13/2023 12:09:22 Urinary Incontinence Urinary Incontinence Urinary incontinence refers to a condition in which a person is unable to control where and when topass urine. A person with this condition will urinate involuntarily. This means that the person urinates when he or she does not mean to. What are the causes? This condition may be caused by: Medicines. Infections. Constipation. Overactive bladder muscles. Weak bladder muscles. Weak pelvic floor muscles. These muscles provide support for the bladder, intestine, and, in women,the uterus. Enlarged prostate in men. The prostate [...] a small amount, or constantly dribbling urine (overflowincontinence). Urinating because you cannot get to the [...] fiber include beans, whole grains, and fresh fruitsand vegetables. Behavioral changes, such as: ?Pelvic floor [...] (electrical nerve stimulation). ?For women, using a nuclear medical tech to prevent urine leaks. This is a small, tampon-like, disposabledevice that is inserted into the urethra. ?Injecting [...] right after experiencing incontinence. General instructions Take [id number] and prescription medicines only as told by [...] important. Where to find more information National [place] of Diabetes and Digestive and Kidney Diseases: www.niddk.nih.gov [place] U[employer] Association: www.urologyhealth.org Contact a health care [...] is unable to control where and when topass urine. This condition may be caused by medicines, infection, weak bladder muscles, weak pelvic floor muscles, enlargement of the prostate (in men), or surgery. Factors such as older age, obesity, and childbirth, menopause, neurological diseases, andchronic coughing may increase your risk for developing [...] provider. Document Revised: 01/31/2021 Document Reviewed: 01/31/2021 [employer] Patient Education 2022 [employer]. Follow Up Care 08/10/2022 16:22:10 With:KHUSHI GAINES, Campos Pickard, URL Address: [address] [place] [address]- When: Unknown [facility] 01-30-2023 Hospital Discharge instructions Patient Education 08/10/2022 08:43:18 Benign Prostatic Hyperplasia Benign Prostatic Hyperplasia Benign prostatic hyperplasia (BPH) is an enlarged prostate gland that is caused by the normal agingprocess and not by cancer. The prostate is [...] urethra. Follow these instructions at home: Take [id number] and prescription medicines only as told by [...] 06/28/2006 Document Revised: 05/23/2019 Document Reviewed: 08/02/2017 [employer] Patient Education 2020 [employer] Follow Up Care 05/12/2021 13:16:43 With:Campos PURI MD, URL Address: [facility] [address], [place] [address]- When: Unknown [facility] evaluation + Plan note Future Appointments Appointment Date:08/13/2023 11:00:00 AM Scheduled Provider:Campos PURI MD Location:[facility] Appointment Type:URO Office Visit Diagnostic Tests Pending * PSA Total 08/10/22 [facility] evaluation + Plan note Future Appointments Appointment Date:09/20/2023 10:20:00 AM Scheduled Provider:Arturo Beach Location:[facility] Appointment Type:FM Open Appointment Date:01/04/2024 11:00:00 AM Scheduled Provider: Location:[facility] Appointment Type:FM Medicare Wellness Subsequent Appointment Date:08/14/2024 11:30:00 AM Scheduled Provider:Campos PURI MD Location:[facility] Appointment Type:URO Office Visit Diagnostic Tests Pending * PSA Total 06/11/24 [facility] evaluation + Plan note Future Appointments Appointment Date:08/14/2024 08:00:00 AM Scheduled Provider: Location[facility] Appointment Type:NM Myocard Spect Multi Rest/Stress-Res Appointment Date:08/14/2024 09:00:00 AM Scheduled Provider: [facility] Type:NM Myocard Spect Multi Rest/Stress - R Appointment Date:08/14/2024 09:30:00 AM Scheduled Provider: Location[facility] Appointment Type:NM Myocard Spect Multi Rest/Stress-Str Appointment Date:08/14/2024 10:30:00 AM Scheduled Provider: Location:[facility] Appointment Type:NM Myocar Spect Multi Rest/Stress - St Appointment Date:08/14/2024 11:30:00 AM Scheduled Provider:Campos PURI MD Location:[facility] Appointment Type:URO Office Visit Appointment Date:08/15/2024 07:45:00 AM Scheduled Provider: Location:[facility] Appointment Type:Surgery FT Appointment Date:09/26/2024 01:40:00 PM Scheduled Provider:Arturo Beach Location:[facility] Appointment Type:FM Open Appointment Date:01/02/2025 11:00:00 AM Scheduled Provider[facility] Medicare Wellness Subsequent Future Scheduled Tests Radiology* NM Myocardial Spect Rest/Stress 1 Day 08/14/24 [facility] Evaluation + Plan note Future Appointments Appointment Date:08/15/2024 07:45:00 AM Scheduled Provider: Location:[facility] Appointment Type:Surgery FT Appointment Date:09/26/2024 01:40:00 PM Scheduled Provider:Arturo Beach [facility] Type:FM Open Appointment Date:01/02/2025 11:00:00 AM Scheduled Provider: [facility] Type:FM Medicare Wellness Subsequent Appointment Date:08/17/2025 08:45:00 AM Scheduled Provider:Campos PURI [facility] Office Visit Diagnostic Tests Pending * PSA Total 08/14/24 [facility] evaluation + Plan note Future Appointments Appointment Date:08/15/2024 07:45:00 AM Scheduled Provider: Location:[facility] Appointment Type:Surgery FT Appointment Date:09/26/2024 01:40:00 PM Scheduled Provider:Arturo Beach [facility] Appointment Type:FM Open Appointment Date:01/02/2025 11:00:00 AM Scheduled Provider: [facility] Type: Medicare Wellness Subsequent Appointment Date:08/17/2025 08:45:00 AM Scheduled Provider:Campos PURI [facility] Office Visit [facility] Evaluation + Plan note Future Appointments Appointment Date:12/20/2024 11:55:00 AM Scheduled Provider: Location:[facility] Appointment Type:Surgery CALL PAT FT Appointment Date:12/22/2024 12:30:00 PM Scheduled Provider: Location:[facility] Appointment Type:Surgery FT Appointment Date:01/02/2025 10:40:00 AM Scheduled Provider:Arturo Beach [facility] Health) Appointment Type:FM Open Appointment Date:01/02/2025 11:00:00 AM Scheduled Provider: Location:[facility] (formerly [facility]) Appointment Type:FM Medicare Wellness Subsequent Appointment Date:01/26/2025 02:00:00 PM Scheduled Provider:James Stanton PA-C [facility] [place] Appoint[facility] Type:Cardiology Follow Up (FT) Appointment Date:08/17/2025 08:45:00 AM Scheduled Provider:Campos PURI MD Location:[facility] Appointment Type:URO Office Visit [facility] Evaluation note* Diagnosis Preoperative testing- Primary Unspecified pre-operative examination Right knee pain, unspecified chronicity Primary osteoarthritis of right knee Chronic narcotic use Ankylosing spondylitis of multiple sites in spine ([facility]/HCC) Essential hypertension, benign ([facility]) Essential hypertension, benign [facility] Diagnosis Primary osteoarthritis of right knee- Primary documented [facility] Diagnosis Primary osteoarthritis of right knee- Primary [facility] Diagnosis Primary osteoarthritis of right knee- Primary documented [facility]* Diagnosis Primary osteoarthritis of right knee- Primary [facility] Diagnosis Primary osteoarthritis of right knee- Primary [facility]* Diagnosis Primary osteoarthritis of right knee- Primary documented [facility]* Diagnosis Primary osteoarthritis of right knee- Primary documented [facility]* Diagnosis Primary osteoarthritis of right knee- Primary [facility]* Diagnosis Primary osteoarthritis of right knee- Primary documented [facility]* Diagnosis S/P total knee replacement, right- Primary Superficial disruption or dehiscence of operation wound, initial encounter documented in this encounter [facility]* Diagnosis Presence of right artificial knee joint- Primary documented in this encounter [facility]* Diagnosis Postoperative wound dehiscence, initial encounter- Primary Presence of right artificial knee joint Preoperative testing Unspecified pre-operative examination documented in this encounter [facility]* Diagnosis Presence of right artificial knee joint- Primary Wrist pain, right Pain in joint, forearm [place] 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 [facility] Narrative No data available for this section [facility] Hospital Discharge instructions No data available for this section [facility] Progress note No data available for this section [facility] reason for visit Narrative* Consultation (Routine) - Authorized Specialty Diagnoses / Procedures Referred By Elsie giraldo Referred To Contact Physical Therapy Diagnoses Primary osteoarthritis of right knee Procedures RI OFFICE/OUTPATIENT NEW HIGH MDM 60 MINUTES Sarai Pinedo DO [address] [place] [address] Phone: tel: fax: Brittany Bass, PT [address] [address] Phone: tel: fax: Referral ID Status Reason Start Date Expiration Date Visits Requested Visits Authorized [id number] Authorized Specialty Services Required 07/26/2024 01/22/2025 10 10 [facility] for visit Narrative* Rehabilitation - Outpatient (Routine) - Authorized Specialty Diagnoses / Procedures Referred By Elsie giraldo Referred To Contact Physical Therapy Diagnoses Aftercare following joint replacement surgery Presence of right artificial knee joint R TKA; Coming from In-Home (Medicare) Procedures RI PHYSICAL THERAPY EVALUATION LOW COMPLEX 20 MINS RI OFFICE/OUTPATIENT NEW HIGH MDM 60 MINUTES EVALUATION Sarai Pinedo DO [address] [place] [address] Phone: tel: fax: Kirti Chang, PT Referral ID Status Reason Start Date Expiration Date V isits Requested Visits Authorized [id number] Authorized 09/05/2024 03/04/2025 30 30 [facility]* Rehabilitation - Outpatient (Routine) - Authorized Specialty Diagnoses / Procedures Referred By Elsie t Referred To Contact Physical Therapy Diagnoses Aftercare following joint replacement surgery Presence of right artificial knee joint R TKA; Coming from In-Home (Medicare) Procedures RI PHYSICAL THERAPY EVALUATION LOW COMPLEX 20 MINS RI OFFICE/OUTPATIENT NEW HIGH MDM 60 MINUTES EVALUATION Sarai Pinedo, DO [address] [place] [place] [address] Phone: tel: fax: Kirti Chang, PT Referral ID Status Reason Start Date Expiration Date V isits Requested Visits Authorized [id number] Authorized 09/05/2024 07/11/2025 30 30 [facility] N[facility]* Rehabilitation - Outpatient (Routine) - Closed Specialty Diagnoses / Procedures Referred By Elsie t Referred To Contact Physical Therapy Diagnoses Aftercare following joint replacement surgery Presence of right artificial knee joint R TKA; Coming from In-Home (Medicare) Procedures RI PHYSICAL THERAPY EVALUATION LOW COMPLEX 20 MINS RI OFFICE/OUTPATIENT NEW HIGH MDM 60 MINUTES EVALUATION Sarai Pinedo, DO [address] [place] [address] Phone: tel: fax: Kirti Chang, PT Referral ID Status Reason Start Date Expiration Date Visits Re quested Visits Authorized [id number] Closed 09/05/2024 07/11/2025 30 30 [facility] Summary Purpose Family History No Family History Records FoundNo Family History Records Found No data available for this section No data available for this section No data available for this section No data available for this section No data available for this section No Family History Records FoundNo Family History Records FoundNo Family History Records FoundNo Family History Records FoundNo Family History Records Found No data available for this section No data available for this section No Family History Records FoundNo Family History Records Found No data available for this section No Family History Records FoundNo Family History Records FoundNo Family History Records FoundNo Family History Records Found Advance Directives No [...] Records FoundNo Status Records FoundNo Status Records FoundNo Status Records FoundNo Status Records FoundNo Status Records FoundNo Status Records FoundNo Status Records FoundNo Status Records FoundNo Status Records FoundNo Status Records FoundNo Status Records FoundNo Status Records Found INFORMATION SOURCE (unrecogn ized section and content) DATE CREATED AUTHOR 05/01/2019 [facility] DATE CREATED AUTHOR AUTHOR'S ORGANIZ ATION 04/23/2022 [facility] DATE CREATED AUTHOR AUTHOR'S ORGANIZ ATION 08/16/2024 [facility] DATE CREATED AUTHOR AUTHOR'S ORGANIZ ATION 08/21/2024 [facility] DATE CREATED AUTHOR AUTHOR'S ORGANIZ ATION 12/19/2024 [facility] DATE CREATED AUTHOR AUTHOR'S ORGANIZ ATION 01/04/2025 [facility] DATE CREATED AUTHOR AUTHOR'S ORGANIZ ATION 01/31/2025 [facility] DATE CREATED AUTHOR AUTHOR'S ORGANIZ ATION 02/16/2025 [facility] DATE CREATED AUTHOR AUTHOR'S ORGANIZ ATION 04/05/2025 [facility] Patient Care team informatio n (unrecognized section and content) Management Development Specialist Relationship Specialty Start Date End Date Reed Hernandez MD [address] [place] [address] PCP - General Family Medicine 12/18/24 Arturo Mayers MD [address] [place] [address] Referring Physician Family Medicine 12/18/24 Management Development Specialist Relationship Specialty Start Date End Date Reed Hernandez MD [address] [place] [id number] PCP - General Family Medicine 12/18/24 Arturo Mayers MD [address] [place] [address] Referring Physician Family Medicine 12/18/24 Management Development Specialist Relationship Specialty Start Date End Date Reed Hernandez MD [address] [place] [id number] PCP - General Family Medicine 12/18/24 Arturo Mayers MD [address] [place] [address] Referring Physician Family Medicine 12/18/24 Management Development Specialist Relationship Specialty Start Date End Date Reed Hernandez MD [address] [place] [id number] PCP - General Family Medicine 12/18/24 Arturo Mayers NP [address] [place] [address] Referring Physician Family Medicine 12/18/24 Management Development Specialist Relationship Specialty Start Date End Date Reed Hernandez MD [address] [place] [address] PCP - General Family Medicine 12/18/24 Arturo Mayers NP [address] [place] [address] [place] [address] Referring Physician Family Medicine 12/18/24 Management Development Specialist Relationship Specialty Start Date End Date Reed Hernandez MD [address] [place] [address] PCP - General Family Medicine 12/18/24 Arturo Mayers NP [address] [place] [address] [phone] Referring Physician Family Medicine 12/18/24 Reason for Visit (unrecogniz ed section and content) Reason Comments Pain Reason Comments Post-op R TKA 08/15/24 Reason Comments Follow-up R TKA 08/15/24 Reason Comments Follow-up R Knee I&D FOR RECORDS PERTAINING TO PATIENTS WHO ARE [...] BE BASED ON THE PRIMARY CLINICAL RECORDS. [facility] [employer] [facility]. provides no warranty or guarantee of the accuracy or completeness of information in this document.
[2025-04-28 05:44] LABS: Basophils Abs Manual 0.00 10^3/uL (0.00-0.10); Basophils Percent Manual 0.0 % (0.2-2.0); Eosinophils Absolute Manual 0.00 10^3/uL (0.00-0.70); Eosinophils Percent Manual 0.0 % (0.9-7.0); Lymphocytes Absolute Manual 0.41 10^3/uL (1.20-3.80); Lymphocytes Percent Manual 3.0 % (20.5-60.0); Monocytes Absolute Manual 0.68 10^3/uL (0.30-0.80); Monocytes Percent Manual 5.0 % (1.7-12.0); Segmented Neut Absolute Manual 12.60 10^3/uL (1.4-6.5); Segmented Neutrophils % Manual 92.0 (43.0-75.0)
[2025-04-28] MEDS: 0.9 % SODIUM CHLORIDE 1,000 ML 999 ML IV (06:02)
[2025-04-28] MEDS: FENTANYL CITRATE/PF 100 MCG/2 ML VIAL 50 MCG IV (06:04)
--- NOTE | 2025-04-28 07:10 | PC.NURSE ---
pt calm and cooperative in bed - does admit to still having some pain and nausea. IVF just finished. informed Dr Farrell of his complaints.
[2025-04-28] MEDS: MORPHINE SULFATE 4 MG/ML VIAL IV (07:19)
--- NOTE | 2025-04-28 07:54 | XR_ITS ---
[address] [address] Patient Name: LAMBERTO MELENDEZ MRN: [id number] date: 1945 Sex: M Assigned Patient Location: ER Current Patient Location: ED.MAIN Accession/Order Number: [id number] Exam Date: 04/28/2025 08:00 Report Date: 04/28/2025 08:29 At the request of: RANDOLPH YI MD Procedure: XR chest 1V XR chest 1V 04/28/2025 8:05 AM SIGNS AND SYMPTOMS: ^NG TUBE PLACEMENT ^Y PROTOCOL: Frontal radiograph of the chest COMPARISON: None FINDINGS: The trachea is midline. The heart and mediastinal structures are within normal limits. An enteric tube is in satisfactory position extending below the inferior margin of the study into the left upper quadrant. The lung parenchyma is clear. The bony thorax is intact. XR/XR chest 1V IMPRESSION: An enteric tube is in satisfactory position extending below the inferior margin of the study into the left upper quadrant. Impression dictated by: Hussain Paredes M.D. 04/28/2025 8:29 AM Dictation Location: [place] [address] Electronically authenticated by: [id number] Y Date: 04/28/2025 08:29
--- NOTE | 2025-04-28 07:55 | PC.NURSE ---
0745 - 16Fr NG tube placement at 65cm in L nare. Pt tolerated well. Placed on low int suction with yellow gastric drainage. Gastric bubbling heard with auscultation immediately after placement, confirmed by another RN. SpO2 remains adequate at 95-96% on RA. XR now at bedside for confirmation xray.
[2025-04-28] MEDS: LABETALOL HCL 20 MG/4 ML SYRINGE 10 MG IVP (08:50)
--- NOTE | 2025-04-28 08:59 | PC.NURSE ---
0833 - a small amount of gastric drainage got onto pts gown - attempted to change it, but pt refused nicely at this time. 500ml of yellow gastric drainage in canister.
--- NOTE | 2025-04-28 09:10 | ED.GENADUL1 ---
HPI HPI - General Adult General Chief complaint: Nausea/Vomiting/Diarrhea Stated complaint: NAUSEA & VOMITING Time Seen by Provider: 04/28/25 05:11 Source: patient Mode of arrival: ambulance History of Present Illness HPI narrative: 80-year-old male presented to the emergency department and was initially seen by Dr. White. Please see his full history and physical exam. Related Data Home Medications ?Medication ?Instructions ?Recorded ?Confirmed allopurinol 100 mg tablet 100 mg PO DAILY 04/28/25 04/28/25 aspirin 81 mg tablet 81 mg PO DAILY 04/28/25 04/28/25 cholecalciferol (vitamin D3) 25 1,000 unit PO BID 04/28/25 04/28/25 mcg (1,000 unit) chewable tablet (Vitamin D3) cyanocobalamin (vitamin B-12) 1,000 mcg PO DAILY 04/28/25 04/28/25 1,000 mcg tablet (Vitamin B-12) folic acid 1 mg tablet 1 mg PO DAILY 04/28/25 04/28/25 gabapentin 300 mg capsule 300 mg PO TID 04/28/25 04/28/25 hydrocodone 7.5 mg-acetaminophen 1 tab PO Q8H 04/28/25 04/28/25 325 mg tablet latanoprost 0.005 % eye drops 1 drp ophthalmic (eye) DAILY 04/28/25 04/28/25 losartan 50 mg tablet (Cozaar) 50 mg PO DAILY 04/28/25 04/28/25 meclizine 25 mg tablet 25 mg PO DAILY PRN dizziness 04/28/25 04/28/25 melatonin 10 mg capsule 10 mg PO DAILY 04/28/25 04/28/25 meloxicam 15 mg tablet 15 mg PO DAILY 04/28/25 04/28/25 methotrexate 2.5 mg/mL oral 2.5 mg PO QWEEK 04/28/25 04/28/25 solution omeprazole 20 mg capsule,delayed 20 mg PO DAILY 04/28/25 04/28/25 release pravastatin 10 mg tablet 20 mg PO DAILY 04/28/25 04/28/25 solifenacin 10 mg tablet 10 mg PO DAILY PRN over active 04/28/25 04/28/25 bladder tamsulosin 0.4 mg capsule (Flomax) 0.4 mg PO HS 04/28/25 04/28/25 verapamil 240 mg tablet,extended 240 mg PO DAILY 04/28/25 04/28/25 release Allergies Allergy/AdvReac Type Severity Reaction Status Date / Time lorazepam (From Ativan) AdvReac Nausea Verified 04/28/25 05:05 [facility] Medical History (Updated 04/28/25 @ 08:19 by Miladis King, RN) GERD (gastroesophageal reflux disease) ?K21.9 - Gastro-esophageal reflux disease without esophagitis (ICD-10) Hypertension ?I10 - Essential (primary) hypertension (ICD-10) Surgical History (Updated 04/28/25 @ 08:19 by Miladis King, RN) History of bowel resection ?Z90.49 - Acquired absence of other specified parts of digestive tract (ICD-10) History of appendectomy ?Z90.49 - Acquired absence of other specified parts of digestive tract (ICD-10) Social History Little interest or pleasure in doing things: not at all Feeling down, depressed, or hopeless: not at all Exam Constitutional Vital Signs, click to edit/add: Last Vital Signs Temp 98.7 F 04/28/25 05:06 Pulse 118 H 04/28/25 05:06 Resp 20 04/28/25 05:06 BP 184/110 H 04/28/25 08:37 Pulse Ox 95 04/28/25 05:06 O2 Del Method Room Air 04/28/25 05:06 Course Vital Signs Vital signs: Vital Signs Temperature 98.7 F 04/28/25 05:06 Pulse Rate 118 H 04/28/25 05:06 Respiratory Rate 20 04/28/25 05:06 Blood Pressure 178/94 H 04/28/25 05:06 Pulse Oximetry 95 04/28/25 05:06 Oxygen Delivery Method Room Air 04/28/25 05:06 Temperature 98.7 F 04/28/25 05:06 Pulse Rate 118 H 04/28/25 05:06 Respiratory Rate 20 04/28/25 05:06 Blood Pressure 184/110 H 04/28/25 08:37 Pulse Oximetry 95 04/28/25 05:06 Oxygen Delivery Method Room Air 04/28/25 05:06 Medical Decision Making MDM Narrative Medical decision making narrative: CT per radiologist shows small bowel obstruction. Case discussed with the general surgeon at [facility] as well as Dr. Newell who is excepting the patient. The patient is stable and agreeable for transfer. NG tube inserted. Patient also given IV labetalol because of elevated blood pressure. Treatment diagnosis and disposition were discussed with the patient. Lab Data Lab results reviewed: Yes I reviewed the patient's lab results Labs: Lab Results 04/28/25 Range/Units 05:15 WBC 13.7 H (4.0-11.0) 10^3/uL RBC 5.07 (4.70-6.10) 10^6/uL Hgb 16.0 (14.0-18.0) g/dL Hct 44.5 (42.0-54.0) % MCV 87.8 (80.0-94.0) fL MCH 31.6 (25.9-34.0) pg MCHC 36.0 H (29.9-35.2) g/dL RDW 13.3 (11.0-15.0) % Plt Count 294 (150-450) 10^3/uL MPV 9.4 L (9.5-13.5) fL Seg Neuts % (Manual) 92.0 H (43.0-75.0) Lymphocytes % (Manual) 3.0 L (20.5-60.0) % Monocytes % (Manual) 5.0 (1.7-12.0) % Eosinophils % (Manual) 0.0 L (0.9-7.0) % Basophils % (Manual) 0.0 L (0.2-2.0) % Neutrophils # (Manual) 12.60 H (1.4-6.5) 10^3/uL Lymphocytes # (Manual) 0.41 L (1.20-3.80) 10^3/uL Monocytes # (Manual) 0.68 (0.30-0.80) 10^3/uL Eosinophils # (Manual) 0.00 (0.00-0.70) 10^3/uL Basophils # (Manual) 0.00 (0.00-0.10) 10^3/uL Sodium 145 (136-145) mmol/L Potassium 3.6 (3.5-5.1) mmol/L Chloride 103 (98-107) mmol/L Carbon Dioxide 22.5 (21.0-32.0) mmol/L Anion Gap 23.1 BUN 29.0 H (7.0-18.0) mg/dL Creatinine 1.14 (0.70-1.30) mg/dL Est GFR ( Amer) >60 (>=60 mL/min/1.73m^2) Est GFR (Non-Af Amer) >60 (>=60 mL/min/1.73m^2) BUN/Creatinine Ratio 25.4 Glucose 153 H (74-106) mg/dL Lactate 1.7 (0.4-2.0) mmol/L Calcium 9.7 (8.5-10.1) mg/dL Total Bilirubin 1.5 H (0.2-1.0) mg/dL AST 15 (15-37) U/L ALT 20 (16-63) U/L Alkaline Phosphatase 78 (46-116) U/L Troponin I High Sens 23.7 (4.0-76.1) pg/mL Total Protein 8.1 (6.4-8.2) g/dL Albumin 4.7 (3.4-5.0) g/dL Globulin 3.4 g/dL Albumin/Globulin Ratio 1.4 Lipase 32.0 (16.0-77.0) U/L Imaging Data CT scan - abdomen: Radiologist's impression: ITS Impressions Chest X-Ray 04/28/25 07:54 IMPRESSION: An enteric tube is in satisfactory position extending below the inferior margin of the study into the left upper quadrant. Impression dictated by: Hussain Paredes M.D. 04/28/2025 8:29 AM Dictation Location: [place] [address] Electronically authenticated by: [id number] Y Date: 04/28/2025 08:29 Critical Care Time Critical Care Time Critical Care Time: Yes Total Critical Care Time: 35 Attestation: Due to the high probability of sudden and clinically significant deterioration in the patient's condition he/she required the highest level of my preparedness to intervene urgently I provided critical care time including documentation time, medication orders and management, reevaluation, vital sign assessment, ordering and reviewing of lab tests, ordering and reviewing of x-ray studies, and admission orders. Aggregate critical care time is 35 minutes including only time during which I was engaged in work directly related to his/her care and did not include time spent treating other patients simultaneously. Discharge Plan Discharge Chief Complaint: Nausea/Vomiting/Diarrhea Clinical Impression: Small bowel obstruction Patient Disposition: [facility] Time of Disposition Decision: 08:06 Discharge Location: [facility] Condition: Fair Mode of Transportation: EMS
== END 2025-04-28 11:18 | disposition short-term general hospital (02) ==
PROVIDERS: Internal Medicine; Emergency Provider Emergency Medicine; PCP Family Medicine
DX: K56.609 Unspecified intestinal obstruction, unspecified as to partial versus complete obstruction (principal); M45.9 Ankylosing spondylitis of unspecified sites in spine
CPT/HCPCS: 36415; 71045; 74177; 80053; 83605; 83690; 84484; 85007; 85027; 96361; 96374; 96375; 96376; 99285; J1920; J2270; J2405; J3010; Q9967